=== PATIENT | female | born 1935 | race Caucasian/White ===

== ENCOUNTER → 2016-04-15 | Outpatient (CLI) | payer BC ==
[~2016-04-15] MED LIST: ASCO10003 PO; ASPI81TA28 PO; B-CO1CAP5 PO; CALC600T57 PO; CHOL1TAB46 PO; ELQ25 PO; GLC/500 PO; LUTE20CA PO; LYSI100010 PO; MAGN400T6 PO; METH1CAP PO; MULT-884 PO; NAPR1TAB9 PO; PHYT100T PO; VITA1TAB4 PO
--- NOTE | 2016-04-15 16:25 | MAMMOGRAPHY REPORT ---
BILATERAL DIGITAL SCREENING MAMMOGRAM WITH CAD: 04/15/2016 CLINICAL HISTORY: Routine screening. Patient has no complaints. TECHNIQUE: Current study was also evaluated with a Computer Aided Detection (CAD) system. Bilatera l CC and MLO views were obtained. COMPARISON: Comparison is made to exams dated: 04/13/2015 mammogram, 03/10/2013 mammogram, 03/11/2014 ma mmogram, 03/09/2012 mammogram, 03/07/2011 mammogram, and 02/07/2010 mammogram - [facility]. BREAST COMPOSITION: The tissue of both breasts is heterogeneously dense, which may obscure small ma sses. FINDINGS: No suspicious masses, calcifications, or areas of architectural distortion are noted in e ither breast. There has been no significant interval change compared to prior exams. Scattered bilat eral benign-appearing calcifications are not significantly changed. IMPRESSION: ACR BI-RADS CATEGORY 2: BENIGN There is no mammographic evidence of malignancy. A 1 year screening mammogram is recommended. The p atient will receive written notification of the results. Approximately 10% of breast cancers are not detected with mammography. A negative mammographic repor t should not delay biopsy if a clinically suggestive mass is present. Natalya Cook M.D. /:04/15/2016 15:17:41 Grant Specialist: Marlys Phelps, [facility] letter sent: Normal 1/2 BI-RADS Code: ACR BI-RADS Category 2: Benign
== END | disposition home or self-care (01) ==
LOC: C.MAMM 14:44
PROVIDERS: ATTEND Obstetrics & Gynecology
DX: Z12.31 Encounter for screening mammogram for malignant neoplasm of breast (principal)

== ENCOUNTER → 2016-04-24 | Outpatient (CLI) | payer BC ==
[2016-04-24 11:01] LABS: ALT/SGPT 15 U/L (12-78); BLOOD UREA NITROGEN 21 mg/dl (7-18); BUN/CREATININE RATIO 19.1 (10-20); CARBON DIOXIDE 26 mmol/L (21-32); CHLORIDE 106 mmol/L (98-107); CHOLESTEROL 217 mg/dl (0-200); GLUCOSE 114 mg/dl (70-99); POTASSIUM 4.1 mmol/L (3.5-5.1); SODIUM 142 mmol/L (136-145)
[2016-04-24 11:11] LABS: ALB/GLOB RATIO 1.1 (0.9-2); ALKALINE PHOSPHATASE 62 U/L (45-117); AST/SGOT 15 U/L (15-37); CHOLESTEROL/HDL RATIO 3.3; HDL CHOLESTEROL 66 mg/dl; LDL CHOLESTEROL CALCULATED 130 mg/dl; TRIGLYCERIDES 104 mg/dl (0-150); VERY LOW DENSITY LIPOPROT CALC 21 mg/dl
[2016-04-24 11:31] LABS: ESTIMATED AVERAGE GLUCOSE 134 mg/dl; HA1C FLAG Normal (Normal)
[2016-04-24 11:31] LABS: RATIO 18.3 mcg/mg (0-30.0)
== END | disposition home or self-care (01) ==
LOC: C.LABBC 07:52
PROVIDERS: ATTEND Family Medicine
DX: E11.9 Type 2 diabetes mellitus without complications (principal)

== ENCOUNTER → 2016-09-24 | Outpatient (CLI) | payer BC ==
[2016-10-02 16:51] LABS: CRYPTOSPORIDIUM AG TC 37213 NOT DETECTED (NOT DETECTED); ISOSPORA+CYCLOSPORA NOT DETECTED (NOT DETECTED); O&P GIARDIA AG NOT DETECTED (NOT DETECTED); O&P SOURCE OTHER-STOOL
== END | disposition home or self-care (01) ==
LOC: C.LABSPEC 08:24
PROVIDERS: ATTEND Physician Assistant
DX: R19.7 Diarrhea, unspecified (principal)

== ENCOUNTER → 2017-04-16 | Outpatient (CLI) | payer BC ==
--- NOTE | 2017-04-17 15:08 | MAMMOGRAPHY REPORT ---
BILATERAL DIGITAL SCREENING MAMMOGRAM TOMOSYNTHESIS WITH CAD: 04/16/2017 CLINICAL HISTORY: Routine screening. Patient has no complaints. TECHNIQUE: Breast tomosynthesis in addition to standard 2D mammography was performed. Current study was also evaluated with a Computer Aided Detection (CAD) system. COMPARISON: Comparison is made to exams dated: 04/15/2016 mammogram, 04/13/2015 mammogram, 03/11/2014 ma mmogram, 03/10/2013 mammogram, 03/09/2012 mammogram, and 03/07/2011 mammogram - [facility] BREAST COMPOSITION: The tissue of both breasts is heterogeneously dense, which may obscure small mas ses. FINDINGS: No suspicious masses, calcifications, or areas of architectural distortion are noted in ei ther breast. There has been no significant interval change compared to prior exams. Scattered bilater al benign-appearing calcifications are not significantly changed. IMPRESSION: ACR BI-RADS CATEGORY 2: BENIGN There is no mammographic evidence of malignancy. A 1 year screening mammogram is recommended. The pa tient will receive written notification of the results. Approximately 10% of breast cancers are not detected with mammography. A negative mammographic report should not delay biopsy if a clinically suggestive mass is present. Natalya Cook M.D. /:04/16/2017 15:28:41 Laboratory Asst: Guillermina HALL)(M), [facility] letter sent: Normal 1/2 BI-RADS Code: ACR BI-RADS Category 2: Benign
== END | disposition home or self-care (01) ==
LOC: C.MAMM 14:53
PROVIDERS: ATTEND Obstetrics & Gynecology
DX: Z12.31 Encounter for screening mammogram for malignant neoplasm of breast (principal)

== ENCOUNTER → 2017-07-24 | Outpatient (CLI) | payer BC ==
--- NOTE | 2017-07-24 10:17 | DIAGNOSTIC IMAGING REPORT ---
CERVICAL SPINE 2 OR 3 VIEWS CLINICAL HISTORY: 81 years-old Female presenting with M53.82 Musculoskeletal disorder involving upper trapezius muscle. TECHNIQUE: Lateral, frontal, open-mouth odontoid, and submental views of the cervical spine were obtained. COMPARISON: None. FINDINGS: Normal cervical lordosis. Vertebral bodies maintain normal height and alignment. The C7 vertebral body is fully visualized. Intervertebral disc heights preserved. Minimal disc osteophyte complexes suggested. Trace posterior bony spurring may be present at C5-6 and C6-7. No radiographic evidence of fracture or subluxation. Lateral masses of C1 articulate normally with C2. The posterior arch of C1 is intact. Normal predental interval. No prevertebral soft tissue swelling. Atherosclerosis of the bilateral carotid bulbs evident. Lung apices clear. Atherosclerosis of the aortic arch. IMPRESSION: 1. No radiographic evidence of acute osseous injury of the cervical spine. 2. Mild multilevel degenerative changes. Electronically signed by: Eamon Curry M.D. 07/24/2017 10:16 AM Dictated Date/Time: 07/24/2017 10:14 AM
== END | disposition home or self-care (01) ==
LOC: C.RADBC 09:56
PROVIDERS: ATTEND Family Medicine
DX: M53.82 Other specified dorsopathies, cervical region (principal)

== ENCOUNTER → 2017-10-13 | Outpatient (CLI) | payer BC ==
--- NOTE | 2017-10-13 17:40 | DIAGNOSTIC IMAGING REPORT ---
THORACIC SPINE 3 VIEWS ROUTINE CLINICAL HISTORY: Mid back pain. No recent trauma. COMPARISON STUDY: No previous studies for comparison. FINDINGS: No thoracic spine fracture is identified. Mild multilevel disc space narrowing and osteophytosis of the thoracic spine. No osseous lesion is identified by radiography. IMPRESSION: 1. No thoracic spine fracture. 2. Mild multilevel disc space narrowing and osteophytosis of the thoracic spine. Electronically signed by: Rosas Gilmore M.D. 10/13/2017 5:39 PM Dictated Date/Time: 10/13/2017 5:38 PM
--- NOTE | 2017-10-13 18:00 | DIAGNOSTIC IMAGING REPORT ---
L-SPINE MIN 4 VIEWS ROUTINE CLINICAL HISTORY: Mid back pain. COMPARISON: None FINDINGS: There is mild levoscoliosis of the lumbar spine. No fracture or suspicious lesion is present. There is marked multilevel disc space narrowing with osteophytosis. There is moderate multilevel facet arthrosis. IMPRESSION: 1. No lumbar spine fracture. 2. Severe multilevel disc space narrowing with osteophytosis and moderate multilevel facet arthrosis of the lumbar spine. Electronically signed by: Rosas Gilmore M.D. 10/13/2017 5:58 PM Dictated Date/Time: 10/13/2017 5:55 PM
== END | disposition home or self-care (01) ==
LOC: C.RADBC 16:14
PROVIDERS: ATTEND Family Medicine
DX: M48.061 Spinal stenosis, lumbar region without neurogenic claudication (principal); M48.04 Spinal stenosis, thoracic region; M47.816 Spondylosis without myelopathy or radiculopathy, lumbar region

== ENCOUNTER 2018-07-13 07:45 | Inpatient (IN) ==
[2018-07-13] MEDS ORDERED: SODIUM CHLORIDE 0.9% 1000ML 1,000 ML IV SCH (08:15)
[2018-07-13] MEDS ORDERED: cefTRIAXone SODIUM 1,000 MG/50 ML BAG IV STA (08:16)
--- NOTE | 2018-07-13 08:27 | XRay Report ---
XR chest 1V portable CLINICAL HISTORY: Confusion. Weakness. COMPARISON STUDY: Chest radiograph December 09, 2015. FINDINGS: Lung volumes are normal. There is no consolidation. There is no evidence for pulmonary warren a. Cardiomediastinal silhouette is stable. IMPRESSION: No acute cardiopulmonary findings. Electronically signed by: Rosas Gilmore M.D. 07/13/2018 8:25 AM
--- NOTE | 2018-07-13 08:47 | CT Scan Report ---
CT head/brain wo con CT DOSE: 614.27 mGy.cm HISTORY: expressive aphasia + fever TECHNIQUE: Multiaxial CT images of the head were performed without the use of intravenous contrast. A dose lowering technique was utilized adhering to the principles of ALARA. Comparison: None. Findings: The paranasal sinuses and mastoid air cells are clear. The calvarium and skull base are int act. The ventricles and sulci are within normal limits. There is no mass, hematoma, midline shift, or acute infarct. Age-related chronic small vessel change. Impression: No acute intracranial abnormality. Age-related chronic small vessel change The above report was generated using voice recognition software. It may contain grammatical, syntax or spelling errors. Electronically signed by: Basilio Alejo M.D. 07/13/2018 8:45 AM
[2018-07-13 09:36] LABS: INR 1.3 (0.9-1.1); Prothrombin Time 12.8 Seconds (9.0-12.0)
[2018-07-13 09:43] LABS: Albumin Level 3.3 gm/dl (3.4-5.0); BUN Creatinine Ratio 17.1 (10-20); Calcium 8.5 mg/dl (8.5-10.1); Creatinine Clr Calc Pharmacy 32.8 ml/min; Est GFR (African American) 46.3; Est GFR (Non-African American) 39.9; Magnesium 1.8 mg/dl (1.8-2.4)
[2018-07-13 09:46] LABS: Appearance Urine Clear (Clear); Bacteria Urine Automated Negative (Negative); Bilirubin Urine Negative (Negative); Color Urine Yellow; Glucose Urine UA Trace (Negative); Ketones Urine 2+ (Negative); Leukocyte Esterase Urine Negative (Negative); Nitrite Urine Negative (Negative); Protein Urine 2+ (Negative); Specific Gravity Urine 1.021 (1.000-1.030); Urobilinogen Urine Negative (Negative); WBC Urine Automated 0 /hpf (0-5); pH Urine 5.5 (4.5-7.5)
[2018-07-13 09:53] LABS: Albumin Globulin Ratio 0.9 (0.9-2); Bilirubin,Total 0.9 mg/dl (0.2-1); Globulin 3.7 gm/dl (2.5-4.0); Troponin I 0.042 ng/ml (0-0.045)
[2018-07-13 09:59] LABS: Basophils # (auto) 0.01 K/uL (0-0.2); Basophils % (auto) 0.2 %; Hematocrit (blood only) 41.4 % (37-47); Immature Granulocytes # (auto) 0.01 K/uL (0.00-0.02); Immature Granulocytes % (auto) 0.2 %; Lymphocytes # (auto) 0.61 K/uL (1.2-3.4); Lymphocytes % (auto) 12.7 %; Mean Corpuscular Hgb Conc 33.8 g/dL (32-36); Mean Corpuscular Volume 86.3 fL (80-100); Mean Platelet Volume 10.4 fL (7.4-10.4); Monocytes # (auto) 0.28 K/uL (0.11-0.59); Monocytes % (auto) 5.8 %; Neutrophils % (auto) 81.1 %; Platelet Count 100 K/uL (130-400); White Blood Count 4.81 K/uL (4.8-10.8)
[2018-07-13 10:02] LABS: Potassium 3.9 mmol/L (3.5-5.1)
[2018-07-13 10:09] LABS: T4 Free Thyroxine 1.38 ng/dl (0.8-1.6)
--- NOTE | 2018-07-13 10:18 | Emergency Department Note ---
Entered by Elmira Villafana acting as a scribe for Carlos Osullivan DO History of Present Illness General Chief complaint: Altered Mental Status Stated complaint: confused/stroke symptoms Time Seen by Provider: 07/13/18 07:51 Source: patient and friends Mode of arrival: EMS Limitations: no limitations History of Present Illness Provider complaint: stroke-like symptoms Onset (ago): hour(s) (this morning) Location: head Pain Consistency: + other (episde) Quality: + other (stroke-like) Associated symptoms: + denies other symptoms (pain), + confusion and + other (trouble speaking, muscle aches, tired) Treatments prior to arrival: other (Eliquis) The patient is an 82 year old female who presents to the ER with complaints of an episode of stroke-like symptoms that began this morning. The patients friend at bedside reports that last night the patient was baseline, but woke up this morning confused and difficulty speaking. The patient states that she is on Eliquis for her history of a-fib. She denies hurting anywhere or nausea. Per friend, the patient has had flu-like symptoms for about 3 days and explains she has been tired and experiencing muscles aches. Home Medications Home Medications Medication Instructions Recorded Confirmed Type acetaminophen ER 650 mg 650 mg PO BID PRN tab 12/16/17 07/13/18 History tablet,extended release apixaban 5 mg tablet 5 mg PO BID 12/16/17 07/13/18 History cholecalciferol (vitamin D3) 5,000 5,000 units PO DAILY 12/16/17 07/13/18 History unit capsule lutein 20 mg tablet 20 mg PO Q2D 12/16/17 07/13/18 History lysine 1,000 mg tablet 1,000 mg PO DAILY 12/16/17 07/13/18 History metoprolol succinate ER 25 mg 25 mg PO DAILY 12/16/17 07/13/18 History tablet,extended release 24 hr vitamin B complex capsule 1 cap PO DAILY 12/16/17 07/13/18 History vitamin E (dl, acetate) 400 unit 400 units PO DAILY 12/16/17 07/13/18 History capsule calcium 600 mg-D3 800 unit-mag11 1 tab PO DAILY 03/30/18 07/13/18 History 50 mo-atia-maeoyc-rashaun-s.borat tablet Allergies Allergy/AdvReac Type Severity Reaction Status Date / Time No Known Allergies Allergy Verified 07/13/18 09:22 Past Med/Surg History Medical History Type 2 diabetes mellitus (Chronic) Atrial fibrillation (Chronic) Osteoarthritis (Chronic) Shingles (Acute) Surgical History History of knee surgery (Resolved) History of tonsillectomy (Resolved) Social History Preferred Language: Bulgarian Communication Ability: Effective Visual Impairment: No Limitations Hearing Ability: Normal Beliefs That Will Affect Care: None marital status: Single Current Living Situation: Significant Other current occupational status: retired 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 Feels Safe at Home: Yes Smoking Status: Never smoker Hx Alcohol Use: Yes Hx Substance Use: No Review of Systems See HPI for pertinent positives & negatives. and A total of 10 systems reviewed and were otherwise negative Physical Exam Vital Signs Vital Signs - 24 hr 07/13/18 07:55 07/13/18 07:59 07/13/18 08:04 Temperature 38 C H Temperature Source Oral Sepsis Recent Fever Within 48 Hours No Sepsis New/Unexplained Change in Mental Status Yes Sepsis Action Taken by Nursing No Action Required Pulse Rate 110 H 123 H Pulse Rate [Apical] Pulse Rhythm Irregular Respiratory Rate 16 Blood Pressure 179/92 H Blood Pressure [Right Arm] Blood Pressure Mean 121 Blood Pressure Mean [Right Arm] Pulse Oximetry 93 93 94 Oxygen Delivery Method Room Air Room Air Nasal Cannula Oxygen Flow Rate 2 07/13/18 08:08 07/13/18 09:58 Temperature Temperature Source Sepsis Recent Fever Within 48 Hours Sepsis New/Unexplained Change in Mental Status Sepsis Action Taken by Nursing Pulse Rate Pulse Rate [Apical] 106 H Pulse Rhythm Respiratory Rate 16 Blood Pressure Blood Pressure [Right Arm] 177/110 H Blood Pressure Mean Blood Pressure Mean [Right Arm] 132 Pulse Oximetry 92 96 Oxygen Delivery Method Room Air Nasal Cannula Nasal Cannula Oxygen Flow Rate 0 2 VITAL SIGNS: were reviewed as above. GENERAL:Non-toxic in appearance. SKIN: Warm dry and pink. HEAD: Normocephalic and atraumatic. OROPHARYNX: Is clear and moist NECK: Supple without lymphadenopathy or meningismus. LUNGS: clear. HEART: Regular rate and rhythm. ABDOMEN: Soft and nontender. EXTREMITIES: Warm and well perfused. NEUROLOGICALLY: Expressive aphasia at times. Otherwise, no focal or neurologic deficits. MUSCULOSKELETAL: Good muscle tone. No evidence of trauma. Course 0753: Past medical records reviewed. The patient was evaluated in room B4B. A complete history and physical examination was performed. 1005: I discussed the patient's case with Dr. Valdez - [facility] Hospitalist. He will evaluate the patient for further management. Administered Medications Discontinued Medications Sodium Chloride (Nss 1000ml) 1,000 mls @ 999 mls/hr IV .[id number] DENZEL Stop: 07/13/18 09:15 Last Infusion: 07/13/18 09:35 Dose: 0 mls/hr Documented by: [id number] Admin: 07/13/18 08:27 Dose: 999 mls/hr Documented by: [id number] Ceftriaxone Sodium (Rocephin) 1,000 mg in 50 mls @ 100 mls/hr IV NOW STA Stop: 07/13/18 08:45 Last Infusion: 07/13/18 10:10 Dose: 0 mls/hr Documented by: [id number] Admin: 07/13/18 09:35 Dose: 100 mls/hr Documented by: [id number] Medical Decision Making Differential Diagnosis Differential Diagnosis includes but is not limited to dehydration, stroke, anemia, hypoglycemia, hyponatremia, hypernatremia, urinary tract infection, pneumonia, bronchitis, sepsis, gastroenteritis, additional abdominal pathology, metabolic abnormalities and infections. Medical Records Attestation: I reviewed the patient's medical records. Home Medications Current Medication List: was personally reviewed by me Laboratory Data Attestation: I reviewed the patient's lab results. Result diagrams: 07/13/18 09:06 07/13/18 09:06 Lab Results 07/13/18 07/13/18 07/13/18 Range/Units 08:24 09:06 09:06 WBC 4.81 (4.8-10.8) K/uL RBC 4.80 (4.2-5.4) M/uL Hgb 14.0 (12.0-16.0) g/dL Hct 41.4 (37-47) % MCV 86.3 (80-100) fL MCH 29.2 (25-34) pg MCHC 33.8 (32-36) g/dL RDW Std Deviation 44.0 (36.4-46.3) fL RDW Coeff of Kobe 14.0 (11.5-14.5) % Plt Count 100 L (130-400) K/uL MPV 10.4 (7.4-10.4) fL Immature Gran % (Auto) 0.2 % Neut % (Auto) 81.1 % Lymph % (Auto) 12.7 % [place] % (Auto) 5.8 % Eos % (Auto) 0.0 % Baso % (Auto) 0.2 % Immature Gran # (Auto) 0.01 (0.00-0.02) K/uL Neut # (Auto) 3.90 (1.4-6.5) K/uL Lymph # (Auto) 0.61 L (1.2-3.4) K/uL [place] # (Auto) 0.28 (0.11-0.59) K/uL Eos # (Auto) 0.00 (0-0.5) K/uL Baso # (Auto) 0.01 (0-0.2) K/uL PT 12.8 H (9.0-12.0) Seconds INR 1.3 H (0.9-1.1) Sodium (136-145) mmol/L Potassium (3.5-5.1) mmol/L Chloride (98-107) mmol/L Carbon Dioxide (21-32) mmol/L Anion Gap (3-11) BUN (7-18) mg/dl Creatinine (0.6-1.2) mg/dl Est Cr Clr Drug Dosing ml/min Est GFR ( Amer) Est GFR (Non-Af Amer) BUN/Creatinine Ratio (10-20) Glucose (70-99) mg/dl POC Lactic Acid Corbin 1.28 (0.90-1.70) mmol/L Calcium (8.5-10.1) mg/dl Magnesium (1.8-2.4) mg/dl Total Bilirubin (0.2-1) mg/dl AST (15-37) U/L ALT (12-78) U/L Alkaline Phosphatase (45-117) U/L Total Creatine Kinase (26-192) U/L Troponin I (0-0.045) ng/ml Total Protein (6.4-8.2) gm/dl Albumin (3.4-5.0) gm/dl Globulin (2.5-4.0) gm/dl Albumin/Globulin Ratio (0.9-2) TSH (0.300-4.500) uIu/ml Free T4 (0.8-1.6) ng/dl Urine Color Urine Appearance (Clear) Urine pH (4.5-7.5) Ur Specific [place] (1.000-1.030) Urine Protein (Negative) Urine Glucose (UA) (Negative) Urine Ketones (Negative) Urine Blood (Negative) Urine Nitrite (Negative) Urine Bilirubin (Negative) Urine Urobilinogen (Negative) Ur Leukocyte Esterase (Negative) Urine WBC (Auto) (0-5) /hpf Urine RBC (Auto) (0-4) /hpf U Hyaline Cast (Auto) (0-5) /lpf U Epithel Cells (Auto) (0-5) /lpf Urine Bacteria (Auto) (Negative) 07/13/18 07/13/18 Range/Units 09:06 09:35 WBC (4.8-10.8) K/uL RBC (4.2-5.4) M/uL Hgb (12.0-16.0) g/dL Hct (37-47) % MCV (80-100) fL MCH (25-34) pg MCHC (32-36) g/dL RDW Std Deviation (36.4-46.3) fL RDW Coeff of Kobe (11.5-14.5) % Plt Count (130-400) K/uL MPV (7.4-10.4) fL Immature Gran % (Auto) % Neut % (Auto) % Lymph % (Auto) % [place] % (Auto) % Eos % (Auto) % Baso % (Auto) % Immature Gran # (Auto) (0.00-0.02) K/uL Neut # (Auto) (1.4-6.5) K/uL Lymph # (Auto) (1.2-3.4) K/uL [place] # (Auto) (0.11-0.59) K/uL Eos # (Auto) (0-0.5) K/uL Baso # (Auto) (0-0.2) K/uL PT (9.0-12.0) Seconds INR (0.9-1.1) Sodium 138 (136-145) mmol/L Potassium 3.9 (3.5-5.1) mmol/L Chloride 105 (98-107) mmol/L Carbon Dioxide 20 L (21-32) mmol/L Anion Gap 13.0 H (3-11) BUN 22 H (7-18) mg/dl Creatinine 1.26 H (0.6-1.2) mg/dl Est Cr Clr Drug Dosing 32.8 ml/min Est GFR ( Amer) 46.3 Est GFR (Non-Af Amer) 39.9 BUN/Creatinine Ratio 17.1 (10-20) Glucose 150 H (70-99) mg/dl POC Lactic Acid Corbin (0.90-1.70) mmol/L Calcium 8.5 (8.5-10.1) mg/dl Magnesium 1.8 (1.8-2.4) mg/dl Total Bilirubin 0.9 (0.2-1) mg/dl AST 46 H (15-37) U/L ALT 29 (12-78) U/L Alkaline Phosphatase 59 (45-117) U/L Total Creatine Kinase 104 (26-192) U/L Troponin I 0.042 (0-0.045) ng/ml Total Protein 7.0 (6.4-8.2) gm/dl Albumin 3.3 L (3.4-5.0) gm/dl Globulin 3.7 (2.5-4.0) gm/dl Albumin/Globulin Ratio 0.9 (0.9-2) TSH 0.203 L (0.300-4.500) uIu/ml Free T4 1.38 (0.8-1.6) ng/dl Urine Color Yellow Urine Appearance Clear (Clear) Urine pH 5.5 (4.5-7.5) Ur Specific [place] 1.021 (1.000-1.030) Urine Protein 2+ H (Negative) Urine Glucose (UA) Trace H (Negative) Urine Ketones 2+ H (Negative) Urine Blood Trace H (Negative) Urine Nitrite Negative (Negative) Urine Bilirubin Negative (Negative) Urine Urobilinogen Negative (Negative) Ur Leukocyte Esterase Negative (Negative) Urine WBC (Auto) 0 (0-5) /hpf Urine RBC (Auto) 0-4 (0-4) /hpf U Hyaline Cast (Auto) 1-5 (0-5) /lpf U Epithel Cells (Auto) 5-10 H (0-5) /lpf Urine Bacteria (Auto) Negative (Negative) Imaging Data Radiologist's Impression: Radiology results as stated below per my review and the radiologist's interpretation: XR chest 1V portable CLINICAL HISTORY: Confusion. Weakness. COMPARISON STUDY: Chest radiograph December 09, 2015. FINDINGS: Lung volumes are normal. There is no consolidation. There is no evidence for pulmonary edema. Cardiomediastinal silhouette is stable. IMPRESSION: No acute cardiopulmonary findings. Electronically signed by: Rosas Gilmore M.D. 07/13/2018 8:[address] head/brain wo con CT DOSE: 614.27 mGy.cm HISTORY: expressive aphasia + fever TECHNIQUE: Multiaxial CT images of the head were performed without the use of intravenous contrast. A dose lowering technique was utilized adhering to the principles of ALARA. Comparison: None. Findings: The paranasal sinuses and mastoid air cells are clear. The calvarium and skull base are intact. The ventricles and sulci are within normal limits. There is no mass, hematoma, midline shift, or acute infarct. Age-related chronic small vessel change. Impression: No acute intracranial abnormality. Age-related chronic small vessel change The above report was generated using voice recognition software. It may contain grammatical, syntax or spelling errors. Electronically signed by: Basilio Alejo M.D. 07/13/2018 8:45 AM ECG Data Attestation: I personally reviewed and interpreted this ECG as follows: Indication: altered mental status Rate (beats per minute): 111 Rhythm: atrial fibrillation Findings: + RBBB and + ST depression (Lateral and inferior) Comparison ECG Date: from (09-DEC-2015) Change: no significant change Blood Pressure Blood Pressure Findings: Elevated blood pressure Blood Pressure Disposition: further management by hospitalist MDM Narrative This is an 82-year-old female who presents to the ED with a chief complaint of expressive a fascia. Patient was last known well last night around 9 or 10 PM. She went to bed around that time. The patient has difficulty with expressing herself that started this morning when she awoke around 7 AM. The friend, who lives with the patient, recognized the symptoms this morning. She was brought in for evaluation. The friend states that she is felt a little achy and tired for the past few days but otherwise has had no other concerning or significant symptoms. The patient is unable to provide any additional information. She does answer some questions normally yes and no. She has difficulty with for mulating a sentence and seems to be somewhat agitated that she cannot find the right words or express them. She has a mild left-sided facial droop on exam otherwise she has no focal deficits. A CT scan of the brain did not show acute process. A chest x-ray was negative for acute disease. Urine did not show obvious cause for fever. She did have a temperature of 38 today. She was tachycardic with a heart rate of 123 when she came in and was hypertensive. Her EKG shows A. fib at a rate of 111 with a right bundle branch block. No sniffing change from her previous. She is on Eliquis chronically for A. fib. Smhml-ik-vosm lactic acid was normal. Chemistry panel was unremarkable. BUN is 22 and creatinine is 1.26. The patient was empirically treated with IV fluids and IV Rocephin. I spoke with the hospitalist, who will see the patient for further inpatient evaluation and care. The patient does not meet criteria for stroke alert or thrombolytics as her last known well was greater than 12 hours ago and she is also on Eliquis. Impression & Plan Expressive aphasia, Fever Discharge Plan Visit Data Chief Complaint: Altered Mental Status Stated Complaint: confused/stroke symptoms ED Provider: Carlos Osullivan Discharge Problem: Expressive aphasia, Fever Patient Disposition: Being Evaluated by Hospitalist Forms Stand Alone Forms: My [facility] Prescriptions Prescriptions: No Action metoprolol succinate 25 mg tablet extended release 24 hr 25 mg PO DAILY RF: 0 apixaban [Eliquis] 5 mg tablet 5 mg PO BID RF: 0 lutein 20 mg tablet 20 mg PO Q2D RF: 0 acetaminophen [Tylenol Arthritis Pain] 650 mg tablet extended release 650 mg PO BID PRN (Reason: Pain) RF: 0 vitamin E (dl, acetate) 400 unit capsule 400 units PO DAILY RF: 0 lysine 1,000 mg tablet 1,000 mg PO DAILY RF: 0 vitamin B complex [Super B-50 Complex] capsule 1 cap PO DAILY RF: 0 cholecalciferol (vitamin D3) 5,000 unit capsule 5,000 units PO DAILY RF: 0 [id number] [Caltrate 600-D Plus Minerals] 600 mg calcium- 800 unit-50 mg tablet 1 tab PO DAILY RF: 0 Referrals Referrals: Carolina Sotelo CRNP [Primary Care Provider] - Discharge Problem: Fever Qualifiers: Fever type: unspecified Qualified Code(s): R50.9 - Fever, unspecified The scribe's documentation has been prepared under my direction and personally reviewed by me in its entirety. I confirm that the note above accurately reflects all work, treatment, procedures, and medical decision making performed by me.
--- NOTE | 2018-07-13 10:50 | History & Physical Report ---
Date of Service July 13, 2018 Assessment & Plan (1) Acute CVA (cerebrovascular accident): Expressive aphasia is the only neurological finding. She has no lateralizing weakness or facial droop at this time. Stroke work-up has been ordered including cardiac echo, brain MRI and MRA. OT, PT, speech therapy assessments requested. Keep n.p.o. for now. She has been on Eliquis up to this point and no further anticoagulation will be ordered at this time. Neurological consultation has been requested. Present on Admission?: Yes (2) Type 2 diabetes mellitus: Diet controlled. Currently n.p.o. Sliding scale insulin requested Present on Admission?: Yes (3) Atrial fibrillation with RVR: She has chronic atrial fibrillation and takes Eliquis. Telemetry. IV metoprolol every 4 hours until she is cleared to take oral metoprolol succinate. Cardiac echo pending Present on Admission?: Yes (4) Do not resuscitate status: History of Present Illness Chief Complaint: Awoke this morning with difficulty with speech Primary Care Provider: VERÓNICA Mortensen 82-year-old female with a history of chronic atrial fibrillation and type 2 diabetes which is diet controlled. She takes Eliquis on a regular basis along with metoprolol succinate. She was fine last evening when she went to bed but when she awoke this morning she noticed difficulty finding the correct words. She was brought to the ED for evaluation. She has a low-grade fever but no sign of infection on chest x-ray. Urine however has not been checked yet. She did receive intravenous Rocephin. Head CT scan is unremarkable. 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 Stroke work-up will be ordered along with brain MRI and MRA. Cardiac echo has been ordered. Urine analysis and urine culture will be ordered. She has requested a DNR status. She will be placed on IV metoprolol until she is cleared to take oral medication. OT, PT, speech therapy has also been ordered. Allergies Allergy/AdvReac Type Severity Reaction Status Date / Time No Known Allergies Allergy Verified 07/13/18 09:22 Home Medications Home Medications Medication Instructions Recorded Confirmed Type acetaminophen ER 650 mg 650 mg PO BID PRN tab 12/16/17 07/13/18 History tablet,extended release apixaban 5 mg tablet 5 mg PO BID 12/16/17 07/13/18 History cholecalciferol (vitamin D3) 5,000 5,000 units PO DAILY 12/16/17 07/13/18 Histo ry unit capsule lutein 20 mg tablet 20 mg PO Q2D 12/16/17 07/13/18 History lysine 1,000 mg tablet 1,000 mg PO DAILY 12/16/17 07/13/18 History metoprolol succinate ER 25 mg 25 mg PO DAILY 12/16/17 07/13/18 History tablet,extended release 24 hr vitamin B complex capsule 1 cap PO DAILY 12/16/17 07/13/18 History vitamin E (dl, acetate) 400 unit 400 units PO DAILY 12/16/17 07/13/18 History capsule calcium 600 mg-D3 800 unit-mag11 1 tab PO DAILY 03/30/18 07/13/18 History 50 dk-rimg-opmjtz-rashaun-s.borat tablet Past Med/Surg History Medical History Type 2 diabetes mellitus (Chronic) Atrial fibrillation (Chronic) Osteoarthritis (Chronic) Shingles (Acute) Surgical History History of knee surgery (Resolved) History of tonsillectomy (Resolved) Social History Preferred Language: Georgian Communication Ability: Effective Visual Impairment: No Limitations Hearing Ability: Normal Beliefs That Will Affect Care: None marital status: Single Current Living Situation: Significant Other current occupational status: retired 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 Feels Safe at Home: Yes Smoking Status: Never smoker Hx Alcohol Use: Yes Hx Substance Use: No Review of Systems Review of Systems: All systems reviewed & are unremarkable except as noted in HPI & below Physical Exam Constitutional: WD/WN, vitals as above Eyes: PERRL, conjunctivae normal, anicteric sclerae ENMT: external ear and nose normal, oropharynx normal Neck: trachea midline, no thyromegaly Respiratory: normal respiratory effort, lungs clear to auscultation Cardiovascular: Mildly tachycardic irregular rhythm. Normal S1 and S2 Gastrointestinal (Abdomen): normal bowel sounds, soft, nontender, no hepatosplenomegaly Musculoskeletal: no cyanosis or clubbing, extremities motor strength 5/5 Skin: no rashes, warm and dry Neurologic: deep tendon reflexes 2+ bilaterally and moves all extremities; no focal motor deficits Speech / Cognition: + abnormal speech Expressive a aphasia Results & Data Vital Signs (Past 12 Hours) Vital Signs Temp Pulse Pulse Resp BP BP Pulse Ox 07/13/18 09:58 106 H 16 177/110 H 96 07/13/18 08:08 92 07/13/18 08:04 94 07/13/18 07:59 38 C H 123 H 16 179/92 H 93 07/13/18 07:55 110 H 93 Laboratory Results 07/13/18 09:06 07/13/18 09:06
[2018-07-13] MEDS ORDERED: PHARMACIST DISCHARGE MED REC CONSULT PRN (11:36)
[2018-07-13] MEDS ORDERED: CARBOHYDRATES FOR HYPOGLYCEMIA PO PRN (12:00)
[2018-07-13] MEDS ORDERED: GLUCOSE 40% GEL 15 GM TUBE PO PRN (12:00)
[2018-07-13] MEDS ORDERED: GLUCOSE 10 TABS/TUBE PO PRN (12:00)
[2018-07-13] MEDS ORDERED: DEXTROSE 50% 50 ML SYRINGE IV PRN (12:00)
[2018-07-13] MEDS ORDERED: GLUCAGON FOR INJ 1 MG VIAL IM PRN (12:00)
[2018-07-13] MEDS: INSULIN ASPART 100 UNITS/ML 3 ML PEN SC SCH ×3 (12:02→21:14)
[2018-07-13] MEDS: SODIUM CHLORIDE 0.9% 1000ML 1,000 ML IV SCH (12:02)
[2018-07-13] MEDS: METOPROLOL TARTRATE 1 MG/ML VIAL IV SCH ×3 (12:11→21:13)
[2018-07-13 12:47] LABS: Estimated Average Glucose 137 mg/dl
--- NOTE | 2018-07-13 13:53 | Magnetic Resonance Report ---
Brain MRA HISTORY: Expressive aphasia TECHNIQUE: 3-D [id number] MRA of the brain was performed without contrast. COMPARISON STUDY: None. FINDINGS: Visualized intracranial internal carotid arteries, distal vertebral arteries, and basilar a rtery are widely patent. There is no significant stenosis, occlusion, or aneurysm seen within the tosha ateral ACAs or MCAs. The right NUCLEAR ENGINEER is patent. Focal moderate to severe stenosis within the proximal l eft NUCLEAR ENGINEER. The distal right vertebral artery is severely hypoplastic. IMPRESSION: 1. Focal moderate to severe stenosis within the proximal left NUCLEAR ENGINEER. 2. The bilateral ACAs and MCAs are widely patent. 3. No aneurysm. Electronically signed by: Carlito Pizano M.D. 07/13/2018 1:52 PM
--- NOTE | 2018-07-13 14:08 | Magnetic Resonance Report ---
MR brain wo con HISTORY: Mental status change Expressive aphasia TECHNIQUE: Multiplanar multisequence MRI of the brain was performed without the use of contrast. COMPARISON STUDY: None. FINDINGS: There are no areas of restricted diffusion to suggest acute infarction. The midline structu res are intact. The paranasal sinuses are clear. The mastoid air cells are clear. The ventricles and sulci are within normal limits for age. There is no mass, hematoma, midline shift. The major vascular flow-voids at the skull base are well maintained. Age-related chronic small vessel changes with mult iple foci of increased signal within the periventricular deep white matter regions. IMPRESSION: 1. No evidence for an acute ischemic event. 2. Considerable chronic small vessel change of the periventricular and deep white matter regions. The above report was generated using voice recognition software. It may contain grammatical, syntax or spelling errors. Electronically signed by: Basilio Alejo M.D. 07/13/2018 2:07 PM
[2018-07-14] MEDS: METOPROLOL TARTRATE 1 MG/ML VIAL IV SCH ×3 (01:29→07:59)
[2018-07-14] MEDS: SODIUM CHLORIDE 0.9% 1000ML 1,000 ML IV SCH ×2 (01:30→14:07)
--- NOTE | 2018-07-14 04:57 | Progress Note ---
Date of Service July 14, 2018 at 4:51 Received a page from the patient's nurse about 4:30 am stating that the patient had the return of just expressive aphasia. In brief chart review, she was admitted earlier yesterday with similar symptoms. The H&P mentions that she had no other lateralizing weakness, though the bedside nurse got report that the patient had some bilateral foot weakness. CT and follow-on MRI were non-acute but she has some proximal left UMBRELLA SUPERVISOR stenosis. At present, patient is awake, has expressive aphasia, but nods her head "no" when asked if she has any current pain. Follows commands to squeeze both hands. Nursing NIHSS at present is a TWO. Plan: - Due to her history of being on apixaban (though last dose was likely over 24 hours ago), will do a repeat stat CT head to look for interval bleeding. - Discussed with Dr. Santana in real-time. Kana Montiel, PGY2 Overnight call Results & Data Vital Signs (Past 12 Hours) Vital Signs Temp Pulse Pulse Resp BP Pulse Ox 07/14/18 04:00 36.8 C 103 H 17 181/93 H 93 07/14/18 01:29 92 H 07/14/18 00:21 92 H 07/13/18 23:13 36.6 C 90 17 154/84 H 93 07/13/18 21:13 102 H 07/13/18 19:57 36.5 C 94 H 19 155/83 H 97
[2018-07-14 06:08] LABS: Hematocrit (blood only) 41.8 % (37-47); Hemoglobin 14.3 g/dL (12.0-16.0); Mean Corpuscular Hgb Conc 34.2 g/dL (32-36); Mean Corpuscular Volume 84.8 fL (80-100); RDW Coefficient of Variation 13.9 % (11.5-14.5); Red Blood Count 4.93 M/uL (4.2-5.4); White Blood Count 4.03 K/uL (4.8-10.8)
--- NOTE | 2018-07-14 06:28 | CT Scan Report ---
CT head/brain wo con CLINICAL HISTORY: A fascia. Evaluate for hemorrhage. COMPARISON STUDY: MRI dated 07/13/2018, head CT dated 07/13/2018 TECHNIQUE: Axial CT of the brain is performed from the vertex to the skull base. IV contrast was not administered for this examination. A dose lowering technique was utilized adhering to the principles of ALARA. CT DOSE: 921.40 mGy.cm FINDINGS: No intra or extra-axial mass lesions are visualized. There is no CT evidence of acute cortical infarc tion. There is no evidence of midline shift. There is no acute hemorrhage. No calvarial fractures ar e visualized. There are patchy white matter hypodensities likely on a small vessel basis. There is no evidence of pathologic ventricular dilatation. There is no evidence of acute sinusitis IMPRESSION: No acute intracranial findings Electronically signed by: Hayden Frias M.D. 07/14/2018 6:26 AM
[2018-07-14 06:44] LABS: Calcium 8.4 mg/dl (8.5-10.1); Est GFR (Non-African American) 49.2; Potassium 3.4 mmol/L (3.5-5.1)
[2018-07-14 06:46] LABS: Basophils # (auto) 0.02 K/uL (0-0.2); Basophils % (auto) 0.5 %; Echinocytes 1+; Lymphocytes # (auto) 0.69 K/uL (1.2-3.4); Lymphocytes % (auto) 17.1 %; Mean Platelet Volume 10.7 fL (7.4-10.4); Monocytes # (auto) 0.32 K/uL (0.11-0.59); Monocytes % (auto) 7.9 %; Neutrophils % (auto) 74.5 %; Platelet Count 77 K/uL (130-400)
[2018-07-14] MEDS: INSULIN ASPART 100 UNITS/ML 3 ML PEN SC SCH ×4 (08:02→21:23)
--- NOTE | 2018-07-14 08:52 | Neurology Consultation ---
Date of Consultation July 14, 2018 Assessment & Plan (1) Expressive aphasia: The patient has acute onset language problems consistent with expressive aphasia, some confusion likely from an acute encephalopathy, and on neurologic examination some left facial droop. She has some generalized weakness and fatigue. Overall I favor acute encephalopathy and neurologic issues secondary to her rapid ventricular rate (pulse up to 190) accompanied by significant hypertension. MRI of the brain showed no acute stroke. The moderately stenotic left posterior cerebral artery should not be related to or causing any of her symptoms listed above. She has no meningeal signs or focal signs on exam except for the left facial droop. This may be old. MRI also shows mild to moderate old cerebral ischemia of a chronic nonspecific nature. (2) Atrial fibrillation with RVR: Patient has chronic atrial fibrillation with a very rapid ventricular rate, not adequately controlled currently. (3) Hypertension: Patient has significant hypertension, not adequately controlled. Recommendations: 1. Control heart rate with beta-blockers as you are doing. 2. Control blood pressure a meeting for a mean arterial pressure approximately 100 for now. 3. Continue anticoagulant for atrial fibrillation. 4. Because of the old small vessel ischemic changes and stenotic left posterior cerebral artery noted on MRA of the head, I recommend adding 81 milligram aspirin tablet daily 5. Physical, occupational, and speech therapy consult. Increase activity as able. 6. Consider carotid ultrasound and echocardiogram. Overall, I spent a total of 90 minutes with this case including review of records, review of MRI films, direct evaluation the patient at bedside, and discussion of the case with the patient at bedside, clinical staff at bedside, and Narcisa SANCHES, regarding differential diagnosis and treatment options. History of Present Illness Reason for Consultation: Patient is an 82-year-old, who was asked to see the request of Dr. Valdez, for neurologic consultation regarding acute onset speech issues and confusion, question stroke versus other Requesting Physician: Dr. Valdez Attending Physician: Godfrey Multani MD History of Present Illness Patient has a history of hypertension, type 2 diabetes, and atrial fibrillation with rapid ventricular rate. Over several days prior to admission she was ill with flu-like symptoms. She was described as normal mental status and neurologic functioning late evening of July 12. She woke up the morning of July 13 and was somewhat confused and had speech problems. Her significant other felt that there was left-sided facial droop and left-sided weakness. She arrived to the emergency room on July 13 at 0759, with a temperature 38.0, pulse 123, blood pressure 179/72, and O2 saturation 93 percent. In the ER her exam was described as expressive aphasia, with no focal neurologic deficits. CBC was unremarkable except for a low platelet count. Chem profile showed a glucose of 115 a mildly elevated BUN and creatinine but was otherwise unremarkable. TSH and T4 were normal. Urinalysis was unremarkable. Chest x-ray showed no acute findings. CT scan of the head showed no acute finding as well but there was old ischemia noted. Fasting lipid profile revealed a cholesterol of 141, triglycerides of 126, LDL of 76. In the emergency room, she was given 1 gram of IV Rocephin empirically because of her low-grade fever. MRI of the brain revealed [id number] generalized atrophy and old small vessel ischemia. There were no acute findings. MR angiography of the head showed a moderate stenosis of the left posterior cerebral artery. According to the nurse who took care of her yesterday and today she has had some fluctuating neurologic status. At times she is very lucid and conversational and other time she is hesitant with word-finding problems and some confusion. This may correlate with times of elevated blood pressure but I cannot be entirely certain of this. This morning, around 0430 she was noted to be confused with word-finding problems. Blood pressure was elevated at 166/116 and later on was 175/102. Her pulse is been rapid, as much as 190 (around 0430). She has no complaint of pain or headache. She feels tired and weak in general. She has no new vision problems or numbness in the extremities. She was incontinent of urine this morning but she does not have this at. She may be a little bit short of breath too. Allergies Allergy/AdvReac Type Severity Reaction Status Date / Time No Known Allergies Allergy Verified 07/13/18 09:22 Home Medications Home Medications Medication Instructions Recorded Confirmed Type acetaminophen ER 650 mg 650 mg PO BID PRN tab 12/16/17 07/13/18 History tablet,extended release apixaban 5 mg tablet 5 mg PO BID 12/16/17 07/13/18 History cholecalciferol (vitamin D3) 5,000 5,000 units PO DAILY 12/16/17 07/13/18 History unit capsule lutein 20 mg tablet 20 mg PO Q2D 12/16/17 07/13/18 History lysine 1,000 mg tablet 1,000 mg PO DAILY 12/16/17 07/13/18 History metoprolol succinate ER 25 mg 25 mg PO DAILY 12/16/17 07/13/18 History tablet,extended release 24 hr vitamin B complex capsule 1 cap PO DAILY 12/16/17 07/13/18 History vitamin E (dl, acetate) 400 unit 400 units PO DAILY 12/16/17 07/13/18 History capsule calcium 600 mg-D3 800 unit-mag11 1 tab PO DAILY 03/30/18 07/13/18 History 50 cx-yyvl-qxjsza-rashaun-s.borat tablet Patient History Medical History Do not resuscitate status Atrial fibrillation with RVR (Chronic) Acute CVA (cerebrovascular accident) (Acute) Type 2 diabetes mellitus (Chronic) Atrial fibrillation (Chronic) Osteoarthritis (Chronic) Shingles (Acute) Surgical History History of knee surgery (Resolved) History of tonsillectomy (Resolved) History of cataract surgery Family History Mother , Mother age 103 with dementia, hypertension, and diabetes Dementia Hypertension Diabetes Father , Father age 78 of heart issues Diabetes Coronary heart disease Social History Preferred Language: Guinean Communication Ability: Effective Visual Impairment: No Limitations Hearing Ability: Normal Manager Search Engine Required: No Beliefs That Will Affect Care: None marital status: Single Current Living Situation: Significant Other current occupational status: retired 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 Other Information That Helps Us Care for You: No Feels Safe at Home: Yes Safety Concerns: Feels Safe At This Time Smoking Status: Never smoker Do You Dip or Chew Tobacco: No Second Hand Exposure: No Tobacco Cessation Education Requested by Patient: No Hx Alcohol Use: Yes (Very occasionally) Hx Substance Use: No Review of Systems Constitutional: + fatigue and + weakness; no fever Eyes: no diplopia, no eye pain and no worsening vision Ear, Nose, Mouth, Throat: no ear pain, no tinnitus, no hearing loss and no dysphagia Respiratory: + dyspnea; no cough and no wheezing Cardiovascular: + dyspnea at rest; no chest pain and no palpitations Gastrointestinal: no abdominal pain, no nausea and no vomiting Genitourinary: + urinary incontinence; no dysuria and no urinary frequency Musculoskeletal: no back pain, no neck pain, no radicular pain, no myalgia, no muscle weakness and no muscle atrophy Integumentary: no rash and no lesions Neurologic: + generalized weakness, + abnormal speech and + confusion; no gait abnormality, no falls, no localized weakness, no tingling, no numbness, no tremor(s), no abnormal movements, no dizziness, no headache(s), no behavioral changes and no memory loss Psychiatric: no depression, no abnormal sleep pattern, no anxiety, no difficulty concentrating, no confusion and no hallucinations Endocrine: + fatigue; no flushing Hematologic / Lymphatic: no easy bleeding and no easy bruising Allergy / Immunological: no urticaria Physical Exam Physical Exam: The patient is right-handed. The patient is awake, alert, and attentive for most of the evaluation. She got sleepy towards the end of the physical examination. Speech revealed some mild dysarthria but had more prominent expressive aphasia with some word-finding difficulty. She knew what she wanted to say but could not get the words out correctly. She could name objects and colors. She had some trouble following multiple step commands but did fairly well with simple one-step commands. She knew the month and the president. She did not know the day or date, year, or her age (84). She has some hesitancy when she thinks and tries to answer follow commands. Attention and concentration are reason although. Mood and affect are normal and appropriate. General appearance and grooming are normal. Short and long-term memory are decreased The discs are sharp with positive venous pulsations bilaterally. There are no exudates, hemorrhages, or blood vessel changes seen. Pupils are 3 mm bilaterally and reactive to light. Extraocular eye muscles are intact without nystagmus. Visual acuity and visual coronel seem normal grossly to confrontation. There are no deficits to sensation in the face in all 3 distributions of the fifth cranial nerve bilaterally. Corneal reflexes are positive bilaterally. Right facial strength was normal. She had a droop that was fixed to the corner of the mouth on the left not moving was smile. Forehead moved normally bilaterally. Hearing seems intact grossly to voice and finger rub bilaterally. Palate moves well without asymmetry. There is normal sternocleidomastoid and trapezius (shoulder shrug) strength bilaterally. Tongue is midline with good strength bilaterally. Neck has a full range of motion without discomfort. There are no cervical bruits bilaterally. There are no cranial or ocular bruits. Heart is without murmur. There is a regular rhythm and rate. Cervical, thoracic, and lumbar spine are nontender to palpation. Gait was not tested but stance sitting up in bed was reasonable. With outstretched arms there is no obvious drift. There are no resting, postural, or action tremors. There is no ataxia with finger to nose testing. There is mild decrease facility in the hands. No other abnormal involuntary movements are noted. Motor strength is 5/5 diffusely in the arms bilaterally including deltoids, biceps, triceps, brachioradialis, wrist flexors and extensors, welding specialist, and intrinsic hand muscles. Motor strength is 5/5 diffusely in the legs bilaterally including hip flexors, quadriceps, hamstrings, gastrocnemius, tibialis anterior, tibialis posterior, and Peroneii muscles bilaterally. Toe extensors are normal and there is good bulk in the extensor digitorum brevis muscles bilaterally. I did not detect any motor asymmetry. The limbs have good tone without rigidity or spasticity. There is no atrophy not ed in the muscles. Muscle bulk is normal, there is no tenderness to palpation, no myotonia to percussion, and no fasciculations seen. Sensory examination is intact to touch and pin throughout all 4 limbs diffusely. Reflexes are 1/4 in the biceps, triceps, brachioradialis, quadriceps, and Achilles tendons bilaterally. Toes are downgoing with plantar stimulation bilaterally. Peripheral pulses are present and of normal quality distally in all 4 limbs. There is no peripheral edema noted in the limbs. Results & Data Vital Signs (Past 12 Hours) Vital Signs Temp Pulse Pulse Resp BP BP Pulse Ox 07/14/18 07:59 117 H 175/102 H 07/14/18 07:43 36.7 C 98 H 22 175/102 H 95 07/14/18 05:44 122 H 166/116 H 94 07/14/18 04:52 111 H 07/14/18 04:00 36.8 C 103 H 17 181/93 H 93 07/14/18 01:29 92 H 07/14/18 00:21 92 H 07/13/18 23:13 36.6 C 90 17 154/84 H 93 07/13/18 21:13 102 H Diagnostic Findings MR brain wo con HISTORY: Mental status change Expressive aphasia TECHNIQUE: Multiplanar multisequence MRI of the brain was performed without the use of contrast. COMPARISON STUDY: None. FINDINGS: There are no areas of restricted diffusion to suggest acute inf arction. The midline structures are intact. The paranasal sinuses are clear. The mastoid air cells are clear. The ventricles and sulci are within normal limits for age. There is no mass, hematoma, midline shift. The major vascular flow- voids at the skull base are well maintained. Age-related chronic small vessel changes with multiple foci of increased signal within the periventricular deep white matter regions. IMPRESSION: 1. No evidence for an acute ischemic event. 2. Considerable chronic small vessel change of the periventricular and deep white matter regions. The above report was generated using voice recognition software. It may contain grammatical, syntax or spelling errors. Electronically signed by: Basilio Alejo M.D. 07/13/2018 2:07 PM
[2018-07-14] MEDS ORDERED: ASPIRIN 81 MG ECTAB PO SCH (09:00)
[2018-07-14] MEDS ORDERED: NON-FORMULARY MEDICATION (Acetaminophen [Tylenol Arthritis Pain] 650 MG) PO PRN (09:40)
[2018-07-14] MEDS ORDERED: APIXABAN 5 MG TABLET PO SCH ×3 (09:45→21:00)
[2018-07-14] MEDS ORDERED: NON-FORMULARY MEDICATION (Lutein 20 MG) PO SCH (09:45)
[2018-07-14] MEDS ORDERED: METOPROLOL SUCC 25MG EXT REL TAB PO SCH (10:15)
--- NOTE | 2018-07-14 10:16 | Hospitalist Progress Note ---
Date of Service July 14, 2018 Assessment & Plan (1) Atrial fibrillation with RVR: Took a dose of home Eliquis - will hold for tonight as patient may need a lumbar puncture given her symptoms Doubled patient's Toprol dose this morning to 50 mg as her partner gave her 25 mg of home Toprol and then I repeated the dose due to continued elevated heart rate and blood pressures. Discussed with cardiology and will continue with metoprolol 50 mg daily. Echo with EF 60%, no WMA Continue prn metoprolol 5 mg IV Cardiology consulted (2) Metabolic encephalopathy: No stroke on MRI Patient with worsening symptoms this evening as well as low grade fever. Platelets were decreasing this morning to the 70s which may indicate viral infection. 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 Patient had recent tick bite. Lyme was negative. Will order peripheral smear to look for anaplasmosis as well as the antibody and ehrlichiosis which are reference labs. Blood cultures are pending as is a urine culture. Procalcitonin and sed rate. Patient's kidney function precludes repeat MRI with contrast. May need to perform lumbar picture given OUTER DIAMETER GRINDER TOOL picture so will hold Eliquis and ASA. Carotid doppler: Approximately 50-69% stenosis within the proximal right internal carotid artery due to the moderate calcified plaque. No significant stenosis within the left carotid arteries. Per neurology - may be secondary to hypertensive urgency and RVR. See above. Recommends ASA but will hold for possible lumbar puncture. (3) Hypertensive urgency: Systolic BPs in the 170s. Increased lopressor as above. Cardiology consult (4) Type 2 diabetes mellitus: Diet controlled. SS, bsgs ac & hs (5) DVT prophylaxis: Eliquis DNR Prolonged visit: I spent 70 minutes bedside with this patient from 0930 to 1030 and again from 1700 - 1710. Subjective Ms. Estrella's partner Natalia is bedside and is very angry concerning her partner's continued altered mental status. I did spend a significant period of time at bedside explaining the plan of care. Patient is having a headache but denies photophobia or neck stiffness or pain. She is frustrated by her confusion. Per her partner, her weakness appears improved today but she still notices a facial droop. Natalia did administer patient's home metoprolol and Eliquis this morning. I strongly dissuaded her against doing this again explaining that I am unable to do my job if I don't know what is actually happening with the patient and she vocalized her understanding. Heart rates were as high as 150s over the evening but have improved to the 90s to 1teens with 50 mg po Toprol this morning. Upon revisiting the patient in the evening, aphasia is markedly worse. She continues to have left facial droop Review of Systems Review of Systems: All systems reviewed & are unremarkable except as noted in HPI & below Physical Exam Physical Exam: General: no distress Eyes: normal inspection, PERLL Respiratory: chest non tender, clear to auscultation, normal breath sounds, no respiratory distress, no accessory muscle use Cardiac: regular rate and rhythm, no rub or gallop, no murmur, no edema, no jvd GI/: active bowel sounds, no abd pain or tenderness, soft, non distended Extremities: normal range of motion, non tender Neuro/Psych: alert and oriented x 3, anxious mood and affect, aphasic, left facial droop but other CN II - XII intact, strength equal bilaterally, no drift. Skin: normal color, dry Results & Data Vital Signs (Past 12 Hours) Vital Signs Temp Pulse Pulse Resp BP BP Pulse Ox 07/14/18 09:22 153/84 H 07/14/18 07:59 117 H 175/102 H 07/14/18 07:43 36.7 C 98 H 22 175/102 H 95 07/14/18 05:44 122 H 166/116 H 94 07/14/18 04:52 111 H 07/14/18 04:00 36.8 C 103 H 17 181/93 H 93 07/14/18 01:29 92 H 07/14/18 00:21 92 H 07/13/18 23:13 36.6 C 90 17 154/84 H 93
[2018-07-14] MEDS ORDERED: ACETAMINOPHEN 500 MG TAB PO PRN (10:19)
[2018-07-14] MEDS ORDERED: METOPROLOL TARTRATE 1 MG/ML VIAL IV PRN (10:20)
[2018-07-14] MEDS ORDERED: POTASSIUM CHLORIDE 10 MEQ TABCR PO STA (10:29)
--- NOTE | 2018-07-14 11:07 | Ultrasound Report ---
BILATERAL CAROTID DOPPLER STUDY HISTORY: aphasia COMPARISON: None. TECHNIQUE: Real-time, grayscale, and color Doppler sonography of the carotid arteries was performed. Imaging reviewed in the transverse and longitudinal planes. All measurements were calculated based on NASCET criteria. FINDINGS: Antegrade flow is seen in the bilateral vertebral arteries. The brachial pressures are hemodynamically similar. Moderate calcified plaque within the bilateral carotid bifurcations. The peak systolic velocity within the right ICA is 134 cm/s. The right systolic ratio is 2.8. The peak systolic velocity within the left ICA is 105 cm/s. The left systolic ratio is 1.9. There is also mild stenosis within the right external carotid artery. IMPRESSION: 1. Approximately 50-69% stenosis within the proximal right internal carotid artery due to the moderat e calcified plaque. 2. No significant stenosis within the left carotid arteries. Electronically signed by: Carlito Pizano M.D. 07/14/2018 11:05 AM
[2018-07-14 11:08] LABS: Lyme Ab IgG w/WB Rflx Negative (Negative); Lyme Ab IgM w/WB Rflx Negative (Negative)
[2018-07-14] MEDS: METOPROLOL SUCC 25MG EXT REL TAB PO SCH (11:21)
--- NOTE | 2018-07-14 11:48 | Cardiology Consultation ---
Date of Consultation July 14, 2018 Assessment & Plan (1) Atrial fibrillation with RVR: Pt is an 82yo female with a PMHx of DM (diet controlled), systolic HTN and atrial fibrillation diagnosed in 2016 and rate controlled with metoprolol succinate 25mg, who presented with dysarthria. Pt has been anticoagulated with Eliquis 5mg BID. Atrial Fibrillation w RVR -Pt with sustained HR as high as 150s. -Pt has historically been controlled with metoprolol succinate 25mg XR. -An increase in dosage to 50mg can be done for rate control, and titrated up as needed for further rate control. -Continue current anticoagulation of Eliquis 5mg BID as no evidence of stroke on imaging and dysarthria likely unrelated to stroke/TIA pathology (so not considered medication failure). -Pt has historically had a normal HR while in atrial fibrillation. Tachycardia currently likely due to an unknown factor (no evidence of UTI, no URI though pt admits to a cough before admission, no volume loss through diarrhea before admission, etc.) -Advise treating the tachycardia as above. Increased Troponins -Pt with mild troponin increase to 0.061. -Likely related to heart strain due to pt's tachycardia and atrial fibrillation presentation. -While elevated, pt had no ACS symptoms such as chest pain, tachycardia, SOB, etc so no concern for KS. -Advise continuing to monitor. Supervising Physician Co-Signing Physician Notes Patient seen and examined: She denies chest pain or shortness of breath. She denies palpitations. Expressive aphasia noted. Exam notable for: Cardiac: Irregularly irregular. No murmurs. Lungs: Clear to auscultation bilaterally Extremities: No edema. Assessment and plan: (1) Atrial fibrillation with RVR: Heart rate has improved with increased dose of metoprolol succinate. Underlying cause for tachycardia uncertain as she has been very well rate controlled in the past for her permanent atrial fibrillation on metoprolol succinate 25 mg daily. Infectious workup has been negative thus far. TSH is slightly low however free T4 is normal. Recommend metoprolol succinate 50 mg daily for now and can further titrate as necessary. This will also hopefully improve her blood pressure. Continue anticoagulation for stroke risk reduction. She has been on Eliquis 5 mg twice daily chronically and states that she has been compliant. No stroke on MRI. Current Visit: Yes Chronic (2) Hypertension: Increased beta-laura as above. Can further titrate beta-laura and or add another antihypertensive agent as necessary. Cannot rule out that hypertension is playing a role in her expressive aphasia. Titrate medications as appropriate to improve her blood pressure. Current Visit: Yes None (3) Expressive aphasia: No stroke on MRI. She has not had sustained heart rates in the 190s when reviewing telemetry. Etiology for expressive aphasia is not certain at this time. Neurology is following. Current Visit: Yes Acute (4) Fever: Workup as per primary service. She has defervesced. Current Visit: Yes Acute (5) Carotid artery stenosis: Neurology has recommended aspirin 81 mg daily due to her neurologic symptoms. Recommend high-intensity statin therapy given evidence of atherosclerotic disease. (6) Elevated troponin: Likely secondary to rapid ventricular response with hypertension from myocardial strain. Could also be due to neurologic event. She did not present with acute coronary syndrome and do not recommend ischemic evaluation at this time. (7) Disposition: Dr. Sifuentes, her primary activities director scouting, can resume her cardiology care tomorrow. Plan of care discussed with Narcisa Hatfield, of the primary hospitalist service. Thank you for allowing me to participate in the care of your patient. Please call for any other questions or concerns. Sincerely, Tony Chung M.D. History of Present Illness Reason for Consultation: Atrial fibrillation with rvr and increased troponins Requesting Physician: Dr. Steven Valdez Attending Physician: Godfrey Multani MD History of Present Illness Pt is an 82yo female with a PMHx of DM, systolic HTN and rate controlled atrial fibrillation diagnosed in 2015, who presented with dysarthria. Pt is known to the cardiology office and was last seen in Jan 2018. Her atrial fibrillation was being treated with metoprolol succinate 25mg XR daily with Eliquis 5mg BID anticoagulation. She had been doing well on the medication regimen up until this presentation. Pt has some difficulty communicating verbally currently and additional history is obtained from her partner who is present at bedside. They state that she came down yesterday morning with the inability to speak and attempts that consisted of incomprehensible words. Pt states she had no subjective sensation of palpitations or SOB. Denies those symptoms currently as well. Allergies Allergy/AdvReac Type Severity Reaction Status Date / Time No Known Allergies Allergy Verified 07/13/18 09:22 Home Medications Home Medications Medication Instructions Recorded Confirmed Type acetaminophen ER 650 mg 650 mg PO BID PRN tab 12/16/17 07/13/18 History tablet,extended release apixaban 5 mg tablet 5 mg PO BID 12/16/17 07/13/18 History cholecalciferol (vitamin D3) 5,000 5,000 units PO DAILY 12/16/17 07/13/18 History unit capsule lutein 20 mg tablet 20 mg PO Q2D 12/16/17 07/13/18 History lysine 1,000 mg tablet 1,000 mg PO DAILY 12/16/17 07/13/18 History metoprolol succinate ER 25 mg 25 mg PO DAILY 12/16/17 07/13/18 History tablet,extended release 24 hr vitamin B complex capsule 1 cap PO DAILY 12/16/17 07/13/18 History vitamin E (dl, acetate) 400 unit 400 units PO DAILY 12/16/17 07/13/18 History capsule calcium 600 mg-D3 800 unit-mag11 1 tab PO DAILY 03/30/18 07/13/18 History 50 yj-xonc-yasymt-rashaun-s.borat tablet Patient History Medical History Do not resuscitate status Atrial fibrillation with RVR (Chronic) Type 2 diabetes mellitus (Chronic) Atrial fibrillation (Chronic) Osteoarthritis (Chronic) Shingles (Acute) Surgical History History of knee surgery (Resolved) History of tonsillectomy (Resolved) History of cataract surgery Social History Preferred Language: Filipino Communication Ability: Impaired Visual Impairment: No Limitations Hearing Ability: Normal Program Director Required: No Beliefs That Will Affect Care: None marital status: Single Current Living Situation: Significant Other current occupational status: retired 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 Other Information That Helps Us Care for You: No Feels Safe at Home: Yes Safety Concerns: Feels Safe At This Time Smoking Status: Never smoker Do You Dip or Chew Tobacco: No Second Hand Exposure: No Tobacco Cessation Education Requested by Patient: No Hx Alcohol Use: Yes (Very occasionally) Hx Substance Use: No Review of Systems Respiratory: + cough; no dyspnea Cardiovascular: no chest pain, no palpitations, no lightheadedness and no edema Gastrointestinal: no nausea, no vomiting and no diarrhea/loose stools Physical Exam Physical Exam: General: Alert, oriented. Speech halting at times. HEENT: NC/AT. Chest: Nontender to palpation. CV: Irregularly irregular rate, no murmurs appreciated Resp: Breath sounds clear bilaterally with some fine crackles noted in left base while laying on side, no increased effort of breathing. Abdomen:Soft, nontender. Extremities: No edema in lower extremities bilaterally. DP pulses palpable. Results & Data Vital Signs (Past 12 Hours) Vital Signs Temp Pulse Pulse Resp BP BP Pulse Ox 07/14/18 11:24 36.9 C 112 H 22 167/89 H 95 07/14/18 09:22 153/84 H 07/14/18 07:59 117 H 175/102 H 07/14/18 07:43 36.7 C 98 H 22 175/102 H 95 07/14/18 05:44 122 H 166/116 H 94 07/14/18 04:52 111 H 07/14/18 04:00 36.8 C 103 H 17 181/93 H 93 07/14/18 01:29 92 H 07/14/18 00:21 92 H Laboratory Results Laboratory Results - last 24 hr 07/13/18 07/13/18 07/13/18 09:16 15:17 20:02 WBC RBC Hgb Hct MCV MCH MCHC RDW Std Deviation RDW Coeff of Kobe Plt Count MPV Immature Gran % (Auto) Neut % (Auto) Lymph % (Auto) [place] % (Auto) Eos % (Auto) Baso % (Auto) Immature Gran # (Auto) Neut # (Auto) Lymph # (Auto) [place] # (Auto) Eos # (Auto) Baso # (Auto) Platelet Estimate Echinocytes Sodium Potassium Chloride Carbon Dioxide Anion Gap BUN Creatinine Est Cr Clr Drug Dosing Est GFR ( Amer) Est GFR (Non-Af Amer) BUN/Creatinine Ratio Glucose POC Glucose 147 H 135 H Calcium Troponin I Triglycerides Cholesterol LDL Cholesterol, Calc VLDL Cholesterol, Calc HDL Cholesterol Cholesterol/HDL Ratio Lyme Disease IgG Ab Negative Lyme Disease IgM Ab Negative 07/14/18 07/14/18 07/14/18 05:23 05:23 05:23 WBC 4.03 L RBC 4.93 Hgb 14.3 Hct 41.8 MCV 84.8 MCH 29.0 MCHC 34.2 RDW Std Deviation 43.0 RDW Coeff of Kobe 13.9 Plt Count 77 L MPV 10.7 H Immature Gran % (Auto) 0.0 Neut % (Auto) 74.5 Lymph % (Auto) 17.1 [place] % (Auto) 7.9 Eos % (Auto) 0.0 Baso % (Auto) 0.5 Immature Gran # (Auto) 0.00 Neut # (Auto) 3.00 Lymph # (Auto) 0.69 L [place] # (Auto) 0.32 Eos # (Auto) 0.00 Baso # (Auto) 0.02 Platelet Estimate Decreased L Echinocytes 1+ Sodium 136 Potassium 3.4 L Chloride 105 Carbon Dioxide 19 L Anion Gap 12.0 H BUN 19 H Creatinine 1.06 Est Cr Clr Drug Dosing 39.0 Est GFR ( Amer) 57.0 Est GFR (Non-Af Amer) 49.2 BUN/Creatinine Ratio 18.0 Glucose 141 H POC Glucose Calcium 8.4 L Troponin I 0.061 H* Triglycerides 126 Cholesterol 141 LDL Cholesterol, Calc 76 VLDL Cholesterol, Calc 25 HDL Cholesterol 40 Cholesterol/HDL Ratio 4 Lyme Disease IgG Ab Lyme Disease IgM Ab 07/14/18 07/14/18 07:16 11:28 WBC RBC Hgb Hct MCV MCH MCHC RDW Std Deviation RDW Coeff of Kobe Plt Count MPV Immature Gran % (Auto) Neut % (Auto) Lymph % (Auto) [place] % (Auto) Eos % (Auto) Baso % (Auto) Immature Gran # (Auto) Neut # (Auto) Lymph # (Auto) [place] # (Auto) Eos # (Auto) Baso # (Auto) Platelet Estimate Echinocytes Sodium Potassium Chloride Carbon Dioxide Anion Gap BUN Creatinine Est Cr Clr Drug Dosing Est GFR ( Amer) Est GFR (Non-Af Amer) BUN/Creatinine Ratio Glucose POC Glucose 175 H 136 H Calcium Troponin I Triglycerides Cholesterol LDL Cholesterol, Calc VLDL Cholesterol, Calc HDL Cholesterol Cholesterol/HDL Ratio Lyme Disease IgG Ab Lyme Disease IgM Ab Medications Administered Home Medications acetaminophen ER 650 mg tablet,extended release 650 mg PO BID PRN tab 12/16/17 [History Confirmed 07/13/18] apixaban 5 mg tablet 5 mg PO BID 12/16/17 [History Confirmed 07/13/18] cholecalciferol (vitamin D3) 5,000 unit capsule 5,000 units PO DAILY 12/16/17 [History Confirmed 07/13/18] lutein 20 mg tablet 20 mg PO Q2D 12/16/17 [History Confirmed 07/13/18] lysine 1,000 mg tablet 1,000 mg PO DAILY 12/16/17 [History Confirmed 07/13/18] metoprolol succinate ER 25 mg tablet,extended release 24 hr 25 mg PO DAILY 12/16/17 [History Confirmed 07/13/18] vitamin B complex capsule 1 cap PO DAILY 12/16/17 [History Confirmed 07/13/18] vitamin E (dl, acetate) 400 unit capsule 400 units PO DAILY 12/16/17 [History Confirmed 07/13/18] calcium 600 mg-D3 800 unit-mag11 50 us-vcst-zzffnq-rashaun-s.borat tablet 1 tab PO DAILY 03/30/18 [History Confirmed 07/13/18] Active Medications Acetaminophen (Tylenol) 1,000 mg PO Q6H PRN PRN Reason: Pain Stop: 08/13/18 10:18 Apixaban (Eliquis) [address] [facility] Stop: 08/13/18 20:59 Aspirin (Ecotrin Ectab) [address] [facility] Stop: 08/13/18 08:59 Last Admin: 07/14/18 10:22 Dose: 81 mg Documented by: Dextrose (Dextrose 50%) 25 - 50 ml IV UD PRN; Protocol PRN Reason: Hypoglycemia Protocol Stop: 08/12/18 11:59 Glucagon (Glucagen) 1 mg IM UD PRN; Protocol PRN Reason: Hypoglycemia Protocol Stop: 08/12/18 11:59 Glucose (Glucose 40%) 15 - 30 gm PO UD PRN; Protocol PRN Reason: Hypoglycemia Protocol Stop: 08/12/18 11:59 Glucose (Dex4 Glucose) 4 - 8 tabs PO UD PRN; Protocol PRN Reason: Hypoglycemia Protocol Stop: 08/12/18 11:59 Sodium Chloride (Nss 1000ml) 1,000 mls @ 80 mls/hr IV .[id number] [facility] Stop: 08/12/18 11:35 Last Admin: 07/14/18 14:07 Dose: 80 mls/hr Documented by: Insulin Aspart (Novolog Flexpen) [address] [facility] Stop: 08/12/18 11:35 Last Admin: 07/14/18 12:32 Dose: Not Given Documented by: Metoprolol Succinate (Toprol Xl) [address] [facility] Stop: 08/14/18 08:59 Last Admin: 07/14/18 11:21 Dose: 25 mg Documented by: Metoprolol Tartrate (Lopressor) 5 mg IV Q4H PRN PRN Reason: tachycardia Stop: 08/13/18 10:19 Miscellaneous (Carbohydrates For Hypoglycemia) 15 - 30 gm PO UD PRN PRN Reason: Hypoglycemia Treatment Stop: 08/12/18 11:59 Miscellaneous Information (Pharmacist Discharge Med Rec Consult) 1 ea N/A UD PRN PRN Reason: Consult Stop: 08/12/18 11:35 Vitamin D (Vitamin D3) 5,[address] [facility] Stop: 08/14/18 08:59
--- NOTE | 2018-07-14 15:37 | Cardiology Consultation ---
Date of Consultation July 14, 2018 Assessment & Plan (1) Atrial fibrillation with RVR: Pt is an 82yo female with a PMHx of DM (diet controlled), systolic HTN and atrial fibrillation diagnosed in 2016 and rate controlled with metoprolol succinate 25mg, who presented with dysarthria. Pt has been anticoagulated with Eliquis 5mg BID. Atrial Fibrillation w RVR -Pt with sustained HR as high as 150s. -Pt has historically been controlled with metoprolol succinate 25mg XR. -An increase in dosage to 50mg can be done for rate control, and titrated up as needed for further rate control. -Continue current anticoagulation of Eliquis 5mg BID as no evidence of stroke on imaging and dysarthria likely unrelated to stroke/TIA pathology (so not considered medication failure). -Pt has historically had a normal HR while in atrial fibrillation. Tachycardia currently likely due to an unknown factor (no evidence of UTI, no URI though pt admits to a cough before admission, no volume loss through diarrhea before admission, etc.) -Advise treating the tachycardia as above. Increased Troponins -Pt with mild troponin increase to 0.061. -Likely related to heart strain due to pt's tachycardia and atrial fibrillation presentation. -While elevated, pt had no ACS symptoms such as chest pain, tachycardia, SOB, etc so no concern for PR. -Advise continuing to monitor. Supervising Physician Co-Signing Physician Notes Patient seen and examined: She denies chest pain or shortness of breath. She denies palpitations. Expressive aphasia noted. Exam notable for: Cardiac: Irregularly irregular. No murmurs. Lungs: Clear to auscultation bilaterally Extremities: No edema. Assessment and plan: (1) Atrial fibrillation with RVR: Heart rate has improved with increased dose of metoprolol succinate. Underlying cause for tachycardia uncertain as she has been very well rate controlled in the past for her permanent atrial fibrillation on metoprolol succinate 25 mg daily. Infectious workup has been negative thus far. TSH is slightly low however free T4 is normal. Recommend metoprolol succinate 50 mg daily for now and can further titrate as necessary. This will also hopefully improve her blood pressure. Continue anticoagulation for stroke risk reduction. She has been on Eliquis 5 mg twice daily chronically and states that she has been compliant. No stroke on MRI. Current Visit: Yes Chronic (2) Hypertension: Increased beta-laura as above. Can further titrate beta-laura and or add another antihypertensive agent as necessary. Cannot rule out that hypertension is playing a role in her expressive aphasia. Titrate medications as appropriate to improve her blood pressure. Current Visit: Yes None (3) Expressive aphasia: No stroke on MRI. She has not had sustained heart rates in the 190s when reviewing telemetry. Etiology for expressive aphasia is not certain at this time. Neurology is following. Current Visit: Yes Acute (4) Fever: Workup as per primary service. She has defervesced. Current Visit: Yes Acute (5) Carotid artery stenosis: Neurology has recommended aspirin 81 mg daily due to her neurologic symptoms. Recommend high-intensity statin therapy given evidence of atherosclerotic disease. (6) Elevated troponin: Likely secondary to rapid ventricular response with hypertension from myocardial strain. Could also be due to neurologic event. She did not present with acute coronary syndrome and do not recommend ischemic evaluation at this time. (7) Disposition: Dr. Sifuentes, her primary water taxi driver, can resume her cardiology care tomorrow. Plan of care discussed with Narcisa Hatfield, of the primary hospitalist service. Thank you for allowing me to participate in the care of your patient. Please call for any other questions or concerns. Sincerely, Tony Chung M.D. History of Present Illness Reason for Consultation: Atrial fibrillation with RVR and increased troponins Attending Physician: Godfrey Multani MD History of Present Illness Pt is an 82yo female with a PMHx of DM, systolic HTN and rate controlled atrial fibrillation diagnosed in 2016, who presented with dysarthria. Pt is known to the cardiology office and was last seen in Jan 2018. Her atrial fibrillation was being treated with metoprolol succinate 25mg XR daily with Eliquis 5mg BID anticoagulation. She had been doing well on the medication regimen up until this presentation. Pt has some difficulty communicating verbally currently and additional history is obtained from her partner who is present at bedside. They state that she came down yesterday morning with the inability to speak and attempts that consisted of incomprehensible words. Pt states she had no subjective sensation of palpitations or SOB. Denies those symptoms currently as well. Allergies Allergy/AdvReac Type Severity Reaction Status Date / Time No Known Allergies Allergy Verified 07/13/18 09:22 Home Medications Home Medications Medication Instructions Recorded Confirmed Type acetaminophen ER 650 mg 650 mg PO BID PRN tab 12/16/17 07/13/18 History tablet,extended release apixaban 5 mg tablet 5 mg PO BID 12/16/17 07/13/18 History cholecalciferol (vitamin D3) 5,000 5,000 units PO DAILY 12/16/17 07/13/18 History unit capsule lutein 20 mg tablet 20 mg PO Q2D 12/16/17 07/13/18 History lysine 1,000 mg tablet 1,000 mg PO DAILY 12/16/17 07/13/18 History metoprolol succinate ER 25 mg 25 mg PO DAILY 12/16/17 07/13/18 History tablet,extended release 24 hr vitamin B complex capsule 1 cap PO DAILY 12/16/17 07/13/18 History vitamin E (dl, acetate) 400 unit 400 units PO DAILY 12/16/17 07/13/18 History capsule calcium 600 mg-D3 800 unit-mag11 1 tab PO DAILY 03/30/18 07/13/18 History 50 hy-gqhe-czgjjd-rashaun-s.borat tablet Patient History Medical History Do not resuscitate status Atrial fibrillation with RVR (Chronic) Type 2 diabetes mellitus (Chronic) Atrial fibrillation (Chronic) Osteoarthritis (Chronic) Shingles (Acute) Surgical History History of knee surgery (Resolved) History of tonsillectomy (Resolved) History of cataract surgery Social History Preferred Language: Albanian Communication Ability: Impaired Visual Impairment: No Limitations Hearing Ability: Normal Metal Hanging Supervisor Required: No Beliefs That Will Affect Care: None marital status: Single Current Living Situation: Significant Other current occupational status: retired 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 Other Information That Helps Us Care for You: No Feels Safe at Home: Yes Safety Concerns: Feels Safe At This Time Smoking Status: Never smoker Do You Dip or Chew Tobacco: No Second Hand Exposure: No Tobacco Cessation Education Requested by Patient: No Hx Alcohol Use: Yes (Very occasionally) Hx Substance Use: No Review of Systems Respiratory: + cough; no dyspnea Cardiovascular: no chest pain, no palpitations, no lightheadedness and no edema Gastrointestinal: no nausea, no vomiting and no diarrhea/loose stools Physical Exam Physical Exam: General: Alert, oriented. HEENT: NC/AT. Chest: Nontender to palpation. CV: Irregularly irregular rate, No murmurs appreciated Resp: Breath sounds clear bilaterally except for some fine crackles appreciated in left lower base. Abdomen: Soft, nontender. Extremities: No edema in lower extremities bilaterally. DP pulses palpable bilaterally. Results & Data Vital Signs (Past 12 Hours) Vital Signs Temp Pulse Pulse Resp BP BP Pulse Ox 07/14/18 11:24 36.9 C 112 H 22 167/89 H 95 07/14/18 09:22 153/84 H 07/14/18 07:59 117 H 175/102 H 07/14/18 07:43 36.7 C 98 H 22 175/102 H 95 07/14/18 05:44 122 H 166/116 H 94 07/14/18 04:52 111 H 07/14/18 04:00 36.8 C 103 H 17 181/93 H 93 Laboratory Results Laboratory Results - last 24 hr 07/13/18 07/13/18 07/13/18 09:16 15:17 20:02 WBC RBC Hgb Hct MCV MCH MCHC RDW Std Deviation RDW Coeff of Kobe Plt Count MPV Immature Gran % (Auto) Neut % (Auto) Lymph % (Auto) [place] % (Auto) Eos % (Auto) Baso % (Auto) Immature Gran # (Auto) Neut # (Auto) Lymph # (Auto) [place] # (Auto) Eos # (Auto) Baso # (Auto) Platelet Estimate Echinocytes Sodium Potassium Chloride Carbon Dioxide Anion Gap BUN Creatinine Est Cr Clr Drug Dosing Est GFR ( Amer) Est GFR (Non-Af Amer) BUN/Creatinine Ratio Glucose POC Glucose 147 H 135 H Calcium Troponin I Triglycerides Cholesterol LDL Cholesterol, Calc VLDL Cholesterol, Calc HDL Cholesterol Cholesterol/HDL Ratio Lyme Disease IgG Ab Negative Lyme Disease IgM Ab Negative 07/14/18 07/14/18 07/14/18 05:23 05:23 05:23 WBC 4.03 L RBC 4.93 Hgb 14.3 Hct 41.8 MCV 84.8 MCH 29.0 MCHC 34.2 RDW Std Deviation 43.0 RDW Coeff of Kobe 13.9 Plt Count 77 L MPV 10.7 H Immature Gran % (Auto) 0.0 Neut % (Auto) 74.5 Lymph % (Auto) 17.1 [place] % (Auto) 7.9 Eos % (Auto) 0.0 Baso % (Auto) 0.5 Immature Gran # (Auto) 0.00 Neut # (Auto) 3.00 Lymph # (Auto) 0.69 L [place] # (Auto) 0.32 Eos # (Auto) 0.00 Baso # (Auto) 0.02 Platelet Estimate Decreased L Echinocytes 1+ Sodium 136 Potassium 3.4 L Chloride 105 Carbon Dioxide 19 L Anion Gap 12.0 H BUN 19 H Creatinine 1.06 Est Cr Clr Drug Dosing 39.0 Est GFR ( Amer) 57.0 Est GFR (Non-Af Amer) 49.2 BUN/Creatinine Ratio 18.0 Glucose 141 H POC Glucose Calcium 8.4 L Troponin I 0.061 H* Triglycerides 126 Cholesterol 141 LDL Cholesterol, Calc 76 VLDL Cholesterol, Calc 25 HDL Cholesterol 40 Cholesterol/HDL Ratio 4 Lyme Disease IgG Ab Lyme Disease IgM Ab 07/14/18 07/14/18 07:16 11:28 WBC RBC Hgb Hct MCV MCH MCHC RDW Std Deviation RDW Coeff of Kobe Plt Count MPV Immature Gran % (Auto) Neut % (Auto) Lymph % (Auto) [place] % (Auto) Eos % (Auto) Baso % (Auto) Immature Gran # (Auto) Neut # (Auto) Lymph # (Auto) [place] # (Auto) Eos # (Auto) Baso # (Auto) Platelet Estimate Echinocytes Sodium Potassium Chloride Carbon Dioxide Anion Gap BUN Creatinine Est Cr Clr Drug Dosing Est GFR ( Amer) Est GFR (Non-Af Amer) BUN/Creatinine Ratio Glucose POC Glucose 175 H 136 H Calcium Troponin I Triglycerides Cholesterol LDL Cholesterol, Calc VLDL Cholesterol, Calc HDL Cholesterol Cholesterol/HDL Ratio Lyme Disease IgG Ab Lyme Disease IgM Ab Medications Administered Home Medications acetaminophen ER 650 mg tablet,extended release 650 mg PO BID PRN tab 12/16/17 [History Confirmed 07/13/18] apixaban 5 mg tablet 5 mg PO BID 12/16/17 [History Confirmed 07/13/18] cholecalciferol (vitamin D3) 5,000 unit capsule 5,000 units PO DAILY 12/16/17 [History Confirmed 07/13/18] lutein 20 mg tablet 20 mg PO Q2D 12/16/17 [History Confirmed 07/13/18] lysine 1,000 mg tablet 1,000 mg PO DAILY 12/16/17 [History Confirmed 07/13/18] metoprolol succinate ER 25 mg tablet,extended release 24 hr 25 mg PO DAILY 12/16/17 [History Confirmed 07/13/18] vitamin B complex capsule 1 cap PO DAILY 12/16/17 [History Confirmed 07/13/18] vitamin E (dl, acetate) 400 unit capsule 400 units PO DAILY 12/16/17 [History Confirmed 07/13/18] calcium 600 mg-D3 800 unit-mag11 50 tg-mker-osiqte-rashaun-s.borat tablet 1 tab PO DAILY 03/30/18 [History Confirmed 07/13/18] Active Medications Acetaminophen (Tylenol) 1,000 mg PO Q6H PRN PRN Reason: Pain Stop: 08/13/18 10:18 Apixaban (Eliquis) 5 mg PO BID [facility] Stop: 08/13/18 20:59 Aspirin (Ecotrin Ectab) 81 mg PO QAM [facility] Stop: 08/13/18 08:59 Last Admin: 07/14/18 10:22 Dose: 81 mg Documented by: Dextrose (Dextrose 50%) 25 - 50 ml IV UD PRN; Protocol PRN Reason: Hypoglycemia Protocol Stop: 08/12/18 11:59 Glucagon (Glucagen) 1 mg IM UD PRN; Protocol PRN Reason: Hypoglycemia Protocol Stop: 08/12/18 11:59 Glucose (Glucose 40%) 15 - 30 gm PO UD PRN; Protocol PRN Reason: Hypoglycemia Protocol Stop: 08/12/18 11:59 Glucose (Dex4 Glucose) 4 - 8 tabs PO UD PRN; Protocol PRN Reason: Hypoglycemia Protocol Stop: 08/12/18 11:59 Sodium Chloride (Nss 1000ml) 1,000 mls @ 80 mls/hr IV .[id number] [facility] Stop: 08/12/18 11:35 Last Admin: 07/14/18 14:07 Dose: 80 mls/hr Documented by: Insulin Aspart (Novolog Flexpen) 0 units SC ACHS [facility] Stop: 08/12/18 11:35 Last Admin: 07/14/18 12:32 Dose: Not Given Documented by: Metoprolol Succinate (Toprol Xl) 25 mg PO DAILY [facility] Stop: 08/14/18 08:59 Last Admin: 07/14/18 11:21 Dose: 25 mg Documented by: Metoprolol Tartrate (Lopressor) 5 mg IV Q4H PRN PRN Reason: tachycardia Stop: 08/13/18 10:19 Miscellaneous (Carbohydrates For Hypoglycemia) 15 - 30 gm PO UD PRN PRN Reason: Hypoglycemia Treatment Stop: 08/12/18 11:59 Miscellaneous Information (Pharmacist Discharge Med Rec Consult) 1 ea N/A UD PRN PRN Reason: Consult Stop: 08/12/18 11:35 Vitamin D (Vitamin D3) 5,000 units PO DAILY [facility] Stop: 08/14/18 08:59
--- NOTE | 2018-07-14 15:38 | Cardiology Consultation ---
Date of Consultation July 14, 2018 Assessment & Plan (1) Atrial fibrillation with RVR: Heart rate has improved with increased dose of metoprolol succinate. Underlying cause for tachycardia uncertain as she has been very well rate controlled in the past for her permanent atrial fibrillation on metoprolol succinate 25 mg daily. Infectious workup has been negative thus far. TSH is slightly low however free T4 is normal. Recommend metoprolol succinate 50 mg daily for now and can further titrate as necessary. This will also hopefully improve her blood pressure. Continue anticoagulation for stroke risk reduction. She has been on Eliquis 5 mg twice daily chronically and states that she has been compliant. No stroke on MRI. (2) Hypertension: Increased beta-laura as above. Can further titrate beta-laura and or add another antihypertensive agent as necessary. Cannot rule out that hypertension is playing a role in her expressive aphasia. Titrate medications as appropriate to improve her blood pressure. (3) Expressive aphasia: No stroke on MRI. She has not had sustained heart rates in the 190s when reviewing telemetry. Etiology for expressive aphasia is not certain at this time. Neurology is following. (4) Fever: Workup as per primary service. She has defervesced. (5) Carotid artery stenosis: Neurology has recommended aspirin 81 mg daily due to her neurologic symptoms. Recommend high-intensity statin therapy given evidence of atherosclerotic disease. Disposition: Dr. Sifuentes, her primary lance crewmember, can resume her cardiology care tomorrow. Plan of care discussed with Narcisa Hatfield, of the primary hospitalist service. Thank you for allowing me to participate in the care of your patient. Please call for any other questions or concerns. Sincerely, Tony Chung M.D. History of Present Illness Reason for Consultation: Atrial fibrillation with rapid ventricular response and elevated troponin Requesting Physician: Narcisa Hatfield Attending Physician: Godfrey Multani MD History of Present Illness Ms. Estrella is a pleasant 82-year-old female with a history significant for permanent atrial fibrillation and hypertension who was hospitalized for expressive aphasia. Her primary lance crewmember is Dr. Sifuentes. Dr. Sifuentes has been following her for atrial fibrillation which is thought to be permanent. She has been maintained on metoprolol succinate 25 mg daily for rate control strategy and her heart rate has been well controlled in the office for quite some time. She has also been Eliquis 5 mg twice daily. She states that she has not missed any doses of her beta-laura or anticoagulation therapy recently. Yesterday morning after she woke up, she noted that she had difficulty finding her words. She has been experiencing a dry cough but no fevers or chills at home. She was found have a low-grade fever here with a temperature of 30 C. She denies any other focal neurologic deficits. She did have generalized weakness and had difficulty walking down the stairs stating that she was barely able to get down stairs due to the weakness. Her partner, Natalia, called EMS to bring her to the hospital. She was found to have elevated heart rate with her atrial fibrillation and has been elevated for most of the hospital stay. Initially, oral medications were held but she did receive a total of 50 mg of metoprolol earlier today. There are some documented reports that her heart rate was in the 190s however when reviewing telemetry, her heart rate was up to the 150s without sustained rates in the 190s. When she was seen today, her heart rate was in the 90s. She denies palpitations at any time. She denies chest pain, shortness of breath, syncope, near-syncope, edema, or bleeding such as melena, hematochezia, or hematuria. She has undergone several imaging studies and was found to have focal moderate to severe stenosis within the proximal left [employer] [employer] on brain MRA, but no stroke on brain MRI. Review of systems: As above. Review of systems otherwise negative/unremarkable. Family history: Father at the age of 88. Social history: She denies tobacco. Occasional alcohol. She has never been . She lives with her partner, Natalia. She has no children. She is unaccompanied at the time of today's visit. Allergies Allergy/AdvReac Type Severity Reaction Status Date / Time No Known Allergies Allergy Verified 07/13/18 09:22 Home Medications Home Medications Medication Instructions Recorded Confirmed Type acetaminophen ER 650 mg 650 mg PO BID PRN tab 12/16/17 07/13/18 History tablet,extended release apixaban 5 mg tablet 5 mg PO BID 12/16/17 07/13/18 History cholecalciferol (vitamin D3) 5,000 5,000 units PO DAILY 12/16/17 07/13/18 History unit capsule lutein 20 mg tablet 20 mg PO Q2D 12/16/17 07/13/18 History lysine 1,000 mg tablet 1,000 mg PO DAILY 12/16/17 07/13/18 History metoprolol succinate ER 25 mg 25 mg PO DAILY 12/16/17 07/13/18 History tablet,extended release 24 hr vitamin B complex capsule 1 cap PO DAILY 12/16/17 07/13/18 History vitamin E (dl, acetate) 400 unit 400 units PO DAILY 12/16/17 07/13/18 History capsule calcium 600 mg-D3 800 unit-mag11 1 tab PO DAILY 03/30/18 07/13/18 History 50 uv-xwyb-wdxaxb-rashaun-s.borat tablet Patient History Medical History Do not resuscitate status Atrial fibrillation with RVR (Chronic) Type 2 diabetes mellitus (Chronic) Atrial fibrillation (Chronic) Osteoarthritis (Chronic) Shingles (Acute) Surgical History History of knee surgery (Resolved) History of tonsillectomy (Resolved) History of cataract surgery Social History Preferred Language: Liberian Communication Ability: Impaired Visual Impairment: No Limitations Hearing Ability: Normal Material Mover Required: No Beliefs That Will Affect Care: None marital status: Single Current Living Situation: Significant Other current occupational status: retired 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 Other Information That Helps Us Care for You: No Feels Safe at Home: Yes Safety Concerns: Feels Safe At This Time Smoking Status: Never smoker Do You Dip or Chew Tobacco: No Second Hand Exposure: No Tobacco Cessation Education Requested by Patient: No Hx Alcohol Use: Yes (Very occasionally) Hx Substance Use: No Physical Exam Physical Exam: Gen.: No acute distress. Alert. HEENT: Anicteric sclera. Neck: No JVD. No bruits. Normal carotid upstrokes bilaterally. Cardiac: PMI was nondisplaced. No ventricular heave. Irregularly irregular. Heart rate reasonably controlled in the 90s. Normal S1-S2. No murmurs, rubs, or gallops. Pulmonary: Clear to auscultation bilaterally without wheezes, rales, or rhonchi. Abdomen: Soft, nontender, nondistended, with normoactive bowel sounds. No bruits noted. Extremities: 2+ radial pulses bilaterally. 2+ posterior tibialis pulses bilaterally. No edema or cyanosis. No palpable cords. Psychiatric: Affect appears appropriate. Results & Data Vital Signs (Past 12 Hours) Vital Signs Temp Pulse Pulse Resp BP BP Pulse Ox 07/14/18 11:24 36.9 C 112 H 22 167/89 H 95 07/14/18 09:22 153/84 H 07/14/18 07:59 117 H 175/102 H 07/14/18 07:43 36.7 C 98 H 22 175/102 H 95 07/14/18 05:44 122 H 166/116 H 94 07/14/18 04:52 111 H 07/14/18 04:00 36.8 C 103 H 17 181/93 H 93 Laboratory Results Laboratory Results - last 24 hr 07/13/18 07/13/18 07/13/18 09:16 15:17 20:02 WBC RBC Hgb Hct MCV MCH MCHC RDW Std Deviation RDW Coeff of Kobe Plt Count MPV Immature Gran % (Auto) Neut % (Auto) Lymph % (Auto) [place] % (Auto) Eos % (Auto) Baso % (Auto) Immature Gran # (Auto) Neut # (Auto) Lymph # (Auto) [place] # (Auto) Eos # (Auto) Baso # (Auto) Platelet Estimate Echinocytes Sodium Potassium Chloride Carbon Dioxide Anion Gap BUN Creatinine Est Cr Clr Drug Dosing Est GFR ( Amer) Est GFR (Non-Af Amer) BUN/Creatinine Ratio Glucose POC Glucose 147 H 135 H Calcium Troponin I Triglycerides Cholesterol LDL Cholesterol, Calc VLDL Cholesterol, Calc HDL Cholesterol Cholesterol/HDL Ratio Lyme Disease IgG Ab Negative Lyme Disease IgM Ab Negative 07/14/18 07/14/18 07/14/18 05:23 05:23 05:23 WBC 4.03 L RBC 4.93 Hgb 14.3 Hct 41.8 MCV 84.8 MCH 29.0 MCHC 34.2 RDW Std Deviation 43.0 RDW Coeff of Kobe 13.9 Plt Count 77 L MPV 10.7 H Immature Gran % (Auto) 0.0 Neut % (Auto) 74.5 Lymph % (Auto) 17.1 [place] % (Auto) 7.9 Eos % (Auto) 0.0 Baso % (Auto) 0.5 Immature Gran # (Auto) 0.00 Neut # (Auto) 3.00 Lymph # (Auto) 0.69 L [place] # (Auto) 0.32 Eos # (Auto) 0.00 Baso # (Auto) 0.02 Platelet Estimate Decreased L Echinocytes 1+ Sodium 136 Potassium 3.4 L Chloride 105 Carbon Dioxide 19 L Anion Gap 12.0 H BUN 19 H Creatinine 1.06 Est Cr Clr Drug Dosing 39.0 Est GFR ( Amer) 57.0 Est GFR (Non-Af Amer) 49.2 BUN/Creatinine Ratio 18.0 Glucose 141 H POC Glucose Calcium 8.4 L Troponin I 0.061 H* Triglycerides 126 Cholesterol 141 LDL Cholesterol, Calc 76 VLDL Cholesterol, Calc 25 HDL Cholesterol 40 Cholesterol/HDL Ratio 4 Lyme Disease IgG Ab Lyme Disease IgM Ab 07/14/18 07/14/18 07:16 11:28 WBC RBC Hgb Hct MCV MCH MCHC RDW Std Deviation RDW Coeff of Kobe Plt Count MPV Immature Gran % (Auto) Neut % (Auto) Lymph % (Auto) [place] % (Auto) Eos % (Auto) Baso % (Auto) Immature Gran # (Auto) Neut # (Auto) Lymph # (Auto) [place] # (Auto) Eos # (Auto) Baso # (Auto) Platelet Estimate Echinocytes Sodium Potassium Chloride Carbon Dioxide Anion Gap BUN Creatinine Est Cr Clr Drug Dosing Est GFR ( Amer) Est GFR (Non-Af Amer) BUN/Creatinine Ratio Glucose POC Glucose 175 H 136 H Calcium Troponin I Triglycerides Cholesterol LDL Cholesterol, Calc VLDL Cholesterol, Calc HDL Cholesterol Cholesterol/HDL Ratio Lyme Disease IgG Ab Lyme Disease IgM Ab Diagnostic Findings Carotid duplex 07/14/2018: Proximal right ICA 50-69%. Brain MRI 07/13/2018: No evidence for acute ischemic event per Radiology. Brain MRA 07/13/2018: Focal moderate to severe stenosis involving the proximal left [address] [employer]. Chest x-ray 07/13/2018: No acute cardiopulmonary findings per Radiology. ECG personally reviewed: ECG 07/13/2018: AFib with RVR [address] depression. No significant change from 12/09/2015 ECG. Telemetry personally reviewed: Atrial fibrillation with rapid ventricular response at times. No significant pauses. Echo 07/13/2018: Normal LV size, wall motion, systolic function. EF 60-65%. Mild LVH. Mild RV dilation. Normal RV systolic function. Severe biatrial dilation. Mild MR. RVSP 36. AFib. Medications Administered Current Inpatient Medications Acetaminophen (Tylenol) 1,000 mg PO Q6H PRN PRN Reason: Pain Stop: 08/13/18 10:18 Apixaban (Eliquis) 5 mg PO BID DENZEL Stop: 08/13/18 20:59 Aspirin (Ecotrin Ectab) 81 mg PO QAM DENZEL Stop: 08/13/18 08:59 Last Admin: 07/14/18 10:22 Dose: 81 mg Documented by: Dextrose (Dextrose 50%) 25 - 50 ml IV UD PRN; Protocol PRN Reason: Hypoglycemia Protocol Stop: 08/12/18 11:59 Glucagon (Glucagen) 1 mg IM UD PRN; Protocol PRN Reason: Hypoglycemia Protocol Stop: 08/12/18 11:59 Glucose (Glucose 40%) 15 - 30 gm PO UD PRN; Protocol PRN Reason: Hypoglycemia Protocol Stop: 08/12/18 11:59 Glucose (Dex4 Glucose) 4 - 8 tabs PO UD PRN; Protocol PRN Reason: Hypoglycemia Protocol Stop: 08/12/18 11:59 Sodium Chloride (Nss 1000ml) 1,000 mls @ 80 mls/hr IV .[id number] DENZEL Stop: 08/12/18 11:35 Last Admin: 07/14/18 14:07 Dose: 80 mls/hr Documented by: Insulin Aspart (Novolog Flexpen) 0 units SC ACHS DENZEL Stop: 08/12/18 11:35 Last Admin: 07/14/18 12:32 Dose: Not Given Documented by: Metoprolol Succinate (Toprol Xl) 25 mg PO DAILY [facility] Stop: 08/14/18 08:59 Last Admin: 07/14/18 11:21 Dose: 25 mg Documented by: Metoprolol Tartrate (Lopressor) 5 mg IV Q4H PRN PRN Reason: tachycardia Stop: 08/13/18 10:19 Miscellaneous (Carbohydrates For Hypoglycemia) 15 - 30 gm PO UD PRN PRN Reason: Hypoglycemia Treatment Stop: 08/12/18 11:59 Miscellaneous Information (Pharmacist Discharge Med Rec Consult) 1 ea N/A UD PRN PRN Reason: Consult Stop: 08/12/18 11:35 Vitamin D (Vitamin D3) 5,000 units PO DAILY [facility] Stop: 08/14/18 08:59 (1) Fever Fever type: unspecified Qualified Code(s): R50.9 - Fever, unspecified
[2018-07-14 16:34] LABS: Appearance Urine Clear (Clear); Bacteria Urine Automated Negative (Negative); Bilirubin Urine Negative (Negative); Color Urine Yellow; Epithelial Cell Urine Auto >30 /lpf (0-5); Glucose Urine UA 1+ (Negative); Ketones Urine 2+ (Negative); Leukocyte Esterase Urine Trace (Negative); Nitrite Urine Negative (Negative); Protein Urine 2+ (Negative); Specific Gravity Urine 1.023 (1.000-1.030); Urobilinogen Urine Negative (Negative); pH Urine 5.5 (4.5-7.5)
[2018-07-14 17:00] LABS: Renal Epithelial Cells Urine 0-5 /lpf (0-5)
[2018-07-14] MEDS ORDERED: VANCOMYCIN CONSULT ACTIVE PRN (17:19)
--- NOTE | 2018-07-14 17:37 | Pharmacy Report ---
Pharmacy Abx Initial Consult - Date of Service July 14, 2018 - Pharmacy Dosing Scope Date of Consult: 07/14/18 Consultation requested by: Narcisa Hatfield Pharmacy is consulted to initiate vancomycin IV dosing therapy, order appropriate labs and adjust drug dose/frequency. - Subjective The patient is a 82 year old F admitted on 07/13/18 10:45 with Afib with RVR. Now started on empiric Rocephin and vancomycin. - Objective Height: 5 ft 5 in Weight: 69.1 kg Vital Signs (Past 12hrs): Vital Signs Temp Pulse Pulse Resp BP BP Pulse Ox 07/14/18 15:48 37.8 C H 100 H 24 175/89 H 95 07/14/18 15:33 36.7 C 96 H 20 95 07/14/18 11:24 36.9 C 112 H 22 167/89 H 95 07/14/18 09:22 153/84 H 07/14/18 07:59 117 H 175/102 H 07/14/18 07:43 36.7 C 98 H 22 175/102 H 95 07/14/18 05:44 122 H 166/116 H 94 Lab Results (24hrs): Laboratory Tests (24 Hours) 07/14/18 07/14/18 05:23 05:23 WBC 4.03 L Neut # (Auto) 3.00 Creatinine 1.06 Est Cr Clr Drug Dosing 39.0 Micro Results: 07/14/18 16:05 Urine Culture - Pending Urine,Clean Catch - Assessment & Plan Assessment 82 year old F with empiric antibiotics. Plan vancomycin for treatment of empiric treatment Vancomycin IV * Estimated PK Parameters: Vd 0.7 L/kg, Isidro 0.037 hr-1, t1/2 18.7 hr * Loading dose: 1750 mg (25 mg/kg) * Maintenance dose: 1000 mg IV (15 mg/kg) every 20 hours * Goal trough level for empiric indication :~15 mcg/mL * Did NOT order trough as patient will only be on medication x 48 hours. Please order if patient to have extended therapy. * An extended dosing interval has been selected due to likelihood of drug accumulation in patient with h/o CKD. Pharmacy will continue to follow and will adjust dose/frequency as necessary. Thank you.
[2018-07-14] MEDS ORDERED: VANCOMYCIN HCL 1,750 MG in SODIUM CHLORIDE 0.9% 500 ML IV ONE (18:00)
[2018-07-14] MEDS ORDERED: cefTRIAXone SODIUM 2,000 MG in DEXTROSE 5% 50 ML IV SCH (18:00)
[2018-07-14] MEDS: DOXYCYCLINE HYCLATE 100 MG in DEXTROSE 5% 100 ML IV SCH (19:24)
--- NOTE | 2018-07-14 22:57 | Magnetic Resonance Report ---
MR brain wo con HISTORY: Mental status change repeat for continued neuro sx TECHNIQUE: Multiplanar multisequence MRI of the brain was performed without the use of contrast. COMPARISON STUDY: 07/13/2018 Findings: No change from the prior study. No evidence for an acute ischemic event. Considerable chronic small vessel change as well as age-related change which has been described previ ously. IMPRESSION: 1. No evidence for an acute ischemic event. 2. No change from the prior study. The above report was generated using voice recognition software. It may contain grammatical, syntax or spelling errors. Electronically signed by: Basilio Alejo M.D. 07/14/2018 10:55 PM
[2018-07-15] MEDS: SODIUM CHLORIDE 0.9% 1000ML 1,000 ML IV SCH ×2 (01:52→13:02)
[2018-07-15 06:40] LABS: Hematocrit (blood only) 36.3 % (37-47); Hemoglobin 12.9 g/dL (12.0-16.0); Mean Corpuscular Hgb Conc 35.5 g/dL (32-36); Mean Corpuscular Volume 81.8 fL (80-100); RDW Coefficient of Variation 14.1 % (11.5-14.5); RDW Standard Deviation 42.6 fL (36.4-46.3); Red Blood Count 4.44 M/uL (4.2-5.4); White Blood Count 4.37 K/uL (4.8-10.8)
[2018-07-15 06:55] LABS: Mean Platelet Volume 10.9 fL (7.4-10.4); Platelet Count 46 K/uL (130-400)
[2018-07-15 07:10] LABS: BUN Creatinine Ratio 19.3 (10-20); Calcium 7.6 mg/dl (8.5-10.1); Creatinine Clr Calc Pharmacy 43.6 ml/min; Est GFR (African American) 61.9; Est GFR (Non-African American) 53.4; Potassium 2.9 mmol/L (3.5-5.1)
[2018-07-15 07:30] LABS: ALC (manual) 1.29 K/uL (1.2-3.4); Echinocytes 1+; Lymphocytes # (manual) 0.45 K/uL (1.2-3.4); Lymphocytes % (manual) 10.4 %; Monocytes # (manual) 0.19 K/uL (0.11-0.59); Monocytes % (manual) 4.3 %; Neutrophils % (manual) 66.2 %; Reactive Lymphocytes # (manual) 0.83 K/uL
[2018-07-15] MEDS ORDERED: POTASSIUM CHLORIDE 20 MEQ TABCR PO STA (07:59)
[2018-07-15] MEDS: METOPROLOL SUCC 25MG EXT REL TAB PO SCH (08:24)
[2018-07-15] MEDS: MAGNESIUM OXIDE 400 MG TAB PO SCH ×2 (08:24→20:22)
[2018-07-15] MEDS: CHOLECALCIFEROL 1,000 UNITS TAB PO SCH (08:25)
[2018-07-15] MEDS: INSULIN ASPART 100 UNITS/ML 3 ML PEN SC SCH ×4 (08:27→20:55)
[2018-07-15] MEDS: DOXYCYCLINE HYCLATE 100 MG in DEXTROSE 5% 100 ML IV SCH ×2 (08:33→20:22)
--- NOTE | 2018-07-15 08:47 | Cardiology Progress Note ---
Date of Service July 15, 2018 Assessment & Plan (1) Atrial fibrillation: She has permanent atrial fibrillation and remains in it. I believe the heart rate is adequately controlled, I would expect her heart rate to be somewhat elevated under the circumstances and I think this degree of control is appropriate. I would continue her current dose of metoprolol, we may find that her heart rate slows as she improved since she was well rate controlled as an outpatient. She should be on anticoagulation and I agree with continuing Eliquis. (2) Hypertension: Her blood pressure appears to be adequately controlled at this time. She was very hypertensive on admission, I suspect that in the heart rate were both catecholamine driven. Subjective She is awake and alert, she does note that she is still not speaking correctly, she has developed a tremor in both hands but she is oriented x3 although it takes some time for her to come up with answers. She has no pain and no cardiovascular symptoms. Physical Exam Physical Exam: Constitutional: Alert, cooperative and in no distress. HEENT: Unremarkable Neck: No jugular venous distention, carotid pulses are irregular but otherwise normal and equal bilaterally without bruits. Pulmonary: Clear to auscultation bilaterally. Cardiac: Irregular rhythm with no murmur, gallop or rub. Abdomen: Soft, nontender with normal bowel sounds. Extremities: No edema. Distal pulses intact. Neurologic: No focal findings. Gait is steady. Skin: No rash, ecchymoses or petechiae. Results & Data Vital Signs (Past 12 Hours) Vital Signs Temp Pulse Pulse Resp BP Pulse Ox 07/15/18 07:21 36.7 C 94 H 22 126/77 96 07/15/18 06:56 36.9 C 90 18 128/78 97 07/15/18 04:00 37.1 C 97 H 18 139/87 96 07/15/18 00:19 99 H 07/14/18 23:15 36.8 C 122 H 18 165/94 H 93 Diagnostic Findings Telemetry: Her heart rate is averaging from 80 to 100 bpm for the most part, little slower at night and little faster during the day. She does have brief periods of slowing to the 40s but no significant bradycardia.
[2018-07-15] MEDS ORDERED: METOPROLOL SUCC 25MG EXT REL TAB PO SCH (09:00)
[2018-07-15] MEDS ORDERED: CALCIUM 600MG + VIT D 400 IU TAB PO SCH (09:00)
[2018-07-15] MEDS ORDERED: VITAMIN B COMPLEX TAB PO SCH (09:00)
[2018-07-15] MEDS ORDERED: TOCOPHERYL, DL-ALPHA 400 UNITS CAP PO SCH (09:00)
[2018-07-15] MEDS ORDERED: NON-FORMULARY MEDICATION (Lysine 1,000 MG) PO SCH (09:00)
--- NOTE | 2018-07-15 10:06 | Hospitalist Progress Note ---
Date of Service July 15, 2018 Assessment & Plan (1) Atrial fibrillation with RVR: Eliquis held evening of 07/14 in preparation for LP Doubled patient's Toprol dose to 50 mg daily which has helped pressure and heart rate Echo with EF 60%, no WMA Continue prn metoprolol 5 mg IV Cardiology consulted (2) Metabolic encephalopathy: No stroke on MRI, repeat continued to show no acute chages Patient with worsening symptoms evening of 07/14 as well as low grade fever. Platelets were decreasing and today are 47,000. Her partner did report a tick bite a week prior and that they are often in the garden or hiking. - peripheral smear showed anaplasmosis - continue bid doxycycline IV - Lyme was negative but given patients neurological picture there is continued concerned for Lyme [employer] infection. Will continue with IV Rocephin and Vanc until lumbar puncture can be obtained. Guidelines recommend 72 hours from last Eliquis dose before axial procedures. - BC pending Carotid doppler: Approximately 50-69% stenosis within the proximal right internal carotid artery due to the moderate calcified plaque. No significant stenosis within the left carotid arteries. 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 Increased lopressor as above. Improved today to 120s systolically (5) Type 2 diabetes mellitus: Diet controlled. SS, bsgs ac & hs (6) Decreased thyroid stimulating hormone (TSH) level: TSH on admission was 0.203, T4 was wnl. Patient should have repeat level drawn in 3-4 weeks (7) DVT prophylaxis: Eliquis held as above DNR Subjective Ms. Estrella is vastly improved this morning, conversing normally. She continues to have a left facial droop. Her partner is bedside and I updated them on the plan of care and members of the care team. Review of Systems Review of Systems: All systems reviewed & are unremarkable except as noted in HPI & below Physical Exam Physical Exam: General: no distress Eyes: normal inspection, PERLL Respiratory: chest non tender, clear to auscultation, normal breath sounds, no respiratory distress, no accessory muscle use Cardiac: regular rate and rhythm, no rub or gallop, no murmur, no edema, no jvd GI/: active bowel sounds, no abd pain or tenderness, soft, non distended Extremities: normal range of motion, normal strength, non tender Neuro/Psych: alert and oriented x 3, normal mood and affect, left facial droop otherwise CN II -XII intact, very mild aphasia today but much improved from last night Skin: normal color, dry Results & Data Vital Signs (Past 12 Hours) Vital Signs Temp Pulse Pulse Resp BP Pulse Ox 07/15/18 07:21 36.7 C 94 H 22 126/77 96 07/15/18 06:56 36.9 C 90 18 128/78 97 07/15/18 04:00 37.1 C 97 H 18 139/87 96 07/15/18 00:19 99 H 07/14/18 23:15 36.8 C 122 H 18 165/94 H 93
--- NOTE | 2018-07-15 10:51 | Infectious Disease Consult ---
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 Suspect she had encephalopathy with this infection, and hopefully will resolve completely with appropriate treatment. Would recommend 14 days of doxycycline. Recommend deferral of lumbar puncture at present time since we had explanation for her neurologic symptoms. Will follow. History of Present Illness Reason for Consultation: Focal neurologic deficit with anaplasmosis Attending Physician: Godfrey Multani MD History of Present Illness 82-year-old female with history of atrial fibrillation, well-controlled rate on Eliquis, hypertension, type 2 diabetes mellitus, who was admitted to the hospital after relatively acute onset of what appeared to be expressive aphasia along with degree of encephalopathy. She did had several days of significant weakness and fatigue, along with chills but no obvious fever. 2 weeks ago, removed an engorged tick from her chest wall. 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 Patient has been on doxycycline and had significant improvement in neurologic status. Neuro alert and oriented and conversing relatively normally. Has previous history of treated Lyme disease. Lyme serology is negative. Allergies Allergy/AdvReac Type Severity Reaction Status Date / Time No Known Allergies Allergy Verified 07/13/18 09:22 Home Medications Home Medications Medication Instructions Recorded Confirmed Type acetaminophen ER 650 mg 650 mg PO BID PRN tab 12/16/17 07/13/18 History tablet,extended release apixaban 5 mg tablet 5 mg PO BID 12/16/17 07/13/18 History cholecalciferol (vitamin D3) 5,000 5,000 units PO DAILY 12/16/17 07/13/18 History unit capsule lutein 20 mg tablet 20 mg PO Q2D 12/16/17 07/13/18 History lysine 1,000 mg tablet 1,000 mg PO DAILY 12/16/17 07/13/18 History metoprolol succinate ER 25 mg 25 mg PO DAILY 12/16/17 07/13/18 History tablet,extended release 24 hr vitamin B complex capsule 1 cap PO DAILY 12/16/17 07/13/18 History vitamin E (dl, acetate) 400 unit 400 units PO DAILY 12/16/17 07/13/18 History capsule calcium 600 mg-D3 800 unit-mag11 1 tab PO DAILY 03/30/18 07/13/18 History 50 dn-auua-zuuphk-rashaun-s.borat tablet Patient History Medical History Do not resuscitate status Atrial fibrillation with RVR (Chronic) Type 2 diabetes mellitus (Chronic) Atrial fibrillation (Chronic) Osteoarthritis (Chronic) Shingles (Acute) Surgical History History of knee surgery (Resolved) History of tonsillectomy (Resolved) History of cataract surgery Family History Mother , Mother age 103 with dementia, hypertension, and diabetes Dementia Hypertension Diabetes Father , Father age 78 of heart issues Diabetes Coronary heart disease Social History Preferred Language: [place] Communication Ability: Impaired Visual Impairment: No Limitations Hearing Ability: Normal Sales Utility Representative Required: No Beliefs That Will Affect Care: None marital status: Single Current Living Situation: Significant Other current occupational status: retired 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 Other Information That Helps Us Care for You: No Feels Safe at Home: Yes Safety Concerns: Feels Safe At This Time Smoking Status: Never smoker Do You Dip or Chew Tobacco: No Second Hand Exposure: No Tobacco Cessation Education Requested by Patient: No Hx Alcohol Use: Yes (Very occasionally) Hx Substance Use: No Review of Systems Review of Systems: All systems reviewed & are unremarkable except as noted in HPI & below Physical Exam Constitutional: WD/WN, vitals as above comfortable; no acute distress Eyes: PERRL, conjunctivae normal, anicteric sclerae ENMT: external ear and nose normal, oropharynx normal Neck: trachea midline, no thyromegaly neck nontender Respiratory: normal respiratory effort, lungs clear to auscultation normal percussion; does not use accessory muscles Cardiovascular: Rate/Rhythm: + irregularly irregular Heart Sounds: normal S1 and normal S2; no gallop, no murmur and no cardiac rub Vessels: normal peripheral pulses; no JVD Gastrointestinal (Abdomen): normal bowel sounds, soft, nontender, no hepatosplenomegaly Musculoskeletal: no cyanosis or clubbing, extremities motor strength 5/5 Spine: thoracic spine normal to inspection and lumbar spine normal to inspection; no cervical spinal tenderness Skin: no rashes, warm and dry normal turgor; no lesions Neurologic: patellar DTR's 2+ bilat, sensation intact no focal motor deficits Psychiatric: A+Ox3, euthymic affect Orientation: cooperative Lymphatic: no cervical or axillary lymphadenopathy no inguinal lymphadenopathy Results & Data Vital Signs (Past 12 Hours) Vital Signs Temp Pulse Pulse Resp BP Pulse Ox 07/15/18 07:21 36.7 C 94 H 22 126/77 96 07/15/18 06:56 36.9 C 90 18 128/78 97 07/15/18 04:00 37.1 C 97 H 18 139/87 96 07/15/18 00:19 99 H 07/14/18 23:15 36.8 C 122 H 18 165/94 H 93 Laboratory Results Short CBC 07/15/18 Range/Units 06:09 WBC 4.37 L (4.8-10.8) K/uL Hgb 12.9 (12.0-16.0) g/dL Hct 36.3 L (37-47) % Plt Count 46 L (130-400) K/uL BMP 07/15/18 06:06 Sodium 138 Potassium 2.9 L Chloride 109 H Carbon Dioxide 20 L BUN 19 H Creatinine 0.99 Glucose 147 H Calcium 7.6 L Cardiac Enzymes 07/14/18 07/14/18 Range/Units 16:06 22:05 Troponin I 0.154 H* 0.148 H* (0-0.045) ng/ml Urine 07/14/18 Range/Units 16:05 Urine Color Yellow Urine Appearance Clear (Clear) Urine pH 5.5 (4.5-7.5) Ur Specific [place] 1.023 (1.000-1.030) Urine Protein 2+ H (Negative) Urine Glucose (UA) 1+ H (Negative) Diagnostic Findings Microbiology 07/13/18 09:10 Blood Aerobic Blood Culture - Preliminary No growth in Aerobic bottle after 24 hours. 07/13/18 09:10 Blood Anaerobic Blood Culture - Preliminary No growth in Anaerobic bottle after 24 hours. 07/13/18 09:06 Blood Aerobic Blood Culture - Preliminary No growth in Aerobic bottle after 24 hours. 07/13/18 09:06 Blood Anaerobic Blood Culture - Preliminary No growth in Anaerobic bottle after 24 hours. MR brain wo con HISTORY: Mental status change repeat for continued neuro sx TECHNIQUE: Multiplanar multisequence MRI of the brain was performed without the use of contrast. COMPARISON STUDY: 07/13/2018 Findings: No change from the prior study. No evidence for an acute ischemic event. Considerable chronic small vessel change as well as age-related change which has been described previously. IMPRESSION: 1. No evidence for an acute ischemic event. 2. No change from the prior study. The above report was generated using voice recognition software. It may contain grammatical, syntax or spelling errors. Electronically signed by: Basilio Alejo M.D. 07/14/2018 10:55 PM Dictated: 07/14/18 2250
[2018-07-15] MEDS ORDERED: POTASSIUM CHLORIDE 20 MEQ TABCR PO ONE (12:00)
[2018-07-15] MEDS ORDERED: VANCOMYCIN HCL 1,000 MG in SODIUM CHLORIDE 0.9% 250 ML IV SCH (14:00)
[2018-07-16] MEDS: SODIUM CHLORIDE 0.9% 1000ML 1,000 ML IV SCH (03:18)
[2018-07-16 05:55] LABS: Hematocrit (blood only) 35.2 % (37-47); Hemoglobin 12.2 g/dL (12.0-16.0); Mean Corpuscular Hgb Conc 34.7 g/dL (32-36); Mean Corpuscular Volume 82.2 fL (80-100); RDW Coefficient of Variation 14.3 % (11.5-14.5); RDW Standard Deviation 43.2 fL (36.4-46.3); Red Blood Count 4.28 M/uL (4.2-5.4); White Blood Count 5.55 K/uL (4.8-10.8)
[2018-07-16 06:02] LABS: Mean Platelet Volume 10.8 fL (7.4-10.4); Platelet Count 45 K/uL (130-400)
[2018-07-16 06:36] LABS: BUN Creatinine Ratio 25.3 (10-20); Calcium 7.9 mg/dl (8.5-10.1); Creatinine Clr Calc Pharmacy 48.1 ml/min; Est GFR (African American) 69.5; Potassium 3.9 mmol/L (3.5-5.1)
[2018-07-16 06:40] LABS: Basophils # (auto) 0.03 K/uL (0-0.2); Basophils % (auto) 0.5 %; Dohle Bodies 1+; Echinocytes 1+; Eosinophils # (auto) 0.01 K/uL (0-0.5); Eosinophils % (auto) 0.2 %; Immature Granulocytes # (auto) 0.02 K/uL (0.00-0.02); Immature Granulocytes % (auto) 0.4 %; Lymphocytes # (auto) 1.77 K/uL (1.2-3.4); Lymphocytes % (auto) 31.9 %; Monocytes # (auto) 0.46 K/uL (0.11-0.59); Monocytes % (auto) 8.3 %; Neutrophils # (auto) 3.26 K/uL (1.4-6.5); Neutrophils % (auto) 58.7 %
[2018-07-16] MEDS: DOXYCYCLINE HYCLATE 100 MG in DEXTROSE 5% 100 ML IV SCH (08:07)
[2018-07-16] MEDS: CHOLECALCIFEROL 1,000 UNITS TAB PO SCH (08:07)
[2018-07-16] MEDS: INSULIN ASPART 100 UNITS/ML 3 ML PEN SC SCH ×4 (08:08→20:52)
[2018-07-16] MEDS: METOPROLOL SUCC 25MG EXT REL TAB PO SCH (08:11)
[2018-07-16] MEDS ORDERED: METOPROLOL SUCC 25MG EXT REL TAB PO STA (08:42)
[2018-07-16] MEDS ORDERED: METOPROLOL SUCC 50MG EXT REL TAB PO SCH (09:00)
--- NOTE | 2018-07-16 09:15 | Cardiology Progress Note ---
Date of Service July 16, 2018 Assessment & Plan (1) Atrial fibrillation: She has permanent atrial fibrillation and remains in it. Her heart rate does seem a little bit fast, I would have expected it to improve more by now. I did confirm that her home dose of metoprolol is 25 mg of metoprolol succinate, which she is on here. I am not sure why her heart rate remains elevated but I think it would be reasonable to increase the dose today and I have increased it to 50 mg. Whether we send her home on the 25 mg dose or the 50 mg dose will depend on how she does that she improves from her illness. (2) Hypertension: Her blood pressure is still high at times, it still may be catecholamine driven given that she also is tachycardic. The increase in beta-laura may help with that today. Subjective She is definitely feeling better today, she feels that she is still weak and she still has little trouble with word finding but she notices a definite improvement. She does notice that her heart rate is somewhat elevated and she feels that she is sweaty at times. Physical Exam Physical Exam: Constitutional: Alert, cooperative and in no distress. In casual conversation she does not seem confused today. Pulmonary: Clear to auscultation bilaterally. Cardiac: Irregular rhythm with no murmur, gallop or rub. Abdomen: Soft, nontender with normal bowel sounds. Extremities: No edema. Skin: No rash, ecchymoses or petechiae. Results & Data Vital Signs (Past 12 Hours) Vital Signs Temp Pulse Resp BP Pulse Ox 07/16/18 06:53 36.6 C 101 H 18 147/86 H 93 07/16/18 03:46 36.7 C 101 H 18 147/84 H 92 07/15/18 23:46 36.7 C 105 H 18 123/78 93 Diagnostic Findings Telemetry: Her heart rate continues to be somewhat elevated. It is perhaps a li ttle bit better than when she came in but not a lot, she still varies between about 90 and 110 in general.
--- NOTE | 2018-07-16 09:43 | Neurology Progress Note ---
Date of Service July 16, 2018 Assessment & Plan (1) Expressive aphasia: The patient had acute onset language problems July 13 consistent with expressive aphasia, some confusion likely from an acute encephalopathy, and on neurologic examination a left facial droop. She had some generalized weakness and fatigue. She had an acute encephalopathy with neurologic issues secondary to hypertension and rapid ventricular rate (pulse up to 190). MRI of the brain showed no acute stroke. The moderately stenotic left posterior cerebral artery should not be related to or causing any of her symptoms listed above. She had no meningeal signs or focal signs on exam except for the left facial droop. . MRI also showed mild to moderate old cerebral ischemia of a chronic nonspecific nature. Today, clinically, she is markedly better with no obvious encephalopathy, meningeal signs, or focal neurologic findings including no facial droop. (2) Atrial fibrillation with RVR: Patient has chronic atrial fibrillation with a very rapid ventricular rate, followed by Cardiology. (3) Hypertension: Patient has significant hypertension, better controlled since admission. (4) Anaplasmosis: Patient has a history of tick bite, fever, and has been diagnosed with anaplasmosis. This can give an acute encephalopathy in patients. Since treated with doxycycline she has been afebrile and markedly improved clinically. Recommendations: 1. Control heart rate as you are doing. 2. Control blood pressure aiming for a mean arterial pressure approximately 100. 3. Continue anticoagulant in lieu of atrial fibrillation. 4. Because of the old small vessel ischemic changes and stenotic left posterior cerebral artery noted on MRA of the head, continue 81 milligram aspirin tablet daily 5. Physical, occupational, and speech therapy consult. Increase activity as able. 6. Complete 2 week course of doxycycline. Currently there is no need for lumbar puncture. 7. I have no further neurologic testing or treatment recommendations to make at this time. Please contact me if I can be of further assistance on this case. Overall, I spent a total of 35 minutes with this case including review of records, direct evaluation the patient at bedside, and discussion of the case with the patient, nursing staff at bedside, Dr. Love, and Narcisa SANCHES, including differential diagnosis and treatment options. Subjective Pain or headache. She is feeling better and less confused. She has no chest pain or dizziness. There are no vision issues. Blood pressure is 147/86, with a pulse of approximately 100. She is in chronic atrial fibrillation with rates in the 90s and 100s. She is followed by Cardiology. Patient has an anaplasmosis infection was initiated on doxycycline July 14. Physical Exam Physical Exam: She is awake and alert. Speech is without aphasia or dysarthria. She is more attentive and can answer questions better. Mood and affect are normal appropriate. Extraocular eye muscles are intact without nystagmus. There is no facial droop. With outstretched arms there is no drift. There is no resting, postural, or action tremors. There is no ataxia with [id number] testing. Motor strength is symmetrical in the limbs. Results & Data Vital Signs (Past 12 Hours) Vital Signs Temp Pulse Resp BP Pulse Ox 07/16/18 06:53 36.6 C 101 H 18 147/86 H 93 07/16/18 03:46 36.7 C 101 H 18 147/84 H 92 07/15/18 23:46 36.7 C 105 H 18 123/78 93
--- NOTE | 2018-07-16 10:10 | Hospitalist Progress Note ---
Date of Service July 16, 2018 Assessment & Plan (1) Atrial fibrillation with RVR: Eliquis held evening of 07/14 for possible LP - not indicated at this point per ID however platelets are 45,000. Per UpToDate, NOACs are safe with platelets > 50,000 so will hold off on restarting until platelets start to rebound Patient's Toprol dose double to 50 mg Echo with EF 60%, no WMA Continue prn metoprolol 5 mg IV Cardiology consulted (2) Metabolic encephalopathy: No stroke on MRI, repeat continued to show no acute chages Patient with worsening symptoms evening of 07/14 as well as low grade fever. Platelets were decreasing and today are 47,000. Her partner did report a tick bite a week prior and that they are often in the garden or hiking. - peripheral smear showed anaplasmosis - continue bid doxycycline - will change to po - per ID should be for total of two weeks. - BC ngtod Carotid doppler: Approximately 50-69% stenosis within the proximal right internal carotid artery due to the moderate calcified plaque. No significant stenosis within the left carotid arteries. 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 Increased lopressor as above. Improving (5) Type 2 diabetes mellitus: Diet controlled. SS, bsgs ac & hs (6) Decreased thyroid stimulating hormone (TSH) level: TSH on admission was 0.203, T4 was wnl. Patient should have repeat level drawn in 3-4 weeks (7) DVT prophylaxis: Eliquis held as above DNR Review of Systems Review of Systems: All systems reviewed & are unremarkable except as noted in HPI & below Physical Exam Physical Exam: General: no distress Eyes: normal inspection, PERLL Respiratory: chest non tender, crackles right base otherwise clear to auscultation, no respiratory distress, no accessory muscle use Cardiac: regular rate and rhythm, no rub or gallop, no murmur, no edema, no jvd GI/: active bowel sounds, no abd pain or tenderness, soft, non distended Extremities: normal range of motion, normal strength, non tender Neuro/Psych: alert and oriented x 3, normal mood and affect, improved left facial droop Skin: normal color, dry Results & Data Vital Signs (Past 12 Hours) Vital Signs Temp Pulse Resp BP Pulse Ox 07/16/18 06:53 36.6 C 101 H 18 147/86 H 93 07/16/18 03:46 36.7 C 101 H 18 147/84 H 92 07/15/18 23:46 36.7 C 105 H 18 123/78 93
--- NOTE | 2018-07-16 17:14 | Infectious Disease Progress Nt ---
Date of Service July 16, 2018 Assessment & Plan (1) Anaplasmosis: Patient with acute Anaplasma infection, appears to be responding well to doxycycline. Would continue to complete 14 days of therapy. Will follow. Subjective Patient seen in follow-up for acute Anaplasma infection. Continues to show improvement, is better. No fever. Platelets about the same today. White count slightly better. Review of Systems Review of Systems: All systems reviewed & are unremarkable except as noted in HPI & below Physical Exam Constitutional: WD/WN, vitals as above comfortable; no acute distress Eyes: PERRL, conjunctivae normal, anicteric sclerae ENMT: external ear and nose normal, oropharynx normal Neck: trachea midline, no thyromegaly neck nontender Respiratory: normal respiratory effort, lungs clear to auscultation normal percussion; does not use accessory muscles Cardiovascular: Rate/Rhythm: + irregularly irregular Heart Sounds: normal S1 and normal S2; no gallop, no murmur and no cardiac rub Vessels: normal peripheral pulses; no JVD Gastrointestinal (Abdomen): normal bowel sounds, soft, nontender, no hepatosplenomegaly Musculoskeletal: no cyanosis or clubbing, extremities motor strength 5/5 Spine: thoracic spine normal to inspection and lumbar spine normal to inspection; no cervical spinal tenderness Skin: no rashes, warm and dry normal turgor; no lesions Neurologic: patellar DTR's 2+ bilat, sensation intact no focal motor deficits Psychiatric: A+Ox3, euthymic affect Orientation: cooperative Lymphatic: no cervical or axillary lymphadenopathy no inguinal lymphadenopathy Results & Data Vital Signs (Past 12 Hours) Vital Signs Temp Pulse Resp BP BP Pulse Ox 07/16/18 15:44 36.9 C 76 18 136/87 99 07/16/18 11:04 36.6 C 80 17 143/81 H 94 07/16/18 06:53 36.6 C 101 H 18 147/86 H 93 Laboratory Results Short CBC 07/16/18 Range/Units 05:42 WBC 5.55 (4.8-10.8) K/uL Hgb 12.2 (12.0-16.0) g/dL Hct 35.2 L (37-47) % Plt Count 45 L (130-400) K/uL BMP 07/16/18 05:42 Sodium 138 Potassium 3.9 D Chloride 111 H Carbon Dioxide 21 BUN 23 H Creatinine 0.90 Glucose 114 H Calcium 7.9 L Diagnostic Findings Microbiology 07/14/18 16:05 Urine,Clean Catch Urine Culture - Final No growth - less than 1,000 colonies/mL. 07/13/18 09:10 Blood Aerobic Blood Culture - Preliminary No growth in Aerobic bottle after 48 hours. 07/13/18 09:10 Blood Anaerobic Blood Culture - Preliminary No growth in Anaerobic bottle after 48 hours. 07/13/18 09:06 Blood Aerobic Blood Culture - Preliminary No growth in Aerobic bottle after 48 hours. 07/13/18 09:06 Blood Anaerobic Blood Culture - Preliminary No growth in Anaerobic bottle after 48 hours.
[2018-07-16] MEDS: DOXYCYCLINE HYCLATE 100 MG CAP PO SCH (20:52)
[2018-07-17 06:02] LABS: Hemoglobin 12.2 g/dL (12.0-16.0); Mean Corpuscular Hgb Conc 35.9 g/dL (32-36); Mean Corpuscular Volume 81.3 fL (80-100); Mean Platelet Volume 11.5 fL (7.4-10.4); Platelet Count 69 K/uL (130-400); RDW Coefficient of Variation 14.5 % (11.5-14.5); RDW Standard Deviation 42.8 fL (36.4-46.3); Red Blood Count 4.18 M/uL (4.2-5.4); White Blood Count 6.16 K/uL (4.8-10.8)
[2018-07-17 06:23] LABS: BUN Creatinine Ratio 22.8 (10-20); Creatinine Clr Calc Pharmacy 48.6 ml/min; Est GFR (African American) 70.4; Est GFR (Non-African American) 60.8; Potassium 3.8 mmol/L (3.5-5.1)
[2018-07-17] MEDS: CHOLECALCIFEROL 1,000 UNITS TAB PO SCH (07:56)
[2018-07-17] MEDS: DOXYCYCLINE HYCLATE 100 MG CAP PO SCH (07:56)
[2018-07-17] MEDS: INSULIN ASPART 100 UNITS/ML 3 ML PEN SC SCH (07:57)
[2018-07-17] MEDS ORDERED: METOPROLOL SUCC 50MG EXT REL TAB PO SCH (09:00)
--- NOTE | 2018-07-17 11:21 | Discharge Summary ---
Date of Service July 17, 2018 Admission HPI Per Admitting Provider 82-year-old female with a history of chronic atrial fibrillation and type 2 diabetes which is diet controlled. She takes Eliquis on a regular basis along with metoprolol succinate. She was fine last evening when she went to bed but when she awoke this morning she noticed difficulty finding the correct words. She was brought to the ED for evaluation. She has a low-grade fever but no sign of infection on chest x-ray. Urine however has not been checked yet. She did receive intravenous Rocephin. Head CT scan is unremarkable. 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 Stroke work-up will be ordered along with brain MRI and MRA. Cardiac echo has been ordered. Urine analysis and urine culture will be ordered. She has requested a DNR status. She will be placed on IV metoprolol until she is cleared to take oral medication. OT, PT, speech therapy has also been ordered. Principal Diagnosis Anaplasmosis Discharge Exam Constitutional WD/WN, vitals as above Respiratory normal respiratory effort, lungs clear to auscultation Cardiovascular RRR, no murmur, no edema Gastrointestinal (Abdomen) Inspection/Auscultation: abdomen normal to inspection and normal bowel sounds; abdomen not distended Musculoskeletal no cyanosis or clubbing, extremities motor strength 5/5 Skin no rashes, warm and dry Neurologic moves all extremities and awake Psychiatric A+Ox3, euthymic affect Discharge Data Allergies Allergy/AdvReac Type Severity Reaction Status Date / Time No Known Allergies Allergy Verified 07/13/18 09:22 Consultations 07/13/18 11:28 ED Decision to Admit Stat 07/13/18 11:36 Consult Case Management - Discharge Planning Routine Consult Neurology Routine 07/14/18 09:38 Consult Cardiology Routine 07/14/18 19:20 Consult Infectious Diseases Routine Ordered Studies 07/13/18 08:03 CT head/brain wo con Stat 07/13/18 11:36 MR angio head wo con Routine MR brain wo con Routine 07/14/18 04:38 CT head/brain wo con Urgent 07/14/18 08:54 US carotid doppler BI Routine 07/14/18 19:45 MR brain wo con Routine Hospital Course (1) Atrial fibrillation with RVR: Eliquis held evening of 07/14 for possible LP - not indicated at this point per ID. Per [employer], NOACs are safe with platelets > 50,000 but will have her take a reduced dose of 2.5 mg bid until she is over 100,000 per their recommendation Patient's Toprol dose doubled to 50 mg - I did discuss with the patient that she will need to monitor her heart rate and blood pressure as she gets over this infection as she may not need this increased dosing once she recovers Echo with EF 60%, no WMA Cardiology consulted (2) Metabolic encephalopathy: Patient initially was admitted with presumed stroke given left facial droop and aphasia, however there was no stroke on her MRI or on her repeat. Venita ent with worsening symptoms evening of 07/14 as well as low grade fever. Platelets were decreasing and her partner did report a tick bite a week prior and that they are often in the garden or hiking. - peripheral smear showed anaplasmosis - continue bid doxycycline for 14 days total per ID - BC ngtd - ID does not feel there is an indication for LP as patient had such quick turn around with doxycycline, very unlikely that there is a coexisting [employer] infection like Lyme - Carotid doppler: Approximately 50-69% stenosis within the proximal right internal carotid artery due to the moderate calcified plaque. No significant stenosis within the left carotid arteries. Not likely contributory as there was no stroke on MRI and symptoms lasted too long to be TIA - should have this followed outpatient - Neurology consulted - Recommends ASA but will hold due to thrombocytopenia and initiate when platelets have rebounded. 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 Increased lopressor as above. Improving (5) Type 2 diabetes mellitus: Diet controlled. SS, bsgs ac & hs inpatient (6) Decreased thyroid stimulating hormone (TSH) level: TSH on admission was 0.203, T4 was wnl. 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 Discharge Diagnosis: Anaplasmosis Discharge Goals: Improve disease control Activity: Resume your previous activity Activity Comment: gradually as tolerated Non-emergency contact: Primary Care Provider Call non-emergency contact if: you have any medication questions and you have a fever Follow-up/Referrals: Carolina Sotelo CRNP [Primary Care Provider] - Diet: Carb Consistent or DM2 Other Ambulatory Orders: Complete Blood Count with Diff (Routine) Timeframe: [id number] Location: Determined by Patient Ordered By: Narcisa Negrete Provider Instructions: Please see your primary care provider within a week. You should follow up with her concerning the results of your tick born illness lab tests. Home health will evaluate and treat you for physical and occupational therapy Please have your blood drawn on Friday, results will go to your primary care provider. I would like you to hold your Eliquis tonight as you had a dose this morning and then start at a reduced dose through the weekend until you talk with your provider about the results of your blood draw on Friday. You should also ask your provider at that time if it is ok to start 81 mg of aspirin per neurology's recommendation Your platelets are improving but you should monitor for any signs or symptoms of bleeding such as petechiae (little red spots on the skin), excessive bruising, dark tarry stools or blood in stool or urine. You will take 10 more days of doxycycline twice a day. - Doxycycline can cause photosensitivity so please use sunscreen or cover ups and sunglasses when outside until you have finished your course. You should also avoid taking the medication with dairy products. Doxycycline can cause gastrointestinal discomfort and nausea, you can try taking the medication with food to avoid this effect. Do not take bismuth (Pepto-Bismol), calcium, iron, magnesium, zinc, multivitamins with minerals, colestipol, cholestyramine, didanosine, or antacids within 2 hours of this drug.Take with a full glass of water. Do not lie down for at least 30 minutes after taking this drug. Prescriptions: New doxycycline hyclate 100 mg Capsule 100 mg PO BID Qty: 21 RF: 0 metoprolol succinate 50 mg Tablet Extended Release 24 Hr 50 mg PO QAM Qty: 30 RF: 1 Eliquis 2.5 mg tablet 2.5 mg PO BID Qty: 8 RF: 0 Continued lutein 20 mg tablet 20 mg PO Q2D RF: 0 acetaminophen [Tylenol Arthritis Pain] 650 mg tablet extended release 650 mg PO BID PRN (Reason: Pain) RF: 0 vitamin E (dl, acetate) 400 unit capsule 400 units PO DAILY RF: 0 lysine 1,000 mg tablet 1,000 mg PO DAILY RF: 0 vitamin B complex [Super B-50 Complex] capsule 1 cap PO DAILY RF: 0 cholecalciferol (vitamin D3) 5,000 unit capsule 5,000 units PO DAILY RF: 0 [id number] [Caltrate 600-D Plus Minerals] 600 mg calcium- 800 unit-50 mg tablet 1 tab PO DAILY RF: 0 Discontinued metoprolol succinate 25 mg tablet extended release 24 hr 25 mg PO DAILY RF: 0 apixaban [Eliquis] 5 mg tablet 5 mg PO BID RF: 0 Stand-Alone Forms: [facility] Discharge Orders: Discharge Order (Routine); Ordered 07/17/18 Ordered By: Narcisa Hatfield Admission Data Admit Date/Time: 07/13/18 10:45 Attending Provider: Godfrey Multani Admit Provider: Steven Valdez Primary Care Provider: Carolina Sotelo Other Providers: Rashaun Lofton ; Anthony Laguerre III ; Claire Warren ; Millie Rubi ; Noe Chiang Charles C. ; Peña Love Service: Telemetry Other Interventions: Discharge Summary Assessment (RN) Last Done: 07/17/18 12:14 DC Date/Time DO NOT enter until pt leaves facility: 07/17/18 13:02
[2018-07-17] MEDS ORDERED: STROKE PATIENT DISCHARGE STA (11:29)
--- NOTE | 2018-07-17 12:57 | Cardiology Progress Note ---
Date of Service July 17, 2018 Assessment & Plan (1) Atrial fibrillation: She remains in atrial fibrillation, her heart rate had been fast until we increased her metoprolol. I am not sure exactly why her outpatient dose was not controlling her as it seemed to at home, but it seems long enough that the stress of her initial presentation should have declined. I would recommend sending her home on the higher dose cautioned her about what to look for in terms of signs and symptoms of bradycardia and we can see her in the office in several weeks and make sure that we reduce the dose if needed. (2) Hypertension: Her blood pressure is still high at times, I would not increase the beta- laura at this time since her heart rate is controlled, I would avoid adding an AV and abril blocking medication such as diltiazem as well but other medications should be sufficient if desired. Subjective She is feeling much better and is anxious to go home. She has no sensation of her heart rhythm. Physical Exam Physical Exam: Constitutional: Alert, cooperative and in no distress. Pulmonary: Clear to auscultation bilaterally. Cardiac: Irregular rhythm with no murmur, gallop or rub. Abdomen: Soft, nontender with normal bowel sounds. Extremities: No edema. Skin: No rash, ecchymoses or petechiae. Results & Data Vital Signs (Past 12 Hours) Vital Signs Temp Pulse Pulse Pulse Resp BP BP 07/17/18 12:14 36.8 C 104 H 76 18 147/64 H 149/81 H 07/17/18 12:00 36.8 C 76 18 147/64 H 07/17/18 11:53 36.8 C 104 H 76 18 143/69 H 149/81 H 07/17/18 11:50 36.8 C 104 H 76 18 143/69 H 149/81 H 07/17/18 08:00 86 07/17/18 07:49 36.8 C 76 18 143/69 H 07/17/18 03:46 36.9 C 83 19 149/81 H Pulse Ox 07/17/18 12:14 97 07/17/18 12:00 97 07/17/18 11:53 98 07/17/18 11:50 98 07/17/18 08:00 07/17/18 07:49 98 07/17/18 03:46 95 Diagnostic Findings Telemetry: Atrial fibrillation with a well-controlled heart rate
[2018-07-19 21:00] LABS: Anaplasma phagocytophila IgM <1:20 (<1:20); Ehrlichia chaff IgG Ab <1:64 (<1:64); Ehrlichia chaff IgM Ab <1:20 (<1:20)
== END 2018-07-17 13:02 | disposition home or self-care (01) | DRG 867 ==
LOC: ED 07:45 → 2S 10:45 → SUATTDRO 10:45 → 2S 11:09

== ENCOUNTER 2020-11-01 11:14 | Inpatient (IN) ==
[2020-11-01 11:48] LABS: Basophils # (auto) 0.03 K/uL (0-0.2); Basophils % (auto) 0.4 %; Eosinophils # (auto) 0.13 K/uL (0-0.5); Eosinophils % (auto) 1.5 %; Hematocrit (blood only) 46.2 % (37-47); Hemoglobin 15.2 g/dL (12.0-16.0); Immature Granulocytes # (auto) 0.01 K/uL (0.00-0.02); Immature Granulocytes % (auto) 0.1 %; Lymphocytes # (auto) 1.74 K/uL (1.2-3.4); Lymphocytes % (auto) 20.6 %; Mean Corpuscular Hemoglobin 28.6 pg (25-34); Mean Corpuscular Hgb Conc 32.9 g/dL (32-36); Mean Corpuscular Volume 86.8 fL (80-100); Mean Platelet Volume 10.6 fL (7.4-10.4); Monocytes # (auto) 0.64 K/uL (0.11-0.59); Monocytes % (auto) 7.6 %; Neutrophils # (auto) 5.91 K/uL (1.4-6.5); Neutrophils % (auto) 69.8 %; Platelet Count 232 K/uL (130-400); RDW Standard Deviation 47.4 fL (36.4-46.3); Red Blood Count 5.32 M/uL (4.2-5.4); White Blood Count 8.46 K/uL (4.8-10.8)
[2020-11-01 12:04] LABS: INR 1.1 (0.9-1.1); Partial Thromboplastin Ratio 0.9; Partial Thromboplastin Time 23.7 Seconds (21.0-31.0); Prothrombin Time 11.4 Seconds (9.0-12.0)
[2020-11-01 12:09] LABS: Albumin Level 3.6 gm/dl (3.4-5.0); BUN Creatinine Ratio 13.1 (10-20); Calcium 9.4 mg/dl (8.5-10.1); Creatinine Clr Calc Pharmacy 28.4 ml/min; Est GFR (African American) 37.9 ml/min; Est GFR (Non-African American) 32.7 ml/min; Potassium 4.9 mmol/L (3.5-5.1)
[2020-11-01 12:12] LABS: Albumin Globulin Ratio 0.9 (0.9-2); Bilirubin,Total 0.8 mg/dl (0.2-1); Globulin 3.8 gm/dl (2.5-4.0); Total Protein 7.4 gm/dl (6.4-8.2)
--- NOTE | 2020-11-01 12:47 | Emergency Department Note ---
History of Present Illness General Chief complaint: Syncope Stated complaint: PASSED OUT THIS MORNING, DR TEMPLETON Time Seen by Provider: 11/01/20 12:27 Source: patient History of Present Illness Provider complaint: Syncopal episode Onset (ago): hour(s) Location: head Pain Consistency: + now resolved Maximum Pain Intensity: 2 Quality: + other (Passed out briefly) Relieved By: + none Associated symptoms: + nausea/vomiting (Nausea without vomiting); no chest pain, no cough, no fever/chills, no headaches or no shortness of breath This is an 85-year-old female who presents with a syncopal episode today. The patient states that she was up for about half an hour and walk to the kitchen. She started feeling nauseated and then suddenly passed out. She states she landed on her buttocks and her back and think she hit her head as well. Her partner was walking into the kitchen had a just about the same time and saw her on the floor so she believes she was not out for more than a few seconds. The patient lie down on the floor and ate some food and got up and felt back to her normal self. She had no other symptoms and denies any fever, cough or cold symptoms, headache, chest discomfort, shortness of breath, palpitations, abdominal pain, vomiting, diarrhea, black or bloody stools or urinary symptoms. This occurred at approximately 9 to 9:30 AM. She messaged her doctor and credit card specialist to recommended she be evaluated in the emergency department. She has never passed out before. Home Medications Medication Instructions Recorded Confirmed Type acetaminophen 650 mg 650 mg PO BID PRN tab 12/16/17 09/05/20 History tablet,extended release (Tylenol Arthritis Pain) cholecalciferol (vitamin D3) 125 5,000 units PO DAILY 12/16/17 09/05/20 History mcg (5,000 unit) capsule lysine 1,000 mg tablet 1,000 mg PO DAILY 12/16/17 09/05/20 History vitamin B complex (Super B-50 1 cap PO DAILY 12/16/17 09/05/20 History Complex) vitamin E (dl, acetate) 180 mg 400 units PO DAILY 12/16/17 09/05/20 History (400 unit) capsule calcium 600 mg-D3 800 unit-mag11 1 tab PO DAILY 03/30/18 09/05/20 History 50 ng-bvcl-adbhsa-rashaun-s.borat tablet (Caltrate 600-D Plus Minerals) ascorbic acid (vitamin C) 1,000 mg 1 gm PO DAILY tab 12/14/18 09/05/20 History tablet hawthorn rich 565 mg capsule 565 mg PO DAILY cap 12/14/18 09/05/20 History lutein 20 mg capsule 20 mg PO DAILY PRN cap 12/14/18 09/05/20 History magnesium citrate 100 mg tablet PO tab 12/14/18 09/05/20 History vitamin K2 PO DAILY 09/07/19 09/05/20 History apixaban 5 mg tablet (Eliquis) 5 mg PO BID #180 tab 06/05/20 09/05/20 Rx metoprolol succinate 25 mg 25 mg PO QAM #90 tab 08/14/20 09/05/20 Rx tablet,extended release 24 hr Allergies Allergy/AdvReac Type Severity Reaction Status Date / Time No Known Allergies Allergy Verified 11/01/20 13:12 Past Med/Surg History Medical History (Updated 11/01/20 @ 18:55 by Godfrey Dodson MD) Atrial fibrillation Atrial fibrillation with RVR Do not resuscitate status Osteoarthritis Shingles Type 2 diabetes mellitus Surgical History History of cataract surgery History of knee surgery History of tonsillectomy Family History Mother , Mother age 103 with dementia, hypertension, and diabetes Dementia Hypertension Diabetes Father , Father age 78 of heart issues Diabetes Coronary heart disease Social History Smoking Status: Never smoker Second Hand Exposure: No; Do You Dip or Chew Tobacco: No; Tobacco Cessation Education Requested by Patient: No Hx Alcohol Use: Yes Alcohol type: other Hx Substance Use: No Preferred Language: Setswana Communication Ability: Effective Visual Impairment: No Limitations Hearing Ability: Normal Conference Center Manager Required: No Beliefs That Will Affect Care: None marital status: Single Current Living Situation: Significant Other current occupational status: retired 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 Other Information That Helps Us Care for You: No Feels Safe at Home: Yes Assistive Devices: Hearing Aid - Bilateral Review of Systems See HPI for pertinent positives & negatives. and A total of 10 systems reviewed and were otherwise negative Physical Exam Vital Signs Vital Signs - 24 hr 11/01/20 11:17 11/01/20 11:28 11/01/20 12:18 Temperature 36.8 C Temperature Source Temporal Artery Scan Pulse Rate - Lying Pulse Rate - Sitting Pulse Rate - Standing Pulse Rate 66 53 L 66 Pulse Rate [Left Finger] 56 L Pulse Rate from SpO2 Sensor 53 L 61 Respiratory Rate 19 23 16 Respiratory Effort / Characteristics Non-Labored Spontaneous Respiratory Depth Normal Respiratory Pattern Regular Blood Pressure - Lying Blood Pressure - Sitting Blood Pressure- Standing Blood Pressure 190/72 H 194/87 H 187/67 H Blood Pressure [Left Arm] 187/67 H Blood Pressure Mean 111 122 107 Blood Pressure Mean [Left Arm] 107 Blood Pressure Position Sitting Blood Pressure Position [Left Arm] Sitting Pulse Oximetry 94 98 96 Oxygen Delivery Method Room Air Sepsis Recent Fever Within 48 Hours No Sepsis New/Unexplained Change in Mental Status N/A Sepsis Action Taken by Nursing No Action Required 11/01/20 12:44 11/01/20 12:48 11/01/20 13:16 Temperature Temperature Source Pulse Rate - Lying 62 Pulse Rate - Sitting 60 Pulse Rate - Standing 73 Pulse Rate 68 64 Pulse Rate [Left Finger] Pulse Rate from SpO2 Sensor 62 Respiratory Rate 24 20 Respiratory Effort / Characteristics Respiratory Depth Respiratory Pattern Blood Pressure - Lying 198/103 H Blood Pressure - Sitting 196/82 H Blood Pressure- Standing 196/98 H Blood Pressure 198/103 H 165/96 H Blood Pressure [Left Arm] Blood Pressure Mean 134 119 Blood Pressure Mean [Left Arm] Blood Pressure Position Blood Pressure Position [Left Arm] Pulse Oximetry 98 97 Oxygen Delivery Method Sepsis Recent Fever Within 48 Hours Sepsis New/Unexplained Change in Mental Status Sepsis Action Taken by Nursing 11/01/20 13:20 11/01/20 13:30 11/01/20 14:00 Temperature Temperature Source Pulse Rate - Lying Pulse Rate - Sitting Pulse Rate - Standing Pulse Rate 63 68 Pulse Rate [Left Finger] 66 Pulse Rate from SpO2 Sensor 67 71 Respiratory Rate 18 20 23 Respiratory Effort / Characteristics Non-Labored Respiratory Depth Normal Respiratory Pattern Blood Pressure - Lying Blood Pressure - Sitting Blood Pressure- Standing Blood Pressure 168/92 H 185/79 H Blood Pressure [Left Arm] 165/96 H Blood Pressure Mean 117 114 Blood Pressure Mean [Left Arm] 119 Blood Pressure Position Blood Pressure Position [Left Arm] Pulse Oximetry 97 96 97 Oxygen Delivery Method Room Air Sepsis Recent Fever Within 48 Hours Sepsis New/Unexplained Change in Mental Status Sepsis Action Taken by Nursing 11/01/20 14:31 11/01/20 15:01 11/01/20 15:10 Temperature Temperature Source Pulse Rate - Lying Pulse Rate - Sitting Pulse Rate - Standing Pulse Rate 79 78 69 Pulse Rate [Left Finger] Pulse Rate from SpO2 Sensor 72 78 Respiratory Rate 17 18 20 Respiratory Effort / Characteristics Respiratory Depth Respiratory Pattern Blood Pressure - Lying Blood Pressure - Sitting Blood Pressure- Standing Blood Pressure 178/95 H 158/98 H Blood Pressure [Left Arm] Blood Pressure Mean 122 118 Blood Pressure Mean [Left Arm] Blood Pressure Position Blood Pressure Position [Left Arm] Pulse Oximetry 98 98 98 Oxygen Delivery Method Room Air Sepsis Recent Fever Within 48 Hours Sepsis New/Unexplained Change in Mental Status Sepsis Action Taken by Nursing Constitutional: Vital signs reviewed. Eyes: Pupils are equal round reactive to light. Conjunctiva are noninjected. ENT: Pharynx is clear without erythema or exudate. Mucous membranes are dry. No midline tenderness to the cervical spine. Respiratory: Clear to auscultation bilaterally. Breath sounds are equal bilaterally. Cardiovascular: Regular rate and rhythm. No rubs or gallops. GI: Soft, nondistended and nontender. Bowel sounds are present. Musculoskeletal: No peripheral edema. No lower extremity tenderness. No hip tenderness. Integumentary: No cyanosis. or jaundice. Neurologic: The patient is awake and alert. Cranial nerves II-XII are intact. Motor is 5 out of 5 all extremities. Sensation is intact to light touch all extremities. Normal speech. No pronator drift. No limb ataxia. Psychiatric: Normal affect. Not anxious appearing. Course Administered Medications Acetaminophen (Acetaminophen 325 Mg Tab) 650 mg PO Q4H PRN PRN Reason: Pain or Fever Stop: 12/01/20 17:24 Last Admin: 11/01/20 18:42 Dose: 650 mg Documented by: [id number] Insulin Aspart (Insulin Aspart 100 Units/Ml 3 Ml Pen) 0 units SC ACHS [facility] Stop: 12/01/20 17:24 Last Admin: 11/01/20 18:14 Dose: Not Given Documented by: [id number] Cosigned by: [id number] Medical Decision Making Differential Diagnosis Vasovagal syncope, orthostatic hypotension, dysrhythmia, ICH, contusion, concussion, metabolic derangement Medical Records Attestation: I reviewed the patient's medical records. I did perform a limited focused review of portions of the patient's old chart on the electronic medical record. The patient has had no recent pertinent visits to this hospital. Home Medications Current Medication List: was personally reviewed by me Laboratory Data Attestation: I reviewed the patient's lab results. Result diagrams: 11/01/20 11:38 11/01/20 11:38 Lab Results 11/01/20 11/01/20 11/01/20 Range/Units 11:38 11:38 11:38 WBC 8.46 (4.8-10.8) K/uL RBC 5.32 (4.2-5.4) M/uL Hgb 15.2 (12.0-16.0) g/dL Hct 46.2 (37-47) % MCV 86.8 (80-100) fL MCH 28.6 (25-34) pg MCHC 32.9 (32-36) g/dL RDW Std Deviation 47.4 H (36.4-46.3) fL RDW Coeff of Kobe 15.0 H (11.5-14.5) % Plt Count 232 (130-400) K/uL MPV 10.6 H (7.4-10.4) fL Immature Gran % (Auto) 0.1 % Neut % (Auto) 69.8 % Lymph % (Auto) 20.6 % [place] % (Auto) 7.6 % Eos % (Auto) 1.5 % Baso % (Auto) 0.4 % Neut # (Auto) 5.91 (1.4-6.5) K/uL Lymph # (Auto) 1.74 (1.2-3.4) K/uL [place] # (Auto) 0.64 H (0.11-0.59) K/uL Eos # (Auto) 0.13 (0-0.5) K/uL Baso # (Auto) 0.03 (0-0.2) K/uL Immature Gran # (Auto) 0.01 (0.00-0.02) K/uL PT 11.4 (9.0-12.0) Seconds INR 1.1 (0.9-1.1) APTT 23.7 (21.0-31.0) Seconds PTT Ratio 0.9 Sodium 140 (136-145) mmol/L Potassium 4.9 (3.5-5.1) mmol/L Chloride 110 H (98-107) mmol/L Carbon Dioxide 26 (21-32) mmol/L Anion Gap 4.0 (3-11) BUN 19 H (7-18) mg/dl Creatinine 1.46 H (0.6-1.2) mg/dl Est Cr Clr Drug Dosing 28.4 ml/min Est GFR ( Amer) 37.9 ml/min Est GFR (Non-Af Amer) 32.7 ml/min BUN/Creatinine Ratio 13.1 (10-20) Glucose 157 H (70-99) mg/dl Calcium 9.4 (8.5-10.1) mg/dl Magnesium (1.8-2.4) mg/dl Total Bilirubin 0.8 (0.2-1) mg/dl AST 19 (15-37) U/L ALT 18 (12-78) U/L Alkaline Phosphatase 56 (45-117) U/L Troponin I (0-0.045) ng/ml Total Protein 7.4 (6.4-8.2) gm/dl Albumin 3.6 (3.4-5.0) gm/dl Globulin 3.8 (2.5-4.0) gm/dl Albumin/Globulin Ratio 0.9 (0.9-2) TSH (0.300-4.500) uIu/ml COVID-19 Eval Order SARS-CoV-2 (PCR) (Negative) 11/01/20 11/01/20 11/01/20 Range/Units 11:38 14:25 14:25 WBC (4.8-10.8) K/uL RBC (4.2-5.4) M/uL Hgb (12.0-16.0) g/dL Hct (37-47) % MCV (80-100) fL MCH (25-34) pg MCHC (32-36) g/dL RDW Std Deviation (36.4-46.3) fL RDW Coeff of Kobe (11.5-14.5) % Plt Count (130-400) K/uL MPV (7.4-10.4) fL Immature Gran % (Auto) % Neut % (Auto) % Lymph % (Auto) % [place] % (Auto) % Eos % (Auto) % Baso % (Auto) % Neut # (Auto) (1.4-6.5) K/uL Lymph # (Auto) (1.2-3.4) K/uL [place] # (Auto) (0.11-0.59) K/uL Eos # (Auto) (0-0.5) K/uL Baso # (Auto) (0-0.2) K/uL Immature Gran # (Auto) (0.00-0.02) K/uL PT (9.0-12.0) Seconds INR (0.9-1.1) APTT (21.0-31.0) Seconds PTT Ratio Sodium (136-145) mmol/L Potassium (3.5-5.1) mmol/L Chloride (98-107) mmol/L Carbon Dioxide (21-32) mmol/L Anion Gap (3-11) BUN (7-18) mg/dl Creatinine (0.6-1.2) mg/dl Est Cr Clr Drug Dosing ml/min Est GFR ( Amer) ml/min Est GFR (Non-Af Amer) ml/min BUN/Creatinine Ratio (10-20) Glucose (70-99) mg/dl Calcium (8.5-10.1) mg/dl Magnesium 2.2 (1.8-2.4) mg/dl Total Bilirubin (0.2-1) mg/dl AST (15-37) U/L ALT (12-78) U/L Alkaline Phosphatase (45-117) U/L Troponin I < 0.015 (0-0.045) ng/ml Total Protein (6.4-8.2) gm/dl Albumin (3.4-5.0) gm/dl Globulin (2.5-4.0) gm/dl Albumin/Globulin Ratio (0.9-2) TSH 0.810 (0.300-4.500) uIu/ml COVID-19 Eval Order Covid19 at [facility] SARS-CoV-2 (PCR) NEGATIVE (Negative) Imaging Data Radiologist's Impression: Cervical Spine CT 11/01/20 12:38 CT OF THE CERVICAL SPINE WITHOUT CONTRAST CLINICAL HISTORY: Fall. Evaluate for fracture. COMPARISON STUDY: Cervical spine radiographs July 24, 2017. TECHNIQUE: Helical axial images of the cervical spine were obtained without IV contrast. Sagittal and coronal reconstructions were viewed. Automated exposure control was utilized for the study. A dose lowering technique was utilized adhering to the principles of ALARA. FINDINGS: There is straightening of the normal cervical lordosis. Vertebral body heights are maintained. No acute cervical spine fracture or subluxation is pres ent. There is no prevertebral edema. Facet joints are intact. There is severe multilevel facet arthrosis as well as moderate to severe multilevel disc space narrowing and osteophytosis within the cervical spine. Small amount of fluid within the left mastoid air cells is noted. IMPRESSION: No acute cervical spine fracture or subluxation. ACT 112: Negative or not required by law. Electronically signed by: Rosas Gilmore M.D. 11/01/2020 1:24 PM Chest X-Ray 11/01/20 12:38 XR chest 1V portable CLINICAL HISTORY: Syncope. COMPARISON STUDY: Chest radiograph July 13, 2018. FINDINGS: Lung volumes are normal. Lungs are clear. There is no pneumothorax or pleural effusion. Cardiomegaly is unchanged. Mediastinal contours are normal. There is no evidence for pulmonary edema. IMPRESSION: No acute cardiopulmonary findings. ACT 112: Negative or not required by law. Electronically signed by: Rosas Gilmore M.D. 11/01/2020 1:[address] 11/01/20 12:39 CT OF THE HEAD WITHOUT CONTRAST CLINICAL HISTORY: Head injury. COMPARISON STUDY: Head CT and MRI of the brain July 14, 2018. CT DOSE: 690.05 mGycm TECHNIQUE: Helical axial images of the head were obtained without IV contrast. Automated exposure control was utilized for the study. A dose lowering technique was utilized adhering to the principles of ALARA. FINDINGS: No acute intracranial hemorrhage, midline shift or mass effect is present. The matter hypodensities are similar to prior exam and favor small vessel disease. The ventricular system is unremarkable. The basal cisterns are patent. No extra-axial collections are present. There are no findings to suggest acute dural sinus thrombosis or acute territorial infarct. No significant calvarial abnormalities are present. Visualized portions of the sinuses and mastoid air cells are clear. IMPRESSION: 1. No acute intracranial findings. 2. No calvarial fracture. ACT 112: Negative or not required by law. Electronically signed by: Rosas Gilmore M.D. 11/01/2020 1:15 PM ECG Data Attestation: I personally reviewed and interpreted this ECG as follows: Indication: + syncope Rate (beats per minute): 54 Rhythm: + atrial fibrillation and + atrial flutter ECG Intervals/blocks: + Right Bundle branch block ECG ST segments: no ST elevation ECG Findings: no PVCs Comparison ECG Date: from (July 13, 2018) Change: the following changes noted (Only significant change is she is bradycardic currently) Head Trauma GCS Score: 15 MDM Narrative I did evaluate the patient as noted above. IV access was established. I did place an order for continuous cardiac monitoring. The monitor showed atrial fibrillation with a heart rate of 58. I did order and personally review the patient's 12-lead EKG as described above. She has atrial fibrillation/flutter with mild bradycardia. No ST elevations are noted. No significant change from her prior EKG from 2019. I did order and personally reviewed the images of the patient's chest x-ray as described above. There are no acute findings. I did order and review the patient's blood work as noted in the electronic medical record. CBC is unremarkable without leukocytosis or anemia. Chemistries demonstrate a chloride of 110. Creatinine is elevated 1.46 and BUN is 19. LFTs are unremarkable. I did order a CT of the head and cervical spine. I did review the images myself as well as the radiology report as described above. There is no evidence of acute fracture of the cervical spine or acute intracranial abnormality. I did discuss the test results with the patient. I did recommend hospitalization for further care and evaluation. She was agreeable. I did discuss the case with the hospitalist and field nurse case manager. The patient's Covid test was negative. Impression & Plan Syncope, Bradycardia, Elevated serum creatinine Discharge Plan Visit Data Chief Complaint: Syncope Stated Complaint: PASSED OUT THIS MORNING, DR TEMPLETON ED Provider: Godfrey Dodson Discharge Problem: Syncope, Bradycardia, Elevated serum creatinine Patient Disposition: Admitted As Inpatient Discharge Instructions Interventions: ED Discharge Assessment Last Done: 11/01/20 16:05
--- NOTE | 2020-11-01 13:14 | XRay Report ---
XR chest 1V portable CLINICAL HISTORY: Syncope. COMPARISON STUDY: Chest radiograph July 13, 2018. FINDINGS: Lung volumes are normal. Lungs are clear. There is no pneumothorax or pleural effusion. Car diomegaly is unchanged. Mediastinal contours are normal. There is no evidence for pulmonary edema. IMPRESSION: No acute cardiopulmonary findings. ACT 112: Negative or not required by law. Electronically signed by: Rosas Gilmore M.D. 11/01/2020 1:12 PM
--- NOTE | 2020-11-01 13:16 | CT Scan Report ---
CT OF THE HEAD WITHOUT CONTRAST CLINICAL HISTORY: Head injury. COMPARISON STUDY: Head CT and MRI of the brain July 14, 2018. CT DOSE: 690.05 mGycm TECHNIQUE: Helical axial images of the head were obtained without IV contrast. Automated exposure con trol was utilized for the study. A dose lowering technique was utilized adhering to the principles o f ALARA. FINDINGS: No acute intracranial hemorrhage, midline shift or mass effect is present. The matter hypod ensities are similar to prior exam and favor small vessel disease. The ventricular system is unremark able. The basal cisterns are patent. No extra-axial collections are present. There are no findings to suggest acute dural sinus thrombosis or acute territorial infarct. No significant calvarial abnormal ities are present. Visualized portions of the sinuses and mastoid air cells are clear. IMPRESSION: 1. No acute intracranial findings. 2. No calvarial fracture. ACT 112: Negative or not required by law. Electronically signed by: Rosas Gilmore M.D. 11/01/2020 1:15 PM
[2020-11-01 13:24] LABS: Magnesium 2.2 mg/dl (1.8-2.4); Troponin I < 0.015 ng/ml (0-0.045)
--- NOTE | 2020-11-01 13:26 | CT Scan Report ---
CT OF THE CERVICAL SPINE WITHOUT CONTRAST CLINICAL HISTORY: Fall. Evaluate for fracture. COMPARISON STUDY: Cervical spine radiographs July 24, 2017. TECHNIQUE: Helical axial images of the cervical spine were obtained without IV contrast. Sagittal a nd coronal reconstructions were viewed. Automated exposure control was utilized for the study. A do se lowering technique was utilized adhering to the principles of ALARA. FINDINGS: There is straightening of the normal cervical lordosis. Vertebral body heights are maintain ed. No acute cervical spine fracture or subluxation is present. There is no prevertebral edema. Facet joints are intact. There is severe multilevel facet arthrosis as well as moderate to severe multile anam disc space narrowing and osteophytosis within the cervical spine. Small amount of fluid within th e left mastoid air cells is noted. IMPRESSION: No acute cervical spine fracture or subluxation. ACT 112: Negative or not required by law. Electronically signed by: Rosas Gilmore M.D. 11/01/2020 1:24 PM
--- NOTE | 2020-11-01 15:14 | History & Physical Report ---
Date of Service November 01, 2020 Assessment & Plan (1) Syncope: Plan: Suspect this may have been vasovagal but certainly transient arrhythmia could be a concern I will place monitored observation Check orthostatics trend cardiac enzymes Check 2D echo, reviewed previous study from 07/19 PT/OT evaluation known to Dr. Sifuentes, will consult them for further recommendations (2) Type 2 diabetes mellitus: Plan: Med rec not completed at time of this dictation, will review meds once available I will continue a diabetic diet, order sliding scale (3) Atrial fibrillation: Plan: Appears patient is chronically rate controlled, on Eliquis 5 mg twice daily 2D echo as noted above (4) Hypertension: Plan: Blood pressure 158/98. If remains elevated, may need to consider additional agents. Will defer to cardiology History of Present Illness Chief Complaint: Syncope Primary Care Provider: VERÓNICA Mortensen This is an 85-year-old female with past medical history of hypothyroidism, hypertension, and chronic atrial fibrillation that presents today after syncopal episode. Patient is pleasant a good historian. Patient tells me that she was doing well today. She got up early and was doing things around the house without any issue. She went to the kitchen to prepare her breakfast. She says she was feeling very minimally nauseous but otherwise had no other issues. She had turned and took a few steps. Next thing she knew, she was on the floor. She believes she had a very brief moment of syncope. She stayed down for a few minutes until she got her strength back. Then she was able to get up and finished her breakfast. After her meal, she contacted both her PCP and senior security architect via the web portal for further advice and was told by both of these physicians to come to the emergency room for evaluation. At the time my evaluation, patient was eating lunch. She essentially denied any symptoms at this time and is had no further issues. She specifically denied chest pain, palpitations, further nausea or vomiting, diarrhea or constipation. She denies any recent illness. She says she has never syncopized before. Monitor shows a rate controlled atrial fibrillation, which the patient is aware and tells me his she has been essentially asymptomatic from this. Allergies Allergy/AdvReac Type Severity Reaction Status Date / Time No Known Allergies Allergy Verified 11/01/20 13:12 Home Medications Medication Instructions Recorded Confirmed Type acetaminophen 650 mg 650 mg PO BID PRN tab 12/16/17 09/05/20 History tablet,extended release (Tylenol Arthritis Pain) cholecalciferol (vitamin D3) 125 5,000 units PO DAILY 12/16/17 09/05/20 History mcg (5,000 unit) capsule lysine 1,000 mg tablet 1,000 mg PO DAILY 12/16/17 09/05/20 History vitamin B complex (Super B-50 1 cap PO DAILY 12/16/17 09/05/20 History Complex) vitamin E (dl, acetate) 180 mg 400 units PO DAILY 12/16/17 09/05/20 History (400 unit) capsule calcium 600 mg-D3 800 unit-mag11 1 tab PO DAILY 03/30/18 09/05/20 History 50 wr-iqgw-qqpqqw-rashaun-s.borat tablet (Caltrate 600-D Plus Minerals) ascorbic acid (vitamin C) 1,000 mg 1 gm PO DAILY tab 12/14/18 09/05/20 History tablet hawthorn rich 565 mg capsule 565 mg PO DAILY cap 12/14/18 09/05/20 History lutein 20 mg capsule 20 mg PO DAILY PRN cap 12/14/18 09/05/20 History magnesium citrate 100 mg tablet PO tab 12/14/18 09/05/20 History vitamin K2 PO DAILY 09/07/19 09/05/20 History apixaban 5 mg tablet (Eliquis) 5 mg PO BID #180 tab 06/05/20 09/05/20 Rx metoprolol succinate 25 mg 25 mg PO QAM #90 tab 08/14/20 09/05/20 Rx tablet,extended release 24 hr Past Med/Surg History Medical History (Updated 11/01/20 @ 15:11 by Aubrey Yan DO) Atrial fibrillation Atrial fibrillation with RVR Do not resuscitate status Osteoarthritis Shingles Type 2 diabetes mellitus Surgical History History of cataract surgery History of knee surgery History of tonsillectomy Family History Mother , Mother age 103 with dementia, hypertension, and diabetes Dementia Hypertension Diabetes Father , Father age 78 of heart issues Diabetes Coronary heart disease Social History Smoking Status: Never smoker Second Hand Exposure: No; Hx Alcohol Use: Yes (Very occasionally) Hx Substance Use: No Preferred Language: Rwandan Communication Ability: Impaired Visual Impairment: No Limitations Hearing Ability: Normal Clothes Designer Required: No Beliefs That Will Affect Care: None marital status: Single Current Living Situation: Significant Other current occupational status: retired 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 Feels Safe at Home: Yes Assistive Devices: None Review of Systems Constitutional: no fever, no chills, no weakness, no weight loss and no weight gain Eyes: as per Subjective / HPI Respiratory: no cough, no chest congestion, no dyspnea and no dyspnea on exertion Cardiovascular: no chest pain, no orthopnea, no palpitations, no lightheadedness and no edema Gastrointestinal: + nausea; no abdominal pain, no vomiting, no constipation and no diarrhea/loose stools Genitourinary: no dysuria, no difficulty urinating, no urinary frequency, no urinary hesitancy, no urinary urgency and no flank pain Musculoskeletal: no back pain, no neck pain, no joint pain, no stiffness and no myalgia Integumentary: no rash Neurologic: + syncope; no gait abnormality, no unsteadiness, no falls, no generalized weakness, no paralysis, no numbness, no paresthesia, no radiating pain, no tremor(s) and no headache(s) Physical Exam Constitutional: cooperative; no acute distress Neck: trachea midline, no thyromegaly Respiratory: normal respiratory effort Auscultation: lungs clear to auscultation bilaterally; no crackles, no rales, no rhonchi and no wheezes Cardiovascular: Rate/Rhythm: + irregularly irregular Heart Sounds: normal S1 and normal S2 Gastrointestinal (Abdomen): Inspection/Auscultation: abdomen normal to inspection Percussion/Palpation: abdomen soft; abdomen nontender, no guarding, abdomen not rigid and no hepatosplenomegaly Skin: no rashes, warm and dry Results & Data Results & Data ([facility]) Vital Signs (Past 12 Hours) Vital Signs Temp Pulse Pulse Resp BP BP Pulse Ox 11/01/20 13:20 66 18 165/96 H 97 11/01/20 12:18 56 L 20 187/67 H 98 11/01/20 11:17 36.8 C 66 19 190/72 H 94 Laboratory Results Laboratory Results WBC 8.46 K/uL (4.8-10.8) 11/01/20 11:38 RBC 5.32 M/uL (4.2-5.4) 11/01/20 11:38 Hgb 15.2 g/dL (12.0-16.0) 11/01/20 11:38 Hct 46.2 % (37-47) 11/01/20 11:38 MCV 86.8 fL (80-100) 11/01/20 11:38 MCH 28.6 pg (25-34) 11/01/20 11:38 MCHC 32.9 g/dL (32-36) 11/01/20 11:38 RDW Std Deviation 47.4 fL (36.4-46.3) H 11/01/20 11:38 RDW Coeff of [place] 15.0 % (11.5-14.5) H 11/01/20 11:38 Plt Count 232 K/uL (130-400) 11/01/20 11:38 MPV 10.6 fL (7.4-10.4) H 11/01/20 11:38 Immature Gran % (Auto) 0.1 % 11/01/20 11:38 Neut % (Auto) 69.8 % 11/01/20 11:38 Lymph % (Auto) 20.6 % 11/01/20 11:38 [place] % (Auto) 7.6 % 11/01/20 11:38 Eos % (Auto) 1.5 % 11/01/20 11:38 Baso % (Auto) 0.4 % 11/01/20 11:38 Neut # (Auto) 5.91 K/uL (1.4-6.5) 11/01/20 11:38 Lymph # (Auto) 1.74 K/uL (1.2-3.4) 11/01/20 11:38 [place] # (Auto) 0.64 K/uL (0.11-0.59) H 11/01/20 11:38 Eos # (Auto) 0.13 K/uL (0-0.5) 11/01/20 11:38 Baso # (Auto) 0.03 K/uL (0-0.2) 11/01/20 11:38 Immature Gran # (Auto) 0.01 K/uL (0.00-0.02) 11/01/20 11:38 PT 11.4 Seconds (9.0-12.0) 11/01/20 11:38 INR 1.1 (0.9-1.1) 11/01/20 11:38 APTT 23.7 Seconds (21.0-31.0) 11/01/20 11:38 PTT Ratio 0.9 11/01/20 11:38 Sodium 140 mmol/L (136-145) 11/01/20 11:38 Potassium 4.9 mmol/L (3.5-5.1) 11/01/20 11:38 Chloride 110 mmol/L (98-107) H 11/01/20 11:38 Carbon Dioxide 26 mmol/L (21-32) 11/01/20 11:38 Anion Gap 4.0 (3-11) 11/01/20 11:38 BUN 19 mg/dl (7-18) H 11/01/20 11:38 Creatinine 1.46 mg/dl (0.6-1.2) H 11/01/20 11:38 Est Cr Clr Drug Dosing 28.4 ml/min 11/01/20 11:38 Est GFR ( Amer) 37.9 ml/min 11/01/20 11:38 Est GFR (Non-Af Amer) 32.7 ml/min 11/01/20 11:38 BUN/Creatinine Ratio 13.1 (10-20) 11/01/20 11:38 Glucose 157 mg/dl (70-99) H 11/01/20 11:38 Calcium 9.4 mg/dl (8.5-10.1) 11/01/20 11:38 Magnesium 2.2 mg/dl (1.8-2.4) 11/01/20 11:38 Total Bilirubin 0.8 mg/dl (0.2-1) 11/01/20 11:38 AST 19 U/L (15-37) 11/01/20 11:38 ALT 18 U/L (12-78) 11/01/20 11:38 Alkaline Phosphatase 56 U/L (45-117) 11/01/20 11:38 Troponin I < 0.015 ng/ml (0-0.045) 11/01/20 11:38 Total Protein 7.4 gm/dl (6.4-8.2) 11/01/20 11:38 Albumin 3.6 gm/dl (3.4-5.0) 11/01/20 11:38 Globulin 3.8 gm/dl (2.5-4.0) 11/01/20 11:38 Albumin/Globulin Ratio 0.9 (0.9-2) 11/01/20 11:38 TSH 0.810 uIu/ml (0.300-4.500) 11/01/20 11:38 COVID-19 Eval Order Covid19 at [facility] 11/01/20 14:[address] 11/01/20 12:38 CT OF THE CERVICAL SPINE WITHOUT CONTRAST CLINICAL HISTORY: Fall. Evaluate for fracture. COMPARISON STUDY: Cervical spine radiographs July 24, 2017. TECHNIQUE: Helical axial images of the cervical spine were obtained without IV contrast. Sagittal and coronal reconstructions were viewed. Automated exposure control was utilized for the study. A dose lowering technique was utilized adhering to the principles of ALARA. FINDINGS: There is straightening of the normal cervical lordosis. Vertebral body heights are maintained. No acute cervical spine fracture or subluxation is present. There is no prevertebral edema. Facet joints are intact. There is severe multilevel facet arthrosis as well as moderate to severe multilevel disc space narrowing and osteophytosis within the cervical spine. Small amount of fluid within the left mastoid air cells is noted. IMPRESSION: No acute cervical spine fracture or subluxation. ACT 112: Negative or not required by law. Electronically signed by: Rosas Gilmore M.D. 11/01/2020 1:24 PM Chest X-Ray 11/01/20 12:38 XR chest 1V portable CLINICAL HISTORY: Syncope. COMPARISON STUDY: Chest radiograph July 13, 2018. FINDINGS: Lung volumes are normal. Lungs are clear. There is no pneumothorax or pleural effusion. Cardiomegaly is unchanged. Mediastinal contours are normal. There is no evidence for pulmonary edema. IMPRESSION: No acute cardiopulmonary findings. ACT 112: Negative or not required by law. Electronically signed by: Rosas Gilmore M.D. 11/01/2020 1:[address] 11/01/20 12:39 CT OF THE HEAD WITHOUT CONTRAST CLINICAL HISTORY: Head injury. COMPARISON STUDY: Head CT and MRI of the brain July 14, 2018. CT DOSE: 690.05 mGycm TECHNIQUE: Helical axial images of the head were obtained without IV contrast. Automated exposure control was utilized for the study. A dose lowering technique was utilized adhering to the principles of ALARA. FINDINGS: No acute intracranial hemorrhage, midline shift or mass effect is present. The matter hypodensities are similar to prior exam and favor small vessel disease. The ventricular system is unremarkable. The basal cisterns are patent. No extra-axial collections are present. There are no findings to suggest acute dural sinus thrombosis or acute territorial infarct. No significant calvarial abnormalities are present. Visualized portions of the sinuses and mastoid air cells are clear. IMPRESSION: 1. No acute intracranial findings. 2. No calvarial fracture. ACT 112: Negative or not required by law. Electronically signed by: Rosas Gilmore M.D. 11/01/2020 1:15 PM PG Care Time/CCT Total # of Minutes Spent Total Time Spent with Patient: Total time spent is greater than 50% in coordination of care (as documented) at patient's floor/unit and/or counseling patient: Coding Level of Care Code INT OBSERVATION CARE 70M LVL 3 Diagnoses Type 2 diabetes mellitus E11.9 Atrial fibrillation I48.21 Atrial fibrillation type: permanent Hypertension I10 Hypertension type: primary hypertension Syncope R55 (1) Atrial fibrillation Atrial fibrillation type: permanent Qualified Code(s): I48.21 - Permanent atrial fibrillation (2) Hypertension Hypertension type: primary hypertension Qualified Code(s): I10 - Essential (primary) hypertension
[2020-11-01] MEDS ORDERED: DEXTROSE 50% 50 ML SYRINGE IV PRN (17:25)
[2020-11-01] MEDS ORDERED: CARBOHYDRATES FOR HYPOGLYCEMIA PO PRN (17:25)
[2020-11-01] MEDS ORDERED: ONDANSETRON INJ 2 MG/ML 2 ML VIAL IV PRN (17:25)
[2020-11-01] MEDS ORDERED: GLUCAGON FOR INJ 1 MG VIAL SQ PRN (17:25)
[2020-11-01] MEDS ORDERED: GLUCOSE 10 TABS/TUBE PO PRN (17:25)
[2020-11-01] MEDS ORDERED: GLUCOSE 40% GEL 15 GM TUBE PO PRN (17:25)
[2020-11-01] MEDS: INSULIN ASPART 100 UNITS/ML 3 ML PEN SC SCH ×2 (18:14→20:59)
[2020-11-01] MEDS: ACETAMINOPHEN 325 MG TAB PO PRN (18:42)
[2020-11-01] MEDS ORDERED: NON-FORMULARY MEDICATION (Acetaminophen [Tylenol Arthritis Pain] 650 mg tablet extended re PO PRN (19:05)
[2020-11-01] MEDS: APIXABAN 5 MG TABLET PO SCH (20:54)
[2020-11-02] MEDS: ACETAMINOPHEN 325 MG TAB PO PRN ×3 (04:22→18:12)
--- NOTE | 2020-11-02 05:57 | Electrocardiogram Report ---
Test Reason : Blood Pressure : / mmHG Vent. Rate : 054 BPM Atrial Rate : 050 BPM P-R Int : 000 ms QRS Dur : 128 ms QT Int : 450 ms P-R-T Axes : 000 075 -54 degrees QTc Int : 426 ms Atrial fibrillation with slow ventricular response Right bundle branch block T wave abnormality, consider inferior ischemia Abnormal ECG When compared with ECG of 13-JUL-2018 07:55, Vent. rate has decreased BY 57 BPM Confirmed by Mando Chung ([id number]) on 11/02/2020 5:57:08 AM Referred By: Confirmed By:Mando Chung
[2020-11-02 06:07] LABS: Basophils # (auto) 0.03 K/uL (0-0.2); Basophils % (auto) 0.4 %; Eosinophils # (auto) 0.25 K/uL (0-0.5); Eosinophils % (auto) 2.9 %; Hematocrit (blood only) 42.5 % (37-47); Immature Granulocytes # (auto) 0.01 K/uL (0.00-0.02); Immature Granulocytes % (auto) 0.1 %; Lymphocytes # (auto) 1.85 K/uL (1.2-3.4); Lymphocytes % (auto) 21.7 %; Mean Corpuscular Hemoglobin 28.2 pg (25-34); Mean Corpuscular Hgb Conc 32.9 g/dL (32-36); Mean Corpuscular Volume 85.7 fL (80-100); Mean Platelet Volume 10.6 fL (7.4-10.4); Monocytes # (auto) 0.96 K/uL (0.11-0.59); Monocytes % (auto) 11.3 %; Neutrophils # (auto) 5.41 K/uL (1.4-6.5); Neutrophils % (auto) 63.6 %; Platelet Count 221 K/uL (130-400); RDW Coefficient of Variation 14.7 % (11.5-14.5); RDW Standard Deviation 46.1 fL (36.4-46.3); Red Blood Count 4.96 M/uL (4.2-5.4); White Blood Count 8.51 K/uL (4.8-10.8)
[2020-11-02 06:38] LABS: BUN Creatinine Ratio 15.5 (10-20); Calcium 8.6 mg/dl (8.5-10.1); Creatinine Clr Calc Pharmacy 39.1 ml/min; Est GFR (African American) 56.5 ml/min; Est GFR (Non-African American) 48.7 ml/min; Magnesium 1.6 mg/dl (1.8-2.4); Potassium 3.9 mmol/L (3.5-5.1)
[2020-11-02 07:47] LABS: Estimated Average Glucose 140 mg/dl; Hemoglobin A1C 6.5 % (4.5-5.6)
[2020-11-02] MEDS: MAGNESIUM SULFATE / D5W 1 GM/100 ML BAG IV SCH ×3 (08:03→12:19)
[2020-11-02] MEDS: VITAMIN B COMPLEX TAB PO SCH (08:10)
[2020-11-02] MEDS: APIXABAN 5 MG TABLET PO SCH (08:10)
[2020-11-02] MEDS: ASCORBIC ACID 500 MG TAB PO SCH (08:10)
[2020-11-02] MEDS: CHOLECALCIFEROL 1,000 UNITS 25 MCG TAB PO SCH (08:11)
[2020-11-02] MEDS: TOCOPHERYL, DL-ALPHA 400 UNITS 180 MG CAP PO SCH (08:11)
[2020-11-02] MEDS: CALCIUM 600MG + VIT D 400 IU TAB PO SCH (08:11)
[2020-11-02] MEDS: INSULIN ASPART 100 UNITS/ML 3 ML PEN SC SCH ×4 (08:13→21:02)
--- NOTE | 2020-11-02 08:22 | Cardiology Consultation ---
Date of Consultation November 02, 2020 Assessment & Plan (1) Syncope: (2) Bradycardia: (3) Atrial fibrillation: (4) On continuous oral anticoagulation: 1. Syncope: Although the cause of syncope cannot be proven with certainty she has had a progressive slowing of her heart rate causing us to decrease her AV abril blocking medications gradually and she is now on very low doses. She is having pauses in excess of 3 seconds on low-dose metoprolol succinate, as well as heart rates in the 30s. It is extremely likely that bradycardia was a cause of her syncope. Although we could attempt to prove that by long-term monitoring that could be dangerous, she still drives and is very active and passing out could be risky. I would recommend a pacemaker and she is agreeable. If she had some other cause for syncope (such as a tach-arrhythmia) a pacemaker would pick it up but that is much less likely and I do not believe justifies the risk of waiting and monitoring. 2. Bradycardia: She has had a progressive bradycardia, when first identified she had atrial fibrillation with a rapid heart rate requiring increasing AV abril medications but lately we have been decreasing them and now she is only on metoprolol succinate 25 mg daily. She had not taken her metoprolol succinate when she passed out, therefore that was 24 hours before that she last took it, although she did take it subsequently. Even though her current bradycardia and pauses are on low-dose beta-blockade it is unlikely that that is sufficient to cause the degree of bradycardia that she has. In addition with progressive AV conduction disease and slowing almost certainly will progress to the point where she will need a pacemaker even without medications. I would opt to implant it now rather than waiting. 3. Permanent atrial fibrillation: She is in permanent atrial fibrillation, therefore single-chamber device is indicated. 4. Anticoagulation: She is doing well on Eliquis, I am going to hold it prior to her upcoming pacemaker. Ideally we would wait 48 hours but under the circumstances 24 hours is acceptable. I discussed the indications, procedure, risks and alternatives of pacemaker implantation with her and she understands and agrees to proceed. We will plan on this tomorrow morning. History of Present Illness Reason for Consultation: Syncope Attending Physician: Ryan Diop MD History of Present Illness This is an 85-year-old woman who has a history of atrial fibrillation identified when she presented to the emergency room on 06/03/2015 with diaphoresis and dizziness. She apparently was not having clear palpitations but was feeling poorly, in the emergency room she was noted to have atrial fibrillation with a rapid ventricular response. Her rate was controlled with metoprolol, echocardiography showed normal left ventricular function. She spontaneously converted back to sinus rhythm and was discharged without anticoagulation. She then returned to the emergency room with symptoms of palpitations and diaphoresis. Once again she was given intravenous metoprolol and she converted to sinus. She declined admission and was discharged, this time on Eliquis. Subsequently she has returned with asymptomatic rate controlled atrial fibrillation and she is likely in permanent atrial fibrillation at this point (in the absence of symptoms we can't be sure). 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 Her heart rate was rapid for some reason during that hospitalization and we increased her beta-laura, however subsequently her heart rate dropped and we have decreased her metoprolol back to where it was in the past (25 mg daily). She was doing well when I saw her last in the office in August. She continues to walk regularly which involves a circuit with a hill and she does not have much difficulty with that. She has not been traveling due to the Covid restrictions and she does miss that and hopes to be able to do that again next year, physically she feels able to do it. She now presents with an episode of syncope. She was standing in the kitchen, felt nauseous and passed out. The actual fall was not witnessed but her partner came in moments later and the episode is felt to be brief. This has not happened before. Electrocardiogram on presentation November 01, 2020 at 1134 her rhythm was atrial fibrillation with a slow heart rate of 54 bpm. She does have a right bundle branch block pattern and inferior lateral T wave abnormalities. Compared to the most recent electrocardiogram from the office on September 05, 2020 there appears to be little difference other than rate, in the office her heart rate was 63 bpm. A year before on September 07, 2019 her heart rate was the same, 60 bpm. A Holter monitor was done on August 16, 2019, this showed atrial fibrillation with her minimum heart rate a heart rate ranged from 35 to 140 bpm with an average of 70. Her minimum heart rate was at 4 AM. She is not having difficulty with her anticoagulant that she is aware of, having no bleeding including when she fell. Since coming into the hospital she has felt well without lightheadedness or dizziness. Allergies Allergy/AdvReac Type Severity Reaction Status Date / Time No Known Allergies Allergy Verified 11/01/20 19:00 Home Medications Medication Instructions Recorded Confirmed Type acetaminophen 650 mg 650 mg PO BID PRN tab 12/16/17 11/01/20 History tablet,extended release (Tylenol Arthritis Pain) cholecalciferol (vitamin D3) 125 5,000 units PO DAILY 12/16/17 11/01/20 History mcg (5,000 unit) capsule lysine 1,000 mg tablet 1,000 mg PO DAILY 12/16/17 11/01/20 History vitamin E (dl, acetate) 180 mg 400 units PO DAILY 12/16/17 11/01/20 History (400 unit) capsule calcium 600 mg-D3 800 unit-mag11 1 tab PO DAILY 03/30/18 11/01/20 History 50 pk-qzjl-kjvokr-rashaun-s.borat tablet (Caltrate 600-D Plus Minerals) ascorbic acid (vitamin C) 1,000 mg 1 gm PO DAILY tab 12/14/18 11/01/20 History tablet hawthorn rich 565 mg capsule 565 mg PO DAILY cap 12/14/18 11/01/20 History lutein 20 mg capsule 20 mg PO Q OTHER DAY cap 12/14/18 11/01/20 History magnesium citrate 100 mg tablet 100 mg PO DAILY tab 12/14/18 11/01/20 History apixaban 5 mg tablet (Eliquis) 5 mg PO BID #180 tab 06/05/20 11/01/20 Rx metoprolol succinate 25 mg 25 mg PO QAM #90 tab 08/14/20 11/01/20 Rx tablet,extended release 24 hr vitamin B complex 1 tab PO DAILY 11/01/20 11/01/20 History vitamin K2 100 mcg capsule 0 mcg PO DAILY 11/01/20 11/01/20 History Patient History Medical History (Updated 11/02/20 @ 14:47 by Ryan Diop MD) Atrial fibrillation Atrial fibrillation with RVR Do not resuscitate status Osteoarthritis Shingles Type 2 diabetes mellitus Surgical History History of cataract surgery History of knee surgery History of tonsillectomy Family History Mother , Mother age 103 with dementia, hypertension, and diabetes Dementia Hypertension Diabetes Father , Father age 78 of heart issues Diabetes Coronary heart disease Social History Smoking Status: Never smoker Second Hand Exposure: No; Do You Dip or Chew Tobacco: No; Tobacco Cessation Education Requested by Patient: No Hx Alcohol Use: Yes Alcohol type: other Hx Substance Use: No Preferred Language: [place] Zealander Communication Ability: Effective Visual Impairment: No Limitations Hearing Ability: Normal Finish Mill Operator Required: No Beliefs That Will Affect Care: None marital status: Single Current Living Situation: Significant Other current occupational status: retired 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 Other Information That Helps Us Care for You: No Feels Safe at Home: Yes Assistive Devices: None Physical Exam Physical Exam: Constitutional: Alert, cooperative and in no distress. HEENT: Unremarkable Neck: No jugular venous distention, carotid pulses are irregular but otherwise normal and equal bilaterally without bruits. Pulmonary: Clear to auscultation bilaterally. Cardiac: Irregular slow rhythm with no murmur, gallop or rub. Abdomen: Soft, nontender with normal bowel sounds. Extremities: No edema. Distal pulses intact. Neurologic: No focal findings. Gait is steady. Skin: No rash, ecchymoses or petechiae. Results & Data ([facility]) Vital Signs (Past 12 Hours) Vital Signs Temp Pulse Pulse Resp BP Pulse Ox 11/02/20 07:00 36.6 C 71 73 18 147/75 H 93 11/02/20 03:22 36.7 C 76 18 141/77 H 96 11/01/20 23:45 36.4 C L 78 18 132/66 93 11/01/20 23:31 79 Laboratory Results Cardiac Enzymes 11/01/20 11/01/20 Range/Units 11:38 11:38 AST 19 (15-37) U/L Troponin I < 0.015 (0-0.045) ng/ml Coagulation 11/01/20 Range/Units 11:38 PT 11.4 (9.0-12.0) Seconds APTT 23.7 (21.0-31.0) Seconds Lipids 11/02/20 Range/Units 05:48 Triglycerides 90 (0-150) mg/dl Cholesterol 148 (0-200) mg/dl HDL Cholesterol 56 mg/dl Cholesterol/HDL Ratio 3 CBC 11/01/20 11/02/20 Range/Units 11:38 05:48 WBC 8.46 8.51 (4.8-10.8) K/uL RBC 5.32 4.96 (4.2-5.4) M/uL Hgb 15.2 14.0 (12.0-16.0) g/dL Hct 46.2 42.5 (37-47) % Plt Count 232 221 (130-400) K/uL Neut # (Auto) 5.91 5.41 (1.4-6.5) K/uL Lymph # (Auto) 1.74 1.85 (1.2-3.4) K/uL [place] # (Auto) 0.64 H 0.96 H (0.11-0.59) K/uL Eos # (Auto) 0.13 0.25 (0-0.5) K/uL Baso # (Auto) 0.03 0.03 (0-0.2) K/uL Comprehensive Metabolic Panel 11/01/20 11/02/20 Range/Units 11:38 05:48 Sodium 140 140 (136-145) mmol/L Potassium 4.9 3.9 D (3.5-5.1) mmol/L Chloride 110 H 111 H (98-107) mmol/L Carbon Dioxide 26 23 (21-32) mmol/L BUN 19 H 16 (7-18) mg/dl Creatinine 1.46 H 1.05 (0.6-1.2) mg/dl Glucose 157 H 128 H (70-99) mg/dl Calcium 9.4 8.6 (8.5-10.1) mg/dl AST 19 (15-37) U/L ALT 18 (12-78) U/L Alkaline Phosphatase 56 (45-117) U/L Total Protein 7.4 (6.4-8.2) gm/dl Albumin 3.6 (3.4-5.0) gm/dl Intake and Output 09/01/21 09/02/21 09/02/21 22:59 06:59 14:59 Intake Total 200 / 200 Output Total 900 / 900 Balance 200 / -700 -900 / -700 Intake: Oral 200 / 200 Output: Urine 900 / 900 Other: Other Intake Source SIPS Weight 71.4 kg 69.7 kg Weight Measurement Method Chair Scale Built in [facility] Diagnostic Findings Telemetry: Atrial fibrillation, the heart rate is normally in the 50 to 70 bpm range however she does have occasional pauses, several over 3 seconds and a heart rate of about 35 for a brief period of time. PG Care Time/CCT Total # of Minutes Spent Total Time Spent with Patient: Total time spent is greater than 50% in coordination of care (as documented) at patient's floor/unit and/or counseling patient: Coding Level of Care Code 42445 Initial Inpt Care Lvl 3 Diagnoses Syncope R55 Syncope type: unspecified Bradycardia R00.1 Atrial fibrillation I48.21 Atrial fibrillation type: permanent On continuous oral anticoagulation Z79.01 (1) Syncope Syncope type: unspecified Qualified Code(s): R55 - Syncope and collapse (2) Atrial fibrillation Atrial fibrillation type: permanent Qualified Code(s): I48.21 - Permanent atrial fibrillation
[2020-11-02] MEDS ORDERED: NON-FORMULARY MEDICATION (Vitamin K2 100 mcg Capsule) PO SCH (09:00)
[2020-11-02] MEDS ORDERED: METOPROLOL SUCC 25MG EXT REL TAB PO SCH (09:00)
[2020-11-02] MEDS ORDERED: Nursing to Pharmacy Communication SCH (13:30)
--- NOTE | 2020-11-02 14:48 | Hospitalist Progress Note ---
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 - Plan for pacemaker tomorrow with Dr. Sifuentes. - NPO @ midnight - Hold evening apixaban (2) Atrial fibrillation: Plan: Per prior notes, quite variable rates fromo 50s - 140s. - Hold Eliquis as above - Continue beta-laura (3) Knee pain, acute: Plan: Knee pain from her fall. Has b/l knee replacements. - X-rays ordered - Voltaren gel TID (4) Type 2 diabetes mellitus: Plan: A1c was 6.5% this admission. - Continue sliding scale insulin - Diabetic diet (5) Hypertension: Plan: Blood pressure 135/70. - As above Admission and Anticipated Discharge Date Admission Date: November 01, 2020 Subjective Feeling well today. Her knees are painful from her fall, left > right. Reports no fevers/chills, chest pain, shortness of breath, abdominal pain, nausea, or vomiting. Physical Exam Constitutional: WD/WN, vitals as above Eyes: EOM intact bilaterally; no conjunctival abnormality ENMT: external ear and nose normal, oropharynx normal Neck: trachea midline, no thyromegaly normal visual inspection Respiratory: normal respiratory effort, lungs clear to auscultation no respiratory distress Cardiovascular: RRR, no murmur, no edema Gastrointestinal (Abdomen): Inspection/Auscultation: abdomen normal to inspection; abdomen not distended Musculoskeletal: no cyanosis or clubbing, extremities motor strength 5/5 Skin: no rashes, warm and dry Neurologic: moves all extremities and awake Psychiatric: Orientation: alert, oriented to person and cooperative Results & Data Results & Data ([facility]) Vital Signs (Past 12 Hours) Vital Signs Temp Pulse Pulse Resp BP Pulse Ox 11/02/20 14:37 37.0 C 57 L 18 133/70 96 11/02/20 11:00 36.5 C 51 L 18 114/63 94 11/02/20 07:00 36.6 C 71 73 18 147/75 H 93 11/02/20 03:22 36.7 C 76 18 141/77 H 96 PG Care Time/CCT Total # of Minutes Spent Total Time Spent with Patient: Total time spent is greater than 50% in coordination of care (as documented) at patient's floor/unit and/or counseling patient: Coding Level of Care Code 76177 Subseq Hosp Care Lvl 3 Diagnoses Syncope R55 Type 2 diabetes mellitus E11.9 Atrial fibrillation I48.21 Atrial fibrillation type: permanent Hypertension I10 Hypertension type: primary hypertension Knee pain, acute M25.569 (1) Atrial fibrillation Atrial fibrillation type: permanent Qualified Code(s): I48.21 - Permanent atrial fibrillation (2) Hypertension Hypertension type: primary hypertension Qualified Code(s): I10 - Essential (primary) hypertension
--- NOTE | 2020-11-02 16:57 | XRay Report ---
XR knee RT 3V, XR knee LT 3V CLINICAL HISTORY: Fall on knees; painful. Bilateral knee pain. COMPARISON STUDY: None. FINDINGS: No fracture or dislocation within the right or left knee. There is bilateral chondrocalcino sis with severe patellofemoral osteoarthritis. There is a trace left knee effusion. No right knee eff usion. Soft tissues are otherwise unremarkable. There are tricompartmental marginal osteophytes. IMPRESSION: 1. No fractures within the right or left knee. 2. Trace left knee effusion. 3. 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 ACT 112: Negative or not required by law. Electronically signed by: Carlito iPzano M.D. 11/02/2020 4:55 PM
--- NOTE | 2020-11-02 16:57 | XRay Report ---
XR knee RT 3V, XR knee LT 3V CLINICAL HISTORY: Fall on knees; painful. Bilateral knee pain. COMPARISON STUDY: None. FINDINGS: No fracture or dislocation within the right or left knee. There is bilateral chondrocalcino sis with severe patellofemoral osteoarthritis. There is a trace left knee effusion. No right knee eff usion. Soft tissues are otherwise unremarkable. There are tricompartmental marginal osteophytes. IMPRESSION: 1. No fractures within the right or left knee. 2. Trace left knee effusion. 3. 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 ACT 112: Negative or not required by law. Electronically signed by: Carlito Pizano M.D. 11/02/2020 4:55 PM
--- NOTE | 2020-11-02 17:26 | XCELERA ---
[id number] \\[id number]
[2020-11-02] MEDS: DICLOFENAC SOD 1% GEL 100 GM TUBE EXT SCH (21:06)
[2020-11-03] MEDS ORDERED: LACTATED RINGER'S 1,000 ML IV SCH
[2020-11-03] MEDS: APIXABAN 5 MG TABLET PO SCH (06:44)
[2020-11-03] MEDS ORDERED: BACITRACIN OINT 0.9 GM PKT ONE (06:48)
[2020-11-03] MEDS ORDERED: LIDOCAINE 1% LOCAL 20 ML VIAL ONE (06:48)
[2020-11-03] MEDS ORDERED: VANCOMYCIN HCL 1000MG/20ML VIAL ONE (06:48)
[2020-11-03] MEDS ORDERED: WATER, STERILE FOR INJ 10 ML VIAL ONE (06:48)
[2020-11-03 07:11] LABS: Hematocrit (blood only) 44.8 % (37-47); Hemoglobin 14.8 g/dL (12.0-16.0); Mean Corpuscular Hemoglobin 28.6 pg (25-34); Mean Corpuscular Volume 86.7 fL (80-100); Mean Platelet Volume 10.5 fL (7.4-10.4); Platelet Count 219 K/uL (130-400); RDW Coefficient of Variation 14.6 % (11.5-14.5); RDW Standard Deviation 47.1 fL (36.4-46.3); Red Blood Count 5.17 M/uL (4.2-5.4); White Blood Count 7.28 K/uL (4.8-10.8)
[2020-11-03] MEDS: CALCIUM 600MG + VIT D 400 IU TAB PO SCH (07:11)
[2020-11-03] MEDS: ASCORBIC ACID 500 MG TAB PO SCH (07:11)
[2020-11-03] MEDS: CHOLECALCIFEROL 1,000 UNITS 25 MCG TAB PO SCH (07:11)
[2020-11-03] MEDS: TOCOPHERYL, DL-ALPHA 400 UNITS 180 MG CAP PO SCH (07:12)
[2020-11-03] MEDS: VITAMIN B COMPLEX TAB PO SCH (07:12)
[2020-11-03] MEDS: INSULIN ASPART 100 UNITS/ML 3 ML PEN SC SCH ×4 (07:14→22:10)
[2020-11-03] MEDS ORDERED: MIDAZOLAM HCL 5 MG/ML 1 ML VIAL ONE (07:41)
[2020-11-03] MEDS ORDERED: fentaNYL citrate 100 MCG/2 ML VIAL ONE (07:41)
[2020-11-03 07:44] LABS: BUN Creatinine Ratio 14.6 (10-20); Calcium 9.1 mg/dl (8.5-10.1); Creatinine Clr Calc Pharmacy 33.9 ml/min; Est GFR (African American) 47.6 ml/min; Est GFR (Non-African American) 41.1 ml/min; Magnesium 2.2 mg/dl (1.8-2.4); Potassium 4.1 mmol/L (3.5-5.1)
--- NOTE | 2020-11-03 07:54 | History & Physical Bridge Note ---
Date of Service November 03, 2020 History & Physical Bridge Note I have examined the patient, reviewed the History & Physical and in the interval since the performance of the History & Physical I have noted the following changes of clinical significance: no changes noted. I reviewed the indications, procedure, risks and alternatives with the patient, answered all questions. Consent obtained. Patient understands and agrees to the procedure. I also reviewed the risks and use of sedation, patient understands and consent obtained.
--- NOTE | 2020-11-03 07:55 | Pre Anesthesia Assessment ---
Date of Service November 03, 2020 Pre Sedation Assessment Vital Signs Temp Pulse Pulse Pulse Resp BP Pulse Ox 11/03/20 07:27 70 16 197/93 H 95 11/03/20 07:25 36.8 C 22 159/85 H 98 11/03/20 07:20 66 11/03/20 04:00 36.4 C L 74 18 135/83 95 11/02/20 22:42 36.8 C 89 18 154/84 H 94 11/02/20 20:00 36.5 C 59 L 18 157/99 H 95 11/02/20 14:37 37.0 C 57 L 18 133/70 96 11/02/20 14:20 65 11/02/20 11:00 36.5 C 51 L 18 114/63 94 Cardiovascular + bradycardic and + irregularly irregular Respiratory normal respiratory effort, lungs clear to auscultation Pre-Sedation Airway Assessment Smoking Status: Never smoker Hx Sleep Apnea: No Short, Thick Neck: No Thyromental Distance: > or= 3.5 Finger Breadths Oral Cavity: + WNL Mallampati Class: IV ASA: ASA3 NPO Status Date of Last Intake of Fluids: 11/02/20 Time of Last Intake of Fluids: 20:00 Date of Last Intake of Solid Food: 11/02/20 Time of Last Intake of Solid Foods: 20:00 Procedure Planning Contraindications for Sedation: none Current Medications Reviewed: Yes Notes The planned sedation has been discussed with the patient. Informed Consent was obtained. I have identified the patient, determined the appropriateness of sedation and have assessed the patient immediately prior to the procedure. All medicine(s) and interventions are by my order.
[2020-11-03] MEDS: DICLOFENAC SOD 1% GEL 100 GM TUBE EXT SCH ×3 (08:17→20:54)
[2020-11-03] MEDS ORDERED: METOPROLOL TARTRATE 1 MG/ML VIAL IV ONE (08:57)
--- NOTE | 2020-11-03 09:03 | Electrophysiology Report ---
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 The left prepectoral region was anesthetized with 1% lidocaine local anesthetic and left axillary venipuncture was performed by percutaneous technique and a guidewire placed through the left subclavian vein into the superior vena cava. The area was further infiltrated with 1% lidocaine local anesthetic and a 5 cm incision was made parallel to the left clavicle and 2 cm below it and carried down to the anterior pectoralis fascia. A pacemaker pocket was formed by blunt dissection anterior to the pectoralis fascia and a vancomycin-soaked sponge was placed in the pocket. A 7 [place] Medtronic lead introducer was placed over the guidewire into the left subclavian vein, the dilator and guidewire were removed and a C315 sheath was advanced into the right ventricle over a guidewire. The guidewire and the dilator were removed and a bipolar active fixation Select Secure steroid tipped ventricular lead was advanced through the introducer into right ventricle. The ventricular lead was advanced through the sheath into a mid to distal septal location. The screw was extended fixing the lead in position. Pacing and sensing thresholds were evaluated in bipolar configuration and are recorded on the implant data sheet. Diaphragmatic pacing was evaluated at full output as noted on the implant data sheet. The sheath system was stripped from the ventricular lead and the 7 [place] sheath was also stripped from the lead. Once the lead was in position it was attached to the anterior pectoralis fascia using 2 sutures of 2-0 silk around the lead collar. The vancomycin-soaked sponge was removed from the pocket, hemostasis was obtained, the pacemaker was attached to the lead and placed in the pocket with the lead coiled beneath it. The incision was closed with a running double subcutaneous closure of 3-0 Vicryl absorbable suture, followed by running subcuticular skin closure of 4-0 Vicryl absorbable suture. Bacitracin ointment was placed on the incision and a dressing applied. [facility] [place] Electrophysiology codes Indication for Procedure (1) Bradycardia: Pacing Procedure 1: Pacin Insert/Replace Pacer V PG Moderate Sedation Codes Moderate Sedation Codes Procedure 1: Sedation/Anesthesia: 32283 Mod Sedation by the same physician;Init15 Min Child Age 5 & Up Procedure 2: Sedation/Anesthesia: 28228 Mod Sedation by the same physician; Ea [id number] Minutes
[2020-11-03] MEDS ORDERED: ACETAMINOPHEN 325 MG TAB PO PRN (09:10)
[2020-11-03] MEDS ORDERED: ACETAMINOPHEN W/CODEINE #3 1 TAB PO PRN (09:10)
--- NOTE | 2020-11-03 14:30 | Post Anesthesia Assessment ---
Date of Service November 03, 2020 Post Sedation Assessment Vital Signs Temp Pulse Pulse Pulse Resp BP BP 11/03/20 14:12 36.7 C 78 18 145/65 H 11/03/20 13:07 82 18 140/75 11/03/20 12:15 80 18 130/72 11/03/20 11:45 80 18 144/83 H 11/03/20 11:15 83 18 153/81 H 11/03/20 10:45 84 18 145/80 H 11/03/20 10:15 82 18 147/98 H 11/03/20 10:00 70 16 150/90 H 11/03/20 09:45 68 14 160/80 H 11/03/20 09:30 71 16 167/74 H 11/03/20 09:24 71 16 168/88 H 11/03/20 09:09 72 16 199/101 H 11/03/20 07:27 70 16 197/93 H 11/03/20 07:25 36.8 C 22 159/85 H 11/03/20 07:20 66 11/03/20 04:00 36.4 C L 74 18 135/83 11/02/20 22:42 36.8 C 89 18 154/84 H 11/02/20 20:00 36.5 C 59 L 18 157/99 H 11/02/20 14:37 37.0 C 57 L 18 133/70 Pulse Ox 11/03/20 14:12 96 11/03/20 13:07 96 11/03/20 12:15 96 11/03/20 11:45 96 11/03/20 11:15 96 11/03/20 10:45 96 11/03/20 10:15 96 11/03/20 10:00 99 11/03/20 09:45 98 11/03/20 09:30 94 11/03/20 09:24 94 11/03/20 09:09 93 11/03/20 07:27 95 11/03/20 07:25 98 11/03/20 07:20 11/03/20 04:00 95 11/02/20 22:42 94 11/02/20 20:00 95 11/02/20 14:37 96 Recovery Score Activity: Moves 4 extremities Respiration: Deep Breath/Cough Circulation: +/-20% PreAnes Value Consciousness: Fully Awake Oxygen Saturation: > 92% On Room Air Post Anesthesia Score: 10 Discharge Sedation Level of Care: Fast Track Phase II Post Sedation Plan On clinical assessment, the patient appears to have tolerated the sedation without complications. Patient is recovering as anticipated. Patient will continue to be monitored by nursing and may be discharged when sedation discharge criteria are met per below protocol. Upon Completions of procedure up to 15 minutes continue every 5 minute vital signs and the P.A.R. score; then discharge to a Phase I or Fast Track to Phase II per the following guidelines: * Discharge Patient to appropriate Phase II area if PAR is 8 or greater or return to pre- procedure baseline. The post - procedure orders will be as directed. * If PAR score is less than 8 or not return to pre-procedure baseline then patient will follow Phase I monitoring till PAR is reached for Phase II. The Phase I may be done in procedure room or may call to secure a Phase I area. * If naloxone or flumazenil are used for reversal, hold in Phase I for continued monitoring from when last reversal dose was given for a minimum of 60 minutes or longer pending the nurse and/or physician discretion of patient condition before discharge to Phase II. Please call the Sedation Physician to re-evaluate and complete post-note for discharge to Phase II area. Do NOT discharge from procedure sedation or Phase 1 until post- sedation evaluation note is complete by procedure /sedation MD Sedation Discharge Instructions to be given to the patient at discharge to home.
--- NOTE | 2020-11-03 15:48 | Hospitalist Progress Note ---
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 - Single chamber pacemaker placed with Dr. Sifuentes on 11/03. - Hold evening apixaban; resume tomorrow morning. - CXR and interrogation tomorrow, then discharge. (2) Atrial fibrillation: Plan: Per prior notes, quite variable rates fromo 50s - 140s. - Hold Eliquis as above - Continue beta-laura (3) Knee pain, acute: Plan: Knee pain from her fall. Has b/l knee replacements. - X-rays ordered -> No fractures. Effusion seen on left. - Voltaren gel TID (4) Type 2 diabetes mellitus: Plan: A1c was 6.5% this admission. - Continue sliding scale insulin - Diabetic diet (5) Hypertension: Plan: Blood pressure 145/70. - Continue beta-laura (6) DVT prophylaxis: Plan: SCDs - Will resume apixaban tomorrow Admission and Anticipated Discharge Date Admission Date: November 02, 2020 Subjective Doing well today. No pain in the left shoulder. Reports no fevers/chills, chest pain, shortness of breath, abdominal pain, nausea, or vomiting. Physical Exam Constitutional: WD/WN, vitals as above Eyes: EOM intact bilaterally; no conjunctival abnormality ENMT: external ear and nose normal, oropharynx normal Neck: trachea midline, no thyromegaly normal visual inspection Respiratory: normal respiratory effort, lungs clear to auscultation no respiratory distress Cardiovascular: RRR, no murmur, no edema Chest (Breasts): Chest: + pacemaker (Site clean with no bleeding) Gastrointestinal (Abdomen): Inspection/Auscultation: abdomen normal to inspection; abdomen not distended Musculoskeletal: no cyanosis or clubbing, extremities motor strength 5/5 Skin: no rashes, warm and dry Neurologic: moves all extremities and awake Psychiatric: Orientation: alert, oriented to person and cooperative Results & Data Results & Data ([facility]) Vital Signs (Past 12 Hours) Vital Signs Temp Pulse Pulse Pulse Resp BP BP 11/03/20 14:12 36.7 C 78 18 145/65 H 11/03/20 13:07 82 18 140/75 11/03/20 12:15 80 18 130/72 11/03/20 11:45 80 18 144/83 H 11/03/20 11:15 83 18 153/81 H 11/03/20 10:45 84 18 145/80 H 11/03/20 10:15 82 18 147/98 H 11/03/20 10:00 70 16 150/90 H 11/03/20 09:45 68 14 160/80 H 11/03/20 09:30 71 16 167/74 H 11/03/20 09:24 71 16 168/88 H 11/03/20 09:09 72 16 199/101 H 11/03/20 07:27 70 16 197/93 H 11/03/20 07:25 36.8 C 22 159/85 H 11/03/20 07:20 66 11/03/20 04:00 36.4 C L 74 18 135/83 Pulse Ox 11/03/20 14:12 96 11/03/20 13:07 96 11/03/20 12:15 96 11/03/20 11:45 96 11/03/20 11:15 96 11/03/20 10:45 96 11/03/20 10:15 96 11/03/20 10:00 99 11/03/20 09:45 98 11/03/20 09:30 94 11/03/20 09:24 94 11/03/20 09:09 93 11/03/20 07:27 95 11/03/20 07:25 98 11/03/20 07:20 11/03/20 04:00 95 PG Care Time/CCT Total # of Minutes Spent Total Time Spent with Patient: Total time spent is greater than 50% in coordination of care (as documented) at patient's floor/unit and/or counseling patient: Coding Level of Care Code 30564 Subseq Hosp Care Lvl 3 Diagnoses Syncope R55 Atrial fibrillation I48.21 Atrial fibrillation type: permanent Knee pain, acute M25.569 Type 2 diabetes mellitus E11.9 Hypertension I10 Hypertension type: primary hypertension DVT prophylaxis Z29.9 (1) Atrial fibrillation Atrial fibrillation type: permanent Qualified Code(s): I48.21 - Permanent atrial fibrillation (2) Hypertension Hypertension type: primary hypertension Qualified Code(s): I10 - Essential (primary) hypertension
[2020-11-03] MEDS: ACETAMINOPHEN 325 MG TAB PO PRN (21:03)
[2020-11-04] MEDS: ACETAMINOPHEN 325 MG TAB PO PRN (01:15)
--- NOTE | 2020-11-04 06:41 | XRay Report ---
XR chest 2V PA/lateral CLINICAL HISTORY: Pacemaker insertion. COMPARISON STUDY: Chest radiograph November 01, 2020. FINDINGS: There is no pneumothorax following placement of a left subclavian pacemaker. Lead tip proje cts over the right ventricle. Cardiomegaly is unchanged. There is evidence for pulmonary edema. There is no consolidation. IMPRESSION: No pneumothorax following placement of a left subclavian pacemaker. ACT 112: Negative or not required by law. Electronically signed by: Rosas Gilmore M.D. 11/04/2020 6:40 AM
[2020-11-04 07:02] LABS: BUN Creatinine Ratio 17.1 (10-20); Calcium 9.2 mg/dl (8.5-10.1); Est GFR (African American) 51.1 ml/min; Est GFR (Non-African American) 44.1 ml/min
--- NOTE | 2020-11-04 07:40 | Electrocardiogram Report ---
Test Reason : Blood Pressure : / mmHG Vent. Rate : 066 BPM Atrial Rate : 340 BPM P-R Int : 000 ms QRS Dur : 124 ms QT Int : 404 ms P-R-T Axes : 000 069 -42 degrees QTc Int : 423 ms Poor data quality, interpretation may be adversely affected Atrial fibrillation with frequent ventricular-paced complexes Right bundle branch block T wave abnormality, consider inferior ischemia Abnormal ECG When compared with ECG of 01-NOV-2020 11:34, Ventricular paced complexes are now present Confirmed by Mando Chung ([id number]) on 11/04/2020 7:40:19 AM Referred By: Carolina Sotelo Confirmed By:Mando Chung
[2020-11-04] MEDS: DICLOFENAC SOD 1% GEL 100 GM TUBE EXT SCH (08:41)
[2020-11-04] MEDS: INSULIN ASPART 100 UNITS/ML 3 ML PEN SC SCH (08:43)
[2020-11-04] MEDS ORDERED: HAWTHORN BERRY 565 MG PO SCH (09:00)
--- NOTE | 2020-11-04 09:17 | Cardiology Progress Note ---
Date of Service November 04, 2020 Assessment & Plan (1) Bradycardia: Plan: The patient underwent successful implantation of a single-chamber permanent pacemaker yesterday. No evident complication. Good device function. From our standpoint she would be safe for discharge. She should keep the wound dry until follow-up in our clinic next week. She should refrain from lifting left arm above the shoulder behind the neck for 6 weeks. She can resume her Eliquis tomorrow morning. Admission and Anticipated Discharge Date Admission Date: November 02, 2020 Subjective This morning the patient claims to be feeling well. She denies significant discomfort at the device implant site. Physical Exam Physical Exam: The implant site is free of hematoma or drainage. No active bleeding. No significant erythema. No ecchymosis. Results & Data ([facility]) Vital Signs (Past 12 Hours) Vital Signs Temp Pulse Pulse Pulse Resp BP BP 11/04/20 09:07 36.4 C L 88 65 18 120/73 160/79 H 11/04/20 03:56 36.4 C L 65 18 120/73 11/04/20 00:38 82 11/03/20 23:23 36.4 C L 78 18 139/85 Pulse Ox 11/04/20 09:07 96 11/04/20 03:56 96 11/04/20 00:38 11/03/20 23:23 95 Diagnostic Findings Chest x-ray demonstrated good lead position without evidence of pneumothorax Device interrogation reveals good function of the right ventricular lead. Normal device function.
--- NOTE | 2020-11-04 14:47 | Discharge Summary ---
Date of Service November 04, 2020 Admission HPI Per Admitting Provider This is an 85-year-old female with past medical history of hypothyroidism, hypertension, and chronic atrial fibrillation that presents today after syncopal episode. Patient is pleasant a good historian. Patient tells me that she was doing well today. She got up early and was doing things around the house without any issue. She went to the kitchen to prepare her breakfast. She says she was feeling very minimally nauseous but otherwise had no other issues. She had turned and took a few steps. Next thing she knew, she was on the floor. She believes she had a very brief moment of syncope. She stayed down for a few minutes until she got her strength back. Then she was able to get up and finished her breakfast. After her meal, she contacted both her PCP and forging die sinker via the web portal for further advice and was told by both of these physicians to come to the emergency room for evaluation. At the time my evaluation, patient was eating lunch. She essentially denied any symptoms at this time and is had no further issues. She specifically denied chest pain, palpitations, further nausea or vomiting, diarrhea or constipation. She denies any recent illness. She says she has never syncopized before. Monitor shows a rate controlled atrial fibrillation, which the patient is aware and tells me his she has been essentially asymptomatic from this. Principal Diagnosis Syncope due to bradycardia - s/p pacemaker insertion Discharge Exam Constitutional WD/WN, vitals as above Eyes EOM intact bilaterally; no conjunctival abnormality ENMT external ear and nose normal, oropharynx normal Neck trachea midline, no thyromegaly normal visual inspection Respiratory normal respiratory effort, lungs clear to auscultation no respiratory distress Cardiovascular RRR, no murmur, no edema Chest (Breasts) Chest: + pacemaker (Site clean with no bleeding) Gastrointestinal (Abdomen) Inspection/Auscultation: abdomen normal to inspection; abdomen not distended Musculoskeletal no cyanosis or clubbing, extremities motor strength 5/5 Skin no rashes, warm and dry Neurologic moves all extremities and awake Psychiatric Orientation: alert, oriented to person and cooperative Discharge Data Allergies Allergy/AdvReac Type Severity Reaction Status Date / Time No Known Allergies Allergy Verified 11/01/20 19:00 Consultations 11/01/20 14:51 ED Decision to Admit Stat 11/01/20 17:25 Consult Cardiology Routine Procedures Performed Operation Date: 11/03/20 07:30 Actual Procedures p Pacer with Ventricular Lead - Jesse Sifuentes MD Ordered Studies 11/01/20 12:38 CT cervical spine wo con Stat 11/01/20 12:39 CT head/brain wo con Stat 11/03/20 07:07 CL Cath Imgs for PACS use only Routine Hospital Course (1) Syncope: 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 - Single chamber pacemaker placed with Dr. Sifuentes on 11/03. - Hold evening apixaban; resume tomorrow morning. - CXR and interrogation were good. Ready for discharge per Dr. Ritter. Will see Dr. Sifuentes in clinic next week. (2) Atrial fibrillation: Per prior notes, quite variable rates fromo 50s - 140s. - Hold Eliquis as above - Continue beta-laura (3) Knee pain, acute: Knee pain from her fall. Has b/l knee replacements. - X-rays ordered -> No fractures. Effusion seen on left. - Voltaren gel TID -> Improving by discharge. (4) Type 2 diabetes mellitus: A1c was 6.5% this admission. - Continue sliding scale insulin - Diabetic diet (5) Hypertension: Blood pressure 145/70. - Continue beta-laura (6) DVT prophylaxis: SCDs - Will resume apixaban tomorrow Total Time Total Time Spent Total Time Spent (In Minutes): 35 Discharge Plan Discharge Items Patient Disposition: Home - Self-Care Reason For Visit: SYNCOPE Discharge Diagnosis: Low heart rate (bradycardia) requiring a pacemaker Activity: Resume your previous activity Lifting: No more than 5 pounds Lifting Comment: In left arm until approved by Dr. Sifuentes Non-emergency contact: Primary Care Provider and [facility] Call non-emergency contact if: your symptoms worsen Follow-up/Referrals: Jesse Sifuentes MD [Physician] - 11/07/20 10:30 am Carolina Sotelo CRNP [Primary Care Provider] - Diet: Heart Healthy Addtl Attending Provider Instructions: Ms. Estrella, You were admitted after a syncopal episode that we feel was caused by a slow heart rate. Dr. Sifuentes saw you and felt that you needed a pacemaker. This was done without any issues, and you are ready to go home. Please hold your apixaban (Eliquis) until tomorrow morning to avoid bleeding at the site of your device. Please follow Dr. Sifuentes's instructions on the restrictions for your arm. Please see him at scheduled appointment. ACTIVITY RECOMMENDATIONS: * Do not raise affected arm over head for 2 weeks. SPECIAL CARE INSTRUCTIONS: * If bleeding occurs, apply direct pressure to area for 5 minutes. * Call your doctor if you have severe pain, fever, drainage or bleeding at s ite. * Keep dressing on and dry for 48 hours then remove. * Keep any scheduled doctor's appointment. * Implant Card - hand held device with website information given. SKIN IRRITATION: * You may experience some redness and/or swelling in the area where radiation was administered. If any skin irritation occurs, please contact your family physician. FOLLOW UP VISIT: Keep any scheduled doctor appointments. Pending Studies at Discharge: No Stand-Alone Forms: My [employer], Smoking Cessation Medications and DC Order Prescriptions: Continued acetaminophen [Tylenol Arthritis Pain] 650 mg tablet extended release 650 mg PO BID PRN (Reason: Pain) RF: 0 vitamin E (dl, acetate) 400 unit capsule 400 units PO DAILY RF: 0 lysine 1,000 mg tablet 1,000 mg PO DAILY RF: 0 cholecalciferol (vitamin D3) 5,000 unit capsule 5,000 units PO DAILY RF: 0 [id number] [Caltrate 600-D Plus Minerals] 600 mg calcium- 800 unit-50 mg tablet 1 tab PO DAILY RF: 0 Eliquis 5 mg tablet 5 mg PO BID Qty: 180 RF: 3 metoprolol succinate 25 mg tablet extended release 24 hr 25 mg PO QAM Qty: 90 RF: 3 ascorbic acid (vitamin C) 1,000 mg tablet 1 gm PO DAILY RF: 0 magnesium citrate 100 mg tablet 100 mg PO DAILY RF: 0 hawthorn rich 565 mg capsule 565 mg PO DAILY RF: 0 lutein 20 mg capsule 20 mg PO Q OTHER DAY RF: 0 vitamin B complex Tablet 1 tab PO DAILY RF: 0 vitamin K2 100 mcg Capsule 0 mcg PO DAILY RF: 0 Discharge Orders: Discharge Order (Routine); Ordered 11/04/20 Ordered By: Ryan Vázquez/Other Patient Handouts: High Blood Sugar (Hyperglycemia), Hypoglycemia (Low Blood Sugar), Managing Type 2 Diabetes Admission Data Admit Date/Time: 11/02/20 18:36 Attending Provider: Ryan Diop Admit Provider: Aubrey Yan Primary Care Provider: Carolina Sotelo Other Providers: Ryan Diop ; Aubrey Yan ; Jesse Sifuentes Other Interventions: Discharge Summary Assessment (RN) Last Done: 11/04/20 09:07 Coding Level of Care Code D/C DAY MANAGEMENT >30 MINS Diagnoses Syncope R55 Atrial fibrillation I48.21 Atrial fibrillation type: permanent Knee pain, acute M25.569 Type 2 diabetes mellitus E11.9 Hypertension I10 Hypertension type: primary hypertension DVT prophylaxis Z29.9
--- NOTE | 2020-11-16 10:10 | Coding Query ---
CODING QUERY To promote full compliance with coding requirements relating to patient care, provider participation is requested in all cases of dry placer machine operator uncertainty. Please assist us with the question(s) below: Coding Question(s): The Cardiology Consultation documents, "Permanent atrial fibrillation: She is in permanent atrial fibrillation, therefore single-chamber device is indicated" and, "She is having pauses in excess of 3 seconds on low- dose metoprolol succinate, as well as heart rates in the 30s. It is extremely likely that bradycardia was a cause of her syncope. Although we could attempt to prove that by long-term monitoring that could be dangerous, she still drives and is very active and passing out could be risky. I would recommend a pacemaker and she is agreeable. 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 - Single chamber pacemaker placed with Dr. Sifuentes on 11/03". Please specify below, in your clinical opinion, regarding the diagnosis(es) responsible for the pacemaker being placed. 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 ( ) Permanent Atrial Fibrillation only ( ) Other: Please Specify Physician's Response(s): Thank you Yandy Mays Principal Diagnosis: "that condition established after study, to be chiefly responsible for occasioning the admission of the patient to the hospital for care." Co-Existing Principal Diagnosis: "when two or more diagnoses equally meet the criteria for principal diagnosis as determined by the circumstances of admission, diagnostic work up, and/or therapy provided, and the Alphabetic Index, Tabular List, or another coding guideline does not provide sequencing direction, any one of the diagnoses may be sequenced first." "When the physician has documented what appears to be a current diagnosis in the body of the record, but has not included the diagnosis in the final diagnostic statement, the physician should be asked whether the diagnosis should be added." (Source Coding [facility] 2 QTR90. p3-4) KHADRA
== END 2020-11-04 09:30 | disposition home or self-care (01) | DRG 243 ==
LOC: 2N 11:14 → ED 11:14 → SUATTDRO 15:22 → 2N 16:05 → 2S 11-03 09:03

== ENCOUNTER 2023-04-08 05:15 | Observation (INO) ==
--- NOTE | 2023-03-13 12:25 | PAT Medication Instructions ---
Medication Instructions Date of Service March 13, 2023 Home Medications Medication Instructions Recorded metoprolol succinate 25 mg 25 mg PO QAM #90 tabs 05/20/22 tablet,extended release 24 hr apixaban 5 mg tablet (Eliquis) 5 mg PO BID #180 tabs 10/08/22 cholecalciferol (vitamin D3) 125 mcg (5,000 unit) capsule 5,000 units PO QAM ascorbic acid (vitamin C) 1,000 mg tablet 1 gm PO QAM hawthorn rich 565 mg capsule 565 mg PO UD lutein 20 mg capsule 20 mg PO Q OTHER DAY vitamin E (dl, acetate) 180 mg (400 unit) capsule 400 unit PO DAILY gabapentin 100 mg capsule 100 mg PO TID latanoprost 0.005 % eye drops 1 drp OPR HS vitamin K2 100 mcg capsule 0 mcg PO Q OTHER DAY metformin 500 mg tablet 500 mg PO QDL metoprolol succinate 25 mg tablet,extended release 24 hr 25 mg PO QAM Arthritis Formula Tab 1 tab PO DIRECTED H.A. Factors 1 tab PO BID Methyl B-12 Folate 2 tab PO DAILY calcium carbonate 600 mg-vitamin D3 12.5 mcg (500 unit) capsule (Calcium 600 with Vitamin D3) 2 cap PO DAILY coQ10 (ubiquinol) 100 mg capsule 300 mg PO DAILY curcumin-phosphatidylcholine 500 mg capsule 500 mg PO DAILY apixaban 5 mg tablet (Eliquis) 5 mg PO BID ASK your prescriber and surgeon apixaban 5 mg tablet (Eliquis) 5 mg PO BID(in order for spinal or epidural anesthesia, Eliquis needs to be stopped 72 hours/3 days before surgery. Please check if okay with doctor that prescribes this to you) STOP taking 2 weeks before surgery (or as soon as possible if surgery is within 2 weeks) hawthorn rich 565 mg capsule 565 mg PO UD lutein 20 mg capsule 20 mg PO Q OTHER DAY vitamin E (dl, acetate) 180 mg (400 unit) capsule 400 unit PO DAILY vitamin K2 100 mcg capsule 0 mcg PO Q OTHER DAY Arthritis Formula Tab 1 tab PO DIRECTED H.A. Factors 1 tab PO BID Methyl B-12 Folate 2 tab PO DAILY coQ10 (ubiquinol) 100 mg capsule 300 mg PO DAILY curcumin-phosphatidylcholine 500 mg capsule 500 mg PO DAILY DO NOT take the morning of surgery cholecalciferol (vitamin D3) 125 mcg (5,000 unit) capsule 5,000 units PO QAM ascorbic acid (vitamin C) 1,000 mg tablet 1 gm PO QAM metformin 500 mg tablet 500 mg PO QDL calcium carbonate 600 mg-vitamin D3 12.5 mcg (500 unit) capsule (Calcium 600 with Vitamin D3) 2 cap PO DAILY Take morning of surgery With a small sip of water, OTHERWISE NOTHING TO EAT OR DRINK AFTER MIDNIGHT: gabapentin 100 mg capsule 100 mg PO TID metoprolol succinate 25 mg tablet,extended release 24 hr 25 mg PO QAM Take evening before surgery gabapentin 100 mg capsule 100 mg PO TID latanoprost 0.005 % eye drops 1 drp OPR HS Other Notes If you have any questions please call us at [phone] or [phone] or [phone] or [phone]
--- NOTE | 2023-03-20 11:10 | Anesthesiology Consultation ---
Date of Service March 20, 2023 Assessment & Plan (1) Encounter for pre-operative examination: Plan - abnormal antibody screen: per John with blood bank, testing will be re- collected morning of surgery and patient to arrive 1.5 hours early to hospital. OR and surgeon's office notified. - awaiting [place] cardiology pre-operative evaluation and UA (pt unable to void at PAT clinic). - upcoming [place] pulmonology appointment 04/03/23. - progressive stenosis noted on head and neck CTA 10/12/22 in combination with overall cardiac co-morbidities discussed in detail with Dr. Mathews who agrees patient will need a [place] cardiology pre-operative evaluation. Surgeon's office made aware. Patient made aware, she verbalized understanding and agreement, denied questions or concerns. - check BSG am DOS. - Medtronic pacemaker. - Outpatient joint assessment: Patient is currently scheduled for inpatient pathway. If re-evaluated and patient/surgeon requests outpatient pathway, patient is not recommended candidate for outpatient joint program from anesthesia standpoint. Chart Review Chart Review: Pending: Refer to Additional Notes / Consult section and Patient seen in Pre Admission Testing Teaching & Discussion Pre-Anesthesia Teaching/Discussion Notes: Instructed NPO after midnight before surgery, except medications with 15 cc of water. Medication instructions provided according to the PAT guidelines. History Surgery Operation Date: 04/08/23 07:00 Proposed Procedures p Right Total Knee Arthroplasty(Right) - Mic Roberts MD Height/Weight Height: 5 ft 5 in Weight: 68.2 kg Allergies Allergy/AdvReac Type Severity Reaction Status Date / Time No Known Allergies Allergy Verified 03/13/23 10:17 Medications Home Medications Medication Instructions Recorded Confirmed Last Taken cholecalciferol (vitamin D3) 125 5,000 units PO QAM 12/16/17 03/13/23 08/07/21 mcg (5,000 unit) capsule ascorbic acid (vitamin C) 1,000 mg 1 gm PO QAM 12/14/18 03/13/23 08/07/21 tablet hawthorn rich 565 mg capsule 565 mg PO UD 12/14/18 03/13/23 08/07/21 lutein 20 mg capsule 20 mg PO Q OTHER DAY 12/14/18 03/13/23 10/12/22 08:00 vitamin E (dl, acetate) 180 mg 400 unit PO DAILY 03/05/21 03/13/23 08/07/21 (400 unit) capsule gabapentin 100 mg capsule 100 mg PO TID 08/08/21 03/13/23 08/07/21 latanoprost 0.005 % eye drops 1 drp OPR HS 08/08/21 03/13/23 08/07/21 vitamin K2 100 mcg capsule 0 mcg PO Q OTHER DAY 08/08/21 03/13/23 10/12/22 08:00 metformin 500 mg tablet 500 mg PO QDL 04/22/22 03/13/23 Unknown metoprolol succinate 25 mg 25 mg PO QAM #90 tabs 05/20/22 03/13/23 Unknown tablet,extended release 24 hr Arthritis Formula Tab 1 tab PO DIRECTED 09/09/22 03/13/23 Unknown H.A. Factors 1 tab PO BID 09/09/22 03/13/23 Unknown Methyl B-12 Folate 2 tab PO DAILY 09/09/22 03/13/23 Unknown calcium carbonate 600 mg-vitamin 2 cap PO DAILY 09/09/22 03/13/23 Unknown D3 12.5 mcg (500 unit) capsule (Calcium 600 with Vitamin D3) coQ10 (ubiquinol) 100 mg capsule 300 mg PO DAILY 09/09/22 03/13/23 Unknown curcumin-phosphatidylcholine 500 500 mg PO DAILY 09/09/22 03/13/23 Unknown mg capsule apixaban 5 mg tablet (Eliquis) 5 mg PO BID #180 tabs 10/08/22 03/13/23 10/12/22 08:00 Past Medical History Medical History (Updated 03/20/23 @ 13:00 by Shannon Jimenez PA-C) Atrial fibrillation Carotid artery stenosis Focal severe stenosis within the left P2 segment which has progressed. Calcified plaque within the right carotid bifurcation resulting in up to 70% focal stenosis. Chronic thoracic back pain denies change or worsening Hypertension controlled, stable per pt Multiple pulmonary nodules determined by computed tomography of lung 12/2022 follows w/ Dr Dino devi; states nodules are "shrinking" On continuous oral anticoagulation Pacemaker 2020- medtronic, last checked 11/2022 Post herpetic neuralgia Type 2 diabetes mellitus NIDDM Patient denies h/o stroke, seizures, heart attack, heart failure, blood clots/DVTs or blood transfusions. Exercise / Class Metabolic Activity II 4-5 Yardwork/Stairs/Walk up hill (denies chest discomfort or shortness of breath with 1 FOS) Past Family History Family History Mother , Mother age 103 with dementia, hypertension, and diabetes Dementia Hypertension Diabetes Father , Father age 78 of heart issues Diabetes Coronary heart disease Grandmother (Maternal) Cigarette smoker Past Surgical History Surgical History (Updated 03/20/23 @ 11:13 by Shannon Jimenez PA-C) History of cataract surgery History of knee surgery left 1955 History of permanent cardiac pacemaker placement History of tonsillectomy Hx of colonoscopy Past Anesthesia History No Hx of Anesthesia Complications and No Family Hx of Anesthesia Complications History of PONV No Hx of PONV and Hx of Motion Sickness Social History Smoking Status: Never smoker Do You Dip or Chew Tobacco: No Hx Alcohol Use: No Hx Substance Use: No substance use type: does not use Review of Systems Patient denies chest pain, shortness of breath, dyspnea on exertion, snoring, witnessed apneas, reflux, fever, chills, cough, wheezing, or palpitations. Physical Exam Vital Signs Vitals BP 139/74 P 83 TEMP 97.6 SP02 98% on RA RESP 18 Physical Patient resting comfortably in chair in no acute distress, alert and oriented, responding appropriately throughout visit Full cervical extension range of motion without pain TMD < 3 finger breadths Mallampati Score 2 Dentition: several caps/crowns and bridge lower center, denies chipped or loose teeth, or implants Lungs: normal respiratory effort. Good air movement, clear throughout to auscultation, no adventitious breath sounds Cardiac: regular rate and rhythm, no murmurs noted Carotid arteries: negative bruit bilat Lab Results Anesthesia Preop Results Results Anesthesia Widget: WBC 6.16 K/ul (4.8-10.8) 03/20/23 Hgb 13.8 g/dl (12.0-16.0) 03/20/23 Hct 43.7 % (37.0-47.0) 03/20/23 Plt 235 K/uL (130-400) 03/20/23 Na 141 mmol/L (136-145) 03/20/23 K 4.5 mmol/L (3.5-5.1) 03/20/23 Cl 107 mmol/L (98-107) 03/20/23 CO2 27 mmol/L (21-32) 03/20/23 BUN 32 mg/dl (6-23) H 03/20/23 Creat 1.27 mg/dl (0.6-1.2) H 03/20/23 Glucose Level 104 mg/dl (70-99(Fasting)) H 03/20/23 PT 11.9 Seconds (9.0-12.0) 03/20/23 PTT 27 Seconds (21-31) 03/20/23 INR 1.1 (0.9-1.1) 03/20/23 HA1c 6.7 % (4.5-5.6) H 03/20/23 Blood Type A Positive 03/20/23 Antibody Screen POSITIVE A 03/20/23 Testing Electrocardiogram Date: 10/12/22 Afib with a competing junctional pacemaker with premature ventricular or aberrantly conducted complexes, rate 63 bpm Left axis deviation Nonspecific intraventricular conduction block Minimal voltage criteria for LVH, may be normal variant Inferior infarct, age undetermined Anterolateral infarct, age undetermined Echocardiogram Date: 11/02/20 EF 60-65% No LV regional wall motion abnormalities Moderate cLVH Mild biatrial dilation Mild mitral regurgitation Mild tricuspid regurgitation Trace pericardial effusion Possible diastolic dysfunction Other Testing Chest CT 12/30/22 1. The right middle lobe lesion seen previously has significantly decreased in size from prior studies. Correlate clinically. Continued CT follow-up is recommended. 2. There is no evidence of intrathoracic metastatic disease. 3. Additional subcentimeter pulmonary nodules in the right lower lobe have not appreciably changed. 4. There is no airspace consolidation typical for pneumonia or pleural effusion. 5. Cardiomegaly and cardiac pacemaker. 6. Additional findings as above. Pacemaker report 11/21/22 Medtronic RAILROAD COOK 50% Nonsustained VT events identified Mode VVIR Head and neck CTA 10/12/22 1. No evidence for arterial occlusion within the [place]. 2. Focal severe stenosis within the left P2 segment which has progressed. 3. Calcified plaque within the right carotid bifurcation resulting in up to 70% focal stenosis. 4. No significant stenosis within the left carotid arteries. 5. Additional findings as described above. Abdomen pelvis CT 09/09/[address] evidence of acute cholecystitis. 2. Diverticulosis, without acute diverticulitis. No small bowel obstruction. No free intraperitoneal air. PET scan 06/13/22 1. Mild to moderate FDG uptake within the 1.9 cm irregular right middle lobe nodule. A primary lung neoplasm is the diagnosis of exclusion. Other etiologies such as a chronic infectious process are within the differential but considered less likely. 2. No PET/CT evidence for metastatic disease. 3. Cardiomegaly. 4. Cholelithiasis.
[2023-04-08] MEDS: ACETAMINOPHEN 500 MG TAB PO SCH ×2 (05:45→13:19)
[2023-04-08] MEDS: Scopolamine 1 MG TDSY TD SCH (05:46)
[2023-04-08] MEDS: CeleBREX 200 MG CAP PO SCH (05:46)
[2023-04-08] MEDS: LR 60ML/HR IV SCH (05:46)
[2023-04-08] MEDS: LR 500ML BOLUS, THEN 15ML/HR IV SCH (06:00)
[2023-04-08] MEDS ORDERED: ROPIVACAINE 0.5% 5 MG/ML 30 ML VIAL ONE (06:19)
[2023-04-08] MEDS ORDERED: BUPIVACAINE 0.5 % 5 MG/1 ML PF 10ML VIAL ONE (06:19)
[2023-04-08] MEDS ORDERED: PROPOFOL IV EMULSION 10 MG/ML 20 ML VIAL IV ONE ×4 (06:34→08:14)
[2023-04-08] MEDS ORDERED: LIDOCAINE 2% 2 ML VIAL/AMP(20MG/ML) INFIL ONE (06:34)
[2023-04-08] MEDS ORDERED: fentaNYL citrate PF 100 MCG/2 ML VIAL ONE (06:34)
--- NOTE | 2023-04-08 06:35 | History & Physical Bridge Note ---
Date of Service April 08, 2023 History & Physical Bridge Note I have examined the patient, reviewed the History & Physical and in the interval since the performance of the History & Physical I have noted the following changes of clinical significance: no changes noted
[2023-04-08] MEDS ORDERED: MIDAZOLAM HCL 1 MG/ML 2ML VIAL ONE (06:37)
[2023-04-08] MEDS ORDERED: KETAMINE HCL 10MG/ML SYR ONE (06:39)
[2023-04-08] MEDS: TRANEXAMIC ACID 1,000 MG **IV Pre-op IV SCH (06:48)
[2023-04-08] MEDS: ceFAZolin 2000MG 2,000 MG/15 ML SYR IV SCH ×2 (07:00→16:38)
[2023-04-08] MEDS ORDERED: PROMETHAZINE HCL 12.5 MG in SODIUM CHLORIDE 0.9% 50 ML IV PRN (07:14)
[2023-04-08] MEDS ORDERED: fentaNYL citrate PF 100 MCG/2 ML VIAL IV PRN (07:14)
[2023-04-08] MEDS ORDERED: ePHEDrine sulfate 50 MG/ML AMP IV PRN (07:14)
[2023-04-08] MEDS ORDERED: HYDROmorphone INJ 1 MG/ML SYRINGE IV PRN ×2 (07:14→10:02)
[2023-04-08] MEDS ORDERED: ONDANSETRON INJ 2 MG/ML 2 ML VIAL IV PRN ×2 (07:14→10:02)
[2023-04-08] MEDS ORDERED: ATROPINE SULFATE 0.1 MG/ML 10ML SYR IV PRN (07:14)
[2023-04-08] MEDS ORDERED: ONDANSETRON INJ 2 MG/ML 2 ML VIAL ONE (07:39)
[2023-04-08] MEDS ORDERED: GLYCOPYRROLATE 0.2 MG/ML VIAL ONE (07:39)
[2023-04-08] MEDS ORDERED: PHENYLEPHRINE 100MCG/ML 10ML SYR IV ONE (07:39)
[2023-04-08] MEDS ORDERED: PHENYLEPHRINE HCL 10 MG/ML VIAL ONE (07:48)
[2023-04-08] MEDS: ORTHO JOINT ANESTHETIC ONE (07:57)
[2023-04-08] MEDS: TRANEXAMIC ACID 1,000 MG **IV Intra-op IV SCH (08:36)
[2023-04-08] MEDS ORDERED: ESMOLOL HCL INJ 10 MG/ML 10ML VIAL IV ONE (08:49)
[2023-04-08] MEDS: ROPIV 0.5% 246mg, Ketorolac 30mg, EPINEPHrine 0.5mg in NSS INFIL SCH (09:29)
--- NOTE | 2023-04-08 09:45 | Post Operative Brief Note ---
Immediate Post Op Note v1 Date of Surgery April 08, 2023 Pre & Post Diagnosis Operation Date: 04/08/23 07:00 Pre-Op Diagnosis: Right Knee Degenerative Joint Disease Post-Op Diagnosis: Right Knee Degenerative Joint Disease I identified the patient and participated in the time-out.: Yes Procedure Operation Date: 04/08/23 07:00 Actual Procedures p Right Total Knee Arthroplasty(Right) - Mic Roberts MD Surgeon Mic Roberts MD Blending Supervisor Janet Schmitt PA-C (No fellow avail) Estimated Blood Loss 100 Findings Consistent with Post-Op Diagnosis Fluids 1600 cc Specimens Right knee contents right knee synovium Anesthesia Type MAC Spinal Regional Complications none
--- NOTE | 2023-04-08 09:45 | Operative Report ---
Post Operative Report Pre & Post Diagnosis Operation Date: 04/08/23 07:00 Pre-Op Diagnosis: Right Knee Degenerative Joint Disease Post-Op Diagnosis: Right Knee Degenerative Joint Disease I identified the patient and participated in the time-out.: Yes Procedure Operation Date: 04/08/23 07:00 Actual Procedures p Right Total knee replacement, imageless computer assisted navigation (Right) - Mic Roberts MD Surgeon Mic Roberts MD Commercial Makeup Artist Janet Schmitt PA-C (No fellow avail) Estimated Blood Loss 100 Findings See Below Examined Under Anesthesia: ROM -- There was 5 degrees to 120 degrees of flexion Ligamentous examination -- revealed stable Jalil, posterior drawer, stable valgus stress at 5 and 30 degrees, varus stress at 5 stable and at 30 degrees 1-2 mm opening. Outerbridge Grade IV changes of patellofemoral and medial compartment, grade III changes lateral compartment. There were marginal osteophytes. The synovium was hemosiderin stained. Fluids 1600 cc Specimens right knee contents right knee synovium Anesthesia Type MAC Spinal Regional Complications none Indications This is a 87-year-old female who has clinical and radiographic findings consistent with osteoarthritis of the a right knee, that has failed conservative treatment. I recommended that a right total knee replacement be performed. The patient understands the risks of surgery, which include but not limited to: bleeding, infection, re-operation, damage to nerves and arteries, continued knee pain, knee stiffness, DVT, and . The patient understands all of these instructions and explanations, all of his questions have been satisfactorily addressed and the patient has elected to proceed. Informed consent was signed. Description of Procedure IMPLANTS: 1. Femur: Triathlon #4 Right PS. 2. Tibia: Triathlon #3 Des Arc with 12 x 50 mm stem. 3. Insert: Triathlon #3 x 13 mm PS X3 poly. 4. Patella: Triathlon S29 x 8 mm X3 poly. 5. Palacos G cement. Janet Schmitt PA-C is assisting with positioning, retracting, and closure due to fellow not available. Procedure: The patient was taken to the Operating Room and placed in the supine position after spinal and adductor canal nerve block was administered. My initials and a multidisciplinary time-out were used to identify the right leg as the correct operative limb. A tourniquet was placed high in the thigh. Prior to the incision, 2 grams of intravenous Ancef were given. The right leg was then prepped and draped in a standard sterile fashion. An Esmarch was used to exsanguinate the leg and the tourniquet was inflated to 250 mmHg. The planned mid-line 20 cm incision was created exposing the extensor mechanism. The medial parapatellar arthrotomy was made and the patella was everted. The patella was addressed first. It was prepared by reaming from 15 mm down to 11 mm. An S29 button was found to fit best. The peg holes were made in the standard fashion. The femur was addressed next and using computer assisted OrthoAlign with 3 degrees of flexion and 0 degrees of valgus, removing 10 mm in the standard fashion for the distal cut. The cut was made and the 4-in-1 cutting block for a size 4 femur was placed. These cuts and the cuts to place the box were made in the standard fashion. Our attention was then drawn to the tibia cut with using imageless computer assisted OrthoAlign, taking 2 mm from the medial low side. There was sufficient extension and flexion gap to fit a 11 mm spacer. A #3 Tibial baseplate fit well. A trial with a 11 mm spacer showed excellent stability in both flexion and extension, with good ligament balance, and thumbs free patellar tracking. Range of motion of 0-120 degrees. The tibial baseplate was prepped for the keel and stem. A stem was used due to some areas of soft bone, to avoid subsidence. All components were removed. The tourniquet was deflated. Hemostasis was obtained. 90 ml of total knee cocktail were injected into the soft tissues and periosteum. After a 15 minute break, the limb was exsanguinated again and the tourniquet was re-inflated. All surfaces were copiously irrigated prior to placement of the components. The femoral component followed by Tibial baseplate were cemented in place and a 11mm trial placed. Next, the patellar button was placed using the same cement. Once the cement had cured, the range of motion was unchanged, slight instability with varus and valgus stress. The trial was exchanged for a 13 mm trial; which showed maintained ROM and excellent stability. The 13 mm X3 poly was placed. Again, the range of motion and stability were unchanged The extensor mechanism was closed with 1-0 Vicryl and 0 Stratafix with the knee bent approximately 60 degrees in a standard fashion. The peritenon and deep fascia was closed with 2-0 Vicryl. The subcutaneous layer was closed with 3-0 Vicryl. The skin was closed with Zipline and shield. The limb was cleaned and dried. 4x4 dressing was placed over top followed by ABDs, sterile Webril, and a foot to thigh Silverio bandage. The patient was then transferred to the Recovery Room in stable condition. The sponge and needle counts were correct. POST-OP INSTRUCTIONS: The patient will be WBAT. The patient will be admitted to the hospital. Complete 24-hour course antibiotics. Labs will be obtained during the stay. DVT prophylaxis will included resuming Eliquis tomorrow am, TEDs, and mechanical foot pumps. The dressing will be changed postop day #2-3 and covered with a Silverlon dressing. I attest to the content of the Intraoperative Record and any orders documented therein. Any exceptions are noted below.
--- NOTE | 2023-04-08 09:58 | Operative Report ---
Post Operative Report Pre & Post Diagnosis Operation Date: 04/08/23 07:00 Pre-Op Diagnosis: Right Knee Degenerative Joint Disease Post-Op Diagnosis: Right Knee Degenerative Joint Disease I identified the patient and participated in the time-out.: Yes Procedure Operation Date: 04/08/23 07:00 Actual Procedures p Right Total Knee Arthroplasty(Right) - Mic Roberts MD Surgeon Dr. Roberts Perlite Grinder Janet Schmitt PA-C (No fellow avail) Estimated Blood Loss 100 Findings Consistent with Post-Op Diagnosis Specimens synovial tissue Complications none Disposition Accompanied Patient To Recovery: No Description of Procedure I was present during the entire case. I assisted with transferring to bed, prepping the leg, draping, retracting, hemostasis, wound closure, dressing application. Patient left the OR in stable condition. Please refer to Dr. Roberts's operative report for full details. I attest to the content of the Intraoperative Record and any orders documented therein. Any exceptions are noted below.
[2023-04-08] MEDS ORDERED: METOCLOPRAMIDE HCL INJ 5 MG/ML 2 ML VIAL IV PRN (10:02)
[2023-04-08] MEDS ORDERED: traMADol HCL 50 MG TABLET PO PRN (10:02)
[2023-04-08] MEDS ORDERED: MAGNESIUM HYDROXIDE SUSP 30 ML UDC PO PRN (10:02)
[2023-04-08] MEDS ORDERED: diphenhydrAMINE Capsule 25 MG CAP PO PRN (10:02)
[2023-04-08] MEDS ORDERED: NALOXONE HCL 0.4 MG/1 ML VIAL/CARP IV PRN (10:02)
[2023-04-08] MEDS ORDERED: bisacodyL 10 MG SUPP PR PRN (10:02)
--- NOTE | 2023-04-08 10:35 | XRay Report ---
RIGHT KNEE 2 VIEWS History: Right total knee arthroplasty. Degenerative arthritis. Postop. FINDINGS: The patient is status post a right total knee arthroplasty. The hardware is intact. No frac ture or dislocation. IMPRESSION: Right total knee arthroplasty. No evidence for hardware complication. ACT 112: Negative or not required by law. Electronically signed by: Carlito Pizano M.D. 04/08/2023 10:34 AM
--- NOTE | 2023-04-08 11:03 | Anesthesiology Progress Note ---
Date of Service April 08, 2023 Anesthesia Post Procedure Vital Signs Vital Signs: Temp Pulse Pulse Resp BP Pulse Ox O2 Del Method 04/08/23 10:50 63 16 122/73 93 Room Air 04/08/23 10:40 77 15 118/67 95 Oxymask 04/08/23 10:20 66 16 104/54 L 100 Oxymask 04/08/23 10:10 62 16 96/53 L 99 Oxymask 04/08/23 10:00 65 14 95/45 L 98 Oxymask 04/08/23 09:53 36.3 C L 71 14 105/60 95 Oxymask 04/08/23 05:36 36.7 C 69 20 159/76 H 96 Room Air O2 Flow Rate 04/08/23 10:50 04/08/23 10:40 3 04/08/23 10:20 6 04/08/23 10:10 6 04/08/23 10:00 6 04/08/23 09:53 10 04/08/23 05:36 Transfer of Care Handoff Completed per policy Notes Mental Status: alert / awake / arousable and participated in evaluation Patient Amnestic to Procedure: Yes Nausea / Vomiting: adequately controlled Pain: adequately controlled Airway Patency, RR, SpO2: stable & adequate BP & HR: stable & adequate Hydration State: stable & adequate Anesthetic Complications: no major complications apparent
[2023-04-08] MEDS ORDERED: PHARMACY GLYCEMIC MGMT CONSULT PRN (11:35)
[2023-04-08] MEDS ORDERED: CARBOHYDRATES FOR HYPOGLYCEMIA PO PRN (12:00)
[2023-04-08] MEDS ORDERED: DEXTROSE 50% 50 ML SYRINGE IV PRN (12:00)
[2023-04-08] MEDS ORDERED: GLUCOSE 10 TAB/TUBE PO PRN (12:00)
[2023-04-08] MEDS ORDERED: GLUCAGON FOR INJ 1 MG VIAL IM PRN (12:00)
[2023-04-08] MEDS ORDERED: GLUCOSE 40% GEL 15 GM TUBE PO PRN (12:00)
[2023-04-08] MEDS: SODIUM CHLORIDE 0.9% 1,000 ML IV SCH (12:40)
[2023-04-08] MEDS: INSULIN ASPART PER UNIT CHARGE SC SCH (12:52)
[2023-04-08] MEDS: GABAPENTIN 100 MG CAP PO SCH (13:19)
--- NOTE | 2023-04-08 13:50 | Pharmacy Report ---
Pharmacy Glycemic Short Note 2 - Date of Service April 08, 2023 - Glycemic Short BSG Results (Last 24 hours): 04/08/23 04/08/23 04/08/23 05:38 11:12 11:28 POC Glucose 128 H 115 H 136 H OUTPATIENT ANTIDIABETIC REGIMEN: * Metformin 500 mg PO daily with lunch * HbA1c: 6.7% (03/20/23) ASSESSMENT: * 87 yo F admitted on 04/08/23 postoperatively following a total knee arthroplasty. Pharmacy has been consulted to assist with inpatient glycemic management. Patient is a Type 2 diabetic as an outpatient. Please refer to outpatient regimen and most recent HbA1c above. * No steroids received. Ordered and tolerating a T2DM diet. Preop BSG was 128 mg/dL. Postop BSGs were 115 and 136 mg/dL. * Start bolus insulin based on weight/stress of 2. No basal insulin for now. PLAN FOR INPATIENT GLYCEMIC CONTROL: * Hold outpatient oral diabetes medications * Basal insulin * None * Bolus insulin * NovoLog per scale ACHS or Q6hrs while NPO * Goal Range: Low 110 mg/dL - High 140 mg/dL * Correction Factor: 30 mg/dL/unit * Nutritional / Prandial insulin per carb ratio of 1 unit per 10 grams CHO consumed
[2023-04-08] MEDS: oxyCODONE HCL IR 5 MG TAB (IMMEDIATE RELEASE) PO PRN (14:28)
--- NOTE | 2023-04-08 15:22 | Orthopedic Progress Note ---
Date of Service April 08, 2023 Assessment & Plan (1) Knee osteoarthritis: Plan: POD #0 s/p R TKA, doing as well as expected. Resume diet. WBAT with walker. OOB to chair. Continue pain control. Check labs tomorrow. DVT prophylaxis: TEDs 3 weeks, foot pumps while in hospital, resume Eliquis 04/09/23 am. PT/OT. Appreciate Hospitalist input. D/C planning. Present on Admission?: Yes Admission and Anticipated Discharge Date Admission Date: April 08, 2023 Subjective Some right knee pain Physical Exam Physical Exam: RLE: BCR < 2 sec. Sensation to light touch intact distally. Wiggling ankle and toes. Calf soft and non-tender. Dressing is clean, dry, intact. Able to preform straight leg raise. Results & Data Vital Signs (Past 12 Hours) Vital Signs Temp Pulse Pulse Resp BP Pulse Ox O2 Del Method 04/08/23 14:20 36.4 C L 60 16 146/83 H 96 Room Air 04/08/23 13:16 36.3 C L 71 18 114/50 L 96 Room Air 04/08/23 12:22 36.4 C L 63 18 122/67 97 Room Air 04/08/23 11:50 36.2 C L 62 16 132/83 95 Room Air 04/08/23 11:20 36.1 C L 63 16 121/78 95 Room Air 04/08/23 11:00 58 L 18 107/68 91 Room Air 04/08/23 10:50 63 16 122/73 93 Room Air 04/08/23 10:40 77 15 118/67 95 Oxymask 04/08/23 10:20 66 16 104/54 L 100 Oxymask 04/08/23 10:10 62 16 96/53 L 99 Oxymask 04/08/23 10:00 65 14 95/45 L 98 Oxymask 04/08/23 09:53 36.3 C L 71 14 105/60 95 Oxymask 04/08/23 05:36 36.7 C 69 20 159/76 H 96 Room Air O2 Flow Rate 04/08/23 14:20 04/08/23 13:16 04/08/23 12:22 04/08/23 11:50 04/08/23 11:20 04/08/23 11:00 04/08/23 10:50 02/06/24 10:40 3 04/08/23 10:20 6 04/08/23 10:10 6 04/08/23 10:00 6 04/08/23 09:53 10 04/08/23 05:36 Diagnostic Findings RIGHT KNEE 2 VIEWS History: Right total knee arthroplasty. Degenerative arthritis. Postop. FINDINGS: The patient is status post a right total knee arthroplasty. The hardware is intact. No fracture or dislocation. IMPRESSION: Right total knee arthroplasty. No evidence for hardware complication. ACT 112: Negative or not required by law. Electronically signed by: Carlito Pizano M.D. (1) Knee osteoarthritis Laterality: right Osteoarthritis type: primary Qualified Code(s): M17.11 - Unilateral primary osteoarthritis, right knee
[2023-04-08] MEDS: ASCORBIC ACID 500 MG TAB PO SCH (16:38)
[2023-04-08] MEDS: Scopolamine CHECK PATCH PLACEMENT SCH (16:38)
[2023-04-08] MEDS: FERROUS GLUCONATE 324 MG TAB PO SCH (16:38)
--- NOTE | 2023-04-08 19:45 | Hospitalist Consultation ---
Date of Consultation April 08, 2023 Assessment & Plan (1) Knee osteoarthritis: (2) Atrial fibrillation, permanent: (3) Atrial fibrillation with RVR: (4) Hypertension: (5) Pacemaker: (6) Multiple pulmonary nodules determined by computed tomography of lung: Plan S/P Right TKA -Post-op day 0 -Management per orthopedics. Continue PT, OT. -Pain control with Tylenol, Tramadol, oxycodone PRN in accordance with pain level -Will check CBC, metabolic panel tomorrow morning to ensure no significant hemoglobin drop and electrolyte balanced post-op Type 2 Diabetes Mellitus -Glycemic Management by pharmacy at present -Holding home Metformin during hospital admission -BSGs have been low to mid 100s so far Atrial Fibrillation -Continue daily metoprolol for rate control -Takes Eliquis 5mg BID daily, per orthopedics note will resume Eliquis on 27 a.m. Hypertension -Documented history of HTN, although normotensive at present Post-Herpetic Neuralgia -Continue home gabapentin 100mg TID Diet: Carb Consistent/Type 2 Diabetes VTE Prophylaxis: Will resume Eliquis 04/09 a.m. Code Status: Full Code Thank you for this consultation, we will continue to follow this patient. Please reach out to the hospitalist service with any questions regarding this patient's medical management. Supervising Physician Co-Signing Physician Notes Attending addendum: I have supervised the medical residents activities, and agree with the H&P unless as otherwise noted. Assessment and Plan: Status post right TKA- Postoperatively is medically stable Pain control per primary service As CBC with differential, chemistry profile Diabetes mellitus type 2- Pharmacy consult in place Hold metformin as noted Atrial fibrillation/hypertension- Resuming Eliquis when acceptable with primary service Continue metoprolol succinate with hold parameters History of Present Illness Reason for Consultation: Post-op med management Attending Physician: Mic Roberts MD History of Present Illness Ludivina Estrella is a 87 year-old female with a past medical history of carotid artery stenosis, hypertension, type 2 diabetes, dyslipidemia, thrombocytopenia, and atrial fibrillation with slow ventricular response s/p implantation of single chamber pacemaker (2020). She underwent right knee replacement on 04/08/[address] Roberts, the hospitalist service was consulted for post operative med management. Patient is currently post-op day 0, states she is feeling well this evening. She received oxycodone earlier this afternoon and was able to ambulate to bathroom with walker and assistance. She states she has not urinated yet this afternoon and nursing is monitoring this- although patient states she often will only urinate once or twice per day. She denies chest pain, shortness of breath, or abdominal pain. Allergies Allergy/AdvReac Type Severity Reaction Status Date / Time No Known Allergies Allergy Verified 04/08/23 05:41 Home Medications Medication Instructions Recorded Confirmed Type cholecalciferol (vitamin D3) 125 5,000 units PO QAM 12/16/17 04/08/23 History mcg (5,000 unit) capsule ascorbic acid (vitamin C) 1,000 mg 1 gm PO QAM 12/14/18 04/08/23 History tablet hawthorn rich 565 mg capsule 565 mg PO UD 12/14/18 04/08/23 History lutein 20 mg capsule 20 mg PO Q OTHER DAY 12/14/18 04/08/23 History vitamin E (dl, acetate) 180 mg 400 unit PO DAILY 03/05/21 04/08/23 History (400 unit) capsule gabapentin 100 mg capsule 100 mg PO TID 08/08/21 04/08/23 History latanoprost 0.005 % eye drops 1 drp OPR HS 08/08/21 04/08/23 History vitamin K2 100 mcg capsule 0 mcg PO Q OTHER DAY 08/08/21 04/08/23 History metformin 500 mg tablet 500 mg PO QDL 04/22/22 04/08/23 History metoprolol succinate 25 mg 25 mg PO QA #90 tabs 05/20/22 04/08/23 Rx tablet,extended release 24 hr Arthritis Formula Tab 1 tab PO DIRECTED 09/09/22 04/08/23 History H.A. Factors 1 tab PO BID 09/09/22 04/08/23 History Methyl B-12 Folate 2 tab PO DAILY 09/09/22 04/08/23 History calcium carbonate 600 mg-vitamin 2 cap PO DAILY 09/09/22 04/08/23 History D3 12.5 mcg (500 unit) capsule (Calcium 600 with Vitamin D3) coQ10 (ubiquinol) 100 mg capsule 300 mg PO DAILY 09/09/22 04/08/23 History curcumin-phosphatidylcholine 500 500 mg PO DAILY 09/09/22 04/08/23 History mg capsule apixaban 5 mg tablet (Eliquis) 5 mg PO BID #180 tabs 10/08/22 04/08/23 Rx Patient History Medical History (Updated 04/09/23 @ 09:52 by Kelin Bee PA-C) Encounter for preoperative pulmonary examination Post herpetic neuralgia Multiple pulmonary nodules determined by computed tomography of lung 12/2022 follows w/ Dr Dino devi; states nodules are "shrinking" Pacemaker 2020- medtronic, last checked 11/2022 On continuous oral anticoagulation Carotid artery stenosis Focal severe stenosis within the left P2 segment which has progressed. Calcified plaque within the right carotid bifurcation resulting in up to 70% focal stenosis. Hypertension controlled, stable per pt Chronic thoracic back pain denies change or worsening Type 2 diabetes mellitus NIDDM Atrial fibrillation Surgical History History of permanent cardiac pacemaker placement Hx of colonoscopy History of cataract surgery History of knee surgery left 5 History of tonsillectomy Family History Mother , Mother age 103 with dementia, hypertension, and diabetes Dementia Hypertension Diabetes Father , Father age 78 of heart issues Diabetes Coronary heart disease Grandmother (Maternal) Cigarette smoker Social History Smoking Status: Never smoker Second Hand Exposure: No; Do You Dip or Chew Tobacco: No; Tobacco Cessation Education Requested by Patient: No Hx Alcohol Use: No Hx Substance Use: No Preferred Language: Greenlandic Communication Ability: Effective Visual Impairment: No Limitations Hearing Ability: Normal Product Test Engineer Required: No Beliefs That Will Affect Care: None marital status: Single Current Living Situation: Significant Other Current Living Situation Comment: with Friend current occupational status: retired 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 Other Information That Helps Us Care for You: No Feels Safe at Home: Yes Safety Concerns: Feels Safe At This Time Assistive Devices: Glasses, Hearing Aid - Bilateral and Walker Review of Systems Review of Systems: As per above Physical Exam Constitutional: WD/WN, vitals as above Eyes: + anicteric sclerae; no conjunctival abn ormality ENMT: Ears: no external ear abnormality Nose: no external nose abnormality Moist mucous membranes Respiratory: normal respiratory effort, lungs clear to auscultation Cardiovascular: Rate/Rhythm: regular rate and regular rhythm Extremities: no edema Gastrointestinal (Abdomen): normal bowel sounds, soft, nontender, no hepatosplenomegaly Musculoskeletal: Right lower extremity bandaged. Moves limbs independently and can wiggle toes of both feet Skin: no rashes, warm and dry Psychiatric: A+Ox3, euthymic affect Results & Data Results & Data Vital Signs (Past 12 Hours) Vital Signs Temp Pulse Pulse Resp BP Pulse Ox O2 Del Method 04/08/23 14:20 36.4 C L 60 16 146/83 H 96 Room Air 04/08/23 13:16 36.3 C L 71 18 114/50 L 96 Room Air 04/08/23 12:22 36.4 C L 63 18 122/67 97 Room Air 04/08/23 11:50 36.2 C L 62 16 132/83 95 Room Air 04/08/23 11:20 36.1 C L 63 16 121/78 95 Room Air 04/08/23 11:00 58 L 18 107/68 91 Room Air 04/08/23 10:50 63 16 122/73 93 Room Air 04/08/23 10:40 77 15 118/67 95 Oxymask 04/08/23 10:20 66 16 104/54 L 100 Oxymask 04/08/23 10:10 62 16 96/53 L 99 Oxymask 04/08/23 10:00 65 14 95/45 L 98 Oxymask 04/08/23 09:53 36.3 C L 71 14 105/60 95 Oxymask O2 Flow Rate 04/08/23 14:20 04/08/23 13:16 04/08/23 12:22 04/08/23 11:50 04/08/23 11:20 04/08/23 11:00 04/08/23 10:50 04/08/23 10:40 3 04/08/23 10:20 6 04/08/23 10:10 6 04/08/23 10:00 6 04/08/23 09:53 10 Resident Activity Tracking Resident Involvement: Resident Care Provided Care Provided: Adult Hospital Medicine (1) Knee osteoarthritis Laterality: right Osteoarthritis type: primary Qualified Code(s): M17.11 - Unilateral primary osteoarthritis, right knee (4) Hypertension Hypertension type: primary hypertension Qualified Code(s): I10 - Essential (primary) hypertension
[2023-04-08] MEDS: LATANOPROST 0.005% OP SOLN 2.5 ML BTL OPR SCH (20:52)
[2023-04-08] MEDS: SENNA 8.6 MG TAB PO SCH (20:53)
[2023-04-08] MEDS: DOCUSATE SODIUM 100 MG CAP PO SCH (20:53)
[2023-04-09 06:38] LABS: Hematocrit (blood only) 35.5 % (37.0-47.0); Hemoglobin 11.4 g/dl (12.0-16.0); Mean Corpuscular Hemoglobin 27.1 pg (25.0-34.0); Mean Corpuscular Hgb Conc 32.1 g/dL (32.0-36.0); Mean Corpuscular Volume 84.5 fL (80.0-100.0); Mean Platelet Volume 10.7 fL (9.4-12.4); Platelet Count 177 K/uL (130-400); RDW Coefficient of Variation 14.7 % (11.5-14.5); RDW Standard Deviation 45.4 fL (36.4-46.3); White Blood Count 7.28 K/ul (4.8-10.8)
[2023-04-09 06:57] LABS: BUN Creatinine Ratio 17.3 (10-20); Calcium 8.6 mg/dl (8.6-10.3); Creatinine Clr Calc Pharmacy 26.1 ml/min; Est GFR (African American) 39.7 ml/min; Est GFR (Non-African American) 34.2 ml/min; Potassium 4.1 mmol/L (3.5-5.1)
[2023-04-09] MEDS: METOPROLOL SUCC 25MG EXT REL TAB PO SCH (08:15)
[2023-04-09] MEDS: APIXABAN 5 MG TABLET PO SCH (08:15)
[2023-04-09] MEDS: CALCIUM 600MG + VIT D 400 IU TAB PO SCH (08:15)
[2023-04-09] MEDS: MULTIVITAMIN TAB PO SCH (08:15)
[2023-04-09] MEDS: CHOLECALCIFEROL 125 MCG (5,000 UNITS) TAB PO SCH (08:15)
[2023-04-09] MEDS: TOCOPHERYL, DL-ALPHA 400 UNITS 180 MG CAP PO SCH (08:15)
--- NOTE | 2023-04-09 08:17 | Hospitalist Progress Note ---
Date of Service April 09, 2023 Assessment & Plan (1) Confusion: Plan: POD#1 s/p RIGHT TKA w/ Dr Roberts Patient w/ some disorientation/confusion this morning. Nonfocal on exam, no need for CT head at present time. Did get opiates last evening however was oriented post-operatively. This morning was worse but was able to answer questions for myself, knew where she was. Does have hx carotid stenosis (worse on the RIGHT, not on antiplatelet agent). BP 153/74, Eliquis resumed this morning. Nursing to bladder scan/egan given retention and send urine for UA/Cx -- monitor for UTI/abx if indicated. Possible voiding trial in AM if no issues Patient does have scopolamine patch in place to her LEFT ear, asked nursing to REMOVE - could have been contributing to urinary retention. Alerted orthopedics of such, planning to continue to monitor overnight. (2) Knee osteoarthritis: Plan: S/P Right TKA s/p Right Total Knee Arthroplasty(Right) - Mic Roberts MD on 04/08. EBL 100cc Pain control/bowel regimen/PT/OT per primary service WBC wnl on repeat, afebrile Hgb 13.8--> 11.4, acute blood loss anemia from surgery as well as suspected dilution from IVF post-op. Asymptomatic DVT proph: eliquis 5mg BID resuming for this morning, 04/09. On 5mg BID, which is appropriate for age/renal function but if her weight <60kg or Cr elevation would need to consider reduced dose in f/u (follows w/ cardiology) Dispo per primary service (3) Atrial fibrillation, permanent: Plan: Atrial Fibrillation Continues on metoprolol 25mg daily Eliquis resumed as above (4) Hypertension: Plan: Hypertension BP stable, 153/74 in setting of surgery Continues on metoprolol (5) Pacemaker: Plan: noted (6) Multiple pulmonary nodules determined by computed tomography of lung: Plan: reports decreased in size per patient, has repeat scan this upcoming year (7) Carotid artery stenosis: Plan: hx of such, not on antiplatelet. eliquis resumed as above. Bp controlled at present. Patient reports having f/u for intervention later this year w/ vascular (8) Type 2 diabetes mellitus: Plan: Type 2 Diabetes Mellitus A1c 6.7 Only on metformin 500mg once daily Pharmacy consulted by primary team for glycemic management, BSGs well controlled Post-Herpetic Neuralgia Continue home gabapentin 100mg TID, appropriately dosed for renal function Plan Thank you for allowing hospitalist service to participate in the care of Ms Estrella. Hospitalist service will follow along while inpatient Please call with any questions/concerns. Admission and Anticipated Discharge Date Admission Date: April 08, 2023 Subjective Eval this morning, confusion by nursing this morning when was alert/oriented after surgery. Seen in room 353, initially said had been medicating for her knee and need for surgery and didn't remember having it done but then said she did have it done. She notes she is in [facility] (but in the basement), 2023, april. She is able to follow commands, no focal deficits. She does have hx carotid stenosis, worse on the right and reports having this going to be taken care of later this year in November. She is on eliquis but not on any antiplatelet agents such as aspirin. No fever/chills, chest pain, shortness of breath. Pain to her knee currently controlled, but got pain medication last night. Nursing to bladder scan/egan/urine culture to ensure no urinary tract infection. Physical Exam 2 Physical Exam: General: 87yo female laying flat in bed, nursing to bladder scan, NAD but slight disorientation reported this morning Head atraumatic, normocephalic, +scopolamine patch behind LEFT ear, +R carotid bruit Resp: even/unlabored, slightly diminished in the bases, no cough/tachypnea, on room air CV: irregularly irregular (rates 60s), faint systolic murmur, no significant edema/calf tenderness, pulses palpable GI: +BS, soft/slight distension but nontender : no egan at present time MSK/Neuro: Dressing/ankit wrap to LLE, c/d/i, toes mobile,sensation intact Psych: alert to person, knows in hospital, 2023, april Results & Data Results & Data Vital Signs (Past 12 Hours) Vital Signs Temp Pulse Resp BP BP Pulse Ox O2 Del Method 04/09/23 07:11 36.5 C 64 16 153/74 H 91 Room Air 04/09/23 03:42 36.3 C L 70 18 164/78 H 92 Room Air 04/09/23 00:00 36.6 C 72 16 133/70 93 Room Air 04/08/23 20:17 36.3 C L 61 14 115/69 96 Room Air Laboratory Results 04/09/23 05:50 04/09/23 05:50 Diagnostic Findings Knee X-Ray 04/08/23 10:02 RIGHT KNEE 2 VIEWS History: Right total knee arthroplasty. Degenerative arthritis. Postop. FINDINGS: The patient is status post a right total knee arthroplasty. The hardware is intact. No fracture or dislocation. IMPRESSION: Right total knee arthroplasty. No evidence for hardware complication. ACT 112: Negative or not required by law. Electronically signed by: Carlito Pizano M.D. 04/08/2023 10:34 AM PG Care Time/CCT Total # of Minutes Spent Total Time Spent with Patient: Total time spent is greater than 50% in coordination of care (as documented) at patient's floor/unit and/or counseling patient: Coding Level of Care Code 58188 SUB INP/OBS CARE 3/50MIN Diagnoses Confusion R41.0 Knee osteoarthritis M17.11 Laterality: right Osteoarthritis type: primary Atrial fibrillation, permanent I48.21 Primary hypertension I10 Hypertension type: primary hypertension Pacemaker Z95.0 Multiple pulmonary nodules determined by computed tomography of lung R91.8 Carotid artery stenosis I65.29 Type 2 diabetes mellitus E11.9 (2) Knee osteoarthritis Laterality: right Osteoarthritis type: primary Qualified Code(s): M17.11 - Unilateral primary osteoarthritis, right knee (4) Hypertension Hypertension type: primary hypertension Qualified Code(s): I10 - Essential (primary) hypertension
[2023-04-09] MEDS ORDERED: NON-FORMULARY MEDICATION (Ascorbic Acid (Vitamin C) 1,000 mg tablet) PO SCH (09:00)
[2023-04-09] MEDS ORDERED: [UNRECOGNIZED DRUG - OTHER] PO SCH (09:00)
[2023-04-09] MEDS ORDERED: [UNRECOGNIZED DRUG - OTHER] PO SCH (09:00)
[2023-04-09] MEDS ORDERED: NON-FORMULARY MEDICATION (Coq10 (Ubiquinol) 100 mg Capsule) PO SCH (09:00)
--- NOTE | 2023-04-09 10:00 | Orthopedic Progress Note ---
Date of Service April 09, 2023 Assessment & Plan (1) Knee osteoarthritis: Plan: POD #1 s/p R TKA, low Urine output, required straight cath x2 overnight, Gomes placed this am. Resume diet. WBAT with walker. OOB to chair. Continue pain control. DVT prophylaxis: TEDs 3 weeks, foot pumps while in hospital, resume Eliquis 04/09/23 am. PT/OT. Appreciate Hospitalist input, working up low urine output. D/C planning, possible home tomorrow if medically stable. Admission and Anticipated Discharge Date Admission Date: April 08, 2023 Subjective Right knee pain Physical Exam Physical Exam: RLE: BCR < 2 sec. Sensation to light touch intact distally. Wiggling ankle and toes. Calf soft and non-tender. Dressing is clean, dry, intact. Able to preform straight leg raise. Results & Data Vital Signs (Past 12 Hours) Vital Signs Temp Pulse Resp BP Pulse Ox O2 Del Method 04/09/23 07:11 36.5 C 64 16 153/74 H 91 Room Air 04/09/23 03:42 36.3 C L 70 18 164/78 H 92 Room Air 04/09/23 00:00 36.6 C 72 16 133/70 93 Room Air Laboratory Results 04/09/23 04/09/23 04/08/23 Range/Units 07:48 05:50 20:15 WBC 7.28 (4.8-10.8) K/ul RBC 4.20 (4.20-5.40) M/uL Hgb 11.4 L (12.0-16.0) g/dl Hct 35.5 L (37.0-47.0) % MCV 84.5 (80.0-100.0) fL MCH 27.1 (25.0-34.0) pg MCHC 32.1 (32.0-36.0) g/dL RDW Std Deviation 45.4 (36.4-46.3) fL RDW Coeff of Kobe 14.7 H (11.5-14.5) % Plt Count 177 (130-400) K/uL MPV 10.7 (9.4-12.4) fL Sodium 137 (136-145) mmol/L Potassium 4.1 (3.5-5.1) mmol/L Chloride 105 (98-107) mmol/L Carbon Dioxide 26 (21-32) mmol/L Anion Gap 6 (3-11) BUN 24 H (6-23) mg/dl Creatinine 1.39 H (0.6-1.2) mg/dl Est Cr Clr Drug Dosing 26.1 ml/min Est GFR ( Amer) 39.7 ml/min Est GFR (Non-Af Amer) 34.2 ml/min BUN/Creatinine Ratio 17.3 (10-20) Glucose 113 H (70-99(Fasting)) mg/dl POC Glucose 106 H 144 H (70-99) mg/dl Calcium 8.6 (8.6-10.3) mg/dl 04/08/23 04/08/23 04/08/23 Range/Units 16:38 11:28 11:12 WBC (4.8-10.8) K/ul RBC (4.20-5.40) M/uL Hgb (12.0-16.0) g/dl Hct (37.0-47.0) % MCV (80.0-100.0) fL MCH (25.0-34.0) pg MCHC (32.0-36.0) g/dL RDW Std Deviation (36.4-46.3) fL RDW Coeff of Kobe (11.5-14.5) % Plt Count (130-400) K/uL MPV (9.4-12.4) fL Sodium (136-145) mmol/L Potassium (3.5-5.1) mmol/L Chloride (98-107) mmol/L Carbon Dioxide (21-32) mmol/L Anion Gap (3-11) BUN (6-23) mg/dl Creatinine (0.6-1.2) mg/dl Est Cr Clr Drug Dosing ml/min Est GFR ( Amer) ml/min Est GFR (Non-Af Amer) ml/min BUN/Creatinine Ratio (10-20) Glucose (70-99(Fasting)) mg/dl POC Glucose 138 H 136 H 115 H (70-99) mg/dl Calcium (8.6-10.3) mg/dl (1) Knee osteoarthritis Laterality: right Osteoarthritis type: primary Qualified Code(s): M17.11 - Unilateral primary osteoarthritis, right knee
[2023-04-09 10:26] LABS: Appearance Urine Clear (Clear); Bacteria Urine Automated Negative (Negative); Bilirubin Urine Negative (Negative); Blood Urine Trace (Negative); Color Urine Yellow; Epithelial Cell Urine Auto 20-30 /lpf (0-5); Glucose Urine UA Negative (Negative); Ketones Urine Trace (Negative); Leukocyte Esterase Urine 2+ (Negative); Nitrite Urine Negative (Negative); Protein Urine Trace (Negative); Urobilinogen Urine Negative (Negative); WBC Urine Automated >30 /hpf (0-5)
--- NOTE | 2023-04-09 14:35 | Communication Note ---
Date of Service: April 09, 2023 Patient w/ ongoing confusion and impulsiveness this afternoon. Asked RN to hold off her afternoon gabapentin. Suspect combination of anesthesia as well as the scopalamine patch (removed this morning) contributed to urinary retention/confusion but given her hx underlying carotid stenosis will check CT head to be safe. Was nonfocal/strength equal bilaterally during evaluation but will obtain for completeness. UA w/o evidence for bacteria however did get ancef, monitor urine cx/low threshold for abx if became febrile. CT head NEGATIVE for acute CVA. BP elevated w/ agitation this afternoon to 192/84. Hydralazine IV made available 8h prn Currently 1:[address] for safety. Will order seroquel 12.5mg PO x 1 and monitor response. Hopefully will be able to avoid further escalation
--- NOTE | 2023-04-09 15:25 | CT Scan Report ---
CT OF THE HEAD WITHOUT CONTRAST CLINICAL HISTORY: AMS s/p TKA, hx carotid stenosis COMPARISON STUDY: Head CT and CTA of the head October 12, 2022. CT DOSE: 547.75 mGy.cm TECHNIQUE: Helical axial images of the head were obtained without IV contrast. Automated exposure con trol was utilized for the study. A dose lowering technique was utilized adhering to the principles o f ALARA. FINDINGS: No acute intracranial hemorrhage, midline shift or mass effect is present. White matter hyp odensities are similar to prior exam and favor small vessel disease. The ventricular system is unrema rkable. The basal cisterns are patent. No extra-axial collections are present. There are no findings to suggest acute dural sinus thrombosis or acute territorial infarct. No significant calvarial abnorm alities are present. Small amount of fluid within the left mastoid air cells is similar to prior CT. IMPRESSION: No acute intracranial findings. No significant change in appearance of the brain. ACT 112: Negative or not required by law. Electronically signed by: oRsas Gilmore M.D. 04/09/2023 3:24 PM
[2023-04-09] MEDS ORDERED: hydrALAZINE HCL 20 MG/ML VIAL IV PRN (16:19)
[2023-04-09] MEDS: QUEtiapine FUMARATE 25 MG TABLET PO ONE (16:35)
[2023-04-09] MEDS: QUEtiapine FUMARATE 25 MG TABLET PO PRN (20:07)
--- NOTE | 2023-04-09 20:18 | Billing Data ---
Date of Service April 09, 2023 Coding Level of Care Code 81347 IN/OBS CONSULT LVL 3,45M
[2023-04-10 06:17] LABS: Basophils # (auto) 0.05 K/uL (0.00-0.20); Basophils % (auto) 0.6 %; Eosinophils # (auto) 0.43 K/uL (0.00-0.50); Eosinophils % (auto) 4.9 %; Hematocrit (blood only) 36.4 % (37.0-47.0); Hemoglobin 11.8 g/dl (12.0-16.0); Immature Granulocytes # (auto) 0.03 K/uL (0.01-0.20); Immature Granulocytes % (auto) 0.3 %; Lymphocytes # (auto) 1.81 K/uL (1.20-3.40); Lymphocytes % (auto) 20.6 %; Mean Corpuscular Hemoglobin 27.6 pg (25.0-34.0); Mean Corpuscular Hgb Conc 32.4 g/dL (32.0-36.0); Mean Corpuscular Volume 85.2 fL (80.0-100.0); Mean Platelet Volume 10.8 fL (9.4-12.4); Monocytes # (auto) 0.89 K/uL (0.11-0.59); Monocytes % (auto) 10.1 %; Neutrophils # (auto) 5.57 K/uL (1.40-6.50); Neutrophils % (auto) 63.5 %; Platelet Count 174 K/uL (130-400); RDW Coefficient of Variation 14.8 % (11.5-14.5); Red Blood Count 4.27 M/uL (4.20-5.40); White Blood Count 8.78 K/ul (4.8-10.8)
[2023-04-10 06:34] LABS: Anion Gap 6 (3-11); BUN Creatinine Ratio 15.6 (10-20); Blood Urea Nitrogen 24 mg/dl (6-23); Calcium 9.1 mg/dl (8.6-10.3); Carbon Dioxide 27 mmol/L (21-32); Chloride 107 mmol/L (98-107); Creatinine Clr Calc Pharmacy 23.6 ml/min; Est GFR (African American) 35.1 ml/min; Est GFR (Non-African American) 30.2 ml/min; Glucose 120 mg/dl (70-99(Fasting)); Potassium 4.5 mmol/L (3.5-5.1); Sodium 140 mmol/L (136-145)
[2023-04-10 06:38] LABS: Alanine Aminotransferase < 3 U/L (7-52); Albumin Globulin Ratio 1.5 (0.9-2); Albumin Level 3.5 gm/dl (3.4-5.0); Alkaline Phosphatase 42 U/L (34-104); Aspartate Aminotransferase 16 U/L (13-39); Globulin 2.3 gm/dl (2.5-4.0); Magnesium 1.8 mg/dl (1.7-2.4); Total Protein 5.8 gm/dl (6.0-8.3)
--- NOTE | 2023-04-10 08:36 | Hospitalist Progress Note ---
Date of Service April 10, 2023 Assessment & Plan (1) Confusion: Plan: POD#2 s/p RIGHT TKA w/ Dr Roberts Patient w/ some disorientation/confusion AM 04/10. Nonfocal on exam and did get opiates in evening but per nursing was oriented post-operatively. Of note, was having urinary retention and required st cat 2-3 x, egan placed. UA w/o bacteria but urine cx pending (noting did get maida-operative abx) Upon eval, patient w/ scopalamine patch, was DISCONTINUED, suspect contributing to confusion/retention Was increasingly agitated in afternoon and decision for CT head for completeness, which was negative for acute CVA Seroquel 12.5mg PO x 1 w/ some effectiveness and calming down but nursing reported agitated w/ significant other/partner last evening and additional 12.5mg PO prn ordered (and provided) Ordered 500cc NSS this morning for elevated BUN/Cr, but keeping up w/ PO and looks GREAT TODAY! Mentation back to baseline this morning 04/10, adding scopalamine to her list of allergies. egan to be removed. dispo per primary service. please call with any questions/concerns. (2) Knee osteoarthritis: Plan: S/P Right TKA s/p Right Total Knee Arthroplasty(Right) - Mic Roberts MD on 04/08. EBL 100cc Pain control/bowel regimen/PT/OT per primary service WBC wnl on repeat, afebrile Hgb 13.8--> 11.4, acute blood loss anemia from surgery as well as suspected dilution from IVF post-op. Asymptomatic. Repeat 11.8 and stable DVT proph: eliquis 5mg BID resumed 04/09. On 5mg BID, which is appropriate for age/renal function but if her weight <60kg or Cr elevation would need to consider reduced dose in f/u (follows w/ cardiology) Dispo per primary service (3) Atrial fibrillation, permanent: Plan: Atrial Fibrillation Continues on metoprolol 25mg daily Eliquis resumed as above (4) Hypertension: Plan: Hypertension BP stable, 188/76 in setting of pain/surgery Continues on metoprolol (5) Pacemaker: Plan: noted (6) Multiple pulmonary nodules determined by computed tomography of lung: Plan: reports decreased in size per patient, has repeat scan this upcoming year (7) Carotid artery stenosis: Plan: hx of such, not on antiplatelet. eliquis resumed as above. Patient reports having f/u for intervention later this year w/ vascular (8) Type 2 diabetes mellitus: Plan: Type 2 Diabetes Mellitus A1c 6.7 Only on metformin 500mg once daily Pharmacy consulted by primary team for glycemic management, BSGs well controlled Post-Herpetic Neuralgia Continue home gabapentin 100mg TID, appropriately dosed for renal function Plan Thank you for allowing hospitalist service to participate in the care of Ms Estrella. Hospitalist service will sign off at this time. Please call with questions/concerns Admission and Anticipated Discharge Date Admission Date: April 08, 2023 Supervising Physician Co-Signing Physician Notes The patient was not seen by me. The chart was reviewed. Case discussed with NASH Mark. Agree with assessment and plan Subjective Evaluated this morning around 10am, patient MUCH improved. Did get some seroquel last evening, egan w/ clear yellow urine.Did order 500cc NSS but patient pushing fluids. Pain controlled but needing PO, RN to administer. Egan to be removed this morning and planning for discharge. Discussed will add scopolamine to her allergy list to avoid in the future. She is alert to person/place/time/events, knows she came in for surgery. Anticipating dc today. Physical Exam 2 Physical Exam: General: 87yo female sitting up in recliner, about to work with therapy, NAD, MUCH IMPROVED TODAY Head atraumatic, normocephalic, mm IMPROVED, scopolamine patch removed, +R bruit Resp: even/unlabored, slightly diminished in the bases, no cough/tachypnea, on room air CV: irregularly irregular (rates 60s), faint systolic murmur, no significant edema/calf tenderness, pulses palpable GI: +BS, soft/slight distension but nontender : egan draining clear yellow urine MSK/Neuro: Dressing/ankit wrap to LLE, c/d/i, toes mobile,sensation intact, nonfocal Psych: alert to person, knows in hospital, year 2023, month April, had her knee operated on. cooperative with exam Results & Data Results & Data Vital Signs (Past 12 Hours) Vital Signs Temp Pulse Pulse Resp BP BP Pulse Ox 04/10/23 08:00 96 04/10/23 07:15 36.4 C L 86 20 188/76 H 97 04/09/23 23:15 36.8 C 86 20 150/76 H 91 O2 Del Method O2 Flow Rate 04/10/23 08:00 Room Air 04/10/23 07:15 Nasal Cannula 2 04/09/23 23:15 Nasal Cannula 2 Laboratory Results 04/10/23 05:32 04/10/23 05:32 PG Care Time/CCT Total # of Minutes Spent Total Time Spent with Patient: Total time spent is greater than 50% in coordination of care (as documented) at patient's floor/unit and/or counseling patient: Coding Level of Care Code 75908 SUB INP/OBS CARE 3/50MIN Diagnoses Confusion R41.0 Knee osteoarthritis M17.11 Laterality: right Osteoarthritis type: primary Atrial fibrillation, permanent I48.21 Primary hypertension I10 Hypertension type: primary hypertension Pacemaker Z95.0 Multiple pulmonary nodules determined by computed tomography of lung R91.8 Carotid artery stenosis I65.29 Type 2 diabetes mellitus E11.9 (2) Knee osteoarthritis Laterality: right Osteoarthritis type: primary Qualified Code(s): M17.11 - Unilateral primary osteoarthritis, right knee (4) Hypertension Hypertension type: primary hypertension Qualified Code(s): I10 - Essential (primary) hypertension
[2023-04-10] MEDS: SODIUM CHLORIDE 0.9% 500 ML IV SCH (09:24)
--- NOTE | 2023-04-10 10:27 | Orthopedic Progress Note ---
Date of Service April 10, 2023 Assessment & Plan (1) Knee osteoarthritis: Plan: POD #2 s/p R TKA Gomes to removed this AM Resume diet. WBAT with walker. OOB to chair. Continue pain control. DVT prophylaxis: TEDs 3 weeks, foot pumps while in hospital, resume Eliquis 04/09/23 am. PT/OT. Appreciate Hospitalist input, working up low urine output. D/C planning, Probable discharge home later today. Admission and Anticipated Discharge Date Admission Date: April 08, 2023 Subjective This 87-year-old female seen for follow-up of a right total knee arthroplasty. She is doing very well this morning. She states that she really does not remember much from yesterday. She states that her knee pain is well-controlled with the p.o. pain medication they are providing. She is hoping to be discharged home later today as long as she is cleared by the medicine service. Currently she denies chest pain, shortness of breath, fever, chills, sweats, numbness or tingling in her right lower extremity. She also denies nausea, vomiting or diarrhea. She currently has a Gomes catheter in place however medicine is planning on removing it later this morning. Review of Systems Review of Systems: All systems reviewed & are unremarkable except as noted in Subjective Physical Exam Physical Exam: Right knee: Outer dressing was removed. Zipper line and shoulder in place with no active bleeding or drainage. A Silverlon dressing was placed over top of this. Patient's CHON stockings and was applied. Patient is able to actively perform a straight leg raise test and dorsi and plantarflex her foot. She is able to detect light sensation to touch over the pads of all of her digits. She has appropriate dexterity of her digits. Her peripheral pulses were 2+. Her ca pillary fill is less than 2 seconds. Active range of motion was from 2 degrees of extension to 60 degrees of flexion. There was significant edema over the anterior aspect of the knee and some slight ecchymosis at the site of the tourniquet. Quad strength is 3+ out of 5. Patient is neurovascularly intact. Results & Data Vital Signs (Past 12 Hours) Vital Signs Temp Pulse Pulse Resp BP BP Pulse Ox 04/10/23 08:00 96 04/10/23 07:15 36.4 C L 86 20 188/76 H 97 04/09/23 23:15 36.8 C 86 20 150/76 H 91 O2 Del Method O2 Flow Rate 04/10/23 08:00 Room Air 04/10/23 07:15 Nasal Cannula 2 04/09/23 23:15 Nasal Cannula 2 Diagnostic Findings Laboratory Results WBC 8.78 K/ul (4.8-10.8) 04/10/23 05:32 RBC 4.27 M/uL (4.20-5.40) 04/10/23 05:32 Hgb 11.8 g/dl (12.0-16.0) L 04/10/23 05:32 Hct 36.4 % (37.0-47.0) L 04/10/23 05:32 MCV 85.2 fL (80.0-100.0) 04/10/23 05:32 MCH 27.6 pg (25.0-34.0) 04/10/23 05:32 MCHC 32.4 g/dL (32.0-36.0) 04/10/23 05:32 RDW Std Deviation 46.0 fL (36.4-46.3) 04/10/23 05:32 RDW Coeff of Kobe 14.8 % (11.5-14.5) H 04/10/23 05:32 Plt Count 174 K/uL (130-400) 04/10/23 05:32 MPV 10.8 fL (9.4-12.4) 04/10/23 05:32 Immature Gran % (Auto) 0.3 % 04/10/23 05:32 Neut % (Auto) 63.5 % 04/10/23 05:32 Lymph % (Auto) 20.6 % 04/10/23 05:32 [place] % (Auto) 10.1 % 04/10/23 05:32 Eos % (Auto) 4.9 % 04/10/23 05:32 Baso % (Auto) 0.6 % 04/10/23 05:32 Neut # (Auto) 5.57 K/uL (1.40-6.50) 04/10/23 05:32 Lymph # (Auto) 1.81 K/uL (1.20-3.40) 04/10/23 05:32 [place] # (Auto) 0.89 K/uL (0.11-0.59) H 04/10/23 05:32 Eos # (Auto) 0.43 K/uL (0.00-0.50) 04/10/23 05:32 Baso # (Auto) 0.05 K/uL (0.00-0.20) 04/10/23 05:32 Immature Gran # (Auto) 0.03 K/uL (0.01-0.20) 04/10/23 05:32 Sodium 140 mmol/L (136-145) 04/10/23 05:32 Potassium 4.5 mmol/L (3.5-5.1) 04/10/23 05:32 Chloride 107 mmol/L (98-107) 04/10/23 05:32 Carbon Dioxide 27 mmol/L (21-32) 04/10/23 05:32 Anion Gap 6 (3-11) 04/10/23 05:32 BUN 24 mg/dl (6-23) H 04/10/23 05:32 Creatinine 1.54 mg/dl (0.6-1.2) H 04/10/23 05:32 Est Cr Clr Drug Dosing 23.6 ml/min 04/10/23 05:32 Est GFR ( Amer) 35.1 ml/min 04/10/23 05:32 Est GFR (Non-Af Amer) 30.2 ml/min 04/10/23 05:32 BUN/Creatinine Ratio 15.6 (10-20) 04/10/23 05:32 Glucose 120 mg/dl (70-99(Fasting)) H 04/10/23 05:32 POC Glucose 109 mg/dl (70-99) H 04/10/23 07:44 Calcium 9.1 mg/dl (8.6-10.3) 04/10/23 05:32 Magnesium 1.8 mg/dl (1.7-2.4) 04/10/23 05:32 Total Bilirubin 1.0 mg/dl (0.2-1.0) 04/10/23 05:32 AST 16 U/L (13-39) 04/10/23 05:32 ALT < 3 U/L (7-52) L 04/10/23 05:32 Alkaline Phosphatase 42 U/L (34-104) 04/10/23 05:32 Total Protein 5.8 gm/dl (6.0-8.3) L 04/10/23 05:32 Albumin 3.5 gm/dl (3.4-5.0) 04/10/23 05:32 Globulin 2.3 gm/dl (2.5-4.0) L 04/10/23 05:32 Albumin/Globulin Ratio 1.5 (0.9-2) 04/10/23 05:32 Urine Color Yellow 04/09/23 09:50 Urine Appearance Clear (Clear) 04/09/23 09:50 Urine pH 5.0 (4.5-7.5) 04/09/23 09:50 Ur Specific [place] 1.020 (1.000-1.030) 04/09/23 09:50 Urine Protein Trace (Negative) H 04/09/23 09:50 Urine Glucose (UA) Negative (Negative) 04/09/23 09:50 Urine Ketones Trace (Negative) H 04/09/23 09:50 Urine Blood Trace (Negative) H 04/09/23 09:50 Urine Nitrite Negative (Negative) 04/09/23 09:50 Urine Bilirubin Negative (Negative) 04/09/23 09:50 Urine Urobilinogen Negative (Negative) 04/09/23 09:50 Ur Leukocyte Esterase 2+ (Negative) H 04/09/23 09:50 Urine WBC (Auto) >30 /hpf (0-5) H 04/09/23 09:50 Urine RBC (Auto) 5-10 /hpf (0-4) H 04/09/23 09:50 U Hyaline Cast (Auto) 1-5 /lpf (0-5) 04/09/23 09:50 U Epithel Cells (Auto) 20-30 /lpf (0-5) H 04/09/23 09:50 Urine Bacteria (Auto) Negative (Negative) 04/09/23 09:50 Urine Yeast Budding (None Prsent) A 04/09/23 09:50 Blood Type A Positive 04/08/23 05:58 Antibody Screen NEGATIVE 04/08/23 05:58 Crossmatch See Detail 04/08/23 05:58 Impressions Knee X-Ray 04/08/23 10:02 RIGHT KNEE 2 VIEWS History: Right total knee arthroplasty. Degenerative arthritis. Postop. FINDINGS: The patient is status post a right total knee arthroplasty. The hardware is intact. No fracture or dislocation. IMPRESSION: Right total knee arthroplasty. No evidence for hardware complication. ACT 112: Negative or not required by law. Electronically signed by: Carlito Pizano M.D. 04/08/2023 10:[address] 04/09/23 14:29 CT OF THE HEAD WITHOUT CONTRAST CLINICAL HISTORY: AMS s/p TKA, hx carotid stenosis COMPARISON STUDY: Head CT and CTA of the head October 12, 2022. CT DOSE: 547.75 mGy.cm TECHNIQUE: Helical axial images of the head were obtained without IV contrast. Automated exposure control was utilized for the study. A dose lowering technique was utilized adhering to the principles of ALARA. FINDINGS: No acute intracranial hemorrhage, midline shift or mass effect is present. White matter hypodensities are similar to prior exam and favor small vessel disease. The ventricular system is unremarkable. The basal cisterns are patent. No extra-axial collections are present. There are no findings to suggest acute dural sinus thrombosis or acute territorial infarct. No significant calvarial abnormalities are present. Small amount of fluid within the left mastoid air cells is similar to prior CT. IMPRESSION: No acute intracranial findings. No significant change in appearance of the brain. ACT 112: Negative or not required by law. Electronically signed by: Rosas Gilmore M.D. 04/09/2023 3:24 PM (1) Knee osteoarthritis Laterality: right Osteoarthritis type: primary Qualified Code(s): M17.11 - Unilateral primary osteoarthritis, right knee
--- NOTE | 2023-04-10 14:11 | Discharge Summary ---
Date of Service April 10, 2023 Admission HPI Per Admitting Provider History of Present Illness Kassidy is a 87-year-old female here today for a preop for right total knee arthroplasty with Dr. Roberts. She has been dealing with knee pain for a while now. She denies any major changes with her knee. She continues to walk a 0.5 mile [place] about 3-4 days per week but experiences start-up stiffness and pain with walking. She reports her pain is now impeding her easy walks and notes an increased balance insecurity. She previously did prolotherapy on both knees for 10 years which she responded well to until about 1 year ago but feels she is not longer responding. She recently had [place] of the right knee on 01/14/2023 that helped some of her pain for a short period but now continues to have medial and lateral knee pain. She continues to have difficulty walking and notices a h indrance in her quality of life. Her left knee is still manageable at this time. [1] she has history of A-fib and diabetes. She is on Eliquis for the A-fib. She says she is in constant A-fib and has a pacemaker. She recently had a cold 2 weeks ago but she is better from that. Admission Exam Per Admitting Provider Physical Exam Vitals & Measurements T: 36.4 C RR: 20 BP: 120/80 SpO2: 97% HT: 167.5 cm WT: 67.6 kg WT: 67.600 kg (Dosing) BMI: 24.09 General: Pt is well nourished, seated on the exam table AA&O, in NAD, calm and cooperative during exam HENT: Nontraumatic, no gross deformity, hearing and vision grossly in-tact, PERRL Heart: +S1, +S2, RRR, no murmurs appreciated Lungs: CTABL, no wheezing appreciated Focusing on the patient's right lower extremity: 2+ DP pulse Sensation to light touch is intact Motor to the gastroc soleus, tibialis anterior, and EHL is 5/5. Able to perform straight leg raise. + lateral joint line tenderness, right - Raghavendra's, bilaterally Ligamentous examination exhibits: Stable Jalil stable Posterior drawer stable Varus valgus stress at 5 and 30 is stable Valgus stress at 5 and 30 stable Trace Effusion, bilaterally Range of motion Bilateral knee ROM: 5 to 120 Previous medial incision on the left knee is well-healed + Tenderness to palpation pes anserine bursa, right + Tenderness over medial and lateral patellar facets, bilaterally [2] Principal Diagnosis Right knee osteoarthritis Discharge Exam Right knee: Outer dressing was removed. Zipper line and shoulder in place with no active bleeding or drainage. A Silverlon dressing was placed over top of this. Patient's CHON stockings and was applied. Patient is able to actively perform a straight leg raise test and dorsi and plantarflex her foot. She is able to detect light sensation to touch over the pads of all of her digits. She has appropriate dexterity of her digits. Her peripheral pulses were 2+. Her capillary fill is less than 2 seconds. Active range of motion was from 2 degrees of extension to 60 degrees of flexion. There was significant edema over the anterior aspect of the knee and some slight ecchymosis at the site of the tourniquet. Quad strength is 3+ out of 5. Patient is neurovascularly intact. Discharge Data Allergies Allergy/AdvReac Type Severity Reaction Status Date / Time scopolamine AdvReac Severe Confusion Verified 04/10/23 10:08 [From Transderm-Scop] Consultations 04/04/23 14:14 Consult Hospitalist Routine 04/08/23 10:02 Consult Hospitalist Routine Procedures Performed Operation Date: 04/08/23 07:00 Actual Procedures p Right Total Knee Arthroplasty(Right) - Mic Roberts MD Ordered Studies 04/08/23 05:00 US - OR guided needle placemen Routine 04/09/23 14:29 CT head/brain wo con Urgent Hospital Course (1) Knee osteoarthritis: Patient required an extra night stay in the hospital due to urinary retention, hypovolemia confusion that was most likely attributed to the use of scopolamine patch. Patient's symptoms were completely resolved when I saw her this morning. She is hoping to be discharged home later today. Medicine has evaluated the patient and feel that she is acceptable for discharge as well. She will begin in-home physical therapy either sometime this weekend or early next week. POD #2 s/p R TKA Gomes to removed this AM Resume diet. WBAT with walker. OOB to chair. Continue pain control. DVT prophylaxis: TEDs 3 weeks, foot pumps while in hospital, resume Eliquis 04/09/23 am. PT/OT. Appreciate Hospitalist input, working up low urine output. D/C planning, Probable discharge home later today. Total Time Total Time Spent Total Time Spent (In Minutes): 25 mins Discharge Plan Discharge Items Patient Disposition: Home - Home Health Services Reason For Visit: Right Knee Osteoarthritis Discharge Diagnosis: right knee osteoarthritis status post right total knee arthroplasty Activity: Per Instructions section Bathing: Keep incision dry Driving/Machine Use: No driving until cleared by Dr. Roberts Weightbearing: Full weightbearing Non-emergency contact: Surgeon Call non-emergency contact if: your symptoms worsen, your pain is not controlled, your pain is worsening, your temperature is above 101.5, your wound has increased redness and your wound has increased drainage Follow-up/Referrals: Leonie Granda PA-C [Physician Environmental Engineering Professor] - 04/14/23 1:00 pm Juan Jose Diop MD [Primary Care Provider] - Diet: Regular Addtl Attending Provider Instructions: POST OPERATIVE DISCHARGE INSTRUCTIONS Pain Control Please take the follow medications for pain control, as well as icing and elevating your operative extremity. Pain after surgery is to be expected. We may not be able to take away all of your pain, but the goal is to make your pain manageable - Extra strength Tylenol 1,000mg (2 tabs) every 8 hours - Oxycodone 5-10mg (1-2tabs) every 4-6 hours as needed DVT Prophylaxis With any surgery, you are at increased risk for blood clots. Please take the follow measures to prevent blood clots and read the warning signs to watch for. Please take the follow anticoagulant: Resume your Eliquis, taking this twice a day as prescribed If you were given CHON compression stockings, these are to be worn on both legs for 18-20 hours daily for 2 weeks, or for 3 weeks for any lower extremity surgery. Warning signs: Calf pain, lower extremity swelling, numbness/tingling, skin discoloration, increased pain, shortness of breath, chest pain. Please contact our office if you experience any of these symptoms or call 911 if you are having trouble breathing. Ice Ice your operative site at least 5 times a day for 15-30 minutes at a time, for the first three days, then as needed. This will help to reduce swelling and pain. Make sure you have a thin cloth between the ice or cooling unit and your skin to prevent bryant bite. This is especially important if you received a ne rve block. Diet/Nausea/Vomiting Start by drinking clear liquids and eating crackers. If you can tolerate this, then you may resume your normal diet. If you feel nauseated or vomit, take Zofran/ondansetron (if prescribed). Please call our office if you have intractable nausea or vomiting, or, if after hours, you may go to the Emergency Room for help. Surgical Dressing Please leave on any dressing until you are seen by either PT or PA for your post-operative appointment, unless you are otherwise instructed. If there are any issues with your dressing please give our office a call. Weight bearing, Range of Motion, Activity You will be weight bearing as tolerated on your operative site. you may use crutches or walker to assist in ambulation. Physical therapy You will do your rehab for the first two weeks with home health. Then you will begin outpatient physical therapy. It is very important you follow your rehab protocol and do your exercises as instructed by your provider and physical therapist. Wound care and showering We will inspect your wound at your first post-operative visit. It is normal to see some dried blood on the dressing. Do not remove your dressing, paper strips or sutures yourself unless otherwise instructed. Showering is allowed post op day 3. Do not scrub or remove any dressings, unless you are otherwise instructed. Once your dressing is changed in the office to the water-resistant dressing. You can shower with this on as long as all the edges are in tact. To promote wound healing, we recommend taking a multi-vitamin, or taking 500mg Vitamin C supplement twice a day for two weeks and 325mg Iron supplement twice a day for two weeks. This is especially important if you had a total joint replacement. Constipation Constipation is a common side effect of narcotic pain medication, dehydration after surgery and iron supplement (if you were instructed to begin that after surgery). We recommend purchasing an vxtf-arb-qcjbpyj laxative such as Milk of Magnesia, Colace, Dulcolax, Miralax or Senna from a local pharmacy, and taking it as instructed. Stay hydrated and you may increase your fiber in your diet as well. Call our clinic if any questions. Driving You may not drive while taking narcotic pain medication or while in a cast, splint, sling or brace. Driving will be discussed at your first post op appointment Return to Work Your return to work depends on what surgery was done and what type of work you do. Please bring any paperwork your employer needs completed to your first post-operative visit. Also, bring a description of your job duties, as this helps us to understand what risks you may face at work. Travel Avoid long distance travel (greater than 1 hour) in airplanes and cars for the first 6 weeks after surgery. Follow-up Please attend your post operative appointments as scheduled. At these appointments, we may do dressing change and remove any sutures/merlin/Zip-line 10-14 days after your surgery. If you do not know your post operative appointment dates or times please call the office at [phone] When to call the office It is normal to have swelling and bruising in the limb that was operated on. This will improve with time. It is also normal to have fevers for the first 2 days after surgery. Reasons you should call your doctor include: Uncontrolled pain; Nausea, vomiting, or constipation that does not improve with medication; Fevers over 101.5, chills, sweats; Drainage or bleeding from the wound; Foul odor; Spreading areas of redness; calf pain or swelling, shortness of breath, chest pain; Any other concerns You may call the office at [phone]. If it is a medical emergency please call [phone]. Pending Studies at Discharge: Yes Studies:: synovial tissue Stand-Alone Forms: My [facility], Pain - Opioid Pain Management Medications and DC Order Prescriptions: New acetaminophen [Tylenol Extra Strength] 500 mg Tablet 1,000 mg PO Q8 30 Days Qty: 180 0RF oxycodone 5 mg Tablet 5 - 10 mg PO Q4H MDD Ongoing Tx PRN (Reason: Post op pain control) Qty: 28 0RF Continued cholecalciferol (vitamin D3) 5,000 unit capsule 5,000 units PO QAM vitamin E (dl, acetate) 180 mg (400 unit) capsule 400 unit PO DAILY Rx Instructions: Friday metoprolol succinate 25 mg tablet extended release 24 hr 25 mg PO QAM Qty: 90 3RF Eliquis 5 mg tablet 5 mg PO BID Qty: 180 3RF ascorbic acid (vitamin C) 1,000 mg tablet 1 gm PO QAM hawthorn rich 565 mg capsule 565 mg PO UD Rx Instructions: QOD lutein 20 mg capsule 20 mg PO Q OTHER DAY metformin 500 mg tablet 500 mg PO QDL latanoprost 0.005 % drops 1 drp OPR HS Rx Instructions: Instill 1 drop in right eye at bedtime gabapentin 100 mg capsule 100 mg PO TID vitamin K2 100 mcg Capsule 0 mcg PO Q OTHER DAY Arthritis Formula Tab 1 tab PO DIRECTED coQ10 (ubiquinol) 100 mg Capsule 300 mg PO DAILY curcumin-phosphatidylcholine 500 mg Capsule 500 mg PO DAILY H.A. Factors 1 tab PO BID Methyl B-12 Folate 2 tab PO DAILY calcium carbonate-vitamin D3 [Calcium 600 with Vitamin D3] 600 mg-12.5 mcg (500 unit) Capsule 2 cap PO DAILY Krames/Other Patient Handouts: Knee Replacement Total Dc Admission Data Admit Date/Time: 04/08/23 10:02 Attending Provider: Mic Roberts Admit Provider: Mic Roberts Primary Care Provider: Juan Jose Diop Other Providers: Win Sutton; [facility],Home Healthcare; [facility],Referral Center; Oli Santana; Kelin Bee; Steven Valdez; John Jon; Susy Phan; Merle Wheeler; Peyton Garcia; Carlos Johnson; Ryan Ross; Jailene Mcintyre; Daniel Calloway; Win Bloom; Carlito Berg; Alycia Rico; Narcisa Figueroa; Narcisa Montana; Omi Khan; Allyn Alfaro; Jose G Abbott; Eamon Carrillo; Miguel Tejada; Marie Lee; Roslyn Willard; Agustin Morgan; Sharri Linares; Steven Kothari; Godfrey Cifuentes; Rosanne Berman Other Interventions: Discharge Summary Assessment (RN) Last Done: 04/10/23 14:28
== END 2023-04-10 15:06 | disposition home health service (06) ==
LOC: 3W 05:15 → ASU 05:15 → 3W 04-09 18:08

== ENCOUNTER 2024-11-30 13:01 | Inpatient (IN) ==
--- NOTE | 2024-11-30 13:26 | Emergency Department Note ---
History of Present Illness General Chief complaint: Referred by Doctor Stated complaint: REF BY JULIA, BROKEN RIBS, MEDICATION REACTION Time Seen by Provider: 11/30/24 13:22 History of Present Illness This is an 89-year-old female that presents to the emergency department via private vehicle with complaints of "referred by Dr. Broken ribabiola, medication reaction". Patient notes recent discharge from [facility] where she was treated for 8 rib fracture status post fall that occurred on 11/04/2024. She was discharged on 11/17/24. Patient referred in today noting worsening bruising to the right side area and referred by PCP for concern for possible urosepsis. The patient notes ongoing right sided rib pain, unchanged. There has been no recent additional fall or trauma since initial evaluation on 11/04/2024. Review of visit dated 11/04/[address] negative head CT. Negative C-spine CT. A chest CT showing acute fractures of the right 4th through 11th posterior ribs. Small associated intercostal hematomas. No pneumothorax. There was a small right pleural effusion/hemothorax. Patient noted that the hospitalization course was complicated by urinary retention requiring catheter placement. Patient did pass a voiding trial ultimately following discharge but UTI was diagnosed and patient started on oral Bactrim this past Friday. She has been compliant with the medication. PCP visit dated 11/24/2024 reviewed and at that time amlodipine was recommended to be held as the blood pressure at been running low. Repeat labs and urinalysis were performed. Recommendation was also to drop the gabapentin back to 100 mg twice daily and oxycodone every 6 hours as needed instead of every 4 hours. Hemoglobin on 11/25/2024 was 8.7. This is down from 13.8 on 11/04/24. Urinalysis performed on 11/25/2024 also revealed pansensitive E. coli and also lactobacillus gasseri. Home Medications Medication Instructions Recorded Confirmed Type cholecalciferol (vitamin D3) 125 5,000 units PO QAM 12/16/17 11/30/24 History mcg (5,000 unit) capsule ascorbic acid (vitamin C) 1,000 mg 1 gm PO QAM 12/14/18 11/30/24 History tablet hawthorn rich 565 mg capsule 565 mg PO Q OTHER DAY 12/14/18 11/30/24 History lutein 20 mg capsule 20 mg PO Q OTHER DAY 12/14/18 11/30/24 History vitamin E (dl, acetate) 180 mg 400 unit PO DAILY 03/05/21 11/30/24 History (400 unit) capsule latanoprost 0.005 % eye drops 1 drp OPR HS 08/08/21 11/30/24 History H.A. Factors 1 tab PO BID 09/09/22 11/30/24 History Methyl B-12 Folate 2 tab PO DAILY 09/09/22 11/30/24 History coQ10 (ubiquinol) 100 mg capsule 300 mg PO DAILY 09/09/22 11/30/24 History curcumin-phosphatidylcholine 500 500 mg PO DAILY 09/09/22 11/30/24 History mg capsule apixaban 5 mg tablet (Eliquis) 5 mg PO BID #180 tabs 04/29/24 11/30/24 Rx metformin 500 mg tablet 500 mg PO DAILY #90 tabs 09/28/24 11/30/24 Rx Arthritis Formula Tab 2 tab PO DAILY 10/05/24 11/30/24 History calcium 600 mg (as 1 cap PO DAILY 10/05/24 11/30/24 History carbonate)-vitamin D3 12.5 mcg (500 unit) capsule (Calcium with Vit D3) vitamin K2 100 mcg capsule 100 mcg PO Q OTHER DAY 10/05/24 11/30/24 History metoprolol succinate 25 mg 25 mg PO QAM #90 tabs 10/26/24 11/30/24 Rx tablet,extended release 24 hr celecoxib 100 mg capsule (Celebrex) 100 mg PO BID 11/23/24 11/30/24 History methocarbamol 500 mg tablet 500 mg PO TID 11/23/24 11/30/24 History oxycodone 5 mg tablet 1.25 mg PO .Q5HR PRN Pain 11/23/24 11/30/24 History sulfamethoxazole 800 1 tab PO BID 7 days #14 tabs 11/25/24 11/30/24 Rx mg-trimethoprim 160 mg tablet (Bactrim DS) acetaminophen 500 mg tablet 1,000 mg PO Q8H 11/30/24 11/30/24 History (Tylenol Extra Strength) ferrous sulfate 325 mg (65 mg 325 mg PO DAILY 11/30/24 11/30/24 History iron) tablet gabapentin 100 mg capsule 100 mg PO AMHS 11/30/24 11/30/24 History Allergies Allergy/AdvReac Type Severity Reaction Status Date / Time scopolamine AdvReac Severe Confusion, Verified 11/30/24 15:23 [From Transderm-Scop] urinary retention oxycodone AdvReac Intermediate "SPACEY" Verified 11/30/24 15:23 Past Med/Surg History Problem List (Updated 11/30/24 @ 16:38 by Scotty Valentin PA-C) Acute kidney injury superimposed on CKD (Acute) Hyponatremia (Acute) Elevated troponin (Acute) UTI (urinary tract infection) (Acute) Traumatic flank pain (Acute) Fall (Acute) Multiple fractures of ribs of right side (Acute 11/04/24) Acute fractures of the right fourth through 11th posterior rib from a fall Medical History Osteoarthritis Type 2 diabetes mellitus On continuous oral anticoagulation Atrial fibrillation, permanent Carotid artery stenosis Focal severe stenosis within the left P2 segment which has progressed. Calcified plaque within the right carotid bifurcation resulting in up to 70% focal stenosis. Pacemaker 2020- medtronic, last checked 11/2022 Hypertension controlled, stable per pt CKD (chronic kidney disease) stage 3, GFR 30-59 ml/min Post herpetic neuralgia Expressive aphasia Syncope Anaplasmosis Atrial fibrillation with RVR Multiple pulmonary nodules determined by computed tomography of lung 12/2022 follows w/ Dr Dino devi; states nodules are "shrinking". No further f/u per Pulmonary 09/2023 Chronic thoracic back pain denies change or worsening Surgical History S/P total knee arthroplasty History of permanent cardiac pacemaker placement Hx of colonoscopy History of cataract surgery History of knee surgery left 04/2023 [facility] [place] [facility] History of tonsillectomy Family History Mother Dementia Hypertension Diabetes Father Diabetes Coronary heart disease Social History Smoking Status: Never smoker Second Hand Exposure: No; Do You Dip or Chew Tobacco: No; Hx Alcohol Use: No Hx Substance Use: No Preferred Language: Palauan Communication Ability: Effective Visual Impairment: Diminished Hearing Ability: Use of Hearing Aid Reverberatory Furnace Supervisor Required: No Beliefs That Will Affect Care: None marital status: Single Current Living Situation: Significant Other Current Living Situation Comment: with Friend current occupational status: retired 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 Other Information That Helps Us Care for You: No Feels Safe at Home: Yes and No Is there a partner from a previous relationship who is making you feel unsafe now?: No Any Concerns about Your Family Situation: No Would You Like to Speak to Someone About Your Situation: No Safety Concerns: Feels Safe At This Time Childhood Exposure to Second-Hand Smoke: No Diet: regular Diet Comment: healthy caffeine: No Dental Care, Regularly: Yes Physical Activity Frequency: 1-2 Times per Week Seatbelt Use: always Sunscreen Use: Yes Assistive Devices: Glasses and Hearing Aid - Left Review of Systems A total of 10 systems reviewed and were otherwise negative Physical Exam Vital Signs Vital Signs - 24 hr 11/30/24 13:06 11/30/24 13:52 11/30/24 14:43 Temperature 36.5 C Temperature Source Temporal Artery Scan Pulse Rate 109 H 86 Pulse Rate [Right Finger] 80 Pulse Rhythm Regular Pulse Strength Normal Respiratory Rate 20 20 Respiratory Effort / Characteristics Non-Labored Spontaneous Respiratory Depth Normal Blood Pressure 131/66 Blood Pressure [Right Arm] 153/90 H Blood Pressure Mean 87 Blood Pressure Mean [Right Arm] 111 Blood Pressure Position Sitting Pulse Oximetry 100 Oxygen Delivery Method Room Air Sepsis Recent Fever Within 48 Hours No Sepsis New/Unexplained Change in Mental Status N/A Sepsis Action Taken by Nursing No Action Required VITAL SIGNS - Vital signs and nursing notes were reviewed. Mildly tachycardic at 109 bpm, otherwise stable and afebrile. GENERAL -89-year-old female appearing her stated age who is in no acute distress. Communicates well with provider and answers questions appropriately. SKIN - Without rashes. No meningeal or petechial rash. Diffuse ecchymosis noted to the right flank area consistent with previous trauma. No acute areas of trauma seen on examination. No open wounds. No erythema. HEAD - NC/AT. EYES - PERRL with EOMI bilaterally. Sclera anicteric. EARS - No deformities of external structures noted on gross examination bilaterally. NOSE - Midline and without cyanosis. No epistaxis or purulent drainage noted. MOUTH/OROPHARYNX - Without perioral cyanosis. NECK - Neck with FROM. No nuchal rigidity. LUNGS - CTA CARDIAC - RRR ABDOMEN - Abdominal contour normal without pulsations or visible masses. BS normoactive all four quadrants. No tenderness, palpable masses, hepatosplenomegaly, or ascites noted. EXTREMITIES - No clubbing or peripheral cyanosis. +5/5 strength noted in UE/LE bilaterally. NEUROLOGIC - Cranial nerves II through XII grossly intact. PSYCH -alert, oriented and pleasant on exam. Course Administered Medications Acetaminophen (Acetaminophen 500 Mg Tab) 1,000 mg PO Q8H DENZEL Stop: 12/30/24 16:27 Last Admin: 11/30/24 17:49 Dose: 1,000 mg Documented By: HEATHER Sodium Chloride (Nss) 500 mls @ 100 mls/hr IV .Q5H ONE Stop: 11/30/24 19:43 Last Admin: 11/30/24 14:59 Dose: 125 mls/hr Documented By: AGGIE Sodium Chloride (Nss) 1,000 mls @ 80 mls/hr IV .[id number] DENZEL Stop: 12/01/24 04:57 Last Admin: 11/30/24 17:49 Dose: 80 mls/hr Documented By: HEATHER Discontinued Medications Fentanyl Citrate (Fentanyl Citrate Pf 100 Mcg/2 Ml Vial) 25 mcg IV NOW STA Stop: 11/30/24 14:36 Last Admin: 11/30/24 14:41 Dose: 25 mcg Documented By: AGGIE Ceftriaxone Sodium (Rocephin) 1,000 mg in 50 mls @ 100 mls/hr IV NOW STA Stop: 11/30/24 15:12 Last Infusion: 11/30/24 15:32 Dose: Infused Documented By: Admin: 11/30/24 14:59 Dose: 100 mls/hr Documented By: TDYnes Miscellaneous (Patient's Height &/Or Weight Needed) 1 each N/A Q2H STA Stop: 11/30/24 16:53 Last Admin: 11/30/24 17:37 Dose: 1 each Documented By: HEATHER Medical Decision Making Laboratory Data 11/30/24 13:50 11/30/24 13:50 Lab Results 11/30/24 11/30/24 11/30/24 Range/Units 13:50 14:33 15:02 WBC 9.56 (4.8-10.8) K/ul RBC 2.79 L (4.20-5.40) M/uL Hgb 7.8 L (12.0-16.0) g/dl Hct 23.6 L (37.0-47.0) % MCV 84.6 (80.0-100.0) fL MCH 28.0 (25.0-34.0) pg MCHC 33.1 (32.0-36.0) g/dL RDW Std Deviation 49.0 H (36.4-46.3) fL RDW Coeff of Kobe 16.3 H (11.5-14.5) % Plt Count 391 (130-400) K/uL MPV 9.4 (9.4-12.4) fL Immature Gran % (Auto) 0.8 % Neut % (Auto) 68.2 % Lymph % (Auto) 11.5 % [place] % (Auto) 12.9 % Eos % (Auto) 6.0 % Baso % (Auto) 0.6 % Neut # (Auto) 6.52 H (1.40-6.50) K/uL Lymph # (Auto) 1.10 L (1.20-3.40) K/uL [place] # (Auto) 1.23 H (0.11-0.59) K/uL Eos # (Auto) 0.57 H (0.00-0.50) K/uL Baso # (Auto) 0.06 (0.00-0.20) K/uL Immature Gran # (Auto) 0.08 (0.01-0.20) K/uL Polychromasia 2+ Acanthocytes (Spur) 2+ PT 12.0 (9.0-12.0) Seconds INR 1.1 (0.9-1.1) APTT 28 (21-31) Seconds PTT Ratio 1.0 Sodium 131 L (136-145) mmol/L Potassium 4.5 (3.5-5.1) mmol/L Chloride 102 (98-107) mmol/L Carbon Dioxide 20 L (21-32) mmol/L Anion Gap 9 (3-11) BUN 40 H (6-23) mg/dl Creatinine 1.82 H (0.6-1.2) mg/dl Est Cr Clr Drug Dosing Not Reportable eGFR 26.41 BUN/Creatinine Ratio 22.0 H (10-20) Glucose 143 H (70-99(Fasting)) mg/dl Lactate 1.5 (0.4-2.0) mmol/L Calcium 9.4 (8.6-10.3) mg/dl Magnesium 2.2 (1.7-2.4) mg/dl Total Bilirubin 1.2 H (0.2-1.0) mg/dl AST 18 (13-39) U/L ALT 10 (7-52) U/L Alkaline Phosphatase 67 (34-104) U/L Troponin I High Sens 26.0 H (0-14) pg/ml Total Protein 7.1 (6.0-8.3) gm/dl Albumin 3.7 (3.4-5.0) gm/dl Globulin 3.4 (2.5-4.0) gm/dl Albumin/Globulin Ratio 1.1 (0.9-2) Procalcitonin 0.55 H (0-0.5) ng/ml Urine Color Yellow Urine Appearance Clear (Clear) Urine pH 5.5 (4.5-7.5) Ur Specific [place] 1.007 (1.000-1.030) Urine Protein Negative (Negative) Urine Glucose (UA) Negative (Negative) Urine Ketones Negative (Negative) Urine Blood Negative (Negative) Urine Nitrite Negative (Negative) Urine Bilirubin Negative (Negative) Urine Urobilinogen Negative (Negative) Ur Leukocyte Esterase Negative (Negative) Urine Comment Blood Type A Positive Antibody Screen NEGATIVE Imaging Data Radiologist's Impression: Chest X-Ray 11/30/24 14:21 XR chest 1V portable CLINICAL HISTORY: fatigue, recent rib fx on right side COMPARISON STUDY: 11/04/2024 FINDINGS: Stable pacemaker. Stable cardiomegaly with mild pulmonary vascular congestion. There is an interval small right pleural effusion and mild consolidation at the right lung base. Multiple mildly displaced right-sided rib fractures again seen. No pneumothorax. IMPRESSION: 1. Grossly stable right sided rib fractures with no pneumothorax. 2. Interval small right pleural effusion and consolidation at the right lung base. ACT 112: Negative or not required by law. Electronically signed by: Noe Bridges M.D. 11/30/2024 2:42 PM [facility] Narrative Patient was seen and evaluated as above in room B12b. Review was performed of triage nursing notes and vital signs. I did review pertinent previous visits and patient history. After obtaining a thorough history and physical examination the above work up was performed. Patient presents to us today with the above symptoms. She is tired appearing on assessment but does yield stable vital signs other than some mild tachycardia. EKG per my interpretation reveals what appears to be A-fib at a rate of 84 bpm. QTc 425. QRS 126. Options of care were discussed with patient, IV access was established. Labs were drawn. No leukocytosis. There is downtrending anemia with hemoglobin of 7.8. Type and screen ordered. Patient denies any history of blood transfusions. Hyponatremia 131. Evidence of CKD with ARMIDA BUN 40 and creatinine 1.82. T. bili 1.2. Troponin mildly elevated at 26 without chest pain. Procalcitonin detectable 0.55 which may be of urinary source. The urinalysis returned here completely negative but noting the recent culture findings from the urine from a few days ago will still cover with ceftriaxone at this time. I did perform an x-ray of the chest and reviewed this and there were some stable right-sided rib fractures but there is now a small pleural effusion. The ceftriaxone should also cover many of the pulmonary organisms. I do believe that further evaluation and management in the inpatient setting is warranted. Case discussed with the hospitalist service. Please refer to further documentation regarding her stay. I did speak with the hospitalist service at 1500 hrs. EKG per my interpretation reveals atrial fibrillation with T wave inversions and ST depressions in several of the leads. This was compared with EKG dated October 12, 2022. A repeat troponin was obtained. This is now 23.8, down from 26. In the evaluation and treatment of this patient the following differential diagnoses were entertained: UT, PE, pneumonia, UTI, pyelonephritis, sepsis, among others Impression & Plan UTI (urinary tract infection), Multiple fractures of ribs of right side, Traumatic flank pain, Elevated troponin, Hyponatremia, Acute kidney injury superimposed on CKD Discharge Plan Visit Data Chief Complaint: Referred by Doctor Stated Complaint: REF BY DOC, BROKEN RIBS, MEDICATION REACTION ED Provider: Vignesh Royal ED Midlevel Provider: Scotty Valentin Discharge Problem: UTI (urinary tract infection), Multiple fractures of ribs of right side, Traumatic flank pain, Elevated troponin, Hyponatremia, Acute kidney injury superimposed on CKD Patient Disposition: Admitted As Inpatient Condition: Fair Discharge Instructions Interventions: ED Discharge Assessment Last Done: 11/30/24 16:05
[2024-11-30 14:19] LABS: Hematocrit (blood only) 23.6 % (37.0-47.0); Hemoglobin 7.8 g/dl (12.0-16.0); Immature Granulocytes # (auto) 0.08 K/uL (0.01-0.20); Immature Granulocytes % (auto) 0.8 %; Mean Corpuscular Hemoglobin 28.0 pg (25.0-34.0); Mean Corpuscular Volume 84.6 fL (80.0-100.0); Platelet Count 391 K/uL (130-400); RDW Standard Deviation 49.0 fL (36.4-46.3); Red Blood Count 2.79 M/uL (4.20-5.40); White Blood Count 9.56 K/ul (4.8-10.8)
[2024-11-30 14:40] LABS: Acanthocytes 2+; Alanine Aminotransferase 10 U/L (7-52); Albumin Globulin Ratio 1.1 (0.9-2); Albumin Level 3.7 gm/dl (3.4-5.0); Alkaline Phosphatase 67 U/L (34-104); Anion Gap 9 (3-11); Bilirubin,Total 1.2 mg/dl (0.2-1.0); Blood Urea Nitrogen 40 mg/dl (6-23); Calcium 9.4 mg/dl (8.6-10.3); Carbon Dioxide 20 mmol/L (21-32); Chloride 102 mmol/L (98-107); Globulin 3.4 gm/dl (2.5-4.0); Glucose 143 mg/dl (70-99(Fasting)); Magnesium 2.2 mg/dl (1.7-2.4); Polychromasia 2+; Potassium 4.5 mmol/L (3.5-5.1); Sodium 131 mmol/L (136-145); Total Protein 7.1 gm/dl (6.0-8.3)
--- NOTE | 2024-11-30 14:44 | XRay Report ---
XR chest 1V portable CLINICAL HISTORY: fatigue, recent rib fx on right side COMPARISON STUDY: 11/04/2024 FINDINGS: Stable pacemaker. Stable cardiomegaly with mild pulmonary vascular congestion. There is an interval small right pleural effusion and mild consolidation at the right lung base. Multiple mildly displaced right-sided rib fractures again seen. No pneumothorax. IMPRESSION: 1. Grossly stable right sided rib fractures with no pneumothorax. 2. Interval small right pleural effusion and consolidation at the right lung base. ACT 112: Negative or not required by law. Electronically signed by: Noe Bridges M.D. 11/30/2024 2:42 PM
[2024-11-30 14:46] LABS: INR 1.1 (0.9-1.1); Partial Thromboplastin Time 28 Seconds (21-31); Prothrombin Time 12.0 Seconds (9.0-12.0)
[2024-11-30] MEDS: cefTRIAXone SODIUM 1,000 MG/50 ML BAG IV STA (14:59)
[2024-11-30] MEDS: SODIUM CHLORIDE 0.9% 500 ML IV ONE (14:59)
[2024-11-30 15:13] LABS: Appearance Urine Clear (Clear); Glucose Urine UA Negative (Negative)
--- NOTE | 2024-11-30 15:54 | History & Physical Report ---
Date of Service November 30, 2024 Assessment & Plan (1) Multiple fractures of ribs of right side: (2) UTI (urinary tract infection): (3) Atrial fibrillation, permanent: (4) Type 2 diabetes mellitus: (5) CKD (chronic kidney disease) stage 3, GFR 30-59 ml/min: Plan 89 yo F presenting with generalized weakness, dehydration, UTI, armida on CKD, anemia d/t traumatic hematoma and rib fxs that occurred on 11/04/24. #Prior Traumatic Fall w/ multiple rib fxs and adjacent hematoma and ABLA - Admit to monitored bed - VS per unit protocol - OOB w/ assistance - Hold Eliquis today, d/w Dr. Sifuentes and pt extensively regarding increased risk of stroke during the period while she is off Eliquis - Ensure H&H remains stable, repeat in AM. She has been typed and screened. - PT/OT eval and treat - Continue pain control with APAP 1g TID and OxyIR 1.25mg q6 prn severe pain (this is per family's request as it causes pt to be confused) - Incentive spirometry q4h while awake #UTI, suspect uncomplicated cystitis - Pansensitive e. coli and lactobacillus - Given dose of IV Rocephin in the ER, will continue for now, consider transition to PO cefdinir vs. 3 doses of IV rocephin #ARMIDA on CKD - Gentle IVF hydration, ordered 1L of NSS in the ER, reduce rate to 100 ml/hr and give additional liter at 80 ml/hr - Repeat BMP in AM - Limit/avoid nephrotoxins #DMT2 - Last a1c 6.5% in Oct 2024, but only takes Metformin 500mg daily, therefore primarily diet controlled - Hold Metformin, ordered carb consistent diet but could consider liberalizing diet given poor oral intake recently #Chronic Afib - Controlled ventricular rate, continue Metoprolol XL as noted above - Hold Eliquis, monitor H&H. VTE ppx will be provided with SCDs for now. AM labs to trend H&H and renal fxn. Above plan of care has been d/w Dr. Multani who will also see and evaluate this patient. Further orders will be implemented as clinically warranted per attending. History of Present Illness Chief Complaint: Referred by physician d/t confusion, UTI, recent fall Primary Care Provider: DO Ludivina Bee is an 89 yo F with a pmhx of HTN, DMT2, afib on DOAC, s/p PPM, carotid stenosis, CKD stage 3, and OA who presents today as recommended by her PCP, Dr. Che, due to concerns increased bruising on her right side from a traumatic GLF that occurred earlier in the month as well as some increased confusion. She had presented to the ER at [facility] on 11/04 after a fall and was transferred to [facility] as a trauma due to sustaining 8 rib fractures. She was released on 11/17 and discharged home with oxycodone for pain. She was seen by her PCP for hospital follow up on 11/24, partner and neighbor had some concerns wtih confusion and were weaning her off of the Oxycodone. Labs including cbc, chemistry and a a UA was ordered by PCP and reflected growth of pansensitive E. coli and lactobacillus. Her hgb was 8.7 on cbc, there was no leukocytosis or left shift. She was ordered Bactrim for which she has been taking as prescribed for UTI. Family also notes poor oral intake. She has been drinking some of a protein drink and minimal food. She presented today after being counseled by her PCP to go to the ER due to concern for "urosepsis." Pt continues on Eliquis for afib. Her hgb in the ER today is 7.8. Additionally, her chemistry reflects acute on chronic kidney failure with a creatinine of 1.82, baseline ~1.5. PCT minimally elevated at 0.55 and her HS trop is detectable at 26. She denies cp or dyspnea. Her rib pain is controlled, family is requesting that the oxycodone be used in the lowest dose and only sparingly. She denies urinary symptoms. Repeat UA in the ER today is unremarkable. She is afebrile and otherwise hemodynamically stable. She was medicated with a dose of IV Ceftriaxone and a dose of IV Fentanyl for pain control and has been referred to the hospital medicine team for further care. Allergies Allergy/AdvReac Type Severity Reaction Status Date / Time scopolamine AdvReac Severe Confusion, Verified 11/30/24 15:23 [From Transderm-Scop] urinary retention oxycodone AdvReac Intermediate "SPACEY" Verified 11/30/24 15:23 Home Medications Medication Instructions Recorded Confirmed Type cholecalciferol (vitamin D3) 125 5,000 units PO QAM 12/16/17 11/30/24 History mcg (5,000 unit) capsule ascorbic acid (vitamin C) 1,000 mg 1 gm PO QAM 12/14/18 11/30/24 History tablet hawthorn rich 565 mg capsule 565 mg PO Q OTHER DAY 12/14/18 11/30/24 History lutein 20 mg capsule 20 mg PO Q OTHER DAY 12/14/18 11/30/24 History vitamin E (dl, acetate) 180 mg 400 unit PO DAILY 03/05/21 11/30/24 History (400 unit) capsule latanoprost 0.005 % eye drops 1 drp OPR HS 08/08/21 11/30/24 History H.A. Factors 1 tab PO BID 09/09/22 11/30/24 History Methyl B-12 Folate 2 tab PO DAILY 09/09/22 11/30/24 History coQ10 (ubiquinol) 100 mg capsule 300 mg PO DAILY 09/09/22 11/30/24 History curcumin-phosphatidylcholine 500 500 mg PO DAILY 09/09/22 11/30/24 History mg capsule apixaban 5 mg tablet (Eliquis) 5 mg PO BID #180 tabs 04/29/24 11/30/24 Rx metformin 500 mg tablet 500 mg PO DAILY #90 tabs 09/28/24 11/30/24 Rx Arthritis Formula Tab 2 tab PO DAILY 10/05/24 11/30/24 History calcium 600 mg (as 1 cap PO DAILY 10/05/24 11/30/24 History carbonate)-vitamin D3 12.5 mcg (500 unit) capsule (Calcium with Vit D3) vitamin K2 100 mcg capsule 100 mcg PO Q OTHER DAY 10/05/24 11/30/24 History metoprolol succinate 25 mg 25 mg PO QAM #90 tabs 10/26/24 11/30/24 Rx tablet,extended release 24 hr celecoxib 100 mg capsule (Celebrex) 100 mg PO BID 11/23/24 11/30/24 History methocarbamol 500 mg tablet 500 mg PO TID 11/23/24 11/30/24 History oxycodone 5 mg tablet 1.25 mg PO .Q5HR PRN Pain 11/23/24 11/30/24 History sulfamethoxazole 800 1 tab PO BID 7 days #14 tabs 11/25/24 11/30/24 Rx mg-trimethoprim 160 mg tablet (Bactrim DS) acetaminophen 500 mg tablet 1,000 mg PO Q8H 11/30/24 11/30/24 History (Tylenol Extra Strength) ferrous sulfate 325 mg (65 mg 325 mg PO DAILY 11/30/24 11/30/24 History iron) tablet gabapentin 100 mg capsule 100 mg PO AMHS 11/30/24 11/30/24 History Past Med/Surg History Problem List (Updated 11/30/24 @ 16:38 by Scotty Valentin PA-C) Acute kidney injury superimposed on CKD (Acute) Hyponatremia (Acute) Elevated troponin (Acute) UTI (urinary tract infection) (Acute) Traumatic flank pain (Acute) Fall (Acute) Multiple fractures of ribs of right side (Acute 11/04/24) Acute fractures of the right fourth through 11th posterior rib from a fall Medical History Osteoarthritis Type 2 diabetes mellitus On continuous oral anticoagulation Atrial fibrillation, permanent Carotid artery stenosis Focal severe stenosis within the left P2 segment which has progressed. Calcified plaque within the right carotid bifurcation resulting in up to 70% focal stenosis. Pacemaker 2020- medtronic, last checked 11/2022 Hypertension controlled, stable per pt CKD (chronic kidney disease) stage 3, GFR 30-59 ml/min Post herpetic neuralgia Expressive aphasia Syncope Anaplasmosis Atrial fibrillation with RVR Multiple pulmonary nodules determined by computed tomography of lung 12/2022 follows w/ Dr Dino devi; states nodules are "shrinking". No further f/u per Pulmonary 09/2023 Chronic thoracic back pain denies change or worsening Surgical History S/P total knee arthroplasty History of permanent cardiac pacemaker placement Hx of colonoscopy History of cataract surgery History of knee surgery left 04/2023 PS Micheline Micradha Roberts History of tonsillectomy Family History Mother Dementia Hypertension Diabetes Father Diabetes Coronary heart disease Social History Smoking Status: Never smoker Second Hand Exposure: No; Do You Dip or Chew Tobacco: No; Hx Alcohol Use: No Hx Substance Use: No Preferred Language: [place] Communication Ability: Effective Visual Impairment: Diminished Hearing Ability: Use of Hearing Aid Shadow Graph Weight Operator Required: No Beliefs That Will Affect Care: None marital status: Single Current Living Situation: Significant Other Current Living Situation Comment: with Friend current occupational status: retired current 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 Feels Safe at Home: Yes Childhood Exposure to Second-Hand Smoke: No Diet: regular Diet Comment: healthy caffeine: No Dental Care, Regularly: Yes Physical Activity Frequency: 1-2 Times per Week Seatbelt Use: always Sunscreen Use: Yes Assistive Devices: Glasses, Hearing Aid - Bilateral and Walker Review of Systems 2 Review of Systems: All systems reviewed and are unremarkable except as noted in HPI and below. Denies fever, chills, fatigue, headache, nasal congestion, sore throat, cough, chest pain, shortness of breath, palpitations, orthopnea, PND, abdominal pain, n/v/d, constipation, dysuria, hematuria, frequency. Physical Exam 2 Physical Exam: GENERAL: 89 yo frail elderly F. A&O x3. No distress. EYES: EOMI. PERRLA. HENT: Moist mucous membranes. No cervical lymphadenopathy. LUNGS: Clear to auscultation bilaterally. No W/R/R. CARDIOVASCULAR: Irregularly irregular ABDOMEN: Soft, non-tender and non-distended. No palpable masses. Bowel sounds normoactive x 4 quad. EXTREMITIES: No edema. Non-tender. Peripheral pulses +2/4. NEUROLOGIC: No focal neurological deficits. CN II-XII grossly intact. PSYCHIATRIC: Cooperative. Appropriate mood and affect. SKIN: Extensive ecchymosis to the right flank extending to the right hip/upper thigh Results & Data Results & Data Vital Signs (Past 12 Hours) Vital Signs Temp Pulse Pulse Resp BP BP Pulse Ox 11/30/24 14:43 80 20 153/90 H 11/30/24 13:52 86 11/30/24 13:06 36.5 C 109 H 20 131/66 100 O2 Del Method 11/30/24 14:43 11/30/24 13:52 11/30/24 13:06 Room Air Laboratory Results 11/30/24 13:50 11/30/24 13:50 Diagnostic Findings Chest X-Ray 11/30/24 14:21 XR chest 1V portable CLINICAL HISTORY: fatigue, recent rib fx on right side COMPARISON STUDY: 11/04/2024 FINDINGS: Stable pacemaker. Stable cardiomegaly with mild pulmonary vascular congestion. There is an interval small right pleural effusion and mild consolidation at the right lung base. Multiple mildly displaced right-sided rib fractures again seen. No pneumothorax. IMPRESSION: 1. Grossly stable right sided rib fractures with no pneumothorax. 2. Interval small right pleural effusion and consolidation at the right lung base. ACT 112: Negative or not required by law. Electronically signed by: Noe Bridges M.D. 11/30/2024 2:42 PM Code Status & VTE Plan Code Status DNR/DNI - per conversation with patient and partner VTE Prophylaxis Plan VTE Prophylaxis will be ordered: Yes Supervising Physician Co-Signing Physician Notes Patient was seen and examined independently I discussed the case with Letty Alfaro PA-C I reviewed pertinent past medical social family history and also the plan of care and agree with the plan of care. Patient presents with worsening weakness. Patient sustained a fall on November 04 with significant rib fractures. Patient was being treated for outpatient UTI. She has had expanding bruising about her right chest and decreasing strength. She is previously anticoagulated for atrial fibrillation. She presents with anemia concern for acute blood loss anemia. Is also a pleural effusion which could be blood. Likely acute blood loss anemia patient will have her anticoagulation held. Her family states she was also taking Celebrex for pain in addition to her Eliquis. She is typed and screened and will evaluate the need for transfusion based upon the trend of her hemoglobin. Physical exam she appears pale she is in mild distress about her rib fractures. She is bruised about her left chest wall. Her cardiac exam sounds to be regular although she does have a history of atrial fibrillation her lungs are splinting on the right with decreased breath sounds at the base. Hemoglobin 7.8, EKG shows atrial fibrillation controlled ventricular rate there are some ST changes difficult to interpret. Troponin mildly elevated at 26 on presentation Assessment scan to be 89-year-old female on chronic anticoagulation for atrial fibrillation presents with worsening anemia likely from her rib fractures. Anticoagulation is held we will trend her troponins to see if this is significant and would warrant more cardiac intervention. Will trend her hemoglobin to determine if transfusion would be required. Pain control with parenteral and oral opiate therapy. Scheduled Tylenol. Consider Lidoderm patch. Any exceptions will be noted below PG Care Time/CCT Total # of Minutes Spent Total Time Spent with Patient: Total time spent is greater than 50% in coordination of care (as documented) at patient's floor/unit and/or counseling patient: 77 minutes Coding Level of Care Code 79944 INT INP/OBS CARE 3/75MIN Diagnoses Multiple fractures of ribs of right side S22.41XA UTI (urinary tract infection) N39.0 Atrial fibrillation, permanent I48.21 Type 2 diabetes mellitus E11.9 CKD (chronic kidney disease) stage 3, GFR 30-59 ml/min N18.30
[2024-11-30] MEDS ORDERED: MAGNESIUM HYDROXIDE SUSP 30 ML UDC PO PRN (16:28)
[2024-11-30] MEDS ORDERED: ALUMINUM/MAGNESIUM SUSP 30 ML UDC PO PRN (16:28)
[2024-11-30] MEDS ORDERED: ONDANSETRON INJ 2 MG/ML 2 ML VIAL IV PRN (16:28)
[2024-11-30] MEDS: Patient's HEIGHT &/or WEIGHT Needed STA (17:37)
[2024-11-30] MEDS: ACETAMINOPHEN 500 MG TAB PO SCH (17:49)
[2024-11-30] MEDS: SODIUM CHLORIDE 0.9% 1,000 ML IV SCH (17:49)
[2024-11-30] MEDS: LATANOPROST 0.005% OP SOLN 2.5 ML BTL OPR SCH (20:21)
[2024-11-30] MEDS: GABAPENTIN 100 MG CAP PO SCH (20:22)
[2024-11-30] MEDS: METHOCARBAMOL 500 MG TABLET PO SCH (20:23)
[2024-11-30] MEDS: MoRPHine SULFATE 2 MG/ML CARP IV PRN (20:25)
[2024-12-01 07:38] LABS: Hematocrit (blood only) 21.6 % (37.0-47.0); Hemoglobin 7.2 g/dl (12.0-16.0); Immature Granulocytes # (auto) 0.07 K/uL (0.01-0.20); Immature Granulocytes % (auto) 0.9 %; Mean Corpuscular Hemoglobin 28.3 pg (25.0-34.0); Mean Corpuscular Volume 85.0 fL (80.0-100.0); Platelet Count 378 K/uL (130-400); RDW Standard Deviation 49.8 fL (36.4-46.3); Red Blood Count 2.54 M/uL (4.20-5.40); White Blood Count 8.01 K/ul (4.8-10.8)
[2024-12-01 07:57] LABS: Anion Gap 7.0 (3-11); Blood Urea Nitrogen 37.0 mg/dl (6-23); Calcium 8.8 mg/dl (8.6-10.3); Carbon Dioxide 19.0 mmol/L (21-32); Chloride 109.0 mmol/L (98-107); Creatinine Clr Calc Pharmacy 24.1 ml/min; Glucose 127.0 mg/dl (70-99(Fasting)); Magnesium 2.0 mg/dl (1.7-2.4); Potassium 4.7 mmol/L (3.5-5.1); Sodium 135.0 mmol/L (136-145)
[2024-12-01 08:09] LABS: Acanthocytes 1+; Anisocytosis Present; Polychromasia 2+
[2024-12-01] MEDS: FERROUS SULFATE 325 MG TAB PO SCH (08:30)
[2024-12-01] MEDS: METOPROLOL SUCC 25MG EXT REL TAB PO SCH (08:30)
--- NOTE | 2024-12-01 09:27 | XRay Report ---
XR chest 1V portable CLINICAL HISTORY: rib fractures, pleural effusion COMPARISON STUDY: 11/30/2024 FINDINGS: Stable pacemaker. Stable cardiomegaly without pulmonary vascular congestion. There is a sma ll to moderate right pleural effusion and associated consolidation at the right lower lung. No pneumo thorax seen. Multiple displaced right rib fractures are grossly stable. IMPRESSION: Stable to mildly increased right pleural effusion and right lower lung consolidation. ACT 112: Negative or not required by law. Electronically signed by: Noe Bridges M.D. 12/01/2024 9:26 AM
[2024-12-01] MEDS: cefTRIAXone SODIUM 1,000 MG/50 ML BAG IV SCH (12:16)
--- NOTE | 2024-12-01 17:17 | Hospitalist Progress Note ---
Date of Service December 01, 2024 Assessment & Plan (1) Multiple fractures of ribs of right side: (2) UTI (urinary tract infection): (3) Atrial fibrillation, permanent: (4) Type 2 diabetes mellitus: (5) CKD (chronic kidney disease) stage 3, GFR 30-59 ml/min: Plan 89 yo F presenting with generalized weakness, dehydration, UTI, armida on CKD, anemia d/t traumatic hematoma and rib fxs that occurred on 11/04/24. # Rib fractures Significant pain from rib fractures. - Scheduled Tylenol, gabapentin, and muscle relaxer somewhat effective. - Add tramadol to manage pain more effectively. Continue APAP, robaxin, low dose gabapentin - Discussed potential side effects of tramadol. - Continue physical and occupational therapy to improve strength and stability. PT rec rehab. I discussed with her # Acute blood loss anemia Hemoglobin 7.2, related to rib fractures and hematoma setting of anticoagulation. Was 13s at baseline, 8.7 a few days ago - Discussed risks and benefits of blood transfusion. - Patient prefers intravenous iron first. currently on po changed to q48h - Blood transfusion deferred. - Check iron stores, administer intravenous iron tomorrow. AM CBC # Urinary tract infection On ceftriaxone for suspected UTI. - Continue antibiotic until urine culture results. #ARMIDA on CKD - Gentle IVF hydration - Cr improved to 1.45 nearer to baseline #DMT2 - Last a1c 6.5% in Oct 2024, but only takes Metformin 500mg daily, therefore primarily diet controlled - Hold Metformin, ordered carb consistent diet but could consider liberalizing diet given poor oral intake recently - BG at goal #Chronic Afib - Controlled ventricular rate, continue Metoprolol XL as noted above - Hold Eliquis. Risks and benefits of holding DOAC were discussed with her on admission, diane stroke risk vs further bleeding DVT prophylaxis: SCDs, DOAC held PT/OT evaluations: PT rec rehab. Her partner lives home with her but not physically robust and unable to provide adequate 24h assist Admission and Anticipated Discharge Date Admission Date: November 30, 2024 Subjective Reason for Admit: Rib fractures, anemia, and urinary tract infection. The patient sustained multiple rib fractures a month ago, causing significant discomfort. No other injuries or falls since the incident. She receives home health care and physical therapy. Resides with her partner, who cannot assist due to her own health issues. No children or nearby family members for support. Pain management included Tylenol, gabapentin, and a muscle relaxer, initially effective but now requires additional medication. Concerned about addiction to stronger pain medications, recalling side effects from oxycodone post-knee replacement surgery 1.5 years ago. Morphine administered yesterday for rib pain, tolerated well but occasionally caused slight disorientation. Never taken tramadol. Mild shortness of breath when walking but no lightheadedness upon standing. Iron supplements taken for the past few days. Lidoderm patch applied but ineffective. Possible urinary tract infection for several weeks. No bladder pain, dysuria, urinary frequency, abdominal pain, nausea, or vomiting. Vomited immediately after the fall but stable since. Able to eat and drink without difficulty. Uncertain about past blood transfusion. Several surgeries, including joint surgeries, without complications. Pacemaker implanted 3 years ago, no issues. Has atrial fibrillation. Physical Exam Physical Exam: Skin: Large bruise and hematoma on right chest wall and flank, extending to upper hip, evolving, flat, not hot. Cardiac: Slightly fast heart rate, irregular, no murmur, gallop present. Respiratory: Lungs clear bilaterally, no rhonchi, rales, or wheezes. good air mvt Abdominal: Soft, nontender, bowel sounds present. Extremities: No edema, warm, well perfused, good pulses. AOx4 [id number] Results & Data Results & Data Vital Signs (Past 12 Hours) Vital Signs Temp Pulse Pulse Resp BP Pulse Ox O2 Del Method 12/01/24 15:21 36.5 C 98 H 14 129/60 98 Room Air 12/01/24 14:07 83 12/01/24 12:23 Room Air 12/01/24 11:23 36.4 C L 86 12 116/65 93 Room Air 12/01/24 08:48 36.7 C 104 H 12 138/61 93 Room Air 12/01/24 07:30 36.4 C L 94 H 19 156/71 H 95 Room Air Laboratory Results Labs - Hemoglobin: 12/01/2024, 7.2 Hg has decreased compared to 48h ago was 8.7 Cr improved to 1.45 from 1.8 Tn remained 23-24 PG Care Time/CCT Total # of Minutes Spent Total Time Spent with Patient: Total time spent is greater than 50% in coordination of care (as documented) at patient's floor/unit and/or counseling patient: Coding Level of Care Code 69466 SUB INP/OBS CARE MIN Diagnoses Multiple fractures of ribs of right side S22.41XA UTI (urinary tract infection) N39.0 Atrial fibrillation, permanent I48.21 Type 2 diabetes mellitus E11.9 CKD (chronic kidney disease) stage 3, GFR 30-59 ml/min N18.30
--- NOTE | 2024-12-01 17:59 | Electrocardiogram Report ---
Test Reason : Blood Pressure : */* mmHG Vent. Rate : 84 BPM Atrial Rate : * BPM P-R Int : * ms QRS Dur : 126 ms QT Int : 360 ms P-R-T Axes : * 79 -78 degrees QTcB Int : 425 ms Atrial fibrillation Non-specific intra-ventricular conduction block Cannot rule out Septal infarct T wave abnormality, consider anterolateral ischemia Abnormal ECG Confirmed by Daniel Ritter ([id number]) on 12/01/2024 5:58:42 PM Referred By: Rashaun Che Confirmed By: Daniel Ritter
[2024-12-02 06:53] LABS: Hematocrit (blood only) 26.6 % (37.0-47.0); Hemoglobin 8.2 g/dl (12.0-16.0); Mean Corpuscular Hemoglobin 26.8 pg (25.0-34.0); Mean Corpuscular Volume 86.9 fL (80.0-100.0); Platelet Count 424 K/uL (130-400); RDW Standard Deviation 51.9 fL (36.4-46.3); Red Blood Count 3.06 M/uL (4.20-5.40); White Blood Count 10.39 K/ul (4.8-10.8)
[2024-12-02 07:11] LABS: Anion Gap 10.0 (3-11); Blood Urea Nitrogen 33.0 mg/dl (6-23); Calcium 9.3 mg/dl (8.6-10.3); Carbon Dioxide 19.0 mmol/L (21-32); Chloride 106.0 mmol/L (98-107); Creatinine Clr Calc Pharmacy 25.5 ml/min; Glucose 131.0 mg/dl (70-99(Fasting)); Iron 19.0 mcg/dl (35-150); Potassium 4.6 mmol/L (3.5-5.1); Sodium 135.0 mmol/L (136-145); Transferrin 208.0 mg/dl (200-360)
[2024-12-02 07:31] LABS: Ferritin 408.7 ng/ml (8-388)
--- NOTE | 2024-12-02 17:38 | Hospitalist Progress Note ---
Date of Service December 02, 2024 Assessment & Plan (1) Multiple fractures of ribs of right side: (2) UTI (urinary tract infection): (3) Atrial fibrillation, permanent: (4) Type 2 diabetes mellitus: (5) CKD (chronic kidney disease) stage 3, GFR 30-59 ml/min: Plan 89 yo F presenting with generalized weakness, dehydration, UTI, armida on CKD, anemia d/t traumatic hematoma and rib fxs that occurred on 11/04/24. # Rib fractures Significant pain from rib fractures. - Scheduled Tylenol, gabapentin, and muscle relaxer somewhat effective. - Has not tolerated tramadol or low dose oxycodone - Continue physical and occupational therapy to improve strength and stability. PT rec home with HH today. Walked 250 feet # Acute blood loss anemia Hemoglobin 7.2, related to rib fractures and hematoma setting of anticoagulation. Was 13s at baseline, 8.7 a few days ago - Discussed risks and benefits of blood transfusion. She preferred to defer at this time - Hg today 8.2. May have been lab variation or dilutional effect - reviewed iron stores - ferritin elevated c/w inflammatory block. Serum iron moderately low at 19 - appropriate to continue oral iron q48h at this time # Urinary tract infection On ceftriaxone for suspected UTI. Urine culture with lam sensitive E. coli. Blood Cx ngtd - abx through 12/04 #ARMIDA on CKD - Gentle IVF hydration - Cr improved to 1.3 nearer to baseline #Swallowing difficulty - chronic. What she describes is persistent mastication and difficulty initiating swallow, not specifically dysphagia and no odynophagia or regurgitation - no evidence on exam of prior stroke or Parkinson's. Seems forgetful or vague at times. - her partner thinks this led to weight loss, though reports weight stable for past year - doing better on pureed texture, BOOSTs ordered - ST consult #Concern over tickborne disease. Not having specific Sx other than FTT. I am not very suspicious of this, but tickborne illness very prevalent in the area. Ordered lyme screen, darrion/bab smear and DNA, ehrlichia DNA #DMT2 - Last a1c 6.5% in Oct 2024, but only takes Metformin 500mg daily, therefore primarily diet controlled - Hold Metformin, ordered carb consistent diet but could consider liberalizing diet given poor oral intake recently - BG at goal #Chronic Afib - Controlled ventricular rate, continue Metoprolol XL as noted above - Hold Eliquis. Risks and benefits of holding DOAC were discussed with her on admission, diane stroke risk vs further bleeding DVT prophylaxis: SCDs, DOAC held PT/OT evaluations: PT rec home with home health. Her partner lives home with her but not physically robust and unable to provide adequate 24h assist Admission and Anticipated Discharge Date Admission Date: November 30, 2024 Subjective The patient consented to use of [employer], an AI based tool that will listen to our encounter and draft a clinical note based on our conversation. All notes will be reviewed and edited by me before entering them into the clinical record. Reason for Admit: Upper back pain, swallowing difficulty, anemia, and hematoma. The patient continues to experience back/flank pain. Tramadol at half dose was ineffective and caused hallucinations, oxycodone causes confusion even at very low dose. Walking therapy has been beneficial but causes fatigue. Tylenol and a muscle relaxer provide some relief. She has had difficulty swallowing for several months, especially solids, with prolonged chewing and slow passage. Liquids are easier. No regurgitation, vomiting, sore throat, or dry mouth. Supplementing diet with Boost since Micheline visit. Significant weight loss from 170 to 135 pounds over two years, stable for over past year. Partner concerned about tick-borne illnesses due having fallen while hiking in [place]. remote past anaplasmosis and Lyme disease. No new joint pains, arthritis, or fevers. Treated with doxycycline previously. No memory of rashes after falling in [place] or any known tick bite. Currently on oral iron replacement therapy. Physical Exam 2 Physical Exam: General Appearance: Normal. Vital signs: Within normal limits. HEENT: Palate elevates evenly, tongue midline, pharynx clear. Respiratory: Within normal limits. Lymphatic: No cervical or supraclavicular lymphadenopathy. Back, Musculoskeletal: large hematoma right flank with evolving ecchymosis unchanged Skin: Warm and dry, no rash. Neurological: face symmetric, no bradykinesia, face animated. Normal tone in arms, no tremor. Psychiatric: Normal. Results & Data Results & Data Vital Signs (Past 12 Hours) Vital Signs Temp Pulse Resp BP Pulse Ox O2 Del Method 12/02/24 15:14 36.5 C 102 H 20 167/67 H 96 Room Air 12/02/24 12:06 99 12/02/24 11:26 Room Air 12/02/24 10:58 36.4 C L 101 H 18 134/76 96 Room Air Laboratory Results 12/02/24 06:07 12/02/24 06:07 PG Care Time/CCT Total # of Minutes Spent Total Time Spent with Patient: Total time spent is greater than 50% in coordination of care (as documented) at patient's floor/unit and/or counseling patient: Coding Level of Care Code 89737 SUB INP/OBS CARE 2/35MIN Diagnoses Multiple fractures of ribs of right side S22.41XA UTI (urinary tract infection) N39.0 Atrial fibrillation, permanent I48.21 Type 2 diabetes mellitus E11.9 CKD (chronic kidney disease) stage 3, GFR 30-59 ml/min N18.30
[2024-12-03 06:49] LABS: Hematocrit (blood only) 24.1 % (37.0-47.0); Hemoglobin 8.0 g/dl (12.0-16.0); Mean Corpuscular Hemoglobin 28.3 pg (25.0-34.0); Mean Corpuscular Volume 85.2 fL (80.0-100.0); Platelet Count 409 K/uL (130-400); RDW Standard Deviation 51.0 fL (36.4-46.3); Red Blood Count 2.83 M/uL (4.20-5.40); White Blood Count 10.26 K/ul (4.8-10.8)
[2024-12-03] MEDS: FERROUS SULFATE 325 MG TAB PO SCH (07:33)
--- NOTE | 2024-12-03 17:06 | XRay Report ---
Technique: A frontal view of the chest was obtained Comparison is made up our examination dated 12/01/2024 Findings: There is an increased moderate to large right pleural effusion. There is suspected right lung base atelectasis. The heart is mildly enlarged. There is a left chest wall pacemaker device. No definite left pleural effusion or pneumothorax is seen. There are multiple unchanged right rib fractures Impression: 1. Increased moderate to large pleural effusion with right lung base atelectasis 2. Mild cardiomegaly 3. Multiple unchanged right rib fractures ACT 112: Positive. There are findings on this exam that require communication between the performing entity and the patient following Patient Test Result Information Act ([place] ACT 112) guidelines. Electronically signed by Joaquín Perrin 12-03-2024 5:06 PM
--- NOTE | 2024-12-03 17:06 | Hospitalist Progress Note ---
Date of Service December 03, 2024 Assessment & Plan (1) Multiple fractures of ribs of right side: (2) UTI (urinary tract infection): (3) Atrial fibrillation, permanent: (4) Type 2 diabetes mellitus: (5) CKD (chronic kidney disease) stage 3, GFR 30-59 ml/min: Plan 89 yo F presenting with generalized weakness, dehydration, UTI, armida on CKD, anemia d/t traumatic hematoma and rib fxs that occurred on 11/04/24. # Rib fractures Significant pain from rib fractures. - Scheduled Tylenol, gabapentin, and muscle relaxer somewhat effective. - Has not tolerated tramadol or low dose oxycodone - Continue physical and occupational therapy to improve strength and stability. PT rec home with HH. Pleural effusion - obtained follow up CXR this afternoon. Personally reviewed film, has increased. Has had hemothorax. Not symptomatic of dyspnea/hypoxia. Will d/w pulm # Acute blood loss anemia Baseline Hg was 13. Has been stable at 8. AM CBC - reviewed iron stores - ferritin elevated c/w inflammatory block. Serum iron moderately low at 19 - appropriate to continue oral iron q48h at this time - reactive thrombocytosis noted # Urinary tract infection Urine culture with lam sensitive E. coli. Blood Cx ngtd - treated with three days of ceftriaxone, which is enough for simple cystitis #ARMIDA on CKD - Gentle IVF hydration - Cr improved to 1.3 nearer to baseline -AM BMP #persistent mastication and difficulty initiating swallow, not specifically dysphagia and no odynophagia or regurgitation - no evidence on exam of prior stroke or Parkinson's. Seems forgetful or vague at times. - doing better on pureed texture, BOOSTs ordered - ST consulted - pharyngeal phase dysphagia and persistent mastication. Often seen in dementia and has cognitive deficits c/w MCI or dementia - trialing minced/moist - check TSH, B12, B1 - outpatient neurology referral #Concern over tickborne disease. Not having specific Sx other than FTT. I am n ot very suspicious of this, but tickborne illness very prevalent in the area. -lyme negative, herminia/bab smears negative -herminia/bab DNA, ehrlichia DNA pending #DMT2 - Last a1c 6.5% in Oct 2024, but only takes Metformin 500mg daily, therefore primarily diet controlled - Hold Metformin, ordered carb consistent diet but could consider liberalizing diet given poor oral intake recently - BG at goal #Chronic Afib - Controlled ventricular rate, continue Metoprolol XL as noted above - Hold Eliquis. Risks and benefits of holding DOAC were discussed with her on admission, diane stroke risk vs further bleeding - continue to hold DVT prophylaxis: SCDs, DOAC held PT/OT evaluations: PT rec home with home health. Planned for home with [facility] for PT, OT and ST. Discussed with care coord I updated her partner Yoana by phone 12/03 Admission and Anticipated Discharge Date Admission Date: November 30, 2024 Subjective right back pain persists unchanged, does increase once meds worn off did much better swallowing with pureed diet met with speech therapist, cognitive deficits noted still does the home finances Physical Exam Physical Exam: General Appearance: Normal. Vital signs: Within normal limits. HEENT: moist mm Respiratory: CTA bilaterally anteriorly Back, Musculoskeletal: large hematoma right flank with evolving ecchymosis unchanged. If anything, flatter than several days ago Skin: Warm and dry, no rash. Neurological: face symmetric, oriented to situation, maewx4, no tremor Psychiatric: Normal. Results & Data Results & Data Vital Signs (Past 12 Hours) Vital Signs Temp Pulse Resp BP Pulse Ox O2 Del Method 12/03/24 10:49 36.6 C 94 H 19 153/72 H 93 Room Air 12/03/24 09:34 Room Air 12/03/24 07:29 36.3 C L 105 H 19 182/82 H 96 Room Air Laboratory Results Lyme negative Herminia/bab smears negative PG Care Time/CCT Total # of Minutes Spent Total Time Spent with Patient: Total time spent is greater than 50% in coordination of care (as documented) at patient's floor/unit and/or counseling patient: Coding Level of Care Code 84612 SUB INP/OBS CARE 2/35MIN Diagnoses Multiple fractures of ribs of right side S22.41XA UTI (urinary tract infection) N39.0 Atrial fibrillation, permanent I48.21 Type 2 diabetes mellitus E11.9 CKD (chronic kidney disease) stage 3, GFR 30-59 ml/min N18.30
[2024-12-04 07:33] LABS: Hematocrit (blood only) 27.7 % (37.0-47.0); Hemoglobin 8.5 g/dl (12.0-16.0); Mean Corpuscular Hemoglobin 26.9 pg (25.0-34.0); Mean Corpuscular Volume 87.7 fL (80.0-100.0); Platelet Count 460 K/uL (130-400); RDW Standard Deviation 53.2 fL (36.4-46.3); Red Blood Count 3.16 M/uL (4.20-5.40); White Blood Count 11.01 K/ul (4.8-10.8)
[2024-12-04 07:48] LABS: Anion Gap 10.0 (3-11); Blood Urea Nitrogen 28.0 mg/dl (6-23); Calcium 9.2 mg/dl (8.6-10.3); Carbon Dioxide 20.0 mmol/L (21-32); Chloride 106.0 mmol/L (98-107); Creatinine Clr Calc Pharmacy 33.0 ml/min; Glucose 156.0 mg/dl (70-99(Fasting)); Potassium 4.3 mmol/L (3.5-5.1); Sodium 136.0 mmol/L (136-145)
[2024-12-04 08:03] LABS: Thyroid Stimulating Hormone 0.814 uIu/ml (0.300-4.500)
[2024-12-04] MEDS: KETOROLAC TROMETHAMINE 15 MG/ML VIAL ONE (11:31)
--- NOTE | 2024-12-04 11:42 | Pulmonary Consultation ---
Date of Consultation December 04, 2024 Assessment & Plan (1) Pleural effusion: (2) Multiple fractures of ribs of right side: Plan Impression: 89-year-old female with recent fall and multiple rib fractures presenting now with increasing pleural effusion. Bedside ultrasound was performed which revealed complex fluid collection with multiple septations. Unclear if this represents hemothorax or complicated parapneumonic effusion. Recommendation: 1. Complicated pleural effusion: Given the septations and loculations we will proceed with 8 Khmer pigtail catheter placement. Fluid will be sent for microbiologic as well as cytologic analysis. Depending on radiographic response, may consider mist 2 protocol although with rib fractures and if this is a hemothorax, the risk of increasing bleeding is present. May need to discuss with thoracic surgery at [facility] if x-ray does not improve significantly. Additional recommendations will be based on characterization of pleural fluid. 2. Rib fractures: Continue pain management strategy. Would consider anesthesia consultation for rib blocks if problematic. Next of the opportunity participate in care of this patient. Will continue to follow with you. Feel free to contact us with questions or concerns History of Present Illness Attending Physician: Narcisa Figueroa MD History of Present Illness Asked by hospitalist to assist in evaluation management of this patient with potential hemothorax. History is obtained from review of electronic medical record, discussion with the admitting service and discussion with the patient. The patient is an 89-year-old female who suffered a fall 11/25. She had 8 rib fractures and was transferred to [facility]. She was discharged after about 2 weeks in the hospital. She was discharged on oxycodone for pain. She was noted by her primary care provider to have an abnormal urinalysis. She was prescribed Bactrim. She was placed back on Eliquis for atrial fibrillation and admitted to our facility 11/30/2024 with a diagnosis of acute blood loss UTI and acute kidney injury. She had serial x-rays performed which demonstrated an increasing right-sided pleural effusion which prompted pulmonary consultation. The patient reports discomfort on the right side which has been present since admission. She is not coughing or expectorating phlegm. No fevers or chills. She is mildly tachycardic. Her hemoglobin has been low. Allergies Allergy/AdvReac Type Severity Reaction Status Date / Time scopolamine AdvReac Severe Confusion, Verified 11/30/24 15:23 [From Transderm-Scop] urinary retention oxycodone AdvReac Intermediate "SPACEY" Verified 11/30/24 15:23 Home Medications Medication Instructions Recorded Confirmed Type cholecalciferol (vitamin D3) 125 5,000 units PO QAM 12/16/17 11/30/24 History mcg (5,000 unit) capsule ascorbic acid (vitamin C) 1,000 mg 1 gm PO QAM 12/14/18 11/30/24 History tablet hawthorn rich 565 mg capsule 565 mg PO Q OTHER DAY 12/14/18 11/30/24 History lutein 20 mg capsule 20 mg PO Q OTHER DAY 12/14/18 11/30/24 History vitamin E (dl, acetate) 180 mg 400 unit PO DAILY 03/05/21 11/30/24 History (400 unit) capsule latanoprost 0.005 % eye drops 1 drp OPR HS 08/08/21 11/30/24 History H.A. Factors 1 tab PO BID 09/09/22 11/30/24 History Methyl B-12 Folate 2 tab PO DAILY 09/09/22 11/30/24 History coQ10 (ubiquinol) 100 mg capsule 300 mg PO DAILY 09/09/22 11/30/24 History curcumin-phosphatidylcholine 500 500 mg PO DAILY 09/09/22 11/30/24 History mg capsule apixaban 5 mg tablet (Eliquis) 5 mg PO BID #180 tabs 04/29/24 11/30/24 Rx metformin 500 mg tablet 500 mg PO DAILY #90 tabs 09/28/24 11/30/24 Rx Arthritis Formula Tab 2 tab PO DAILY 10/05/24 11/30/24 History calcium 600 mg (as 1 cap PO DAILY 10/05/24 11/30/24 History carbonate)-vitamin D3 12.5 mcg (500 unit) capsule (Calcium with Vit D3) vitamin K2 100 mcg capsule 100 mcg PO Q OTHER DAY 10/05/24 11/30/24 History metoprolol succinate 25 mg 25 mg PO QAM #90 tabs 10/26/24 11/30/24 Rx tablet,extended release 24 hr celecoxib 100 mg capsule (Celebrex) 100 mg PO BID 11/23/24 11/30/24 History methocarbamol 500 mg tablet 500 mg PO TID 11/23/24 11/30/24 History oxycodone 5 mg tablet 1.25 mg PO .Q5HR PRN Pain 11/23/24 11/30/24 History sulfamethoxazole 800 1 tab PO BID 7 days #14 tabs 11/25/24 11/30/24 Rx mg-trimethoprim 160 mg tablet (Bactrim DS) acetaminophen 500 mg tablet 1,000 mg PO Q8H 11/30/24 11/30/24 History (Tylenol Extra Strength) ferrous sulfate 325 mg (65 mg 325 mg PO DAILY 11/30/24 11/30/24 History iron) tablet gabapentin 100 mg capsule 100 mg PO AMHS 11/30/24 11/30/24 History Patient History Medical History Osteoarthritis Type 2 diabetes mellitus On continuous oral anticoagulation Atrial fibrillation, permanent Carotid artery stenosis Focal severe stenosis within the left P2 segment which has progressed. Calcified plaque within the right carotid bifurcation resulting in up to 70% focal stenosis. Pacemaker 2020- medtronic, last checked 11/2022 Hypertension controlled, stable per pt CKD (chronic kidney disease) stage 3, GFR 30-59 ml/min Post herpetic neuralgia Expressive aphasia Syncope Anaplasmosis Atrial fibrillation with RVR Multiple pulmonary nodules determined by computed tomography of lung 12/2022 follows w/ Dr Dino devi; states nodules are "shrinking". No further f/u per Pulmonary 09/2023 Chronic thoracic back pain denies change or worsening Surgical History S/P total knee arthroplasty History of permanent cardiac pacemaker placement Hx of colonoscopy History of cataract surgery History of knee surgery left 04/2023 PS Micheline Micradha Roberts History of tonsillectomy Family History Mother Dementia Hypertension Diabetes Father Diabetes Coronary heart disease Social History Smoking Status: Never smoker Second Hand Exposure: No; Do You Dip or Chew Tobacco: No; Hx Alcohol Use: No Hx Substance Use: No Preferred Language: Romanian Communication Ability: Effective Visual Impairment: Diminished Hearing Ability: Use of Hearing Aid Sandblaster Glass Required: No Beliefs That Will Affect Care: None marital status: Single Current Living Situation: Significant Other Current Living Situation Comment: with Friend current occupational status: retired current occupation: Patient retired age 58, [employer]. Feels Safe at Home: Yes and No Is there a partner from a previous relationship who is making you feel unsafe now?: No Childhood Exposure to Second-Hand Smoke: No Diet: regular Diet Comment: healthy caffeine: No Dental Care, Regularly: Yes Physical Activity Frequency: 1-2 Times per Week Seatbelt Use: always Sunscreen Use: Yes Assistive Devices: Walker Review of Systems Review of Systems: Please refer to hospitalist note for full detail Physical Exam Constitutional: WD/WN, vitals as above Neck: trachea midline, no thyromegaly Respiratory: no respiratory distress, no labored breathing, no cough and not tachypneic Auscultation: + diminished lung sounds Decreased breath sounds at the right lung base Cardiovascular: RRR, no murmur, no edema Chest (Breasts): Additional Comments: Significant ecchymoses at the right chest wall Gastrointestinal (Abdomen): normal bowel sounds, soft, nontender, no hepatosplenomegaly Musculoskeletal: Extremities: extremities normal to inspection Skin: no rashes, warm and dry Neurologic: Nonfocal exam Lymphatic: no cervical lymphadenopathy Results & Data Results & Data Vital Signs (Past 12 Hours) Vital Signs Temp Pulse Resp BP Pulse Ox O2 Del Method 12/04/24 09:32 Room Air 12/04/24 07:49 37.2 C 104 H 18 138/63 94 Room Air 12/04/24 03:55 36.6 C 101 H 17 145/73 H 94 Room Air Critical Care Results & Data Vital Signs (Past 12 Hours) Vital Signs Temp Pulse Resp BP Pulse Ox O2 Del Method 12/04/24 09:32 Room Air 12/04/24 07:49 37.2 C 104 H 18 138/63 94 Room Air 12/04/24 03:55 36.6 C 101 H 17 145/73 H 94 Room Air Lab & Micro Results (Past 24 Hours) RBC 3.16 M/uL (4.20-5.40) L 12/04/24 WBC 11.01 K/ul (4.8-10.8) H 12/04/24 Hgb 8.5 g/dl (12.0-16.0) L 12/04/24 Hct 27.7 % (37.0-47.0) L 12/04/24 MCV 87.7 fL (80.0-100.0) 12/04/24 MCH 26.9 pg (25.0-34.0) 12/04/24 MCHC 30.7 g/dL (32.0-36.0) L 12/04/24 RDW Standard Deviation 53.2 fL (36.4-46.3) H 12/04/24 RDW Coefficient of Variation 17.1 % (11.5-14.5) H 12/04/24 Plt Count 460 K/uL (130-400) H 12/04/24 MPV 8.7 fL (9.4-12.4) L 12/04/24 Na 136 mmol/L (136-145) 12/04/24 K 4.3 mmol/L (3.5-5.1) 12/04/24 Cl 106 mmol/L (98-107) 12/04/24 CO2 20 mmol/L (21-32) L 12/04/24 Anion Gap 10 (3-11) 12/04/24 BUN 28 mg/dl (6-23) H 12/04/24 Creatinine 1.06 mg/dl (0.6-1.2) 12/04/24 BUN/Creatinine Ratio 26.4 (10-20) H 12/04/24 Glu 156 mg/dl (70-99(Fasting)) H 12/04/24 Ca 9.2 mg/dl (8.6-10.3) 12/04/24 Calcium Level 9.2 mg/dl (8.6-10.3) 12/04/24 07:16 Diagnostic Findings (Past 24 Hours) Chest X-Ray 12/03/24 16:11 Technique: A frontal view of the chest was obtained Comparison is made up our examination dated 12/01/2024 Findings: There is an increased moderate to large right pleural effusion. There is suspected right lung base atelectasis. The heart is mildly enlarged. There is a left chest wall pacemaker device. No definite left pleural effusion or pneumothorax is seen. There are multiple unchanged right rib fractures Impression: 1. Increased moderate to large pleural effusion with right lung base atelectasis 2. Mild cardiomegaly 3. Multiple unchanged right rib fractures ACT 112: Positive. There are findings on this exam that require communication between the performing entity and the patient following Patient Test Result Information Act ([place] ACT 112) guidelines. Electronically signed by Joaquín Perrin 12-03-2024 5:06 PM I & O Totals 24 Hours 12/03/24 12/04/24 12/05/24 06:59 06:59 06:59 Intake Total 1200 / 1200 740 / 740 Balance 1200 / 1200 740 / 740 Cumulative 11/30/24 13:01 thru 12/04/24 06:00 Intake Total 4255.333 Balance 4255.333 RT Ventilator Mngmt (Last Documented) Ventilator Ordered Settings Respiratory Rate 18 12/04/24 07:49 Ventilator - PT Measurements Respiratory Rate 18 PG Care Time/CCT Total # of Minutes Spent Total Time Spent with Patient: Total time spent is greater than 50% in coordination of care (as documented) at patient's floor/unit and/or counseling patient: Coding Level of Care Code 55994 INT INP/OBS CARE 3/75MIN Diagnoses Pleural effusion J90 Multiple fractures of ribs of right side S22.41XA
--- NOTE | 2024-12-04 11:45 | Procedure Note ---
Procedure Note Date of Service December 04, 2024 Procedure: 14 Niuean pigtail catheter placement, right Indication: Complicated effusion, possible hemothorax Consent risk and benefits were discussed with the patient. She agreed. Written consent was verified prior to commencement of the procedure. Chlorinator Operator Dr. Cabral Estimated blood loss: Less than 5 mL Anesthesia: 10 mL 1% lidocaine without epinephrine locally. Procedure: Patient had sustained multiple rib fractures and a fall previously about a month ago. She was hospitalized at [place]. She was admitted this time to our facility with weakness and possible UTI. Chest x-ray demonstrated an increasing effusion and ultrasound demonstrated multiple loculations. The patient was placed in a upright seated position. Limited thoracic ultrasound was performed which revealed a complex fluid collection on the right. No significant effusion on the left. Site appropriate for pigtail catheter placement was marked. Sterile field was established. Skin was anesthetized using lidocaine. The muscle and deeper soft tissues were anesthetized using a finder needle. With the finder needle under direct ultrasound visualization I was aspirated to aspirate bloody fluid. The finder needle was then withdrawn. A small skin brian was made with a scalpel. An 18-gauge needle was then advanced on a similar line until I was able to aspirate bloody fluid. The syringe was withdrawn leaving the needle in place. A wire was passed through the needle and then the needle was withdrawn leaving the wire in the pleural space. A skin brian was made. A 14 Niuean dilator was then passed over the wire to dilate the skin and soft tissues. This passed with ease. The dilator was removed leaving the wire in place. A 14 Niuean pigtail catheter was then loaded on a straightening catheter and advanced over the wire into the pleural space. The stiffening catheter and wire were removed leaving the pigtail catheter in place. The locking mechanism was secured. A three-way stopcock was attached. The tube was attached to suction with a removal of about 700 cc of bloody fluid. An additional 200 cc of bloody fluid was collected for microbiologic and cytologic analysis. A skater catheter fixation system was attached to the chest wall and the catheter secured. Catheter was attached to suction at 20 cm of water. Post procedure chest x-ray is pending. The patient tolerated the procedure well. [facility] [place]odes (Charges) Pulmonary/Thoracic Procedure 1: Pulmonary and Thoracic: 07851 Pleural drainage w/imaging Coding CPT Codes Pulmonary/Thoracic - Pulmonary and Thoracic: 33190 Pleural drainage w/imaging ([id number]) Additional Codes Date of Service ([email or web address])
[2024-12-04] MEDS: KETOROLAC TROMETHAMINE 15 MG/ML VIAL IV ONE ×2 (11:47→22:57)
--- NOTE | 2024-12-04 11:52 | XRay Report ---
Clinical History: Chest tube placement Technique: A frontal view of the chest was obtained Comparison is made to the prior examination dated 12/03/2024 Findings: There is right lower lobe opacity, likely due to atelectasis. The heart size is at the upper limit of normal. No definite pneumothorax is seen. There is a small right pleural effusion, decrease in size. There is a new chest tube with its tip in the right lung base There are mildly displaced fractures of the right fourth and fifth ribs. There are additional suspected right rib fractures as well. There is a left chest wall pacemaker device Impression: 1. Interval decrease in size of a right pleural effusion after placement of a right-sided chest tube 2. Multiple right rib fractures 3. Right lung base opacity, likely due to atelectasis ACT 112: Positive. There are findings on this exam that require communication between the performing entity and the patient following Patient Test Result Information Act ([place] ACT 112) guidelines. Electronically signed by Joaquín Perrin 12-04-2024 11:51 AM
[2024-12-04 12:49] LABS: Appearance Pleural Fluid Cloudy; Basophils, Fluid 5 %; Color Pleural Fluid Red; Eosinophils, Fluid 10 %; Lymphocytes, Fluid 43 %; Mono,Macrophage,Mesothelial 21 %; Neutrophils, Fluid 21 %; RBC Pleural Fluid Auto 197000 /uL; Source Pleural Fluid Right Lung; WBC Pleural Fluid Auto 1228 /uL
[2024-12-04] MEDS: ACETAMINOPHEN 1,000 MG/100 ML VIAL IV STA (13:51)
--- NOTE | 2024-12-04 14:59 | Hospitalist Progress Note ---
Date of Service December 04, 2024 Assessment & Plan (1) Multiple fractures of ribs of right side: (2) UTI (urinary tract infection): (3) Atrial fibrillation, permanent: (4) Type 2 diabetes mellitus: (5) CKD (chronic kidney disease) stage 3, GFR 30-59 ml/min: Plan 89 yo F presenting with generalized weakness, dehydration, UTI, armida on CKD, anemia d/t traumatic hematoma and rib fxs that occurred on 11/04/24. # Enlarging right pleural effusion - said to have had small hemothorax when treated at [facility]. - consulted pulmonary Dr. Cabral who placed chest tube this morning - 850 mL out so far and CXR much improved - pleural fluid studies notable for bloody, normal glucose and pH, gram stain mod WBC no orgs, culture pending - chest tube management per pulmonary - judicious IV toradol, IV/po APAP, IV morphine for acute pain - has been tolerating low dose morphine without confusion or hallucinations # Rib fractures Significant pain from rib fractures. - Scheduled Tylenol, gabapentin, and muscle relaxer somewhat effective. - Has not tolerated tramadol or low dose oxycodone - Continue physical and occupational therapy to improve strength and stability. PT rec home with . # Acute blood loss anemia Baseline Hg was 13. Has been stable at 8. remains stable - reviewed iron stores - ferritin elevated c/w inflammatory block. Serum iron moderately low at 19 - appropriate to continue oral iron q48h at this time - reactive thrombocytosis noted # Urinary tract infection Urine culture with lam sensitive E. coli. Blood Cx ngtd - treated with three days of ceftriaxone, which is enough for simple cystitis #ARMIDA on CKD - Gentle IVF hydration - Cr improved to 1 which is baseline - caution with NSAIDS #persistent mastication and difficulty initiating swallow, not specifically dysphagia and no odynophagia or regurgitation - no evidence on exam of prior stroke or Parkinson's. Seems forgetful or vague at times. - doing better on pureed texture, BOOSTs ordered - ST consulted - pharyngeal phase dysphagia and persistent mastication. Often seen in dementia and has cognitive deficits c/w MCI or dementia - trialing minced/moist - TSH, B12 were both normal and B1 pending - outpatient neurology referral #Concern over tickborne disease. Not having specific Sx other than FTT. I am not very suspicious of this, but tickborne illness very prevalent in the area. -lyme negative, darrion/bab smears negative -darrion/bab DNA, ehrlichia DNA pending #DMT2 - Last a1c 6.5% in Oct 2024, but only takes Metformin 500mg daily, therefore primarily diet controlled - Hold Metformin - BG at goal #Chronic Afib - Controlled ventricular rate, continue Metoprolol XL as noted above - Hold Eliquis. Risks and benefits of holding DOAC were discussed with her on admission, diane stroke risk vs further bleeding - continue to hold DVT prophylaxis: SCDs, DOAC held PT/OT evaluations: PT rec home with home health. Planned for home with [facility] for PT, OT and ST. I updated her partner Yoana by phone 12/03 Admission and Anticipated Discharge Date Admission Date: November 30, 2024 Subjective Right now having significant amount of pain from chest tube site. Just had dose IV APAP few minutes ago. Had toradol at time of tube placement 850 mL output from chest tube Physical Exam Physical Exam: General Appearance: frail appearing lying flat on bed Vital signs: Within normal limits. HEENT: moist mm Respiratory: CTA bilaterally anteriorly, right lateral chest wall with chest tube draining bloody fluid Back, Musculoskeletal: large hematoma right flank with evolving ecchymosis unchanged. Skin: Warm and dry, no rash. Neurological: face symmetric, oriented to situation, maewx4, no tremor Psychiatric: Normal. Results & Data Results & Data Vital Signs (Past 12 Hours) Vital Signs Temp Pulse Resp BP Pulse Ox O2 Del Method 12/04/24 12:09 36.6 C 96 H 18 134/84 98 Room Air 12/04/24 09:32 Room Air 12/04/24 07:49 37.2 C 104 H 18 138/63 94 Room Air 12/04/24 03:55 36.6 C 101 H 17 145/73 H 94 Room Air Laboratory Results - Laboratory Studies: - WBC: 11 - Hemoglobin: 8.5 (stable compared to admission: 8.7) - Platelet count: 460 CXR yesterday eveining (personally reviewed film) - R pleural effusion significantly increased in size CXR today (personally reviwed film) - right sided chest tube, pleural effusion much improved now fairly small, no pneumothorax PG Care Time/CCT Total # of Minutes Spent Total Time Spent with Patient: Total time spent is greater than 50% in coordination of care (as documented) at patient's floor/unit and/or counseling patient: Coding Level of Care Code 15103 SUB INP/OBS CARE 350MIN Diagnoses Multiple fractures of ribs of right side S22.41XA UTI (urinary tract infection) N39.0 Atrial fibrillation, permanent I48.21 Type 2 diabetes mellitus E11.9 CKD (chronic kidney disease) stage 3, GFR 30-59 ml/min N18.30
--- NOTE | 2024-12-05 08:15 | Pulmonology Progress Note ---
Date of Service December 05, 2024 Assessment & Plan (1) Pleural effusion: (2) Multiple fractures of ribs of right side: Plan Impression: 89-year-old female with recent fall and multiple rib fractures presenting now with increasing pleural effusion. She is status post 14 Romanian pigtail catheter placement on the right 12/04/2024 Recommendation: 1. Complicated pleural effusion: Pleural fluid characteristics are exudative, likely secondary to the patient's prior rib fractures. X-ray remains abnormal today. Discussed mist 2 with the patient including potential risk of increased/persistent bleeding. She is agreeable to proceed as she would like to avoid surgical intervention. Will pursue half dose alteplase with dornase protocol and continue to follow output and chest x-rays. Await pleural fluid Gram stain and culture as well as cytology. 2. Rib fractures: Continue pain management strategy. Would consider anesthesia consultation for rib blocks if problematic. Next of the opportunity participate in care of this patient. Will continue to follow with you. Feel free to contact us with questions or concerns Admission and Anticipated Discharge Date Admission Date: November 30, 2024 Subjective Patient seen and examined. EMR reviewed. The patient reports that she is currently doing well. She woke up this morning with significant pain but this resolved with pain medications. She states she is breathing okay currently. Pain is adequately controlled. No fevers chills or night sweats overnight Review of Systems 2 Review of Systems: All systems reviewed & are unremarkable except as noted in Subjective Physical Exam 2 Constitutional: WD/WN, vitals as above Neck: trachea midline, no thyromegaly Respiratory: no respiratory distress, no labored breathing, no cough and not tachypneic Auscultation: + diminished lung sounds Cardiovascular: RRR, no murmur, no edema Gastrointestinal (Abdomen): normal bowel sounds, soft, nontender, no hepatosplenomegaly Musculoskeletal: Extremities: extremities normal to inspection Skin: no rashes, warm and dry Lymphatic: no cervical lymphadenopathy Results & Data Results & Data Vital Signs (Past 12 Hours) Vital Signs Temp Pulse Pulse Resp BP Pulse Ox O2 Del Method 12/05/24 04:16 36.7 C 92 H 18 125/69 94 Room Air 12/05/24 01:19 103 H 12/04/24 22:09 36.7 C 88 16 185/70 H 92 Room Air 12/04/24 22:08 Room Air Laboratory Results 12/04/24 07:16 12/04/24 07:16 Pleural fluid studies: Differential: 21% neutrophils, 43% lymphocytes, 10% eosinophils, 5% basophils, and 21% mesothelial cells pH 7.38 Total protein 3.7 LDH 463 Glucose 160 Gram stain and culture pending Cytology pending Diagnostic Findings Chest x-ray today chest tube in good position. There are some residual hazy opacity at the right lung base consistent with persistent fluid PG Care Time/CCT Total # of Minutes Spent Total Time Spent with Patient: Total time spent is greater than 50% in coordination of care (as documented) at patient's floor/unit and/or counseling patient: Coding Level of Care Code 91390 SUB INP/OBS CARE 2/35MIN Diagnoses Pleural effusion J90 Multiple fractures of ribs of right side S22.41XA
--- NOTE | 2024-12-05 08:21 | XRay Report ---
EXAM: Radiograph of the Chest 1 View INDICATION: Follow-up infiltrates TECHNIQUE: Frontal view of the chest. Image obtained at 6:35 AM COMPARISON: 12/03/2024 FINDINGS: Lungs and pleural spaces: Decreased right pleural effusion. No pneumothorax. Persistent but improved consolidation in the right base. Heart: Stable enlargement and right ventricular pacing device. Mediastinum: Normal contour. Bones/joints: No fracture, erosion or dislocation. Soft tissues: No abnormality noted. No radiopaque foreign body noted. Tubes, lines and devices: Right basilar pleural drain has been placed. Upper abdomen: No abnormality noted. IMPRESSION: Decreased right pleural effusion and atelectasis following chest tube placement. No visible pneumothorax. ACT 112: N/A Electronically signed by Carolina Ruiz 12-05-2024 08:20 AM
[2024-12-05] MEDS: ALTEPLASE IPL SCH (08:56)
[2024-12-05] MEDS: RECOMBINANT IPL SCH (08:56)
[2024-12-05] MEDS: DORNASE ALFA 5 ML in SYRINGE 25 ML IPL SCH (10:18)
--- NOTE | 2024-12-05 17:10 | Hospitalist Progress Note ---
Date of Service December 05, 2024 Assessment & Plan (1) Multiple fractures of ribs of right side: (2) UTI (urinary tract infection): (3) Atrial fibrillation, permanent: (4) Type 2 diabetes mellitus: (5) CKD (chronic kidney disease) stage 3, GFR 30-59 ml/min: Plan 89 yo F presenting with generalized weakness, dehydration, UTI, armida on CKD, anemia d/t traumatic hematoma and rib fxs that occurred on 11/04/24. # Enlarging right pleural effusion - said to have had small hemothorax when treated at [facility]. - consulted pulmonary Dr. Cabral who placed chest tube 12/04, lytics 12/05 with good output so far - pleural fluid studies notable for bloody, normal glucose and pH, gram stain mod WBC no orgs, culture pending - chest tube management per pulmonary - judicious IV toradol, IV/po APAP, IV morphine for acute pain - has been tolerating low dose morphine without confusion or hallucinations # Rib fractures Significant pain from rib fractures. - Scheduled Tylenol, gabapentin, and muscle relaxer somewhat effective. - Has not tolerated tramadol or low dose oxycodone - Continue physical and occupational therapy to improve strength and stability. PT rec home with . # Acute blood loss anemia Baseline Hg was 13. Has been stable at 8. remains stable - reviewed iron stores - ferritin elevated c/w inflammatory block. Serum iron moderately low at 19 - appropriate to continue oral iron q48h at this time - reactive thrombocytosis noted - AM CBC # Urinary tract infection Urine culture with lam sensitive E. coli. Blood Cx ngtd - treated with three days of ceftriaxone, which is enough for simple cystitis #ARMIDA on CKD - Gentle IVF hydration - Cr improved to 1 which is baseline - caution with NSAIDS #persistent mastication and difficulty initiating swallow, not specifically dysphagia and no odynophagia or regurgitation - no evidence on exam of prior stroke or Parkinson's. Seems forgetful or vague at times. - doing better on pureed texture, BOOSTs ordered - ST consulted - pharyngeal phase dysphagia and persistent mastication. Often seen in dementia and has cognitive deficits c/w MCI or dementia - oral intake much better on pureed - TSH, B12 were both normal and B1 pending - outpatient neurology referral #Concern over tickborne disease. Not having specific Sx other than FTT. I am not very suspicious of this, but tickborne illness very prevalent in the area. -lyme negative, darrion/bab smears negative -darrion/bab DNA, ehrlichia DNA pending #DMT2 - Last a1c 6.5% in Oct 2024, but only takes Metformin 500mg daily, therefore primarily diet controlled - Hold Metformin - BG at goal #Chronic Afib - Controlled ventricular rate, continue Metoprolol XL as noted above - Hold Eliquis. Risks and benefits of holding DOAC were discussed with her on admission, diane stroke risk vs further bleeding - continue to hold DVT prophylaxis: SCDs, DOAC held PT/OT evaluations: PT rec home with home health. Planned for home with [facility] for PT, OT and ST. I updated her partner Yoana by phone 12/03, 12/04. In the room 12/05 Admission and Anticipated Discharge Date Admission Date: November 30, 2024 Subjective getting MIST-2 today and had 400 mL out after that so far severe R chest pain early AM relieved by morphine IV. Now comfortable and pain mild, not dyspneic Physical Exam 2 Physical Exam: General Appearance: frail appearing lying flat on bed Vital signs: Within normal limits. HEENT: moist mm Respiratory: normal WOB, R chest tube eyal-aid color drainage, 1275 output since placement Back, Musculoskeletal: large hematoma right flank with evolving ecchymosis unchanged. Skin: Warm and dry, no rash. Neurological: face symmetric, oriented to situation, maewx4, no tremor Psychiatric: Normal. Results & Data Results & Data Vital Signs (Past 12 Hours) Vital Signs Temp Pulse Resp BP Pulse Ox O2 Del Method 12/05/24 15:29 36.7 C 95 H 20 149/83 H 93 Room Air 12/05/24 11:13 36.4 C L 86 17 130/79 97 Room Air 12/05/24 09:31 Room Air 12/05/24 08:11 36.8 C 90 18 116/67 95 Room Air Laboratory Results 12/04/24 07:16 12/04/24 07:16 CXR - persistent small R pleural effusion, chest tube in place Rt lower chest. personally reviewed film PG Care Time/CCT Total # of Minutes Spent Total Time Spent with Patient: Total time spent is greater than 50% in coordination of care (as documented) at patient's floor/unit and/or counseling patient: Coding Level of Care Code 05375 SUB INP/OBS CARE 2/35MIN Diagnoses Multiple fractures of ribs of right side S22.41XA UTI (urinary tract infection) N39.0 Atrial fibrillation, permanent I48.21 Type 2 diabetes mellitus E11.9 CKD (chronic kidney disease) stage 3, GFR 30-59 ml/min N18.30
--- NOTE | 2024-12-06 08:25 | XRay Report ---
EXAM: XR chest 1V portable CLINICAL HISTORY: Chest tube ? MIST 2 protocol TECHNIQUE: An X-ray image of the chest was obtained in the AP projection. COMPARISON: Prior chest X-ray dated 12/05/2024. FINDINGS: Pulmonary Parenchyma: There is mild regression of the previously noted right pleural effusion. There is mild regression of the right lower lung zone airspace opacification. A right chest tube is still noted, with its tip in the lower zone. The left lung remains clear, showing no evidence of consolidation, collapse, or focal opacities. There is no evidence of left pleural effusion. Heart and Mediastinum: The heart is enlarged (unchanged). There is no mediastinal widening or masses. There is no hilar or mediastinal lymphadenopathy. Atheromatous calcifications are present in the arch of the aorta (unchanged). A cardiac pacemaker with right ventricular lead is present (unchanged). Bony Thorax: There are multiple fractures in the right posterior upper ribs and anterior lateral lower ribs. Degenerative changes of the scanned spine are unchanged. Soft Tissues: The soft tissues overlying the chest wall are unremarkable. EKG leads are projected over the chest wall (unchanged). IMPRESSION: 1. Stable position of the right chest tube, with the tip in the lower zone. 2. Mild regression of the previously noted right pleural effusion. 3. Mild regression of the previously noted right lower lung zone opacification. 4. Cardiomegaly. Electronically signed by Adan Mcgee 12-06-2024 08:24 AM
--- NOTE | 2024-12-06 09:27 | Pulmonology Progress Note ---
Date of Service December 06, 2024 Assessment & Plan (1) Pleural effusion: (2) Multiple fractures of ribs of right side: (3) Chest pain: (4) Chest tube in place: Plan Impression: 89-year-old female with recent fall and multiple rib fractures presenting now with increasing pleural effusion. She is status post 14 Bhutanese pigtail catheter placement on the right 12/04/2024 Recommendation: Patient has had excellent output from the right pigtail catheter. Will hold on additional tPA or dornase today. Repeat chest x-ray tomorrow and if drainage is under 150 mL and chest x-ray appears stable, then we will discontinue the drain. Continue on suction. Pain control per primary team. Follow-up cultures from pleural fluid and cytology from pleural fluid. Pleural fluid studies suggest lymphocytosis and exudative process. I personally spent 40 minutes on the date of service in activities related to this patient's encounter, including 30 minutes of counseling with patient regarding treatment plan and 10 minutes of clinical review of lab results and documentation. I did addictions counselor assistant the patient regarding their diagnosis and treatment plan and they expressed understanding. This note was dictated using voice recognition software and may include grammatical errors, extra words, word substitutions and other inaccuracies due to errors in the voice recognition software and differences in speech patterns. Admission and Anticipated Discharge Date Admission Date: November 30, 2024 Subjective Patient complains of pain around the chest tube insertion site and is going to receive morphine her nursing protocol as the medications are already ordered by her prior provider. She notes that her shortness of breath is improved. She denies any fevers, chills or night sweats. Review of Systems Review of Systems: All systems reviewed & are unremarkable except as noted in HPI & below Physical Exam Constitutional: WD/WN, vitals as above Neck: trachea midline, no thyromegaly Respiratory: no respiratory distress, no labored breathing, no cough and not tachypneic Auscultation: + diminished lung sounds Cardiovascular: RRR, no murmur, no edema Gastrointestinal (Abdomen): normal bowel sounds, soft, nontender, no hepatosplenomegaly Musculoskeletal: Extremities: extremities normal to inspection Skin: no rashes, warm and dry (Right-sided pigtail catheter in place and is clean dry and intact) Lymphatic: no cervical lymphadenopathy Results & Data Results & Data Vital Signs (Past 12 Hours) Vital Signs Temp Pulse Resp BP Pulse Ox O2 Del Method 12/06/24 07:12 36.4 C L 111 H 18 125/76 95 Room Air 12/06/24 03:19 36.4 C L 93 H 20 132/81 95 Room Air 12/05/24 23:29 36.5 C 99 H 18 151/75 H 93 Room Air 12/05/24 22:51 Room Air PG Care Time/CCT Total # of Minutes Spent Total Time Spent with Patient: Total time spent is greater than 50% in coordination of care (as documented) at patient's floor/unit and/or counseling patient: Coding Level of Care Code 58134 SUB INP/OBS CARE 2/35MIN Diagnoses Pleural effusion J90 Multiple fractures of ribs of right side S22.41XA Chest pain R07.[address] Z96.89
--- NOTE | 2024-12-06 17:09 | Hospitalist Progress Note ---
Date of Service December 06, 2024 Assessment & Plan (1) Multiple fractures of ribs of right side: (2) UTI (urinary tract infection): (3) Atrial fibrillation, permanent: (4) Type 2 diabetes mellitus: (5) CKD (chronic kidney disease) stage 3, GFR 30-59 ml/min: Plan 89 yo F presenting with generalized weakness, dehydration, UTI, armida on CKD, anemia d/t traumatic hematoma and rib fxs that occurred on 11/04/24. # Enlarging right pleural effusion - said to have had small hemothorax when treated at [facility]. - consulted pulmonary Dr. Cabral who placed chest tube 12/04, lytics 12/05 with good output so far - pleural fluid studies exudative - notable for bloody, normal glucose and pH, gram stain mod WBC no orgs, culture ngtd - chest tube management per pulmonary - good result with lytics - possible CT removal tomorrow per pulm recs - judicious IV toradol, IV/po APAP, IV morphine for acute pain - has been tolerating low dose morphine without confusion or hallucinations # Rib fractures Significant pain from rib fractures. - Scheduled Tylenol, gabapentin, and muscle relaxer somewhat effective. - Has not tolerated tramadol or low dose oxycodone - Continue physical and occupational therapy to improve strength and stability. PT rec home with . - PT reeval once chest tube out # Acute blood loss anemia Baseline Hg was 13. Has been stable at 8. remains stable - reviewed iron stores - ferritin elevated c/w inflammatory block. Serum iron moderately low at 19 - appropriate to continue oral iron q48h at this time - reactive thrombocytosis noted - AM CBC # Urinary tract infection Urine culture with lam sensitive E. coli. Blood Cx ngtd - treated with three days of ceftriaxone, which is enough for simple cystitis #ARMIDA on CKD - resovled - Cr improved to 1 which is baseline - caution with NSAIDS #persistent mastication and difficulty initiating swallow, not specifically dysphagia and no odynophagia or regurgitation - no evidence on exam of prior stroke or Parkinson's. Seems forgetful or vague at times. - doing better on pureed texture, BOOSTs ordered - ST consulted - pharyngeal phase dysphagia and persistent mastication. Often seen in dementia and has cognitive deficits c/w MCI or dementia - oral intake much better on pureed - TSH, B12 were both normal and B1 pending - outpatient neurology referral #Concern over tickborne disease. Not having specific Sx other than FTT. I am not very suspicious of this, but tickborne illness very prevalent in the area. -lyme negative, darrion/bab smears negative -darrion/bab DNA, ehrlichia DNA pending #DMT2 - Last a1c 6.5% in Oct 2024, but only takes Metformin 500mg daily, therefore primarily diet controlled - Hold Metformin - BG at goal #Chronic Afib - Controlled ventricular rate, continue Metoprolol XL as noted above - Hold Eliquis. Risks and benefits of holding DOAC were discussed with her on admission, diane stroke risk vs further bleeding - continue to hold DVT prophylaxis: SCDs, DOAC held PT/OT evaluations: PT rec home with home health. Planned for home with [facility] for PT, OT and ST. I updated her partner Yoana by phone 12/03, 12/04. In the room 12/05 Admission and Anticipated Discharge Date Admission Date: November 30, 2024 Subjective Very good result with lytics - 1100 out following MIST R chest wall pain at tube site improved today Breathing is OK Physical Exam 2 Physical Exam: General Appearance: frail appearing lying flat on bed Vital signs: Within normal limits. HEENT: moist mm Respiratory: normal WOB, R chest tube drainage clearer more straw colored Back, Musculoskeletal: large hematoma right flank with evolving ecchymosis unchanged. Skin: Warm and dry, no rash. Neurological: sleepy Psychiatric: Normal. Results & Data Results & Data Vital Signs (Past 12 Hours) Vital Signs Temp Pulse Pulse Resp BP Pulse Ox O2 Del Method 12/06/24 16:53 82 12/06/24 15:42 36.4 C L 96 H 19 114/55 L 93 Room Air 12/06/24 10:49 36.5 C 92 H 18 99/63 L 98 Room Air 12/06/24 09:47 90 12/06/24 09:47 Room Air 12/06/24 07:12 36.4 C L 111 H 18 125/76 95 Room Air Laboratory Results 12/04/24 07:16 12/04/24 07:16 CXR - personally reviewed film - R pleural effusion and atelectasis improved, R lower chest tube in place PG Care Time/CCT Total # of Minutes Spent Total Time Spent with Patient: Total time spent is greater than 50% in coordination of care (as documented) at patient's floor/unit and/or counseling patient: Coding Level of Care Code 42812 SUB INP/OBS CARE MIN Diagnoses Multiple fractures of ribs of right side S22.41XA UTI (urinary tract infection) N39.0 Atrial fibrillation, permanent I48.21 Type 2 diabetes mellitus E11.9 CKD (chronic kidney disease) stage 3, GFR 30-59 ml/min N18.30
[2024-12-07 06:39] LABS: Hematocrit (blood only) 25.5 % (37.0-47.0); Hemoglobin 8.3 g/dl (12.0-16.0); Mean Corpuscular Hemoglobin 27.9 pg (25.0-34.0); Mean Corpuscular Volume 85.9 fL (80.0-100.0); Platelet Count 463 K/uL (130-400); RDW Standard Deviation 50.3 fL (36.4-46.3); Red Blood Count 2.97 M/uL (4.20-5.40); White Blood Count 9.82 K/ul (4.8-10.8)
[2024-12-07 07:13] LABS: Anion Gap 8.0 (3-11); Blood Urea Nitrogen 37.0 mg/dl (6-23); Calcium 9.1 mg/dl (8.6-10.3); Carbon Dioxide 20.0 mmol/L (21-32); Chloride 107.0 mmol/L (98-107); Creatinine Clr Calc Pharmacy 33.0 ml/min; Glucose 126.0 mg/dl (70-99(Fasting)); Potassium 4.2 mmol/L (3.5-5.1); Sodium 135.0 mmol/L (136-145)
--- NOTE | 2024-12-07 08:06 | XRay Report ---
EXAM: XR chest 1V portable CLINICAL HISTORY: Chest tube. TECHNIQUE: An X-ray image of the chest was obtained in the AP projection. COMPARISON: Comparison is made with the prior examination dated 12/06/2024. FINDINGS: Pulmonary Parenchyma: There is a mildly decreased small right pleural effusion compared to the prior examination. There are hazy opacities in the right lower lung zone, which are mildly decreased since the prior examination. The right intercostal pigtail drainage catheter is stable, with its tip in the lower zone. The left lung remains clear, showing no evidence of consolidation, collapse, or focal opacities. There is no evidence of left pleural effusion. Heart and Mediastinum: The heart is enlarged (unchanged). There is no mediastinal widening or mass. There is no hilar or mediastinal lymphadenopathy. Atheromatous calcifications are present in the arch of the aorta (unchanged). A cardiac pacemaker with a right ventricular lead is present (unchanged). Bony Thorax: There are multiple fractures in the right posterior upper ribs and anterior lateral lower ribs. Degenerative changes of the scanned spine are unchanged. Soft Tissues: The soft tissues overlying the chest wall are unremarkable. EKG leads are projected over the chest wall (unchanged). IMPRESSION: 1. The right intercostal pigtail drainage catheter is stable, with its tip in the lower zone. 2. There is interval decreased small right pleural effusion and hazy opacities in the right lower lung zone. 3. Other findings are stable as described above. Electronically signed by Adan Mcgee 12-07-2024 08:06 AM
[2024-12-07 11:08] VITALS: BP 125/71; RESP 16; TEMP 97.9; O2SAT 96
--- NOTE | 2024-12-07 12:54 | Discharge Summary ---
Discharge Summary Date of Service December 07, 2024 Principal Dx & Hospital Course #1 = Principal Diagnosis (1) Hematoma of right chest wall: (2) Pleural effusion: (3) Multiple fractures of ribs of right side: (4) Atrial fibrillation, permanent: (5) Acute kidney injury superimposed on CKD: Plan 89 yo F presenting with generalized weakness, dehydration, UTI, armida on CKD, anemia d/t traumatic hematoma and rib fxs that occurred on 11/04/24. No output from chest tube overnight. Train Announcer removed chest tube this morning. Ludivina reports feeling well today, with no chest discomfort following chest tube removal this morning. Did well with physical therapy today and yesterday, walked 300 feet, after that became fatigued. # Enlarging right pleural effusion - had small hemothorax when initially treated at [facility] for rib fractures in November. - consulted pulmonary Dr. Cabral who placed chest tube 12/04, lytics 12/05 with excellent result. Chest tube removed 12/07. - pleural fluid studies exudative - notable for bloody, normal glucose and pH, gram stain mod WBC no orgs, culture negative. cytology pending. # Right chest wall hematoma causing acute blood loss anemia. Was anticoagulated with apixaban. Held on admission and throughout the hospital course. Hematoma remained stable, pain improved, hematoma now resolving on exam. Hg stable at 8 - ferritin elevated c/w inflammatory block. Serum iron moderately low at 19. appropriate to continue oral iron q48h at this time. Did not require transfusion - reactive thrombocytosis -follow up with primary care for CBC in about a week. If Hg and hematoma still stable, resume apixaban # Rib fractures Significant pain from rib fractures. - Scheduled Tylenol, gabapentin, and muscle relaxer somewhat effective. - Has not tolerated tramadol or low dose oxycodone - Continue physical and occupational therapy to improve strength and stability. PT rec home with . - Pain has improved # Urinary tract infection Urine culture with lam sensitive E. coli. Blood Cx ngtd - treated with three days of ceftriaxone, which is enough for simple cystitis. Asymptomatic #ARMIDA on CKD - Cr improved to 1 which is baseline - caution with NSAIDS #persistent mastication and difficulty initiating swallow, not specifically dysphagia and no odynophagia or regurgitation. Has been going on for many months and impairing her food intake/nutritional status - no evidence on exam of prior stroke or Parkinson's. Seems forgetful or vague at times. - ST consulted - pharyngeal phase dysphagia and persistent mastication. Often seen in dementia and has cognitive deficits c/w MCI or dementia - MUCH better oral intake on pureed texture and minced and moist, BOOSTs ordered - recommended continuing bid protein supplement - TSH, B12 were both normal and B1 pending - outpatient neurology referral #Concern over tickborne disease. Not having specific Sx other than FTT. I am not very suspicious of this, but tickborne illness very prevalent in the area. -lyme negative, darrion/bab smears negative -darrion/bab DNA, ehrlichia DNA pending #DMT2 - Last a1c 6.5% in Oct 2024, but only takes Metformin 500mg daily, therefore primarily diet controlled. Resume metformin #Chronic Afib - Controlled ventricular rate, continue Metoprolol XL as noted above - Apixaban currently held as discussed above. Risks and benefits of holding DOAC were discussed with her on admission, diane stroke risk vs further bleeding - Follow up routinely with Dr. Sifuentes Notes For Next Care Provider Resume apixaban if CBC, chest wall hematoma stable in a week Right chest tube removed 12/07 tickborne PCR studies, B1, cytology pending Admission HPI Per Admitting Provider Ludivina is an 89 yo F with a pmhx of HTN, DMT2, afib on DOAC, s/p PPM, carotid stenosis, CKD stage 3, and OA who presents today as recommended by her PCP, Dr. Che, due to concerns increased bruising on her right side from a traumatic GLF that occurred earlier in the month as well as some increased confusion. She had presented to the ER at [facility] on 11/04 after a fall and was transferred to [facility] [place] as a trauma due to sustaining 8 rib fractures. She was released on 11/17 and discharged home with oxycodone for pain. She was seen by her PCP for hospital follow up on 11/24, partner and neighbor had some concerns wtih confusion and were weaning her off of the Oxycodone. Labs including cbc, chemistry and a a UA was ordered by PCP and reflected growth of pansensitive E. coli and lactobacillus. Her hgb was 8.7 on cbc, there was no leukocytosis or left shift. She was ordered Bactrim for which she has been taking as prescribed for UTI. Family also notes poor oral intake. She has been drinking some of a protein drink and minimal food. She presented today after being counseled by her PCP to go to the ER due to concern for "urosepsis." Pt continues on Eliquis for afib. Her hgb in the ER today is 7.8. Additionally, her chemistry reflects acute on chronic kidney failure with a creatinine of 1.82, baseline ~1.5. PCT minimally elevated at 0.55 and her HS trop is detectable at 26. She denies cp or dyspnea. Her rib pain is controlled, family is requesting that the oxycodone be used in the lowest dose and only sparingly. She denies urinary symptoms. Repeat UA in the ER today is unremarkable. She is afebrile and otherwise hemodynamically stable. She was medicated with a dose of IV Ceftriaxone and a dose of IV Fentanyl for pain control and has been referred to the hospital medicine team for further care. Discharge Exam General Appearance: Normal. Vital signs: Within normal limits. HEENT: Within normal limits. Respiratory: Lungs clear bilaterally anteriorly. Left side clear. Right base diminished with crackles in bottom quarter, breath sounds clear in apex. Cardiovascular: Heart regular with occasional gallop, usual for her. Gastrointestinal: Abdomen soft, nontender. Extremities: No edema in legs. Legs warm, well perfused. Skin: Ecchymosis on right flank and side, improving. Hematoma area less prominent, flattened. Chest tube site dressed with bandage. Neurological: No asterixis. Psychiatric: Normal. Discharge Plan Discharge Items Patient Disposition: Home - Home Health Services Reason For Visit: RIB PAIN, UTI, DEHYDRATION Discharge Diagnosis: Right chest wall hematoma, Right sided complicated pleural effusion Condition on Discharge: Fair Activity: Resume your previous activity Non-emergency contact: Primary Care Provider Call non-emergency contact if: you have any medication questions, you have a fever, your wound has increased redness, your wound has increased drainage and your wound pain has increased Follow-up/Referrals: Rashaun Che DO [Primary Care Provider] - Diet: Regular Diet Comment: minced and moist or pureed Addtl Attending Provider Instructions: You were treated for right sided chest wall hematoma and right sided pleural effusion (fluid in chest cavity) resultant of your previous traumatic injury Pleural effusion was treated with chest tube - the fluid is much improved/resolved and chest tube was removed today -seek immediate medical attention (call 911) if you have significant shortness of breath or sudden worsening right sided chest pain Anemia is stable - blood count (hemoglobin) has remained stable at 8 since last week -take oral iron supplement every other day Chest wall hematoma is stable and has improved a lot since last week Eliquis has been held because of bleeding. Holding it does increase the risk of stroke from A-fib temporarily, however, you have had bleeding complications and I think we should hold it for another week. Follow up with primary care and have your blood count checked. If it remains stable it should be safe to resume the Eliquis Stay on minced and moist or pureed foods to help with your swallowing problem -home health speech therapy was ordered -outpatient neurology referral has been made -I advise increasing your protein shake to twice a day Home health PT and OT will help you regain your mobility Some tests are pending: DNA tests for tickborne infection Vitamin B1 (thiamine) level Pathology and cultures on the pleural fluid You have had adverse reactions to a lot of pain medications, however, you did tolerate low dose IV morphine well in the hospital. This will be useful to know in the future. It was a pleasure taking care of you in the hospital, Narcisa Figueroa MD Pending Studies at Discharge: Yes (vitamin B2 level, DNA tests for anaplasmosis, babesiosis, ehrlichiosis) Stand-Alone Forms: My [facility], Smoking Cessation Medications and DC Order Prescriptions: New ferrous sulfate 325 mg (65 mg iron) Tablet,Delayed Release (Dr/Ec) 325 mg PO Q48H Qty: 0 0RF Continued cholecalciferol (vitamin D3) 5,000 unit capsule 5,000 units PO QAM vitamin E (dl, acetate) 180 mg (400 unit) capsule 400 unit PO DAILY metformin 500 mg tablet 500 mg PO DAILY Qty: 90 0RF metoprolol succinate 25 mg tablet extended release 24 hr 25 mg PO QAM Qty: 90 3RF ascorbic acid (vitamin C) 1,000 mg tablet 1 gm PO QAM hawthorn rich 565 mg capsule 565 mg PO Q OTHER DAY lutein 20 mg capsule 20 mg PO Q OTHER DAY celecoxib [Celebrex] 100 mg capsule 100 mg PO BID methocarbamol 500 mg tablet 500 mg PO TID latanoprost 0.005 % drops 1 drp OPR HS Rx Instructions: Instill 1 drop in right eye at bedtime vitamin K2 100 mcg capsule 100 mcg PO Q OTHER DAY coQ10 (ubiquinol) 100 mg Capsule 300 mg PO DAILY curcumin-phosphatidylcholine 500 mg Capsule 500 mg PO DAILY H.A. Factors 1 tab PO BID Methyl B-12 Folate 2 tab PO DAILY Arthritis Formula Tab 2 tab PO DAILY calcium carbonate-vitamin D3 [Calcium 600 with Vitamin D3] 600 mg-12.5 mcg (500 unit) capsule 1 cap PO DAILY acetaminophen [Tylenol Extra Strength] 500 mg Tablet 1,000 mg PO Q8H gabapentin 100 mg capsule 100 mg PO AMHS Held Eliquis 5 mg tablet 5 mg PO BID Qty: 180 3RF Hold Instructions: resume when ok per physician Discontinued sulfamethoxazole-trimethoprim [Bactrim DS] 800-160 mg tablet 1 tab PO BID 7 Days Qty: 14 0RF Rx Instructions: PER PT'S FRIENDS "TOLD TO STOP, NOT GIVEN THIS AM". oxycodone 5 mg tablet 1.25 mg PO .Q5HR PRN (Reason: Pain) Rx Instructions: PER PT'S FRIENDS "TAKES 1/4 OF A TABLET ONLY". ferrous sulfate 325 mg (65 mg iron) Tablet 325 mg PO DAILY Discharge Orders: Discharge Order (Routine); Ordered 12/07/24 Ordered By: Narcisa Figueroa Admission Data Admit Date/Time: 11/30/24 15:20 Attending Provider: Narcisa Figueroa Admit Provider: Godfrey Multani Primary Care Provider: Rashaun Che Other Providers: Godfrey Multani; [facility]; Isaías Cabral [facility] Stay Data Consultations 11/30/24 14:50 ED Decision to Admit Stat 12/04/24 10:00 Consult Pulmonology Routine Pending Results Patient Have Any Pending Studies at Discharge: Yes (vitamin B2 level, DNA tests for anaplasmosis, babesiosis, ehrlichiosis) Discharge Instructions Given to Patient (Per Discharging Provider) You were treated for right sided chest wall hematoma and right sided pleural effusion (fluid in chest cavity) resultant of your previous traumatic injury Pleural effusion was treated with chest tube - the fluid is much improved/resolved and chest tube was removed today -seek immediate medical attention (call 911) if you have significant shortness of breath or sudden worsening right sided chest pain Anemia is stable - blood count (hemoglobin) has remained stable at 8 since last week -take oral iron supplement every other day Chest wall hematoma is stable and has improved a lot since last week Eliquis has been held because of bleeding. Holding it does increase the risk of stroke from A-fib temporarily, however, you have had bleeding complications and I think we should hold it for another week. Follow up with primary care and have your blood count checked. If it remains stable it should be safe to resume the Eliquis Stay on minced and moist or pureed foods to help with your swallowing problem -home health speech therapy was ordered -outpatient neurology referral has been made -I advise increasing your protein shake to twice a day Home health PT and OT will help you regain your mobility Some tests are pending: DNA tests for tickborne infection Vitamin B1 (thiamine) level Pathology and cultures on the pleural fluid You have had adverse reactions to a lot of pain medications, however, you did tolerate low dose IV morphine well in the hospital. This will be useful to know in the future. It was a pleasure taking care of you in the hospital, Narcisa Figueroa MD Total Time Total Time Spent Total Time Spent (In Minutes): I personally spent: 40 minutes today on clinical care activities including: reviewing chart notes and vital signs reviewing labs reviewing studies - CXR discussion with data virtualization consultant(s) - pulm examining and counseling the patient writing orders writing prescriptions, discharge instructions documentation Coding Level of Care Code 95175 INP/OBS DISCH >30 MIN Diagnoses Hematoma of right chest wall S20.211A Pleural effusion J90 Multiple fractures of ribs of right side S22.41XA Atrial fibrillation, permanent I48.21 Acute kidney injury superimposed on CKD N17.9; N18.9
[2024-12-07 13:05] VITALS: PULSE 80
--- NOTE | 2024-12-07 14:01 | Pulmonology Progress Note ---
Date of Service December 07, 2024 Assessment & Plan (1) Pleural effusion: (2) Multiple fractures of ribs of right side: (3) Chest pain: (4) Chest tube in place: Plan Impression: 89-year-old female with recent fall and multiple rib fractures presenting now with increasing pleural effusion. She is status post 14 [place] pigtail catheter placement on the right 12/04/2024 Recommendation: Output from right pigtail catheter has slowed to 50ml out over last 24hrs. CXR shows improvement of the right hemothorax. No additional need for further tPA or dornase. Right pigtail catheter d/c this am. Follow-up cultures from pleural fluid and cytology from pleural fluid. Cultures preliminarily negative. Pleural fluid studies suggest lymphocytosis and exudative process. Path pending. Will follow up with patient in pulm clinic 1 week from discharge. 40 minutes is the time spent reviewing the chart, obtaining history, performing the physical exam, and updating the patient and bedside nurse. Admission and Anticipated Discharge Date Admission Date: November 30, 2024 Subjective Patient states she is feeling good. Chest tube drainage slowed to 50ml over last 24hrs. Plan to d/c right chest tube. Review of Systems 2 Review of Systems: All systems reviewed & are unremarkable except as noted in HPI & below Physical Exam 2 Physical Exam: VITALS: Reviewed. WEIGHT/BMI reviewed. GEN: Pleasant, well-developed, NAD. PSYCH: Good Judgment. AOx3. Normal memory, mood, and affect. HEENT -Head: NC/AT; -Eyes: PERRL, EOMI. No discharge or redn ess; -Ears: External ears are normal. -Nose: Normal nares. NECK: Supple, with no masses. CV: RRR, no m/r/g. LUNGS: CTAB, no w/r/c. ABD: N/A : N/A SKIN: Warm, well perfused. No skin rashes or abnormal lesions. Ecchymosis noted on right lower chest/flank. MSK: No deformities, Normal gait. EXT: No clubbing, cyanosis, or edema. NEURO: Normal muscle strength and tone. No focal deficits. Results & Data Results & Data Vital Signs (Past 12 Hours) Vital Signs Temp Pulse Pulse Resp BP Pulse Ox O2 Del Method 12/07/24 13:03 36.6 C 80 16 125/71 96 12/07/24 11:05 36.6 C 80 16 125/71 96 Room Air 12/07/24 08:00 90 12/07/24 07:41 36.8 C 105 H 19 122/62 94 Room Air 12/07/24 02:49 36.4 C L 91 H 18 113/65 96 Room Air Laboratory Results 12/07/24 06:12 12/07/24 06:12 Abnormal Lab Results 12/07/24 06:12 WBC 9.82 RBC 2.97 L Hgb 8.3 L Hct 25.5 L MCV 85.9 MCH 27.9 MCHC 32.5 RDW Std Deviation 50.3 H RDW Coeff of Kobe 16.3 H Plt Count 463 H MPV 8.7 L Sodium 135 L Potassium 4.2 Chloride 107 Carbon Dioxide 20 L Anion Gap 8 BUN 37 H Creatinine 1.06 Est Cr Clr Drug Dosing 33.0 eGFR 50.53 BUN/Creatinine Ratio 34.9 H Glucose 126 H Calcium 9.1 Diagnostic Findings Chest X-Ray 12/07/24 07:00 EXAM: XR chest 1V portable CLINICAL HISTORY: Chest tube. TECHNIQUE: An X-ray image of the chest was obtained in the AP projection. COMPARISON: Comparison is made with the prior examination dated 12/06/2024. FINDINGS: Pulmonary Parenchyma: There is a mildly decreased small right pleural effusion compared to the prior examination. There are hazy opacities in the right lower lung zone, which are mildly decreased since the prior examination. The right intercostal pigtail drainage catheter is stable, with its tip in the lower zone. The left lung remains clear, showing no evidence of consolidation, collapse, or focal opacities. There is no evidence of left pleural effusion. Heart and Mediastinum: The heart is enlarged (unchanged). There is no mediastinal widening or mass. There is no hilar or mediastinal lymphadenopathy. Atheromatous calcifications are present in the arch of the aorta (unchanged). A cardiac pacemaker with a right ventricular lead is present (unchanged). Bony Thorax: There are multiple fractures in the right posterior upper ribs and anterior lateral lower ribs. Degenerative changes of the scanned spine are unchanged. Soft Tissues: The soft tissues overlying the chest wall are unremarkable. EKG leads are projected over the chest wall (unchanged). IMPRESSION: 1. The right intercostal pigtail drainage catheter is stable, with its tip in the lower zone. 2. There is interval decreased small right pleural effusion and hazy opacities in the right lower lung zone. 3. Other findings are stable as described above. Electronically signed by Adan Mcgee 12-07-2024 08:06 AM PG Care Time/CCT Total # of Minutes Spent Total Time Spent with Patient: Total time spent is greater than 50% in coordination of care (as documented) at patient's floor/unit and/or counseling patient: Coding Level of Care Code 74516 SUB INP/OBS CARE 2/35MIN Diagnoses Pleural effusion J90 Multiple fractures of ribs of right side S22.41XA Chest pain R07.[address] Z96.89
== END 2024-12-07 14:40 | disposition home or self-care (01) | DRG 183 ==
LOC: ED 13:01 → SUATTDRO 15:20 → 2S 15:20

== ENCOUNTER 2024-12-13 22:26 | Inpatient (IN) ==
--- NOTE | 2024-12-13 22:43 | Emergency Department Note ---
Impression & Plan Intractable pain, Hematoma of right chest wall, Multiple fractures of ribs of right side, Elevated troponin, Acute kidney injury superimposed on CKD ED Provider Note CHIEF COMPLAINT: Back pain HISTORY OF PRESENTING ILLNESS: This 89-year-old female patient presents to the emergency department with her partner for evaluation of bilateral middle and lower back pain. The patient was hospitalized at [facility] the beginning of November for 8 broken ribs and recently readmitted locally for continued symptoms. She states that she has been taking Tylenol, Celebrex, and gabapentin, but still having severe pain at home. The patient's partner is having difficulty taking care of her at home because of the continued pain. The patient is unable to take oxycodone or tramadol because of hallucinations and change in mental status. The patient was taken off of her Eliquis for short period of time because of the rib fractures, but restarted her Eliquis yesterday. Per review of the patient's admission notes, the patient was discharged from [facility] on 12/07/2024. The patient had initially been hospitalized at [facility] from 11/04/24 until 11/17/2024 after the initial fall that caused the 8 rib fractures. The patient was then readmitted to [facility] on 11/30/2024 for continued/worsening symptoms. The patient had a hematoma of the right chest wall, pleural effusion, multiple fractures of the right ribs, acute kidney injury superimposed on chronic kidney disease, and also has a history of A-fib on Eliquis. The patient had a chest tube placed on 12/04/24 for the small hemothorax and the chest tube was removed on 12/07/2024. The patient's hemoglobin dropped to 8 and her iron was low at 19. No iron transfusion recommended, but she was started on oral iron. REVIEW OF SYSTEMS: See HPI for pertinent positives and pertinent negatives. ALLERGIES: Scopolamine, oxycodone, tramadol MEDICATIONS: See below PAST MEDICAL HISTORY: See below PHYSICAL EXAM: VITALS: Vitals are noted on the nurse's note and reviewed by myself. GENERAL: Non toxic, in no acute distress, non-diaphoretic. SKIN: The patient has a large resolving area of ecchymosis and hematoma to the right chest wall and right flank radiating towards her abdomen. Capillary refill <2 sec. EYES: PERRLA. EOMI. Conjunctivae without injection, sclerae without icterus. NOSE: Patent without discharge. MOUTH: Mucous membranes moist. Uvula midline. Airway patent. NECK: Supple without nuchal rigidity. HEART: Regular rate and rhythm without murmurs gallops or rubs. LUNGS: Clear to auscultation bilaterally without wheezes, rales or rhonchi. No retractions or accessory muscle use. CHEST: The patient is significantly tender to palpation over the right sided ribs as well as over the area of ecchymosis. ABDOMEN: Positive bowel sounds x 4. Normal tympanic percussion. The patient is tender to palpation over the right flank in the area of ecchymosis, but also tender to palpation over the left flank where she does not have any ecchymosis. No obvious masses or hepatosplenomegaly. Guajardo sign negative. No CVA tenderness. No guarding, rigidity, or rebound tenderness. No focal RLQ or LLQ tenderness. NEURO: Patient was alert and oriented. No focal neurological deficits. DIFFERENTIAL DIAGNOSIS: Differential diagnosis includes angina, MN, pericarditis, myocarditis, aortic dissection, pleurisy, pneumothorax, PE, pneumonia, hemothorax, pneumomediastinum, costochondritis, musculoskeletal, bronchitis, URI, hematoma, traumatic injury to the solid organs, retroperitoneal bleed, hepatitis, pancreatitis, cholecystitis, cholelithiasis, appendicitis, kidney stone, pyelonephritis, UTI, gastritis, gastroenteritis, mesenteric adenitis, obstruction, constipation, hernia, abdominal abscess, perforation, diverticulitis, IBD, ischemic colitis, abdominal aortic aneurysm, ovarian cyst, ovarian torsion, acute salpingitis, or others. ED COURSE AND MEDICAL DECISION MAKING: HISTORY FROM INDEPENDENT HISTORIAN: Additional history obtained from the patient's partner MEDICATIONS GIVEN: A total of 500 mL NSS bolus. Morphine 2 mg IV and Zofran 4 mg IV. MONITOR: Continuous bus driver/monitor: Order was placed for continuous bus driver/monitor. Patient was placed on the bus driver/monitor and continuous pulse ox. Patient was noted to be in normal sinus rhythm at an initial rate of 90 bpm per my interpretation. EKG: EKG was interpreted by myself and Dr. Eduard Arizmendi as showing ST depression in the lateral leads as well as atrial fibrillation at a rate of 99 bpm. No significant change from her previous EKG. Repeat EKG showed less artifact from her atrial fibrillation, but continued atrial fibrillation at 88 bpm with the same ST depression and no acute changes.. INTERPRETATION OF LABS: I interpreted the labs with full lab results as below in the lab section of this note. Laboratory results pertinent to the emergent complaint are discussed in the MDM section below. The patient was advised to follow up with their PCP and/or specialist(s) for further outpatient monitoring and management of any abnormal results. INTERPRETATION OF IMAGING: Imaging studies were interpreted by myself and read by radiology as per the imaging section of this note. The patient was advised to follow up with their PCP and/or specialist(s) for further outpatient management of any non-emergent abnormal findings. CTA of the chest with IV contrast showed no evidence for PE, pneumothorax, hemothorax, or pneumomediastinum. It did show numerous right rib fractures with soft tissue hematoma along the posterior lateral aspect of the right chest. CT scan of the abdomen and pelvis with IV contrast shows a deep soft tissue hematoma along the posterior lateral aspect of the lower right chest and upper abdomen. Multiple lower right rib fractures. Cholelithiasis. EXTERNAL RECORDS REVIEWED: I reviewed the patient's most recent admission records and discharge summary as summarized above. CONSULTATIONS: On-call hospitalist MDM SUMMARY: I examined the patient. The patient has had a complicated course following her traumatic injury causing 8 broken ribs on the right side as well as a hemothorax as described above. The patient has been taking Tylenol, Celebrex, and gabapentin at home without improvement of her symptoms. The patient's partner is no longer able to take care of the patient due to her continued and worsening pain. The patient is unable to take oxycodone or tramadol because of the side effects. The patient had been off of her Eliquis for a period of time due to the hemothorax and just restarted her Eliquis yesterday. An IV lock was placed and labs were drawn. I-STAT labs were obtained due to the patient's significant pain as well as recent traumatic injury and restarting her Eliquis. The patient was given morphine 2 mg IV and Zofran 4 mg IV with improvement of her pain. The patient's creatinine was elevated, but after weighing the risk versus benefit of IV contrast, IV contrast was deemed more beneficial than the potential risks. The patient was given a 250 mL normal saline solution bolus prior to the IV contrast and a second 250 mL normal saline solution bolus after the IV contrast. White blood cell count normal at 8.45. Hemoglobin improved to 9.3. Platelet count elevated at 539. Coags were normal. [id number]-[id number] creatinine was 1.7, but laboratory creatinine was 1.55. BUN 41. Glucose 120, but CMP otherwise without concerning abnormalities. Magnesium normal. Lipase normal. High- sensitivity troponin was elevated at 24.6 with repeat elevated at 25.2. The patient did have ST depressions present on her EKG as well as A-fib, but it appears to be unchanged. Repeat EKG without acute changes as well. The patient has been off her Eliquis and has had the recent trauma as well as hospitalizations. Therefore, she is at risk for PE. She is also at risk for pneumonia and repeat hemothorax. The patient has also had an increase in her flank pain now both on the left side in addition to the right side in the area of the ecchymosis/hematoma. Therefore, CT scan imaging was obtained for additional evaluation. CTA of the chest with IV contrast showed no evidence for PE, pneumothorax, hemothorax, or pneumomediastinum. It did show numerous right rib fractures with soft tissue hematoma along the posterior lateral aspect of the right chest. CT scan of the abdomen and pelvis with IV contrast shows a deep soft tissue hematoma along the posterior lateral aspect of the lower right chest and upper abdomen. Multiple lower right rib fractures. Cholelithiasis. I had a meaningful discussion about this patient with Dr. Rivera who agrees with my assessment and the treatment plan. The patient's pain is unable to be controlled at home and the patient's partner is no longer able to care for the patient at home. I had a discussion with the patient in regards to admission and possible transfer to a rehab facility for further management of her symptoms and PT etc until she can manage her pain and symptoms on her own. The patient was in agreement with this plan. The patient's troponin levels will also need to be monitored closely during her admission to evaluate for possible underlying ACS. I spoke with the on-call hospitalist who agreed to admit the patient for further evaluation and treatment. Please refer to their dictation for further details. The patient's care was transferred in stable condition. DIAGNOSIS: Intractable pain bilateral flank pain Elevated troponin Right flank hematoma Multiple right sided rib fractures Past Med/Surg History Problem List (Updated 12/14/24 @ 03:39 by Aga Alvarez PA-C) Ambulatory dysfunction Intractable pain (Acute) Hematoma of right chest wall (Acute) Chest tube in place Chest pain Pleural effusion Acute kidney injury superimposed on CKD (Acute) Hyponatremia (Acute) Elevated troponin (Acute) UTI (urinary tract infection) (Acute) Traumatic flank pain (Acute) Fall (Acute) Multiple fractures of ribs of right side (Acute 11/04/24) Acute fractures of the right fourth through 11th posterior rib from a fall Medical History Osteoarthritis Type 2 diabetes mellitus On continuous oral anticoagulation Atrial fibrillation, permanent Carotid artery stenosis Focal severe stenosis within the left P2 segment which has progressed. Calcified plaque within the right carotid bifurcation resulting in up to 70% focal stenosis. Pacemaker 2020- medtronic, last checked 11/2022 Hypertension controlled, stable per pt CKD (chronic kidney disease) stage 3, GFR 30-59 ml/min Post herpetic neuralgia Expressive aphasia Syncope Anaplasmosis Atrial fibrillation with RVR Multiple pulmonary nodules determined by computed tomography of lung 12/2022 follows w/ Dr Dino devi; states nodules are "shrinking". No further f/u per Pulmonary 09/2023 Chronic thoracic back pain denies change or worsening Surgical History S/P total knee arthroplasty History of permanent cardiac pacemaker placement Hx of colonoscopy History of cataract surgery History of knee surgery left 04/2023 PS [place] [facility] History of tonsillectomy Family History Mother , Mother age 103 with dementia, hypertension, and diabetes Dementia Hypertension Diabetes Father , Father age 78 of heart issues Diabetes Coronary heart disease Social History Smoking Status: Never smoker Second Hand Exposure: No; Do You Dip or Chew Tobacco: No; Hx Alcohol Use: No Hx Substance Use: No Preferred Language: Latvian Communication Ability: Effective Visual Impairment: Diminished Hearing Ability: Use of Hearing Aid Drug Safety Assistant Required: No Beliefs That Will Affect Care: None marital status: Single Current Living Situation: Significant Other Current Living Situation Comment: with Friend current occupational status: retired 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 Feels Safe at Home: Yes Childhood Exposure to Second-Hand Smoke: No Diet: regular Diet Comment: healthy caffeine: No Dental Care, Regularly: Yes Physical Activity Frequency: 1-2 Times per Week Seatbelt Use: always Sunscreen Use: Yes Assistive Devices: Walker Allergies Allergies Allergy/AdvReac Type Severity Reaction Status Date / Time scopolamine AdvReac Severe Confusion, Verified 11/30/24 15:23 [From Transderm-Scop] urinary retention oxycodone AdvReac Intermediate "SPACEY" Verified 11/30/24 15:23 tramadol AdvReac Intermediate Hallucinati Verified 12/13/24 23:42 ng Home Meds Home Medications Medication Instructions Recorded Confirmed cholecalciferol (vitamin D3) 125 5,000 units PO QAM 12/16/17 12/13/24 mcg (5,000 unit) capsule ascorbic acid (vitamin C) 1,000 mg 1 gm PO QAM 12/14/18 12/13/24 tablet hawthorn rich 565 mg capsule 565 mg PO Q OTHER DAY 12/14/18 12/13/24 lutein 20 mg capsule 20 mg PO Q OTHER DAY 12/14/18 12/13/24 vitamin E (dl, acetate) 180 mg 400 unit PO DAILY 03/05/21 12/13/24 (400 unit) capsule latanoprost 0.005 % eye drops 1 drp OPR HS 08/08/21 12/13/24 H.A. Factors 1 tab PO BID 09/09/22 12/13/24 Methyl B-12 Folate 2 tab PO DAILY 09/09/22 12/13/24 coQ10 (ubiquinol) 100 mg capsule 300 mg PO DAILY 09/09/22 12/13/24 curcumin-phosphatidylcholine 500 500 mg PO DAILY 09/09/22 12/13/24 mg capsule Arthritis Formula Tab 2 tab PO DAILY 10/05/24 12/13/24 calcium 600 mg (as 1 cap PO DAILY 10/05/24 12/13/24 carbonate)-vitamin D3 12.5 mcg (500 unit) capsule (Calcium with Vit D3) vitamin K2 100 mcg capsule 100 mcg PO Q OTHER DAY 10/05/24 12/13/24 celecoxib 100 mg capsule (Celebrex) 100 mg PO BID 11/23/24 12/13/24 acetaminophen 500 mg tablet 1,000 mg PO Q8H 11/30/24 12/13/24 (Tylenol Extra Strength) Previous Rx's Medication Instructions Recorded apixaban 5 mg tablet (Eliquis) 5 mg PO BID #180 tabs 04/29/24 metformin 500 mg tablet 500 mg PO DAILY #90 tabs 09/28/24 ferrous sulfate 325 mg (65 mg 325 mg PO Q48H #0 tabs 12/07/24 iron) tablet,delayed release celecoxib 100 mg capsule 100 mg PO BID PRN pain #28 caps 12/08/24 gabapentin 100 mg capsule 100 mg PO BID #28 caps 12/08/24 methocarbamol 500 mg tablet 500 mg PO TID PRN back pain #42 12/08/24 tabs metoprolol succinate 25 mg 25 mg PO QAM #90 tabs 12/09/24 tablet,extended release 24 hr Results & Data (ED) Vital Signs Vital Signs - 24 hr 12/13/24 22:30 12/13/24 23:41 12/14/24 00:17 Temperature 36.5 C Temperature Source Temporal Artery Scan Pulse Rate 95 H 85 Pulse Rate [Apical] Pulse Rhythm [Apical] Pulse Strength [Apical] Respiratory Rate 20 Respiratory Effort / Characteristics Non-Labored Spontaneous Respiratory Depth Normal Respiratory Pattern Regular Blood Pressure 150/98 H Blood Pressure [Right Arm] Blood Pressure Mean 115 Blood Pressure Mean [Right Arm] Blood Pressure Position Sitting Pulse Oximetry 99 95 Oxygen Delivery Method Room Air Oxygen Flow Rate Sepsis Recent Fever Within 48 Hours No Sepsis New/Unexplained Change in Mental Status No Sepsis Action Taken by Nursing No Action Required 12/14/24 00:33 12/14/24 03:07 Temperature Temperature Source Pulse Rate 82 Pulse Rate [Apical] 87 Pulse Rhythm [Apical] Regular Pulse Strength [Apical] Normal Respiratory Rate 16 16 Respiratory Effort / Characteristics Non-Labored Spontaneous Respiratory Depth Normal Respiratory Pattern Blood Pressure 169/91 H Blood Pressure [Right Arm] 170/97 H Blood Pressure Mean Blood Pressure Mean [Right Arm] 121 Blood Pressure Position Pulse Oximetry 96 91 Oxygen Delivery Method Room Air Nasal Cannula Oxygen Flow Rate 2 Sepsis Recent Fever Within 48 Hours Sepsis New/Unexplained Change in Mental Status Sepsis Action Taken by Nursing Laboratory Data 12/13/24 22:57 12/13/24 22:57 Lab Results 12/13/24 12/13/24 12/14/24 Range/Units 22:57 23:02 00:31 WBC 8.45 (4.8-10.8) K/ul RBC 3.44 L (4.20-5.40) M/uL Hgb 9.3 L (12.0-16.0) g/dl POC Hgb 10.5 L (12.0-16.0) g/dl Hct 31.0 L (37.0-47.0) % POC Hct 31 L (37-47) % MCV 90.1 (80.0-100.0) fL MCH 27.0 (25.0-34.0) pg MCHC 30.0 L (32.0-36.0) g/dL RDW Std Deviation 57.2 H (36.4-46.3) fL RDW Coeff of Kobe 17.4 H (11.5-14.5) % Plt Count 539 H (130-400) K/uL MPV 8.9 L (9.4-12.4) fL Immature Gran % (Auto) 0.5 % Neut % (Auto) 68.8 % Lymph % (Auto) 19.6 % Jewell % (Auto) 7.2 % Eos % (Auto) 3.2 % Baso % (Auto) 0.7 % Neut # (Auto) 5.81 (1.40-6.50) K/uL Lymph # (Auto) 1.66 (1.20-3.40) K/uL Jewell # (Auto) 0.61 H (0.11-0.59) K/uL Eos # (Auto) 0.27 (0.00-0.50) K/uL Baso # (Auto) 0.06 (0.00-0.20) K/uL Immature Gran # (Auto) 0.04 (0.01-0.20) K/uL PT 12.0 (9.0-12.0) Seconds INR 1.1 (0.9-1.1) APTT 25 (21-31) Seconds PTT Ratio 0.9 POC Sodium 140 (135-144) mmol/L Sodium 138 (136-145) mmol/L POC Potassium 4.3 (3.3-5.0) mmol/L Potassium 4.2 (3.5-5.1) mmol/L POC Chloride 109 (101-112) mmol/L Chloride 107 (98-107) mmol/L Carbon Dioxide 22 (21-32) mmol/L POC Total CO2 21 L (24-31) mmol/L Anion Gap 9 (3-11) POC Anion Gap 16.0 (16-25) mmol/L POC BUN 38 H (7-18) mg/dl BUN 41 H (6-23) mg/dl Creatinine 1.55 H (0.6-1.2) mg/dl POC Creatinine 1.7 H (0.6-1.3) mg/dl Est Cr Clr Drug Dosing Not Reportable eGFR 32.03 BUN/Creatinine Ratio 26.5 H (10-20) Glucose 122 H (70-99(Fasting)) mg/dl POC Glucose (other) 120 H (70-99) mg/dl Calcium 9.5 (8.6-10.3) mg/dl POC Ioniz Calcium Derrick 1.29 (1.12-1.32) mmol/l Magnesium 2.0 (1.7-2.4) mg/dl Total Bilirubin 0.7 (0.2-1.0) mg/dl AST 19 (13-39) U/L ALT 10 (7-52) U/L Alkaline Phosphatase 63 (34-104) U/L Troponin I High Sens 24.6 H 25.2 H (0-14) pg/ml Total Protein 6.9 (6.0-8.3) gm/dl Albumin 4.0 (3.4-5.0) gm/dl Globulin 2.9 (2.5-4.0) gm/dl Albumin/Globulin Ratio 1.4 (0.9-2) Lipase 76 (11-82) U/L Administered Medications Morphine Sulfate (Morphine Sulfate 4 Mg/Ml 1 Ml Carp\\Vial) 1 - 2 mg IV Q3H PRN PRN Reason: Severe Pain Stop: 12/28/24 01:49 Last Admin: 12/14/24 02:19 Dose: 2 mg Documented By: ML Discontinued Medications Sodium Chloride (Nss) 250 mls @ 999 mls/hr IV .Q16M ONE Stop: 12/13/24 23:04 Last Infusion: 12/13/24 23:43 Dose: Infused Documented By: Admin: 12/13/24 22:57 Dose: 999 mls/hr Documented By: TOM Sodium Chloride (Nss) 250 mls @ 999 mls/hr IV .Q16M ONE Stop: 12/13/24 23:20 Last Infusion: 12/14/24 00:17 Dose: Infused Documented By: Admin: 12/13/24 23:43 Dose: 999 mls/hr Documented By: IDBryan Ioversol (Optiray 320 125ml) 118 ml IV ONCE ONE Stop: 12/13/24 23:31 Last Admin: 12/13/24 23:30 Dose: 118 ml Documented By: ZACHERY Morphine Sulfate (Morphine Sulfate 2 Mg/Ml Carp) 2 mg IV NOW STA Stop: 12/13/24 22:50 Last Admin: 12/13/24 22:59 Dose: 2 mg Documented By: TOM Ondansetron HCl (Ondansetron Inj 2 Mg/Ml 2 Ml Vial) 4 mg IV NOW STA Stop: 12/13/24 22:50 Last Admin: 12/13/24 22:58 Dose: 4 mg Documented By: TOM Imaging Data Radiologist's Impression: Abdomen/Pelvis CT 12/13/24 22:49 Exam(s): CT ABDOMEN + PELVIS With Contrast IV Amt: 118 cc opti 320 EXAM: CT Abdomen and Pelvis With Intravenous Contrast CLINICAL HISTORY: Admits to and ended a TECHNIQUE: Axial computed tomography images of the abdomen and pelvis with intravenous contrast. CTDI is 9 mGy and DLP is 297.44 mGy-cm. Automated exposure control was utilized for the study. A dose lowering technique was utilized adhering to the principles of ALARA. CONTRAST: Patient received 118 cc opti 320 of IV contrast COMPARISON: No relevant prior studies available. FINDINGS: ABDOMEN: Liver: Heterogeneous early enhancement of the liver. This is nonspecific but can be due to congestive heart failure. Gallbladder and bile ducts: Single large calcified gallstone. Pancreas: Unremarkable. No mass. No ductal dilation. Spleen: Unremarkable. No splenomegaly. Adrenals: Unremarkable. No mass. Kidneys and ureters: 3.2 cm mildly complex cyst in the superior pole of the right kidney with some calcification peripherally. No hydronephrosis. Stomach and bowel: Unremarkable. No obstruction. No mucosal thickening. PELVIS: Appendix: No findings to suggest acute appendicitis. Bladder: Unremarkable. No mass. ABDOMEN and PELVIS: Intraperitoneal space: Unremarkable. No free air. No significant fluid collection. Bones/joints: Multiple acute right rib fractures. Soft tissues: There is an abnormal fluid collection along the deep aspect of the musculature along the posterolateral aspect of the lower right chest likely representing a hematoma. Vasculature: Unremarkable. No abdominal aortic aneurysm. Lymph nodes: Unremarkable. No enlarged lymph nodes. IMPRESSION: Deep soft tissue hematoma along the posterolateral aspect of the lower right chest and upper abdomen. Multiple lower right rib fractures. Gallstone. Electronically signed by: Steven Leos MD 12/14/24 00:11 AM Chest CTA 12/13/24 22:49 Exam(s): CTA CHEST IV Amt: 118 cc opti 320 EXAM: CT Angiography Chest With Intravenous Contrast CLINICAL HISTORY: Reason for exam: Chest Pain, eval for PE. TECHNIQUE: Axial computed tomographic angiography images of the chest with intravenous contrast. CTDI is 12.11 mGy and DLP is 578.75 mGy-cm. Automated exposure control was utilized for the study. A dose lowering technique was utilized adhering to the principles of ALARA. MIP reconstructed images were created and reviewed. COMPARISON: No relevant prior studies available. FINDINGS: Pulmonary arteries: Unremarkable. No pulmonary embolism. Aorta: No acute findings. No thoracic aortic aneurysm. Lungs: Mild posterior dependent atelectasis in the posterior aspect of the right lung. No mass. Pleural space: Small right pleural effusion. No pneumothorax. Heart: Unremarkable. No cardiomegaly. No significant pericardial effusion. No evidence of RV dysfunction. Bones/joints: No acute fracture. No dislocation. Soft tissues: Unremarkable. Lymph nodes: Unremarkable. No enlarged lymph nodes. IMPRESSION: No evidence of pulmonary emboli. Electronically signed by: Steven Leos MD 12/13/24 23:51 PM Discharge Plan Visit Data Chief Complaint: Back Injury/Pain Stated Complaint: MIDDLE BACK PAIN, SEVERE ED Provider: Urvashi Rivera ED Midlevel Provider: Aga Alvarez Discharge Problem: Intractable pain, Hematoma of right chest wall, Multiple fractures of ribs of right side, Elevated troponin, Acute kidney injury superimposed on CKD Patient Disposition: Admitted As Inpatient Condition: Fair Discharge Instructions Interventions: ED Discharge Assessment Last Done: 12/14/24 03:07 Discharge Problem: Hematoma of right chest wall Qualifiers: Encounter type: subsequent encounter Qualified Code(s): S20.211D - Contusion of right front wall of thorax, subsequent encounter Multiple fractures of ribs of right side Qualifiers: Encounter type: subsequent encounter Fracture type: closed
[2024-12-13] MEDS: SODIUM CHLORIDE 0.9% 250 ML IV ONE ×2 (22:57→23:43)
[2024-12-13] MEDS: ONDANSETRON INJ 2 MG/ML 2 ML VIAL IV STA (22:58)
[2024-12-13] MEDS: MoRPHine SULFATE 2 MG/ML CARP IV STA (22:59)
[2024-12-13 23:11] LABS: Hematocrit (blood only) 31.0 % (37.0-47.0); Hemoglobin 9.3 g/dl (12.0-16.0); Immature Granulocytes # (auto) 0.04 K/uL (0.01-0.20); Immature Granulocytes % (auto) 0.5 %; Mean Corpuscular Hemoglobin 27.0 pg (25.0-34.0); Mean Corpuscular Volume 90.1 fL (80.0-100.0); Platelet Count 539 K/uL (130-400); RDW Standard Deviation 57.2 fL (36.4-46.3); Red Blood Count 3.44 M/uL (4.20-5.40); White Blood Count 8.45 K/ul (4.8-10.8)
[2024-12-13 23:30] LABS: Alanine Aminotransferase 10 U/L (7-52); Albumin Globulin Ratio 1.4 (0.9-2); Albumin Level 4.0 gm/dl (3.4-5.0); Alkaline Phosphatase 63 U/L (34-104); Anion Gap 9 (3-11); Bilirubin,Total 0.7 mg/dl (0.2-1.0); Blood Urea Nitrogen 41 mg/dl (6-23); Calcium 9.5 mg/dl (8.6-10.3); Carbon Dioxide 22 mmol/L (21-32); Chloride 107 mmol/L (98-107); Globulin 2.9 gm/dl (2.5-4.0); Glucose 122 mg/dl (70-99(Fasting)); Lipase 76 U/L (11-82); Magnesium 2.0 mg/dl (1.7-2.4); Potassium 4.2 mmol/L (3.5-5.1); Sodium 138 mmol/L (136-145); Total Protein 6.9 gm/dl (6.0-8.3)
[2024-12-13] MEDS: OPTIRAY 320 125ml IV ONE (23:30)
[2024-12-13 23:38] LABS: INR 1.1 (0.9-1.1); Partial Thromboplastin Time 25 Seconds (21-31); Prothrombin Time 12.0 Seconds (9.0-12.0)
--- NOTE | 2024-12-13 23:52 | CT Scan Report ---
Exam(s): CTA CHEST IV Amt: 118 cc opti 320 EXAM: CT Angiography Chest With Intravenous Contrast CLINICAL HISTORY: Reason for exam: Chest Pain, eval for PE. TECHNIQUE: Axial computed tomographic angiography images of the chest with intravenous contrast. CTDI is 12.11 mGy and DLP is 578.75 mGy-cm. Automated exposure control was utilized for the study. A dose lowering technique was utilized adhering to the principles of ALARA. MIP reconstructed images were created and reviewed. COMPARISON: No relevant prior studies available. FINDINGS: Pulmonary arteries: Unremarkable. No pulmonary embolism. Aorta: No acute findings. No thoracic aortic aneurysm. Lungs: Mild posterior dependent atelectasis in the posterior aspect of the right lung. No mass. Pleural space: Small right pleural effusion. No pneumothorax. Heart: Unremarkable. No cardiomegaly. No significant pericardial effusion. No evidence of RV dysfunction. Bones/joints: No acute fracture. No dislocation. Soft tissues: Unremarkable. Lymph nodes: Unremarkable. No enlarged lymph nodes. IMPRESSION: No evidence of pulmonary emboli. Electronically signed by: Steven Leos MD 12/13/24 23:51 PM
--- NOTE | 2024-12-14 00:12 | CT Scan Report ---
Exam(s): CT ABDOMEN + PELVIS With Contrast IV Amt: 118 cc opti 320 EXAM: CT Abdomen and Pelvis With Intravenous Contrast CLINICAL HISTORY: Admits to and ended a TECHNIQUE: Axial computed tomography images of the abdomen and pelvis with intravenous contrast. CTDI is 9 mGy and DLP is 297.44 mGy-cm. Automated exposure control was utilized for the study. A dose lowering technique was utilized adhering to the principles of ALARA. CONTRAST: Patient received 118 cc opti 320 of IV contrast COMPARISON: No relevant prior studies available. FINDINGS: ABDOMEN: Liver: Heterogeneous early enhancement of the liver. This is nonspecific but can be due to congestive heart failure. Gallbladder and bile ducts: Single large calcified gallstone. Pancreas: Unremarkable. No mass. No ductal dilation. Spleen: Unremarkable. No splenomegaly. Adrenals: Unremarkable. No mass. Kidneys and ureters: 3.2 cm mildly complex cyst in the superior pole of the right kidney with some calcification peripherally. No hydronephrosis. Stomach and bowel: Unremarkable. No obstruction. No mucosal thickening. PELVIS: Appendix: No findings to suggest acute appendicitis. Bladder: Unremarkable. No mass. ABDOMEN and PELVIS: Intraperitoneal space: Unremarkable. No free air. No significant fluid collection. Bones/joints: Multiple acute right rib fractures. Soft tissues: There is an abnormal fluid collection along the deep aspect of the musculature along the posterolateral aspect of the lower right chest likely representing a hematoma. Vasculature: Unremarkable. No abdominal aortic aneurysm. Lymph nodes: Unremarkable. No enlarged lymph nodes. IMPRESSION: Deep soft tissue hematoma along the posterolateral aspect of the lower right chest and upper abdomen. Multiple lower right rib fractures. Gallstone. Electronically signed by: Steven Leos MD 12/14/24 00:11 AM
--- NOTE | 2024-12-14 01:32 | History & Physical Report ---
Date of Service December 14, 2024 Assessment & Plan (1) Intractable pain: (2) Ambulatory dysfunction: (3) Acute kidney injury superimposed on CKD: (4) Elevated troponin: Plan 89-year-old female PMHx permanent A-fib with anticoagulation no longer on hold, T2DM, CKD stage III, and history of pleural effusions as well as right-sided rib fracture earlier in December presenting for bilateral lower back pain. Her evaluation does reveal consistent anemia slightly increased from prior di scharge, creatinine of 1.55, and elevated troponin. CT of the abdomen and pelvis reveals a soft tissue hematoma with known R rib fractures. Admission for intractable pain uncontrolled at home. #Intractable pain/Ambulatory dysfunction Known R sided rib fractures, with recent hospital admission and discharge 11/30/2024 until 12/07/2024. Progressive worsening of pain, uncontrolled at home and with limited accessibility for assistance at home with caring for herself at the present. Interested in further rehabilitation opportunities. - CBC H/H 9.05/31, plt 539; PT/INR WNL - CBC am - CTAP deep soft tissue hematoma along the posterior lateral aspect of the lower right chest and upper abdomen, multiple lower R rib fractures - Chest CTA no PE, numerous acute R rib fractures with soft tissue hematoma along the posterior lateral aspect of the right chest - Acetaminophen, gabapentin for pain as per last hospital admission with success in managing pain; morphine for severe pain - PT/OT ordered - appreciate assistance #ARMIDA/CKD stage III History of CKD; ARMIDA likely secondary to decreased intake per patient; received 500 mL NSS in ED. - Cr 1.55 - BMP am - UA pending - Bladder scan prn - Avoid nephrotoxic agents - IVF LR @ 80 mL/hr x 1L #Elevated troponin No current chest pain. In setting of CKD. - Troponin 24.6, 25.2 on repeat - repeat am - EKG Afib, RBBB, without ischemic changes - Likely 2/2 demand #T2DM H/o DMT2; at home regimen includes metformin - Most recent A1C 10/2024 @ 6.5% - Hold metformin - Deferred SSI - diet controlled mainly - BSG ACHS - Adjust regimen as needed #Anemia- H/H on admission 9.331.0, no active bleeding noted; ferrous sulfate - continue, CBC am #Afib- EKG on arrival A-fib, rate controlled; Eliquis has been restarted, metoprolol - continue both Dispo: Admit, med/tele - elevated ge singh as able VTE Prophylaxis: SCDs This document was dictated utilizing Directr. Please excuse any grammatical errors that may be secondary to use of this software. Admission and Anticipated Discharge Date Admission Date: 12/14/2024 History of Present Illness Chief Complaint: Pain Primary Care Provider: Rashaun Che DO 89-year-old female PMHx permanent A-fib with anticoagulation no longer on hold, T2DM, CKD stage III, and history of pleural effusions as well as right-sided rib fracture earlier in December presenting for bilateral lower back pain. Patient states that since her discharge after admission 11/30/2024 until 12/07/2024, she has had progressive worsening pain that is most severe in the evening/at night when she is trying to sleep. Reports that this pain is along her back at the midway star, along bilateral aspects of her spine. At its worst, it is at a 7 out of 10 on the pain scale, but is currently a 4 out of 10 on the pain scale. If she does not move, the pain is more tolerable. Ambulation or movement makes the pain worse. She states that she is unable to tolerate the pain at home and does not have any assistance at home to help her get around. She denies any bowel or bladder incontinence. Denying chest pain or shortness of breath. No palpitations. Denies abdominal pain, N/V/D/C, numbness/tingling, fever/chills, URI symptoms, LUTS, weakness, falls, or syncope. She is interested in placement opportunities for further rehabilitation. ED evaluation reveals CBC without leukocytosis, H&H 9.3/31.0, platelets 539; PT/INR WNL; CMP BUN 41, creatinine 1.55, ratio 26.5, glucose 122; troponin 24.6, pending repeat; CTAP deep soft tissue hematoma along the posterior lateral aspect of the lower right chest and upper abdomen, multiple lower R rib fractures, gallstones; chest CTA numerous acute right rib fractures with soft tissue hematoma along the posterior lateral aspect of the right chest, no evidence of PE; A-fib, RBBB, T wave abnormality 88 bpm.; Provided with 500 mL NSS, Zofran 4 mg IV, and morphine 2 g IV in ED. Please see Dr. Santana's attestation for adjustments/additions to treatment plan. Allergies Allergy/AdvReac Type Severity Reaction Status Date / Time scopolamine AdvReac Severe Confusion, Verified 11/30/24 15:23 [From Transderm-Scop] urinary retention oxycodone AdvReac Intermediate "SPACEY" Verified 11/30/24 15:23 tramadol AdvReac Intermediate Hallucinati Verified 12/13/24 23:42 ng Home Medications Medication Instructions Recorded Confirmed Type cholecalciferol (vitamin D3) 125 5,000 units PO QAM 12/16/17 12/13/24 History mcg (5,000 unit) capsule ascorbic acid (vitamin C) 1,000 mg 1 gm PO QAM 12/14/18 12/13/24 History tablet hawthorn rich 565 mg capsule 565 mg PO Q OTHER DAY 12/14/18 12/13/24 History lutein 20 mg capsule 20 mg PO Q OTHER DAY 12/14/18 12/13/24 History vitamin E (dl, acetate) 180 mg 400 unit PO DAILY 03/05/21 12/13/24 History (400 unit) capsule latanoprost 0.005 % eye drops 1 drp OPR HS 08/08/21 12/13/24 History H.A. Factors 1 tab PO BID 09/09/22 12/13/24 History Methyl B-12 Folate 2 tab PO DAILY 09/09/22 12/13/24 History coQ10 (ubiquinol) 100 mg capsule 300 mg PO DAILY 09/09/22 12/13/24 History curcumin-phosphatidylcholine 500 500 mg PO DAILY 09/09/22 12/13/24 History mg capsule apixaban 5 mg tablet (Eliquis) 5 mg PO BID #180 tabs 04/29/24 12/13/24 Rx metformin 500 mg tablet 500 mg PO DAILY #90 tabs 09/28/24 12/13/24 Rx Arthritis Formula Tab 2 tab PO DAILY 10/05/24 12/13/24 History calcium 600 mg (as 1 cap PO DAILY 10/05/24 12/13/24 History carbonate)-vitamin D3 12.5 mcg (500 unit) capsule (Calcium with Vit D3) vitamin K2 100 mcg capsule 100 mcg PO Q OTHER DAY 10/05/24 12/13/24 History celecoxib 100 mg capsule (Celebrex) 100 mg PO BID 11/23/24 12/13/24 History acetaminophen 500 mg tablet 1,000 mg PO Q8H 11/30/24 12/13/24 History (Tylenol Extra Strength) ferrous sulfate 325 mg (65 mg 325 mg PO Q48H #0 tabs 12/07/24 12/13/24 Rx iron) tablet,delayed release celecoxib 100 mg capsule 100 mg PO BID PRN pain #28 caps 12/08/24 12/13/24 Rx gabapentin 100 mg capsule 100 mg PO BID #28 caps 12/08/24 12/13/24 Rx methocarbamol 500 mg tablet 500 mg PO TID PRN back pain #42 12/08/24 12/13/24 Rx tabs metoprolol succinate 25 mg 25 mg PO QAM #90 tabs 12/09/24 12/13/24 Rx tablet,extended release 24 hr Past Med/Surg History Problem List (Updated 12/14/24 @ 03:39 by Aga Alvarez PA-C) Ambulatory dysfunction Intractable pain (Acute) Hematoma of right chest wall (Acute) Chest tube in place Chest pain Pleural effusion Acute kidney injury superimposed on CKD (Acute) Hyponatremia (Acute) Elevated troponin (Acute) UTI (urinary tract infection) (Acute) Traumatic flank pain (Acute) Fall (Acute) Multiple fractures of ribs of right side (Acute 11/04/24) Acute fractures of the right fourth through 11th posterior rib from a fall Medical History Osteoarthritis Type 2 diabetes mellitus On continuous oral anticoagulation Atrial fibrillation, permanent Carotid artery stenosis Focal severe stenosis within the left P2 segment which has progressed. Calcified plaque within the right carotid bifurcation resulting in up to 70% focal stenosis. Pacemaker 2020- medtronic, last checked 11/2022 Hypertension controlled, stable per pt CKD (chronic kidney disease) stage 3, GFR 30-59 ml/min Post herpetic neuralgia Expressive aphasia Syncope Anaplasmosis Atrial fibrillation with RVR Multiple pulmonary nodules determined by computed tomography of lung 12/2022 follows w/ Dr Dino devi; states nodules are "shrinking". No further f/u per Pulmonary 09/2023 Chronic thoracic back pain denies change or worsening Surgical History S/P total knee arthroplasty History of permanent cardiac pacemaker placement Hx of colonoscopy History of cataract surgery History of knee surgery left 04/2023 PS [place] [facility] History of tonsillectomy Family History Mother , Mother age 103 with dementia, hypertension, and diabetes Dementia Hypertension Diabetes Father , Father age 78 of heart issues Diabetes Coronary heart disease Social History Smoking Status: Never smoker Second Hand Exposure: No; Do You Dip or Chew Tobacco: No; Hx Alcohol Use: No Hx Substance Use: No Preferred Language: [place]er Communication Ability: Effective Communication Ability Comment: [place], requires hearing aids Visual Impairment: Diminished Hearing Ability: Use of Hearing Aid 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 Feels Safe at Home: Yes Childhood Exposure to Second-Hand Smoke: No Diet: regular Diet Comment: healthy caffeine: No Dental Care, Regularly: Yes Physical Activity Frequency: 1-2 Times per Week Seatbelt Use: always Sunscreen Use: Yes Assistive Devices: Walker Review of Systems Review of Systems: All systems reviewed & are unremarkable except as noted in Subjective Physical Exam Physical Exam: General: No acute distress Skin: Warm and dry, slightly pallor Head: Normocephalic, atraumatic Eyes: PERRL, conjunctivae clear, sclera non-icteric ENT: External ear and ear canal without swelling; nose atraumatic; good dentition, tongue normal appearance, pharynx normal Neck: Supple, no LAD Cardio: Irregularly irregular rhythm, regular rate, no M/G/R, S1 and S2 normal Resp: No respiratory distress, Lungs CTA in all lobes bilaterally, no wheezes, rales, or rhonchi Abdomen: Soft, symmetric, nontender; No masses or hepatosplenomegaly; Bowel sounds normoactive MSK: No deformities; pulses palpable and equal; no edema. Neuro: Awake, alert; Sensation intact bilaterally; CN grossly intact Psych: Appropriate mood and affect; good judgement and insight. Results & Data Results & Data Vital Signs (Past 12 Hours) Vital Signs Temp Pulse Pulse Resp BP BP Pulse Ox 12/14/24 00:33 87 16 170/97 H 96 12/14/24 00:17 95 12/13/24 23:41 85 12/13/24 22:30 36.5 C 95 H 20 150/98 H 99 O2 Del Method 12/14/24 00:33 Room Air 12/14/24 00:17 12/13/24 23:41 12/13/24 22:30 Room Air Laboratory Results 12/14/24 12/13/24 12/13/24 00:31 23:02 22:57 WBC 8.45 RBC 3.44 L Hgb 9.3 L POC Hgb 10.5 L Hct 31.0 L POC Hct 31 L MCV 90.1 MCH 27.0 MCHC 30.0 L RDW Std Deviation 57.2 H RDW Coeff of Kobe 17.4 H Plt Count 539 H MPV 8.9 L Immature Gran % (Auto) 0.5 Neut % (Auto) 68.8 Lymph % (Auto) 19.6 [place] % (Auto) 7.2 Eos % (Auto) 3.2 Baso % (Auto) 0.7 Neut # (Auto) 5.81 Lymph # (Auto) 1.66 [place] # (Auto) 0.61 H Eos # (Auto) 0.27 Baso # (Auto) 0.06 Immature Gran # (Auto) 0.04 PT 12.0 INR 1.1 APTT 25 PTT Ratio 0.9 POC Sodium 140 Sodium 138 POC Potassium 4.3 Potassium 4.2 POC Chloride 109 Chloride 107 Carbon Dioxide 22 POC Total CO2 21 L Anion Gap 9 POC Anion Gap 16.0 POC BUN 38 H BUN 41 H Creatinine 1.55 H POC Creatinine 1.7 H Est Cr Clr Drug Dosing Not Reportable eGFR 32.03 BUN/Creatinine Ratio 26.5 H Glucose 122 H POC Glucose (other) 120 H Calcium 9.5 POC Ioniz Calcium Derrick 1.29 Magnesium 2.0 Total Bilirubin 0.7 AST 19 ALT 10 Alkaline Phosphatase 63 Troponin I High Sens 25.2 H 24.6 H Total Protein 6.9 Albumin 4.0 Globulin 2.9 Albumin/Globulin Ratio 1.4 Lipase 76 Diagnostic Findings Abdomen/Pelvis CT 12/13/24 22:49 Exam(s): CT ABDOMEN + PELVIS With Contrast IV Amt: 118 cc opti 320 EXAM: CT Abdomen and Pelvis With Intravenous Contrast CLINICAL HISTORY: Admits to and ended a TECHNIQUE: Axial computed tomography images of the abdomen and pelvis with intravenous contrast. CTDI is 9 mGy and DLP is 297.44 mGy-cm. Automated exposure control was utilized for the study. A dose lowering technique was utilized adhering to the principles of ALARA. CONTRAST: Patient received 118 cc opti 320 of IV contrast COMPARISON: No relevant prior studies available. FINDINGS: ABDOMEN: Liver: Heterogeneous early enhancement of the liver. This is nonspecific but can be due to congestive heart failure. Gallbladder and bile ducts: Single large calcified gallstone. Pancreas: Unremarkable. No mass. No ductal dilation. Spleen: Unremarkable. No splenomegaly. Adrenals: Unremarkable. No mass. Kidneys and ureters: 3.2 cm mildly complex cyst in the superior pole of the right kidney with some calcification peripherally. No hydronephrosis. Stomach and bowel: Unremarkable. No obstruction. No mucosal thickening. PELVIS: Appendix: No findings to suggest acute appendicitis. Bladder: Unremarkable. No mass. ABDOMEN and PELVIS: Intraperitoneal space: Unremarkable. No free air. No significant fluid collection. Bones/joints: Multiple acute right rib fractures. Soft tissues: There is an abnormal fluid collection along the deep aspect of the musculature along the posterolateral aspect of the lower right chest likely representing a hematoma. Vasculature: Unremarkable. No abdominal aortic aneurysm. Lymph nodes: Unremarkable. No enlarged lymph nodes. IMPRESSION: Deep soft tissue hematoma along the posterolateral aspect of the lower right chest and upper abdomen. Multiple lower right rib fractures. Gallstone. Electronically signed by: Steven Leos MD 12/14/24 00:11 AM Chest CTA 12/13/24 22:49 Exam(s): CTA CHEST IV Amt: 118 cc opti 320 EXAM: CT Angiography Chest With Intravenous Contrast CLINICAL HISTORY: Reason for exam: Chest Pain, eval for PE. TECHNIQUE: Axial computed tomographic angiography images of the chest with intravenous contrast. CTDI is 12.11 mGy and DLP is 578.75 mGy-cm. Automated exposure control was utilized for the study. A dose lowering technique was utilized adhering to the principles of ALARA. MIP reconstructed images were created and reviewed. COMPARISON: No relevant prior studies available. FINDINGS: Pulmonary arteries: Unremarkable. No pulmonary embolism. Aorta: No acute findings. No thoracic aortic aneurysm. Lungs: Mild posterior dependent atelectasis in the posterior aspect of the right lung. No mass. Pleural space: Small right pleural effusion. No pneumothorax. Heart: Unremarkable. No cardiomegaly. No significant pericardial effusion. No evidence of RV dysfunction. Bones/joints: No acute fracture. No dislocation. Soft tissues: Unremarkable. Lymph nodes: Unremarkable. No enlarged lymph nodes. IMPRESSION: No evidence of pulmonary emboli. Electronically signed by: Steven Leos MD 12/13/24 23:51 PM Medications Administered 500 mL NSS Zofran 4 mg IV Morphine 2 mg IV ECG Additional Comments: A-fib, RBBB, T wave abnormality 88 bpm, QRS 126, QT/QTc 3-4/464, PRT*/-8/-18 Code Status & VTE Plan Code Status DNR/DNI Supervising Physician Co-Signing Physician Notes Attending addendum: I have physically seen this patient, have supervised the RICK's activities, and agree with the H&P unless as otherwise noted. Assessment and Plan: The patient is an 89-year-old female with a past medical history including permanent atrial fibrillation with anticoagulation on hold, diabetes mellitus type 2, CKD stage III, history of pleural effusions, right-sided rib fracture earlier in December. She presents to the emergency department for bilateral lower back pain. Laboratory evaluation reveals mild anemia with hemoglobin 9.3, and acute kidney injury with creatinine 1.55, and a mildly elevated troponin of 24.6. Patient presents to the emergency department with request the patient be evaluated for rehab stay, due to uncontrolled pain and difficulty taking care of her at home because of the pain. Intractable pain/ambulatory dysfunction- Known right-sided rib fractures status post hospitalization from 11/30-12/07/2024. Patient has had progressive worsening of the pain, which is uncontrolled at home, and she has limited ability to ambulate at home and take care of herself. CT abdomen pelvis shows deep soft tissue hematoma along the posterior lateral aspect of the lower right chest and upper abdomen, with multiple lower right rib fractures. Chest CTA with no PE, notes numerous acute right rib fractures with soft tissue hematoma on the posterior lateral aspect of the right chest Acetaminophen 650 mg by mouth every 6 hours as needed for mild pain or fever Gabapentin to be resumed as was used at last hospitalization Morphine IV as noted for severe pain Consult PT/OT Acute kidney injury superimposed on CKD stage III- Creatinine 1.55 on admission base 1.06- Status post normal saline boluses 250 cc x 2 in the ED LR at 80 mL/h x 1 L Follow urine culture sensitivity Bladder scan with postvoid residual as needed Elevated troponin/atrial fibrillation- Likely secondary to acute kidney injury Troponin 24.6, follow-up 25.2. Repeat in the a.m. EKG with rate controlled atrial fibrillation, right bundle branch block and no ischemia Combination of supply/demand mismatch and decreased renal clearance Eliquis and metoprolol Diabetes mellitus- Most recent hemoglobin A1c 6.5 on 10/25 Hold metformin during hospitalization BSG AC and at bedtime Anemia- Hemoglobin 9.3 hematocrit 31.0 on admission No present active bleeding Improved from last admission Continue iron Follow serially PG Care Time/CCT Total # of Minutes Spent Total Time Spent with Patient: Total time spent is greater than 50% in coordination of care (as documented) at patient's floor/unit and/or counseling patient: Coding Level of Care Code 00871 INT INP/OBS CARE 3/75MIN Diagnoses Intractable pain R52 Ambulatory dysfunction R26.2 Acute kidney injury superimposed on CKD N17.9; N18.9 Elevated troponin R79.89
[2024-12-14] MEDS: MoRPHine SULFATE 4 MG/ML 1 ML CARP\\VIAL IV PRN (02:19)
[2024-12-14] MEDS ORDERED: ONDANSETRON INJ 2 MG/ML 2 ML VIAL IV PRN (03:40)
[2024-12-14] MEDS ORDERED: MELATONIN 3 MG TAB PO PRN (03:40)
[2024-12-14] MEDS: LACTATED RINGER'S 1,000 ML IV STA (03:45)
[2024-12-14] MEDS: LIDOCAINE 5% 1 PATCH TD ONE (04:21)
[2024-12-14] MEDS: MoRPHine SULFATE 4 MG/ML 1 ML CARP\\VIAL IV STA (04:25)
[2024-12-14 04:38] LABS: Appearance Urine Clear (Clear); Bacteria Urine Automated None Seen (None Seen); Epithelial Cell Urine Auto 0-2 /hpf (0-2); Glucose Urine UA Negative (Negative); RBC Urine Automated 0-2 /hpf (0-2)
[2024-12-14 06:08] LABS: Hematocrit (blood only) 30.3 % (37.0-47.0); Hemoglobin 9.2 g/dl (12.0-16.0); Mean Corpuscular Hemoglobin 27.2 pg (25.0-34.0); Mean Corpuscular Volume 89.6 fL (80.0-100.0); Platelet Count 482 K/uL (130-400); RDW Standard Deviation 56.6 fL (36.4-46.3); Red Blood Count 3.38 M/uL (4.20-5.40); White Blood Count 6.94 K/ul (4.8-10.8)
[2024-12-14 06:25] LABS: Anion Gap 8.0 (3-11); Blood Urea Nitrogen 33.0 mg/dl (6-23); Calcium 9.0 mg/dl (8.6-10.3); Carbon Dioxide 20.0 mmol/L (21-32); Chloride 110.0 mmol/L (98-107); Creatinine Clr Calc Pharmacy 44.9 ml/min; Glucose 123.0 mg/dl (70-99(Fasting)); Potassium 4.2 mmol/L (3.5-5.1); Sodium 138.0 mmol/L (136-145)
[2024-12-14] MEDS: ACETAMINOPHEN 500 MG TAB PO SCH (06:28)
[2024-12-14] MEDS: GABAPENTIN 100 MG CAP PO SCH (08:20)
[2024-12-14] MEDS: METOPROLOL SUCC 25MG EXT REL TAB PO SCH (08:21)
[2024-12-14] MEDS: CHOLECALCIFEROL 125 MCG (5,000 UNITS) TAB PO SCH (08:21)
[2024-12-14] MEDS: APIXABAN 5 MG TABLET PO SCH (08:21)
[2024-12-14] MEDS: REMOVE LIDODERM PATCH ONE (16:46)
[2024-12-14] MEDS: LATANOPROST 0.005% OP SOLN 2.5 ML BTL OPR SCH (20:04)
[2024-12-15 06:32] LABS: Hematocrit (blood only) 28.3 % (37.0-47.0); Hemoglobin 9.0 g/dl (12.0-16.0); Immature Granulocytes # (auto) 0.02 K/uL (0.01-0.20); Immature Granulocytes % (auto) 0.3 %; Mean Corpuscular Hemoglobin 28.5 pg (25.0-34.0); Mean Corpuscular Volume 89.6 fL (80.0-100.0); Platelet Count 473 K/uL (130-400); RDW Standard Deviation 56.9 fL (36.4-46.3); Red Blood Count 3.16 M/uL (4.20-5.40); White Blood Count 7.12 K/ul (4.8-10.8)
[2024-12-15 07:00] LABS: Alanine Aminotransferase 7.0 U/L (7-52); Albumin Globulin Ratio 1.1 (0.9-2); Albumin Level 3.1 gm/dl (3.4-5.0); Alkaline Phosphatase 53.0 U/L (34-104); Anion Gap 6.0 (3-11); Bilirubin,Total 0.7 mg/dl (0.2-1.0); Blood Urea Nitrogen 26.0 mg/dl (6-23); Calcium 9.2 mg/dl (8.6-10.3); Carbon Dioxide 22.0 mmol/L (21-32); Chloride 112.0 mmol/L (98-107); Creatinine Clr Calc Pharmacy 50.6 ml/min; Globulin 2.8 gm/dl (2.5-4.0); Glucose 106.0 mg/dl (70-99(Fasting)); Magnesium 1.9 mg/dl (1.7-2.4); Potassium 4.4 mmol/L (3.5-5.1); Sodium 140.0 mmol/L (136-145); Total Protein 5.9 gm/dl (6.0-8.3)
[2024-12-15 07:14] LABS: INR 1.2 (0.9-1.1); Prothrombin Time 12.6 Seconds (9.0-12.0)
[2024-12-15 07:47] VITALS: RESP 16; TEMP 97.3
[2024-12-15] MEDS: FERROUS SULFATE 325 MG TAB PO SCH (07:50)
--- NOTE | 2024-12-15 10:00 | Hospitalist Progress Note ---
Date of Service December 15, 2024 Assessment & Plan (1) Intractable pain: Plan: -s/p fall with right chest hematoma and right rib fractures -PT recommending rehab placement -case management aware, placement pending (2) Ambulatory dysfunction: Plan: PT/OT Rehab placement (3) Acute kidney injury superimposed on CKD: Plan: -s/p IVF -creatinine at baseline (4) Type 2 diabetes mellitus: Plan: -diet controlled (5) Atrial fibrillation: Plan: -eliquis -metoprolol Plan 89-year-old female PMHx permanent A-fib with anticoagulation no longer on hold, T2DM, CKD stage III, and history of pleural effusions as well as right-sided rib fracture earlier in December presenting for bilateral lower back pain. Her evaluation does reveal consistent anemia slightly increased from prior discharge, creatinine of 1.55, and elevated troponin. CT of the abdomen and pelvis reveals a soft tissue hematoma with known R rib fractures. Admission for intractable pain uncontrolled at home. - Admission and Anticipated Discharge Date Admission Date: December 14, 2024 Subjective No events overnight. Pt resting comfortably in bed. Review of Systems Review of Systems: CONST: Negative for fever, body aches and chills. HENT: Negative for neck pain/stiffness, headache, congestion, sore throat, swelling. EYES: Negative for discharge/pain or vision changes. RESP: Negative for cough/hemoptysis and shortness of breath. CV: Negative chest pain, difficulty breathing, palpitations. ABD: Negative pain, nausea, vomiting. : Negative increase frequency, dysuria, blood in urine or stool. MUSC: Negative for muscle aches, edema. SKIN: Negative rash, lesions/sores. NEURO: Negative headache, dizziness, weakness. Physical Exam Physical Exam: GENERAL APPEARANCE NAD, activity normal for age, well developed/ well nourished, no cyanosis, pallor, or diaphoresis. EYES lids/conjunctiva normal. EARS/NOSE/THROAT Mucous membranes moist, nares normal, lips/teeth normal uvula midline without oral pharyngeal erythema, exudate or swelling TMs normal bilaterally. No lymphangitis/lymphedema. HEAD/NECK normocephalic atraumatic, no facial trauma, neck is supple. RESPIRATORY respiratory effort normal, speaks in full sentences, no tripod position, no accessory muscle use. Lungs clear to auscultation without rhonchi, wheezes, rales CARDIAC Regular rate and rhythm, no edema. ABDOMINAL Soft, ND/NT. No evidence of fluid wave. No pulsatile masses on exam, rebound tenderness, Guajardo sign or pain over Mcburney's point. MUSCLES/EXTREMITIES No abnormal range of motion, no swelling. SKIN Warm, pink and dry. No rashes, dermatoses, petechiae or lesions. NEUROLOGICAL Speech is clear and appropriate. Normal level of consciousness. Gait and coordination are normal. 5/5 strength in all extremities. PSYCH Normal mood and affect. Judgement/competence is appropriate Results & Data Results & Data Vital Signs (Past 12 Hours) Vital Signs Temp Pulse Pulse Resp BP Pulse Ox O2 Del Method 12/15/24 07:47 36.3 C L 84 16 145/89 H 98 Room Air 12/15/24 07:20 87 12/15/24 07:14 87 12/15/24 04:07 36.2 C L 89 20 150/73 H 94 Room Air 12/14/24 23:40 36.3 C L 69 20 155/78 H 98 Room Air PG Care Time/CCT Total # of Minutes Spent Total Time Spent with Patient: Total time spent is greater than 50% in coordination of care (as documented) at patient's floor/unit and/or counseling patient: Coding Level of Care Code 31610 SUB INP/OBS CARE 2/35MIN Diagnoses Intractable pain R52 Ambulatory dysfunction R26.2 Acute kidney injury superimposed on CKD N17.9; N18.9 Type 2 diabetes mellitus E11.9 Atrial fibrillation I48.91
[2024-12-15 11:14] VITALS: BP 127/76; O2SAT 97
--- NOTE | 2024-12-15 14:57 | Discharge Summary ---
Discharge Summary Date of Service December 15, 2024 Principal Dx & Hospital Course #1 = Principal Diagnosis (1) Intractable pain: -s/p fall with right chest hematoma and right rib fractures -PT recommending rehab placement -case management aware, placement pending (2) Ambulatory dysfunction: PT/OT Rehab placement (3) Acute kidney injury superimposed on CKD: -s/p IVF -creatinine at baseline (4) Type 2 diabetes mellitus: -diet controlled (5) Atrial fibrillation: -eliquis -metoprolol Plan 89-year-old female PMHx permanent A-fib with anticoagulation no longer on hold, T2DM, CKD stage III, and history of pleural effusions as well as right-sided rib fracture earlier in December presenting for bilateral lower back pain. Her evaluation does reveal consistent anemia slightly increased from prior discharge, creatinine of 1.55, and elevated troponin. CT of the abdomen and pelvis reveals a soft tissue hematoma with known R rib fractures. Admission for intractable pain uncontrolled at home. - Admission HPI Per Admitting Provider 89-year-old female PMHx permanent A-fib with anticoagulation no longer on hold, T2DM, CKD stage III, and history of pleural effusions as well as right-sided rib fracture earlier in December presenting for bilateral lower back pain. Patient states that since her discharge after admission 11/30/2024 until 12/07/2024, she has had progressive worsening pain that is most severe in the evening/at night when she is trying to sleep. Reports that this pain is along her back at the midway star, along bilateral aspects of her spine. At its worst, it is at a 7 out of 10 on the pain scale, but is currently a 4 out of 10 on the pain scale. If she does not move, the pain is more tolerable. Ambulation or movement makes the pain worse. She states that she is unable to tolerate the pain at home and does not have any assistance at home to help her get around. She denies any bowel or bladder incontinence. Denying chest pain or shortness of breath. No palpitations. Denies abdominal pain, N/V/D/C, numbness/tingling, fever/chills, URI symptoms, LUTS, weakness, falls, or syncope. She is interested in placement opportunities for further rehabilitation. ED evaluation reveals CBC without leukocytosis, H&H 9.3/31.0, platelets 539; PT/INR WNL; CMP BUN 41, creatinine 1.55, ratio 26.5, glucose 122; troponin 24.6, pending repeat; CTAP deep soft tissue hematoma along the posterior lateral aspect of the lower right chest and upper abdomen, multiple lower R rib fractures, gallstones; chest CTA numerous acute right rib fractures with soft tissue hematoma along the posterior lateral aspect of the right chest, no evidence of PE; A-fib, RBBB, T wave abnormality 88 bpm.; Provided with 500 mL NSS, Zofran 4 mg IV, and morphine 2 g IV in ED. Please see Dr. Santana's attestation for adjustments/additions to treatment plan. Discharge Exam GENERAL APPEARANCE NAD, activity normal for age, well developed/ well nourished, no cyanosis, pallor, or diaphoresis. EYES lids/conjunctiva normal. EARS/NOSE/THROAT Mucous membranes moist, nares normal, lips/teeth normal uvula midline without oral pharyngeal erythema, exudate or swelling TMs normal bilaterally. No lymphangitis/lymphedema. HEAD/NECK normocephalic atraumatic, no facial trauma, neck is supple. RESPIRATORY respiratory effort normal, speaks in full sentences, no tripod position, no accessory muscle use. Lungs clear to auscultation without rhonchi, wheezes, rales CARDIAC Regular rate and rhythm, no edema. ABDOMINAL Soft, ND/NT. No evidence of fluid wave. No pulsatile masses on exam, rebound tenderness, Guajardo sign or pain over Mcburney's point. MUSCLES/EXTREMITIES No abnormal range of motion, no swelling. SKIN Warm, pink and dry. No rashes, dermatoses, petechiae or lesions. NEUROLOGICAL Speech is clear and appropriate. Normal level of consciousness. Gait and coordination are normal. 5/5 strength in all extremities. PSYCH Normal mood and affect. Judgement/competence is appropriate Discharge Plan Discharge Items Patient Disposition: Home - Self-Care Reason For Visit: INTRACTABLE PAIN, ARMIDA Discharge Diagnosis: intractable back pain Condition on Discharge: Fair Activity: Resume your previous activity Non-emergency contact: Primary Care Provider Call non-emergency contact if: you have any medication questions Follow-up/Referrals: Rashaun Che DO [Primary Care Provider] - Diet: Regular Addtl Attending Provider Instructions: Follow up with PMD in 2 weeks Pending Studies at Discharge: No Stand-Alone Forms: My [facility], Smoking Cessation Medications and DC Order Prescriptions: Continued cholecalciferol (vitamin D3) 5,000 unit capsule 5,000 units PO QAM vitamin E (dl, acetate) 180 mg (400 unit) capsule 400 unit PO DAILY Eliquis 5 mg tablet 5 mg PO BID Qty: 180 3RF Hold Instructions: resume when ok per physician metformin 500 mg tablet 500 mg PO DAILY Qty: 90 0RF metoprolol succinate 25 mg tablet extended release 24 hr 25 mg PO QAM Qty: 90 3RF ascorbic acid (vitamin C) 1,000 mg tablet 1 gm PO QAM hawthorn rich 565 mg capsule 565 mg PO Q OTHER DAY lutein 20 mg capsule 20 mg PO Q OTHER DAY celecoxib [Celebrex] 100 mg capsule 100 mg PO BID latanoprost 0.005 % drops 1 drp OPR HS Rx Instructions: Instill 1 drop in right eye at bedtime vitamin K2 100 mcg capsule 100 mcg PO Q OTHER DAY coQ10 (ubiquinol) 100 mg Capsule 300 mg PO DAILY curcumin-phosphatidylcholine 500 mg Capsule 500 mg PO DAILY H.A. Factors 1 tab PO BID Methyl B-12 Folate 2 tab PO DAILY Arthritis Formula Tab 2 tab PO DAILY calcium carbonate-vitamin D3 [Calcium 600 with Vitamin D3] 600 mg-12.5 mcg (500 unit) capsule 1 cap PO DAILY acetaminophen [Tylenol Extra Strength] 500 mg Tablet 1,000 mg PO Q8H ferrous sulfate 325 mg (65 mg iron) Tablet,Delayed Release (Dr/Ec) 325 mg PO Q48H Qty: 0 0RF methocarbamol 500 mg tablet 500 mg PO TID PRN (Reason: back pain) Qty: 42 0RF celecoxib 100 mg capsule 100 mg PO BID PRN (Reason: pain) Qty: 28 0RF gabapentin 100 mg capsule 100 mg PO BID Qty: 28 0RF Discharge Orders: Discharge Order (Routine); Ordered 12/15/24 Ordered By: Jose Juan Mcclure Admission Data Admit Date/Time: 12/14/24 01:50 Attending Provider: Jose Juan Mcclure Admit Provider: Oli Santana Primary Care Provider: Rashaun Che Other Providers: Oli Santana; [facility]; [facility] Hospital Stay Data Consultations 12/14/24 01:16 ED Decision to Admit Stat Diagnostic Imagining Performed 12/13/24 22:49 CT abd pelvis IV con only Stat CT angio chest PE protocol Stat Pending Results Patient Have Any Pending Studies at Discharge: No Discharge Instructions Given to Patient (Per Discharging Provider) Follow up with PMD in 2 weeks Total Time Total Time Spent Total Time Spent (In Minutes): 50 Coding Level of Care Code 37751 INP/OBS DISCH >30 MIN Diagnoses Intractable pain R52 Ambulatory dysfunction R26.2 Acute kidney injury superimposed on CKD N17.9; N18.9 Type 2 diabetes mellitus E11.9 Atrial fibrillation I48.91
[2024-12-15 15:23] VITALS: PULSE 80
--- NOTE | 2024-12-17 15:22 | Electrocardiogram Report ---
Test Reason : Blood Pressure : */* mmHG Vent. Rate : 99 BPM Atrial Rate : * BPM P-R Int : * ms QRS Dur : 124 ms QT Int : 378 ms P-R-T Axes : * 81 -30 degrees QTcB Int : 485 ms Atrial fibrillation Right bundle branch block Marked ST abnormality, possible inferior subendocardial injury Abnormal ECG When compared with ECG of 30-Nov-2024 13:42, Minimal criteria for Septal infarct are no longer Present Confirmed by Jesse Sifuentes ([id number]) on 12/17/2024 3:22:17 PM Referred By: REFERRED SELF Confirmed By: Jesse Sifuentes
--- NOTE | 2024-12-17 15:23 | Electrocardiogram Report ---
Test Reason : Blood Pressure : */* mmHG Vent. Rate : 88 BPM Atrial Rate : * BPM P-R Int : * ms QRS Dur : 126 ms QT Int : 384 ms P-R-T Axes : * -8 -18 degrees QTcB Int : 464 ms Atrial fibrillation Right bundle branch block T wave abnormality, consider lateral ischemia Abnormal ECG When compared with ECG of 13-Dec-2024 22:54, (unconfirmed) No significant change Confirmed by Jesse Sifuentes ([id number]) on 12/17/2024 3:23:36 PM Referred By: REFERRED SELF Confirmed By: Jesse Sifuentes
== END 2024-12-15 15:48 | disposition home or self-care (01) | DRG 948 ==
LOC: ED 22:26 → 2N 12-14 01:50 → SUATTDRO 12-14 01:50 → 2N 12-14 03:07